=== PATIENT | female | born 1980 | race Caucasian/White ===

== ENCOUNTER 2022-07-26 00:03 | Emergency (ER) | payer BC, SELFPAY ==
[2022-07-26] VITALS (7 sets, daily range): BP systolic 138–154; BP diastolic 88–96; PULSE 107–115; RESP 18–22; TEMP 37.5; O2SAT 89–96; BMI 54.7
--- NOTE | 2022-07-26 00:22 | CRLHL7_ITS ---
For Patients: As a result of the Century Cures Act, medical imaging exams and procedure reports are released immediately into your electronic medical record. You may view this report before your referring provider. If you have questions, please contact your health care provider. INDICATION: Shortness of breath TECHNIQUE: Chest radiograph 2 views COMPARISON: 01/09/2020 FINDINGS: The sensitivity and specificity of the exam are moderately limited by the patient`s body habitus. Mediastinum: The mediastinum is normal in appearance. The heart silhouette is normal in size and morphology. Lung: New mild diffuse ground-glass infiltrates are present bilaterally. No sign of pleural effusion seen. No pneumothorax is identified. Bone and Soft tissue: Unremarkable for age. IMPRESSION: 1. New mild diffuse ground-glass infiltrates are present bilaterally. Findings may be due to pulmonary edema or atypical pneumonia. Dictated by Simone Caceres MD @ 07/26/2022 1:29:37 AM Dictated by: Simone Caceres MD @ 07/26/2022 01:29:43 (Electronically Signed)
--- NOTE | 2022-07-26 00:24 | ED_ITS ---
HPI - SOB/Dyspnea General Chief Complaint: Cough Stated Complaint: Difficulty Breathing Time Seen by Provider: 07/26/22 00:05 History of Present Illness HPI Narrative: Pt is a 42 year old woman who presents with worsening cough today after being diagnosed in [place] with RSV 3 weeks ago. Pt's cough has persisted over the past 3 weeks inspite of symptomatic treatment. No fever or chills noted. Pt has no chest pain. Minimal shortness of breath. No recent travel or sick contacts. Pt's cough is nonproductive. 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 Pt states that her symptoms are worsening and she is really struggling dealing with the cough. No other significant symptoms. Related Data Home Medications Medication Instructions Recorded Confirmed acyclovir 400 mg tablet 400 mg PO Q12H 07/26/22 07/26/22 albuterol sulfate 2.5 mg/3 mL mg 07/26/22 (0.083 %) solution for nebulization albuterol sulfate 90 mcg/actuation inhalation 07/26/22 aerosol inhaler (Ventolin HFA) deferasirox 500 mg dispersible 500 mg PO .once daily 07/26/22 07/26/22 tablet levothyroxine 88 mcg tablet 88 mcg PO .once daily 07/26/22 07/26/22 loratadine 10 mg tablet (Claritin) 10 mg PO DAILY 07/26/22 07/26/22 sertraline 100 mg tablet 100 mg PO .at bedtime 07/26/22 07/26/22 Allergies Allergy/AdvReac Type Severity Reaction Status Date / Time chlorhexidine Allergy Intermediate hives Verified 07/26/22 00:22 morphine Allergy Intermediate rash Verified 07/26/22 00:22 Review of Systems Status of ROS: Reports: 10 or more systems reviewed and unremarkable except as noted in History and below [facility] Medical History (Updated 07/26/22 @ 03:19 by Price Flores MD) Anxiety 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 Obese with cough EYES: No scleral icterus. ENT: Tympanic membranes and oropharynx normal. THYROID: no thyroid nodules or thyromegaly. LYMPH: No supraclavicular or cervical lymphadenopathy. SKIN: Visible skin seen during exam normal or with benign process only. EXT: No dependent lower extremity pedal edema. HEART: Regular rate and rhythm with no murmurs, rubs, or gallops. LUNGS: Clear to auscultation bilaterally with no crackles or wheezes. ABD: Soft, non tender, non distended. PSYCH: Good eye contact, speech is not pressured. Const: Vital Signs, click to edit/add: Vital Signs - 24 hr 07/26/22 00:23 07/26/22 01:16 07/26/22 01:34 Temperature 99.5 F Pulse Rate [Pulse Oximeter] 110 H 108 H 111 H Respiratory Rate 22 20 20 Blood Pressure [Ri ght Forearm] 154/96 H 153/88 H Pulse Oximetry 96 92 92 Oxygen Delivery Me thod Room Air Room Air Room Air Oxygen Flow Rate 07/26/22 01:45 07/26/22 01:47 07/26/22 02:18 Temperature Pulse Rate [Pulse Oximeter] 108 H 107 H Respiratory Rate 18 20 Blood Pressure [Ri ght Forearm] Pulse Oximetry 89 95 96 Oxygen Delivery Me thod Room Air Nasal Cannula Nasal Cannula Oxygen Flow Rate 1 1 Course Course Hospital Course: Pt seen. EKG, CXR, CBC, CMP, Troponin, D dimer ordered. Reevaluation(s) Reevaluation #1: Chest x ray shows bilateral ground glass appearance. Mild elevation of D dimer. CBC shows leukocytosis and anemia. CT of the chest PE protocol ordered. Reevaluation #2: CT shows atypical pneumonia. Vital Signs Vital signs: Initial Vital Signs Temperature 99.5 F 07/26/22 00:23 Temperature Source Temporal Artery Scan 07/26/22 00:23 Pulse Rate 110 H 07/26/22 00:23 Respiratory Rate 22 07/26/22 00:23 Blood Pressure 154/96 H 07/26/22 00:23 Blood Pressure Mean 115 07/26/22 00:23 Pulse Oximetry 96 07/26/22 00:23 Oxygen Delivery Method 07/26/22 00:23 Vital Signs Temperature 99.5 F 07/26/22 00:23 Pulse Rate 110 H 07/26/22 00:23 Respiratory Rate 22 07/26/22 00:23 Blood Pressure 154/96 H 07/26/22 00:23 Pulse Oximetry 96 07/26/22 00:23 Oxygen Delivery Method 07/26/22 00:23 Temperature 99.5 F 07/26/22 00:23 Pulse Rate 107 H 07/26/22 02:18 Respiratory Rate 20 07/26/22 02:18 Blood Pressure 153/88 H 07/26/22 01:34 Pulse Oximetry 96 07/26/22 02:18 Oxygen Delivery Method 07/26/22 02:18 Oxygen Flow Rate 1 07/26/22 02:18 MDM - SOB/Dyspnea MDM Narrative Medical decision making narrative: Pt who is SP Bone Marrow transplant for pure red cell aplasia presents with cough. Pt oxygen saturation 95% on room air. Pt tests negative for viral eitiologies. Pt Hgb at 8.8 with elevated WBC at 13.58. D dimer mildly elevated. CXR showed bilateral ground glass. CT of the chest showed no PE but atypical pneumonia. Pt troponin negative. Lactate n egative. Pt mildly tachycardic. I have no hospital beds here tonight. Pt comfortable. I offered to call her transplant center at [facility] but she states she would rather follow up with them at her scheduled appt Thursday. Pt started on Zithromax, Augmentin and Prednisone with CLOSE outpt follow up. Differential Diagnosis Differential diagnosis: Likely acute exacerbation of chronic obstructive airways disease, congestive heart failure, community acquired pneumonia, asthma with exacerbation and pulmonary embolism Lab Data Labs: Lab Results 07/26/22 07/26/22 07/26/22 Range/Units 00:45 00:45 00:45 WBC 13.58 H (4.50-11.00) K/uL RBC 2.36 L (4.00-5.20) m/uL Hgb 8.8 L (12.0-16.0) gm/dL Hct 26.4 L (33.0-51.0) % MCV 112 H (80-100) fL MCH 37 H (26-34) pg MCHC 33 (32-36) gm/dL RDW Coeff of Panda 15.8 H (11.5-15.5) % Plt Count 274 (140-440) K/uL Neut % (Auto) 83.2 H (42.0-72.0) % Lymph % (Auto) 9.2 L (20-44) % Luna % (Auto) 4.9 (0.0-11.0) % Eos % (Auto) 1.4 (0.0-7.0) % Baso % (Auto) 0.1 (0.0-3.0) % Neut # (Auto) 11.30 H (1.7-7.0) K/uL Lymph # (Auto) 1.20 (0.90-2.90) K/uL Luna # (Auto) 0.70 (0.00-0.90) K/UL Eos # (Auto) 0.20 (0.00-0.50) K/uL Baso # (Auto) 0.00 (0.00-0.30) K/uL D-Dimer Quant (PE/DVT) 0.62 H (0.00-0.50) ug/ml Sodium 142 (135-149) mmol/L Potassium 3.6 (3.6-5.1) mmol/L Chloride 109 (96-114) mmol/L Carbon Dioxide 27 (20-32) mmol/L BUN 27 H (5-24) mg/dL Creatinine 1.5 (0.5-1.5) mg/dL Estimated Creat Clear 49.79 Estimated GFR 45 ml/min Glucose 136 H (60-115) mg/dL Lactate (0.5-1.9) mmol/L Calcium 9.2 (8.4-10.6) mg/dL Total Bilirubin 0.5 (0.1-1.5) mg/dL AST 23 (12-35) U/L ALT 28 (4-35) U/L Alkaline Phosphatase 85 (40-150) U/L Troponin I < 0.01 L (0.01-0.04) ng/mL NT-Pro-B Natriuret Pep pg/mL Total Protein 8.0 (6.0-8.3) g/dL Albumin 3.9 (3.3-5.0) g/dL SARS-CoV-2 (PCR) (Negative) Influenza Type A (PCR) (Negative) Influenza Type B (PCR) (Negative) RSV (PCR) (Negative) 07/26/22 07/26/22 07/26/22 Range/Units 00:45 00:45 02:24 WBC (4.50-11.00) K/uL RBC (4.00-5.20) m/uL Hgb (12.0-16.0) gm/dL Hct (33.0-51.0) % MCV (80-100) fL MCH (26-34) pg MCHC (32-36) gm/dL RDW Coeff of Panda (11.5-15.5) % Plt Count (140-440) K/uL Neut % (Auto) (42.0-72.0) % Lymph % (Auto) (20-44) % Luna % (Auto) (0.0-11.0) % Eos % (Auto) (0.0-7.0) % Baso % (Auto) (0.0-3.0) % Neut # (Auto) (1.7-7.0) K/uL Lymph # (Auto) (0.90-2.90) K/uL Luna # (Auto) (0.00-0.90) K/UL Eos # (Auto) (0.00-0.50) K/uL Baso # (Auto) (0.00-0.30) K/uL D-Dimer Quant (PE/DVT) (0.00-0.50) ug/ml Sodium (135-149) mmol/L Potassium (3.6-5.1) mmol/L Chloride (96-114) mmol/L Carbon Dioxide (20-32) mmol/L BUN (5-24) mg/dL Creatinine (0.5-1.5) mg/dL Estimated Creat Clear Estimated GFR ml/min Glucose (60-115) mg/dL Lactate 0.5 (0.5-1.9) mmol/L Calcium (8.4-10.6) mg/dL Total Bilirubin (0.1-1.5) mg/dL AST (12-35) U/L ALT (4-35) U/L Alkaline Phosphatase (40-150) U/L Troponin I (0.01-0.04) ng/mL NT-Pro-B Natriuret Pep 260 pg/mL Total Protein (6.0-8.3) g/dL Albumin (3.3-5.0) g/dL SARS-CoV-2 (PCR) Negative SARS-CoV-2 (Negative) Influenza Type A (PCR) Negative PCR FLU A (Negative) Influenza Type B (PCR) Negative PCR FLU B (Negative) RSV (PCR) Negative PCR RSV (Negative) Discharge Plan Discharge Clinical Impression: Atypical pneumonia Patient Disposition: Home, Self-Care Condition: Stable Instructions: Pneumonia (ED) Additional Instructions: Zithormax Augmentin Prednisone Continue current medications Follow up with Transplant Center on Thursday. Activity Level: No Restrictions Discharge Diet: Regular Prescriptions: No Action albuterol sulfate 2.5 mg /3 mL (0.083 %) solution for nebulization sertraline 100 mg tablet 100 mg PO .at bedtime acyclovir 400 mg tablet 400 mg PO Q12H levothyroxine 88 mcg tablet 88 mcg PO .once daily albuterol sulfate [Ventolin HFA] 90 mcg/actuation HFA aerosol inhaler INHALATION deferasirox 500 mg tablet, dispersible 500 mg PO .once daily loratadine [Claritin] 10 mg tablet 10 mg PO DAILY Stand Alone Forms: MyHealth Info Instructions
[2022-07-26 00:57] LABS: Basophils Percent Auto 0.1 % (0.0-3.0); Eosinophils Percent Auto 1.4 % (0.0-7.0); Hematocrit 26.4 % (33.0-51.0); Hemoglobin* 8.8 gm/dL (12.0-16.0); Immature Granulocytes Pct Auto 1.2 %; Lymphocytes Percent Auto 9.2 % (20-44); Mean Corpuscular HGB Conc 33 gm/dL (32-36); Mean Corpuscular Hemoglobin 37 pg (26-34); Mean Corpuscular Volume 112 fL (80-100); Monocytes Percent Auto 4.9 % (0.0-11.0); Neutrophils Percent Auto 83.2 % (42.0-72.0); Platelet Count* 274 K/uL (140-440); RDW Coefficient of Variation % 15.8 % (11.5-15.5); Red Blood Count 2.36 m/uL (4.00-5.20); White Blood Count* 13.58 K/uL (4.50-11.00)
[2022-07-26 01:07] LABS: Slide Review Reflex No
--- NOTE | 2022-07-26 01:13 | ED.NURSE ---
Patient's oxygen desaturates to 85% on RA with activity. Recovers with rest after several minutes. Currently, 92% on RA while resting on the cot.
[2022-07-26 01:17] LABS: Albumin* 3.9 g/dL (3.3-5.0); Chloride* 109 mmol/L (96-114)
[2022-07-26 01:18] LABS: Potassium* 3.6 mmol/L (3.6-5.1); Sodium* 142 mmol/L (135-149)
[2022-07-26 01:20] LABS: Alkaline Phosphatase* 85 U/L (40-150); Aspartate Amino Transferase* 23 U/L (12-35); Bilirubin Total* 0.5 mg/dL (0.1-1.5); Blood Urea Nitrogen* 27 mg/dL (5-24); Carbon Dioxide* 27 mmol/L (20-32); Creatinine* 1.5 mg/dL (0.5-1.5); Est. Creatinine Clearance* 49.79; Estimated Glomerular Filt Rate 45 ml/min
[2022-07-26 01:21] LABS: Alanine Aminotransferase* 28 U/L (4-35); Calcium* 9.2 mg/dL (8.4-10.6); Glucose* 136 mg/dL (60-115)
[2022-07-26 01:22] LABS: D Dimer Quantitative* 0.62 ug/ml (0.00-0.50)
--- NOTE | 2022-07-26 01:29 | CRLHL7_ITS ---
For Patients: As a result of the Century Cures Act, medical imaging exams and procedure reports are released immediately into your electronic medical record. You may view this report before your referring provider. If you have questions, please contact your health care provider. INDICATION: Shortness of breath. Elevated D-dimer. COMPARISON: Chest two views from today. TECHNIQUE: CT examination of the chest was performed with the uneventful intravenous administration of 95 cc of Isovue 370 while 1.5 mm thick axial sections were obtained from above the apices of the lungs through the mid renal level. Please note that all CT scans at this facility use dose modulation, iterative reconstruction, and/or weight-based dosing when appropriate to reduce radiation dose to as low as reasonably achievable. FINDINGS: : There is no sign of pulmonary embolism, with normal enhancement and branching of the pulmonary arteries. There is mild patchy perihilar interstitial infiltrate with a combination of ground-glass and reticular markings, consistent with either atypical pneumonia or mild congestive failure. I do not see any pleural effusions, suggesting atypical pneumonia as a cause of the infiltrates rather than congestive failure. There is mild mediastinal lymphadenopathy with a right paratracheal lymph node with short axis diameter of 1.5 centimeters and right subcarinal lymph node with short axis diameter of 1.2 centimeters. This lymphadenopathy is nonspecific, but could be reactive. There is no sign of hilar mass or adenopathy. The heart is top-normal in size but is otherwise normal in appearance. There is age appropriate appearance of the thoracic aorta and ascending great vessels. There is no sign of supraclavicular or axillary mass or adenopathy. The visualized superior liver, spleen, pancreas, kidneys, and adrenals are normal in appearance. The osseous structures are normal in appearance for the patient`s age. IMPRESSION: No sign of pulmonary embolism. Mild patchy ground-glass and interstitial infiltrates relatively uniformly distributed throughout the lungs. Atypical pneumonia versus mild congestive failure. The absence of pleural effusions is suggestive of atypical pneumonia. Mild mediastinal lymphadenopathy, probably reactive. Please note that all CT scans at this facility use dose modulation, iterative reconstruction, and/or weight-based dosing when appropriate to reduce radiation dose to as low as reasonably achievable. Dictated by Garett White MD @ 07/26/2022 3:05:11 AM (Electronically Signed)
[2022-07-26 01:33] LABS: Troponin I* < 0.01 ng/mL (0.01-0.04)
[2022-07-26 01:34] LABS: PCR FLU A Negative PCR FLU A (Negative); PCR FLU B Negative PCR FLU B (Negative); PCR RSV Negative PCR RSV (Negative); SARS PCR* Negative SARS-CoV-2 (Negative)
[2022-07-26 02:27] LABS: Lactate* 0.5 mmol/L (0.5-1.9)
[2022-07-26 02:30] LABS: NT Pro B Type NatriureticPept* 260 pg/mL
== END 2022-07-26 03:40 | disposition home or self-care (01) ==
PROVIDERS: Emergency Provider Internal Medicine; PCP Physician Assistant
DX: J18.9 Pneumonia, unspecified organism (principal)
CPT/HCPCS: 36415; 71046; 71260; 80053; 83605; 83880; 84484; 85025; 85379; 87502; 87634; 87635; 93005; 99283; 99285; Q9967

== ENCOUNTER 2023-01-27 10:53 | Emergency (ER) | payer BC, SELFPAY ==
[2023-01-27 10:55] VITALS: BP 170/99; PULSE 87; RESP 20; TEMP 36.4; O2SAT 99; BMI 64.9
--- NOTE | 2023-01-27 11:25 | ED.GENADULT ---
HPI - General Adult General Time Seen by Provider: 11:25 Date Seen: 01/27/23 Chief complaint: Unspecified Complaint, Adult Stated complaint: Feet swollen, elevated heartrate, fever Time Seen by Provider: 01/27/23 10:53 Source: patient and RN notes reviewed Mode of arrival: ambulatory Limitations: no limitations History of Present Illness HPI narrative: Patient is a 42-year-old female coming with primary concern of nausea and diarrhea. She has had diarrhea since yesterday after eating, maybe 78 liquidy stools yesterday and 2-3 today. She has felt feverish and chilled since yesterday has had a headache. She has had nausea but no vomiting. She has had some toast and been taking in water to stay hydrated. 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 She had this at [facility], Dr. Jordan is her assurance officer. 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 She has started getting a phlebotomy due to iron overload from having over 25 units of packed red blood cell transfusions during her illness. She is going to get phlebotomy once a month, had her 1st 1 on Thursday in [place]. She states her ferritin was 2500. She also brought up that her feet have been bothering her this is been going on for months. She states they will become edematous, it did note pitting edema before. She is not short of breath. Her feet are hurting to walk. She also related to me that she lost her fiance in the recent past at 39 due to natural causes. She denies any history of skin changes with her evzxh-dthvnn-tifm disease, states it was just GI. Patient also reports she did have C difficile colitis about a year ago, states the what her symptoms are are not anywhere near what that felt like. Related Data Home Medications Medication Instructions Recorded Confirmed acyclovir 400 mg tablet 400 mg PO Q12H 07/26/22 07/26/22 albuterol sulfate 2.5 mg/3 mL mg 07/26/22 (0.083 %) solution for nebulization albuterol sulfate 90 mcg/actuation inhalation 07/26/22 aerosol inhaler (Ventolin HFA) deferasirox 500 mg dispersible 500 mg PO .once daily 07/26/22 01/27/23 tablet levothyroxine 88 mcg tablet 88 mcg PO .once daily 07/26/22 01/27/23 loratadine 10 mg tablet (Claritin) 10 mg PO DAILY 07/26/22 01/27/23 atorvastatin 20 mg tablet 20 mg PO DAILY 01/27/23 01/27/23 escitalopram oxalate 10 mg tablet 10 mg PO DAILY 01/27/23 01/27/23 escitalopram oxalate 20 mg tablet 20 mg PO DAILY 01/27/23 01/27/23 Previous Rx's Medication Instructions Recorded ondansetron 4 mg disintegrating 4 mg PO Q8H PRN nausea and 01/27/23 tablet vomiting #15 tabs Allergies Allergy/AdvReac Type Severity Reaction Status Date / Time chlorhexidine Allergy Intermediate hives Verified 07/26/22 00:22 morphine Allergy Intermediate rash Verified 07/26/22 00:22 Review of Systems Status of ROS: Reports: 6 or more systems reviewed and unremarkable except as noted in History and below [facility] Medical History Transplanted bone marrow present ?Z94.81 - Bone marrow transplant status (ICD-10) Anxiety ?F41.9 - Anxiety disorder, unspecified (ICD-10) 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) Social History Smoking Status: Never smoker Do you use any of these nicotine containing products: None Second hand tobacco smoke exposure: No How often do you have a drink containing alcohol: never How often do you have six or more drinks on one occasion: Never AUDIT-C Alcohol total score: 0 Non-prescribed substance use: denies use service: No Exam Const: Vital Signs, click to edit/add: Vital Signs - 24 hr 01/27/23 10:55 01/27/23 14:03 Temperature 97.5 F L Pulse Rate [Right Pulse Oximeter] 87 78 Respiratory Rate 20 18 Blood Pressure [Ri ght Upper Arm] 170/99 H 150/98 H Pulse Oximetry 99 99 Oxygen Delivery Me thod Room Air Documenting provider has reviewed patient's vital signs: yes Common normals: no apparent distress, average body habitus, oriented x3, no limitations, healthy appearing, alert and well nourished General appearance: cooperative, comfortable, well kempt and well developed Nutritional appearance: obese HENMT: Common normals: normocephalic, head/scalp atraumatic, hearing grossly normal bilaterally, external ears normal and external nose normal Head and scalp: normal to inspection, normocephalic and atraumatic Face and sinus: normal facial exam Nose: external nose normal External ear: external ears normal Eye: Common normals: PERRL, EOMs intact bilaterally, conjunctivae normal and no scleral icterus Conjunctiva: conjunctiva(e) normal Pupil: PERRL Neck & C-Spine: Common normals: full ROM, no lymphadenopathy and supple Resp: Common normals: normal respiratory effort, no retractions, no use of accessory muscles and clear to auscultation bilaterally Effort & inspection: able to speak in complete sentences Auscultation: clear to auscultation bilaterally Cardio: Common normals: regular rate, regular rhythm, S1 normal heart sound, S2 normal heart sound, no gallops, no clicks and no murmurs Rate: regular rate Rhythm: regular rhythm Heart sounds: S1 normal and S2 normal GI: Common normals: soft to palpation and non-tender Auscultation: hypoactive bowel sounds Palpation: soft Other: Patient is obese which precludes good evaluation for any underlying masses. She is however completely not tender at all, no rebound or guarding. Extremity: Other: Her lower extremities are thick, but there is absolutely no pitting edema. No pitting edema on the dorsum of the feet. There is no skin changes such as erythema, no joint effusions. She has no physical pitting edema of her lower extremities at this time. Neuro: Common normals: oriented x3 Sensorium/orientation: alert Psych: Appearance: well kempt Course Course Hospital Course: Have reviewed with Cyndy that this very likely represents an acute gastrointestinal issue/illness and not recurrent bsoko-buaazt-enui disease. However, we will get labs. Ultimately if she has ongoing a prolonged GI symptoms, this may need to be considered. She potentially would need scopes to get tissue for diagnosis of this. Reviewed with her that that is limiting step in diagnosing this. We did discuss that the diarrhea from eodfr-cbypxn-tdom disease can be quite profound. Given her benign clinical exam, do not feel that imaging of her abdomen is indicated. Will reconsider this if there is any concerning abnormalities on her labs. We did discuss her feet and report of edema. I am finding no edema at this time. Did discuss that at some point she should probably have x-rays of her feet to see if there is any bony changes developing such as arthritis. We did discuss the weight affects on the feet. At this time she declines imaging here states she is going to be following up in clinic tomorrow. I do feel that her complaints of her feet hurting and the edema she is reporting are safe to follow-up further tomorrow. We will be getting some baseline labs and certainly if there is any concerning change on these we will look further. Reevaluation(s) Time of Reevaluation #1: 13:51 Reevaluation #1: Patient is feeling better but nausea is starting to slowly come back. Will give her another dose of IV Zofran prior to discharge. We reviewed her normal white blood count, normal labs outside of a hemoglobin of 11.5 which she states is a bit higher than which she usually runs. We reviewed that her AST is mildly up at 41 and ALT mildly up at 64. I will give her these values to compare to her labs in her primary system. The certainly are not elevated enough that I am concerned other than they be followed up on. Vital Signs Vital signs: Initial Vital Signs Temperature 97.5 F L 01/27/23 10:55 Temperature Source Temporal Artery Scan 01/27/23 10:55 Pulse Rate 87 01/27/23 10:55 Respiratory Rate 20 01/27/23 10:55 Blood Pressure 170/99 H 01/27/23 10:55 Blood Pressure Mean 122 H 01/27/23 10:55 Blood Pressure Position Sitting 01/27/23 10:55 Pulse Oximetry 99 01/27/23 10:55 Oxygen Delivery Method Room Air 01/27/23 10:55 Vital Signs Temperature 97.5 F L 01/27/23 10:55 Pulse Rate 87 01/27/23 10:55 Respiratory Rate 20 01/27/23 10:55 Blood Pressure 170/99 H 01/27/23 10:55 Pulse Oximetry 99 01/27/23 10:55 Oxygen Delivery Method Room Air 01/27/23 10:55 Temperature 97.5 F L 01/27/23 10:55 Pulse Rate 78 01/27/23 14:03 Respiratory Rate 18 01/27/23 14:03 Blood Pressure 150/98 H 01/27/23 14:03 Pulse Oximetry 99 01/27/23 14:03 Oxygen Delivery Method Room Air 01/27/23 10:55 Medical Decision Making Lab Data Lab results reviewed: Yes I reviewed the patient's lab results Labs: Lab Results 01/27/23 01/27/23 Range/Units 12:05 12:15 WBC 5.80 (4.50-11.00) K/uL RBC 3.26 L (4.00-5.20) m/uL Hgb 11.5 L (12.0-16.0) gm/dL Hct 34.6 (33.0-51.0) % MCV 106 H (80-100) fL MCH 35 H (26-34) pg MCHC 33 (32-36) gm/dL RDW Coeff of Panda 15.4 (11.5-15.5) % Plt Count 222 (140-440) K/uL Neut % (Auto) 62.0 (42.0-72.0) % Lymph % (Auto) 27.4 (20-44) % Anson % (Auto) 6.9 (0.0-11.0) % Eos % (Auto) 2.8 (0.0-7.0) % Baso % (Auto) 0.2 (0.0-3.0) % Neut # (Auto) 3.60 (1.7-7.0) K/uL Lymph # (Auto) 1.59 (0.90-2.90) K/uL Anson # (Auto) 0.40 (0.00-0.90) K/UL Eos # (Auto) 0.16 (0.00-0.50) K/uL Baso # (Auto) 0.01 (0.00-0.30) K/uL Abs Immat Gran (auto) 0.04 (0.00-0.30) K/uL Imm/Tot Granulo (auto) 0.7 % Sodium 138 (135-149) mmol/L Potassium 3.7 (3.6-5.1) mmol/L Chloride 103 (96-114) mmol/L Carbon Dioxide 29 (20-32) mmol/L BUN 21 (5-24) mg/dL Creatinine 1.1 (0.5-1.5) mg/dL Estimated Creat Clear 67.89 Estimated GFR 65 ml/min Glucose 119 H (60-115) mg/dL Lactate 1.0 (0.5-1.9) mmol/L Calcium 9.1 (8.4-10.6) mg/dL Total Bilirubin 0.6 (0.1-1.5) mg/dL AST 41 H (12-35) U/L ALT 64 H (4-35) U/L Alkaline Phosphatase 61 (40-150) U/L C-Reactive Protein 2.0 H (0.5-1.0) mg/dL Total Protein 7.8 (6.0-8.3) g/dL Albumin 4.1 (3.3-5.0) g/dL SARS-CoV-2 (PCR) Negative SARS-CoV-2 (Negative) Discharge Plan Discharge Clinical Impression: Gastroenteritis Patient Disposition: Home, Self-Care Condition: Stable Instructions: Gastroenteritis (ED), Nutrition Tips for Relief of Diarrhea (ED) Additional Instructions: Take frequent small sips of clear liquids to stay hydrated, will help prevent further nausea and vomiting. Can use Zofran as needed to try to control nausea so that you can drink better. Diet as tolerated, review handout. If you are worsening with increasing diarrhea and vomiting, develops abdominal pain or fever with this, see any blood in the stool or have increasing diarrheal symptoms, you do need to be re-evaluated. If your diarrheal illness is worsening, would recommend consideration of checking stool for C difficile and other stool pathogens. Note, liver enzymes ast 41 and alt 64 here today, compare with outpatient tests and follow if needed, defer to primary provider on this. Prescriptions: New ondansetron 4 mg tablet,disintegrating 4 mg PO Q8H PRN (Reason: nausea and vomiting) Qty: 15 0RF No Action albuterol sulfate 2.5 mg /3 mL (0.083 %) solution for nebulization acyclovir 400 mg tablet 400 mg PO Q12H levothyroxine 88 mcg tablet 88 mcg PO .once daily albuterol sulfate [Ventolin HFA] 90 mcg/actuation HFA aerosol inhaler INHALATION deferasirox 500 mg tablet, dispersible 500 mg PO .once daily loratadine [Claritin] 10 mg tablet 10 mg PO DAILY atorvastatin 20 mg tablet 20 mg PO DAILY escitalopram oxalate 10 mg tablet 10 mg PO DAILY escitalopram oxalate 20 mg tablet 20 mg PO DAILY Follow Up/Referrals: Caren Gómez PA [Referring] - Stand Alone Forms: [employer] [facility] Info Instructions
[2023-01-27] MEDS: ONDANSETRON 2 MG/ML inj 4 MG IVP ×2 (12:13→14:07)
[2023-01-27] MEDS: 0.9 % SODIUM CHLORIDE 1000 ml 1,000 ML 500 ML IV (12:14)
[2023-01-27 12:17] LABS: Basophils Absolute Auto 0.01 K/uL (0.00-0.30); Basophils Percent Auto 0.2 % (0.0-3.0); Eosinophils Absolute Auto 0.16 K/uL (0.00-0.50); Eosinophils Percent Auto 2.8 % (0.0-7.0); Hematocrit 34.6 % (33.0-51.0); Hemoglobin* 11.5 gm/dL (12.0-16.0); Immature Granulocytes Abs Auto 0.04 K/uL (0.00-0.30); Immature Granulocytes Pct Auto 0.7 %; Lymphocytes Absolute Auto 1.59 K/uL (0.90-2.90); Lymphocytes Percent Auto 27.4 % (20-44); Mean Corpuscular HGB Conc 33 gm/dL (32-36); Mean Corpuscular Hemoglobin 35 pg (26-34); Mean Corpuscular Volume 106 fL (80-100); Monocytes Percent Auto 6.9 % (0.0-11.0); Platelet Count* 222 K/uL (140-440); RDW Coefficient of Variation % 15.4 % (11.5-15.5); Red Blood Count 3.26 m/uL (4.00-5.20)
[2023-01-27 12:18] LABS: Slide Review Reflex No
[2023-01-27 12:44] LABS: Albumin* 4.1 g/dL (3.3-5.0); Chloride* 103 mmol/L (96-114); Sodium* 138 mmol/L (135-149)
[2023-01-27 12:45] LABS: Potassium* 3.7 mmol/L (3.6-5.1)
[2023-01-27 12:47] LABS: Bilirubin Total* 0.6 mg/dL (0.1-1.5); Creatinine* 1.1 mg/dL (0.5-1.5); Est. Creatinine Clearance* 67.89; Estimated Glomerular Filt Rate 65 ml/min
[2023-01-27 12:48] LABS: Alanine Aminotransferase* 64 U/L (4-35); Alkaline Phosphatase* 61 U/L (40-150); Aspartate Amino Transferase* 41 U/L (12-35); Blood Urea Nitrogen* 21 mg/dL (5-24); Calcium* 9.1 mg/dL (8.4-10.6); Carbon Dioxide* 29 mmol/L (20-32); Glucose* 119 mg/dL (60-115); Total Protein* 7.8 g/dL (6.0-8.3)
[2023-01-27 13:01] LABS: SARS PCR* Negative SARS-CoV-2 (Negative)
[2023-01-27 14:03] VITALS: BP 150/98; PULSE 78; RESP 18; O2SAT 99
== END 2023-01-27 14:26 | disposition home or self-care (01) ==
PROVIDERS: Emergency Provider Family Medicine; PCP Student in an Organized Health Care Education/Training Program
DX: K52.9 Noninfective gastroenteritis and colitis, unspecified (principal)
CPT/HCPCS: 36415; 80053; 83605; 85025; 86140; 87635; 96361; 96374; 96376; 99284; J2405; J7030

== ENCOUNTER 2023-08-17 14:20 | Outpatient (CLI) | payer BC, SELFPAY ==
--- OUTSIDE RECORDS SUMMARY | 2023-08-17 14:25 | XMS_ITS | Clinical Summary ---
Author Name Unknown Organization [facility] Address [place], [place] [address] Care Team Providers Care Recenterer Name Role Phone Concha Rabago MD Unavailable Payton Eason NP Unavailable Nyasia Prince Unavailable Unavailable Dee Chris Primary Care Provider [phone] Allergies Active Allergy Reactions Criticality Noted Date Comments Blood-Group Specific Substance 12/02/2009 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 Blood product orders may be delayed. ??Please draw one red top and two lavender top tubes for all Type and Screen/Type and Crossmatch orders. Chlorhexidine Gluconate Hives,Rash High 04/06/2021 Broke out in hives from CHG wipes Lanolin Oil Rash Medium 12/02/2009 Has reacted since to lanolin-containing products and wool Mold Dyspnea 10/24/2016 ground mold Morphine Rash High 12/01/2009 Adhesive Rash 12/01/2009 Sheep/Ovine/Jean Containing Products Rash Medium 12/02/2009 Sulfamethoxazole-Trimethopr im Itching High 11/05/2021 Wool Rash Medium 12/02/2009 Medications Medication Sig Dispensed Refills Start Date End Date Status loratadine (CLARITIN) 10 mg tablet Take 10 mg by mouth once daily. 0 Active Deferasirox 500 mg disintegrating tablet Take 1 Tablet (500 mg) by mouth once daily. 0 12/23/2021 Active atorvastatin (LIPITOR) 20 mg tabletIndications:Hype rlipidemia, unspecified hyperlipidemia type Take 1 Tablet (20 mg) by mouth at bedtime. 90 Tablet 3 09/15/2022 Active escitalopram oxalate (LEXAPRO) 20 mg tabletIndications:Anxi ety Take 1 Tablet (20 mg) by mouth every morning. Dose increase 11/11/22 90 Tablet 1 11/11/2022 Active acetaminophen (TYLENOL ARTHRITIS ORAL) Take 2 Tablets by mouth two times daily. 0 Active clindamycin 1% (CLEOCIN-T) 1 % gel Apply topically to affected area(s). 0 10/20/2022 Active levothyroxine (SYNTHROID) 88 mcg tabletIndications:Hypo thyroidism (acquired) TAKE 1 TABLET(88 MCG) BY MOUTH BEFORE BREAKFAST 90 Tablet 0 05/10/2023 Active fluticasone (50 mcg per actuation) nasal solution (FLONASE)Indications:S inusitis, unspecified chronicity, unspecified location Inhale 1 [place] into affected nostril(s) once daily. 16 g 0 05/30/2023 Active Active Problems Problem Noted Date Diagnosed Date Type 2 diabetes mellitus wit hout complication, without long-term current use of insulin 05/11/2023 Last Assessment & Plan: Chart update only. LESLIE Hardwick .................... 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 Had 3 Units of blood at [facility]. Work up pending. Had high SED Rate and CRP also. Peripheral smear before blood transfusion pending from Hospital. Morbid obesity with BMI of 50.0-59.9, adult 02/10 Hypothyroidism (acquired) 02/20/2017 Vitamin D deficiency 02/10/2010 Heartburn 12/01/2009 Migraine 04/14/2008 Resolved Problems Problem Noted Date Diagnosed Date Resolved Date Mild preeclampsia 12/01/2009 09/09/2022 Gestational edema with proteinuria 12/01/2009 01/06/2011 Hx of preeclampsia, prior pr egnancy, currently 12/01/2009 01/06/2011 Obesity complicating 12/01/2009 09/09/2022 Supervision of other normal 05/08/2009 12/01/2009 Unspecified asthma(493.90) 04/14/2008 0 09/09/2022 Encounters Date Type Department Care Team Description 08/17/2023 2:30 PM SALES MARKETING MANAGER Office Visit [facility] [address] [place] [address] Meghan Rider PA Back Pain (Patient complains of lower back pain for 1 1/2 weeks. Pain radiates back and towards front. Movement really hurts. Right leg hurts from the pain./Denies any other symptoms./Couldn't get comfortable sleeping, excruciating pain with movement./Tylenol arthritis 800 mg BID has not helped. 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 Couldn't sleep last night. ) 08/17/2023 Travel 08/07/2023 3:30 PM SALES MARKETING MANAGER - 08/07/2023 11:59 PM SALES MARKETING MANAGER Hospital Encounter [facility] [address] [place] [address] Iron overload due to repeated red blood cell transfusions 08/07/2023 Travel 08/04/2023 3:30 PM SALES MARKETING MANAGER - 08/04/2023 11:59 PM SALES MARKETING MANAGER Hospital Encounter [facility] [address] [place] [address] Macrocytic anemia 08/04/2023 Travel 07/30/2023 Hospital/[facility] Telephone Encounter [facility] [address] [place] [address] Nahomy Castellanos RN Pre Procedure 07/27/2023 4:02 PM SALES MARKETING MANAGER - 07/27/2023 11:59 PM SALES MARKETING MANAGER Hospital Encounter [facility] [address] [facility] [place] [address] Donny Brown MD Leduc, Matthew, PT 07/27/2023 Travel 07/17/2023 2:59 PM SALES MARKETING MANAGER - 07/17/2023 11:59 PM SALES MARKETING MANAGER Hospital Encounter [facility] [address] [facility] [place] [address] Donny Brown MD Leduc, Matthew, PT Patellofemoral arthralgia of left knee; Patellofemoral maltracking 07/17/2023 7:20 AM SALES MARKETING MANAGER Procedure Only [facility] [address] [place] [address] Trace Canela MD Procedure (Ultrasound guided injection lef... 07/16/2023 Travel 07/10/2023 9:00 AM SALES MARKETING MANAGER - 07/10/2023 11:59 PM SALES MARKETING MANAGER Hospital Encounter [facility] [address] [facility] [place] [place] [address] Iron overload due to repeated red blood cell transfusions 07/10/2023 Travel 07/08/2023 Hospital/[facility] Telephone Encounter [facility] [address] [facility] [place] [address] Dee Corbin RN Pre Procedure (PVP) 07/07/2023 8:58 AM SALES MARKETING MANAGER - 07/07/2023 11:59 PM SALES MARKETING MANAGER Hospital Encounter [facility] [address] [facility] [place] [address] Macrocytic anemia 07/07/2023 Travel 06/19/2023 Telephone [facility] [address] [facility] [place] [address] Payton Eason, MANUFACTURING ENGINEER ASSEMBLY Appointment 06/15/2023 4:00 PM SALES MARKETING MANAGER Ancillary Procedure [facility] [place] [address] [place] [address] 06/15/2023 3:40 PM SALES MARKETING MANAGER Office Visit [facility] [place] [address] [place] [address] Donny Brown MD Consult (Left Knee) 06/15/2023 Travel 06/11/2023 Telephone [facility] [address] [place] [address] Payton Eason NP Appointment 05/30/2023 9:40 AM SALES MARKETING MANAGER Telemedicine [facility] [address] [place] [address] Apolinar Vasquez NP Influenza Like Illness (Telehealth (Virtual urgent care). No vitals taken.) 05/30/2023 Travel 05/20/2023 2:47 PM SALES MARKETING MANAGER - 05/20/2023 11:59 PM SALES MARKETING MANAGER Hospital Encounter [facility] [address] [place] [address] Dee Chris PA Chronic pain of left knee 05/20/2023 Travel from Last 3 Months Immunizations Name Administration Dates Next Due COVID-19 Vaccine Spikevax (M oderna 50mcg/0.5mL) 12YO+ [id number] Formula PF 05/04/2023 COVID-19 vaccine (Epigami-Bio NTech 30mcg/0.3mL) 12YO+ BIVALENT PF, MDV 09/09/2022 [id number] (Pediarix) 05/01/2023,09/09/2022,1 HIB PRP-OMP (PedvaxHIB) 09/09/2022 HIB PRP-T (ActHIB,Hiberix) 05/01/2023,05/01/2022 Influenza Virus, Unspecified 05/01/2022 Influenza, IIV4 05/04/2023,05/01/2022,06/10/2021 MMR 05/01/2023 Pneumococcal conj 13-Valent (Prevnar 13) 023 Tdap 02/23/2018,04/17/2008 Zoster (Shingrix-RZV, recombinant) 09/09/2022, Family History Medical History Relation Name Comments Other Father Spinal stinosis from infection relating to gastric bypass Unknown Maternal Grandfather Diabetes Maternal Grandmother Cancer-breast Mother breast, lobula r in the r, ductal in the l. Other Mother blood clots, PE . Thinks related to medication for neuropathy. Cancer-breast Other maternal great grandmother Heart Disease Paternal Grandfather Other Paternal Grandmother brain a neurysm Diabetes Sister 1 gestational Other Sister 2 migraine Anesthesia Malignant Hyperthermia No Family History Relation Name Status Comments Father Maternal Grandfather Maternal Grandmother Mother Alive Other Paternal Grandfather Paternal Grandmother Sister 1 Sister 2 Social History Tobacco Use Types Packs/Day Years Used Date Smoking Tobacco: Never Smokeless Tobacco: Never Tobacco Cessation:Counseling Given: Yes Alcohol Use Standard Drinks/Week Comments Yes 1 (1 standard drink = 0.6 oz pur e alcohol) occasional PHQ-2 Answer Date Recorded PHQ-2 TOTAL SCORE 6 11/11/2022 Social Connections Answer Date Recorded Frequency of Communication with Friends and Fami ly 0 09/09/2022 Financial Resource Strain Answer Date R ecorded Difficulty of Paying Living Expenses 3 09/09/2022 Difficulty of Paying Living Expenses Not on file 09/09/2022 Food Insecurity Answer Date Recorded Worried About Running Out of Food in the Last Ye ar 1 09/09/2022 Transportation Needs Answer Date Record ed Lack of Transportation (Medical) 1 09/09/2022 Housing Stability Answer Date Recorded Unable to Pay for Housing in the Last Year 1 09/09/2022 Sex and Gender Information Value Date Recorded Sex Assigned at Female 04/02/2020 9:45 AM CDT Gender Identity Female 04/02/2020 9:45 AM CDT Sexual Orientation Straight 04/02/2020 9: 45 AM CDT Obstetrics History Para Term AB IAB SAB Ectopic Multiple Livin g Live Births 2 2 2 1 Date Outcome GA Total Labor Labor/2nd/3rd Weight Sex Delivery Anes PTL Cherry A1 A5 Name Cl in 09/03 Term 38w 0d 14h 00m/ 4.22 kg (9 lb 5 oz) M Vag Comments:pre-eclampsia 12/26 Term 38w 0d 10h 00m/ 3.91 kg (8 lb 10 oz) F Vag Last Filed Vital Signs Vital Sign Reading Time Taken Comments Blood Pressure 147/95 08/17/2023 1:08 PM SALES MARKETING MANAGER Pulse 106 08/17/2023 1:07 PM SALES MARKETING MANAGER Temperature 36.8 ??C (98.2 ??F) 08/17/2023 1:07 PM CS T Respiratory Rate 20 08/07/2023 4:06 PM SALES MARKETING MANAGER Oxygen Saturation 99% 08/17/2023 1:07 PM SALES MARKETING MANAGER Inhaled Oxygen Concentration - - Weight 202.2 kg (445 lb 11.2 oz) 08/17/2023 1:07 PM SALES MARKETING MANAGER Height 171.5 cm (5' 7.52) 04/23/2023 3:38 PM CD T Body Mass Index 68.74 04/23/2023 3:38 PM CDT Plan of Treatment Upcoming Encounters Date Type Department Care Team (Late st Contact Info) Description 08/17/2023 2:30 PM SALES MARKETING MANAGER Office Visit [facility] [address] [place] [address] Meghan Rider PA [address] [place] [address] Back Pain (Patient complains of lower back pain for 1 1/2 weeks. Pain radiates back and towards front. Movement really hurts. Right leg hurts from the pain./Denies any other symptoms./Couldn't get comfortable sleeping, excruciating pain with movement./Tylenol arthritis 800 mg BID has not helped. 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.) 08/18/2023 3:45 PM SALES MARKETING MANAGER Appointment [address] [address] Mike Storey, PT [address] [place] [address] 08/24/2023 8:40 AM SALES MARKETING MANAGER Office Visit [facility] [address] [place] [address] Dee Chris PA [address] [place] [address] 08/25/2023 4:30 PM SALES MARKETING MANAGER Appointment [address] [address] Mike Storey, PT [address] [place] [address] 09/01/2023 4:00 PM SALES MARKETING MANAGER Appointment [facility] [address] [place] [address] 09/01/2023 4:30 PM SALES MARKETING MANAGER Appointment [facility] [address] [facility] [address] [facility] [place] [address] Mike Storey, PT [address] [facility] [address] [facility] [address] 09/04/2023 3:30 PM SALES MARKETING MANAGER Appointment [facility] [address] [facility] [place] [address] 09/08/2023 4:30 PM SALES MARKETING MANAGER Appointment [facility] [address] [facility] [place] [address] Mike Storey, PT [address] [facility] [address] [facility] [place] [address] 09/15/2023 4:30 PM SALES MARKETING MANAGER Appointment [facility] [address] [facility] [address] [facility] [address] Mike Storey, PT [address] [facility] [address] [facility] [address] Health Maintenance Due Date Last Done Comments Pap test for age 21-65 03/27/2023 , 03/27/2020, 02/20/2017, Additional history exists Pneumococcal series for age 6-64 (2 of 2 - PPSV23 or PCV20) 06/26/2023 05/01/2023 COVID-19 vaccine series (2022-24 season) 2023 05/04/2023, 09/09/2022, 05/01/2022, Additional history exists Depression screening for age 12+ 11/12/2023 11/11/2022, 09/09/2022, 08/08/2021, Additional history exists BMI (ht and wt on same day) for age 18+ 04/23/2024 04/23/2023, 09/09/2022, 04/26/2020, Additional history exists Tetanus booster 02/24/2028 02/23/2018, 04/17/2008 Tdap Completed 02/23/2018, 04/17/2008 HIV for age 15-65 Completed 01/26/2020, 05/08/2009 Hepatitis C screening for ag e 18-79 Completed 01/26/2020 Hepatitis B series for Diabetes Completed 05/01/2023, 09/09/2022, 05/01/2022 Influenza for age 9-49 Completed , 05/01/2022, 05/01/2022, Additional history exists Medical Devices Implanted Type Area Product Lister Device Identifier Shelf Expiration Date Model / Serial / Lot Power Port Isp Mri 6fr [id number] - [id number] Implanted:Qty: 1 on 04/11/2020 by Will Henry DO at [facility] N/A: [employer] 03/12/2021 [id number] / / [id number] Procedures Procedure Name Priority Date/Time Associated Diagnosis Comments URINALYSIS MICROSCOPIC Routine 08/17/2023 1:00 PM SALES MARKETING MANAGER Back pain, unspecified back location, unspecified back pain laterality, unspecified chronicity UA W/ SEDIMENT EXAM REFLEXED PER CRITERIA Routine 08/17/2023 1:00 PM SALES MARKETING MANAGER Back pain, unspecified back location, unspecified back pain laterality, unspecified chronicity PHLEBOTOMY THERAPEUTIC Routine 08/07/2023 3:36 PM SALES MARKETING MANAGER Iron overload due to repeated red blood cell transfusions CBC WITH AUTO DIFFERENTIAL Timed 08/04/2023 3:37 PM SALES MARKETING MANAGER Macrocytic anemia FERRITIN Today 08/04/2023 3:37 PM SALES MARKETING MANAGER Macrocytic anemia CBC WITH AUTO DIFFERENTIAL Today 08/04/2023 3:37 PM SALES MARKETING MANAGER Macrocytic anemia BEDSIDE US STUDY ARCHIVE Routine 07/17/2023 12:04 PM SALES MARKETING MANAGER Patellofemoral arthralgia of left knee Patellofemoral maltracking PHLEBOTOMY THERAPEUTIC Routine 07/10/2023 9:01 AM SALES MARKETING MANAGER Iron overload due to repeated red blood cell transfusions CBC WITH AUTO DIFFERENTIAL Timed 07/07/2023 9:03 AM SALES MARKETING MANAGER Macrocytic anemia FERRITIN Today 07/07/2023 9:03 AM SALES MARKETING MANAGER Macrocytic anemia CBC WITH AUTO DIFFERENTIAL Today 07/07/2023 9:03 AM SALES MARKETING MANAGER Macrocytic anemia XR KNEE 1 VIEW LEFT Routine 06/15/2023 3 :45 PM SALES MARKETING MANAGER Chronic pain of left knee MR KNEE LEFT WO Routine 05/20/2023 3:41 PM SALES MARKETING MANAGER Chronic pain of left knee from Last 3 Months Results * (ABNORMAL) URINALYSIS MICROSCOPIC (08/17/2023 1:00 PM SALES MARKETING MANAGER) RBC 3-5(A) 0-2, None Seen /HPF 08/17/2023 1:12 PM SALES MARKETING MANAGER [facility] WBC 6-10(A) 0-2, 3-5, None Seen /HPF 08/17/2023 1:12 PM SALES MARKETING MANAGER [facility] BACTERIA Many(A) None Seen, Rare, Few Bacteria/H PF 08/17/2023 1:12 PM SALES MARKETING MANAGER [facility] EPITHELIAL CELLS Many(A) None Seen, Few Epi/HPF 08/17/2023 1:12 PM SALES MARKETING MANAGER [facility] Urine URINE SPECIMEN / Unknown Non-Blood / Unknown 08/17/2023 1:00 PM SALES MARKETING MANAGER 08/17/2023 1:06 PM SALES MARKETING MANAGER Meghan NELSON URINE [facility] [address] [place] [address], [place] [phone] * (ABNORMAL) UA W/ SEDIMENT EXAM REFLEXED PER CRITERIA (08/17/2023 1:00 PM SALES MARKETING MANAGER) COLOR Yellow Yellow Color 08/17/2023 1:11 PM SALES MARKETING MANAGER [facility] CLARITY Clear Clear Clarity 08/17/2023 1:11 PM SALES MARKETING MANAGER [facility] SPECIFIC GRAVITY,URINE >=1.030(A) 1.010, 1.015, 1.020, 1.025 08/17/2023 1:11 PM SALES MARKETING MANAGER [facility] PH,URINE 5.5 6.0, 7.0, 8.0, 5.5, 6.5, 7.5, 8.5 08/17/2023 1:11 PM SALES MARKETING MANAGER [facility] UROBILINOGEN, QUALITATIVE Normal Normal EU/dl 08/17/2023 1:11 PM [facility] PROTEIN, URINE 100(A) Negative mg/dL 08/17/2023 1:11 PM SALES MARKETING MANAGER [facility] GLUCOSE, URINE Negative Negative mg/dL 08/17/2023 1:11 PM SALES MARKETING MANAGER [facility] KETONES,URINE Negative Negative mg/dL 08/17/2023 1:11 PM [facility] BILIRUBIN,URI NE Negative Negative 08/17/2023 1:11 PM [facility] OCCULT BLOOD,URINE Trace(A) Negative 08/17/2023 1:11 PM [facility] NITRITE Negative Negative 08/17/2023 1:11 PM SALES MARKETING MANAGER [facility] LEUKOCYTE ESTERASE Negative Negative 08/17/2023 1:11 PM [facility] Urine URINE SPECIMEN / Unknown Non-Blood / Unknown 08/17/2023 1:00 PM SALES MARKETING MANAGER 08/17/2023 1:06 PM SALES MARKETING MANAGER Meghan NELSON URINE [facility] [address] [place] [address], * (ABNORMAL) CBC WITH AUTO DIFFERENTIAL (08/04/2023 3:37 PM SALES MARKETING MANAGER) Only the most recent of2 resultswithin the time period is included. WHITE BLOOD COUNT 6.8 4.5 - 11.0 thou/cu mm 08/04/2023 3:41 PM [facility] RED BLOOD COUNT 4.02 4.00 - 5.20 mil/cu mm 08/04/2023 3:41 PM [facility] HEMOGLOBIN 13.9 12.0 - 16.0 g/dL 08/04/2023 3:41 PM [facility] HEMATOCRIT 42.2 33.0 - 51.0 % 08/04/2023 3:41 PM [facility] MCV 105(H) 80 - 100 fL 08/04/2023 3:41 PM [facility] MCH 34.6(H) 26.0 - 34.0 pg 08/04/2023 3:41 PM [facility] MCHC 32.9 32.0 - 36.0 g/dL 08/04/2023 3:41 PM [facility] RDW 13.9 11.5 - 15.5 % 08/04/2023 3:41 PM [facility] PLATELET COUNT 194 140 - 440 thou/cu mm 08/04/2023 3:41 PM [facility] MPV 9.7 6.5 - 11.0 fL 08/04/2023 3:41 PM [facility] % NEUT 49.2 % 08/04/2023 3:41 PM [facility] % LYMPH 34.5 % 08/04/2023 3:41 PM [facility] % MONO 12.7 % 08/04/2023 3:41 PM [facility] % EOS 3.0 % 08/04/2023 3:41 PM [facility] % BASO 0.6 % 08/04/2023 3:41 PM [facility] ABSOLUTE NEUTROPHILS 3.3 1.7 - 7.0 thou/cu mm 08/04/2023 3:41 PM [facility] ABSOLUTE LYMPHOCYTES 2.3 0.9 - 2.9 thou/cu mm 08/04/2023 3:41 PM [facility] ABSOLUTE MONOCYTES 0.9(H) <0.9 thou/cu mm 08/04/2023 3:41 PM SALES MARKETING MANAGER [facility] ABSOLUTE EOSINOPHILS 0.2 <0.5 thou/cu mm 08/04/2023 3:41 PM SALES MARKETING MANAGER [facility] ABSOLUTE BASOPHILS 0.0 <0.3 thou/cu mm 08/04/2023 3:41 PM SALES MARKETING MANAGER [facility] Blood BLOOD SPECIMEN / Unknown Venipuncture / Unknown 08/04/2023 3:37 PM SALES MARKETING MANAGER 08/04/2023 3:37 PM SALES MARKETING MANAGER Tad Jordan MD HEMATOLOGY [facility] [address] [place] [address] * (ABNORMAL) FERRITIN (08/04/2023 3:37 PM SALES MARKETING MANAGER) Only the most recent of2 resultswithin the time period is included. FERRITIN 1,526.0(H) 15.0 - 150.0 ng/mL 08/05/2023 12:48 PM SALES MARKETING MANAGER [facility] Blood BLOOD SPECIMEN / Unknown Venipuncture / Unknown 08/04/2023 3:37 PM SALES MARKETING MANAGER 08/04/2023 3:37 PM SALES MARKETING MANAGER Tad Jordan MD [facility]Y [facility] [address] [address], [place] * BEDSIDE US STUDY ARCHIVE (07/17/2023 12:04 PM SALES MARKETING MANAGER) Narrative Darline Morgan - 07/17/2023 12:04 PM SALES MARKETING MANAGER The patient was seen for ultrasound guided injection by Dr. Trace Canela. Ultrasound was not used for diagnostic purposes, but to guide the needle placement and document the position of the injection. ?? See patient's EPIC encounter for the detail of the procedure; see PA for saved images of the injection. Trace Canela MD PROCEDURE ORD * XR KNEE 1 VIEW LEFT (06/15/2023 3:45 PM SALES MARKETING MANAGER) Anatomical Region Laterality Modality KNEE L Computed Radiogr aphy 06/16/2023 6:41 AM SALES MARKETING MANAGER Narrative 06/16/2023 6:41 AM SALES MARKETING MANAGER For Patients: ??As a result of the Cures Act, medical imaging exams and procedure reports are released immediately into your electronic medical record. ??You may view this report before your referring provider. ??If you have questions, please contact your health care provider. INDICATION: Chronic left knee pain. TECHNIQUE: Single Win view of the left knee. COMPARISON: 05/04/2023. FINDINGS: Minimal medial compartment narrowing. Otherwise normal joint spacing and alignment. No marginal osteophytes or subarticular osseous defects. Dictated by Leila Prajapati MD @ 06/16/2023 6:41:48 AM (Electronically Signed) Procedure Note Mariano Prajapati MD - 06/16/2023 For Patients: As a result of the s , medical imagingexams and procedure reports are released immediately into your electronicmedical record. You may view this report before your referring provider.If you have questions, please contact your health care provider. INDICATION: Chronic left knee pain. TECHNIQUE: Single Win view of the left knee. COMPARISON: 05/04/2023. FINDINGS: Minimal medial compartment narrowing. Otherwise normal joint spacing andalignment. No marginal osteophytes or subarticular osseous defects. Dictated by Leila Prajapati MD @ 06/16/2023 6:41:48 AM (Electronically Signed) Donny Brown MD GENERAL IMAGING * MR KNEE LEFT WO (05/20/2023 3:41 PM SALES MARKETING MANAGER) Anatomical Region Laterality Modality KNEE L Magnetic Resonan ce 05/21/2023 6:35 AM SALES MARKETING MANAGER Narrative 05/21/2023 6:35 AM SALES MARKETING MANAGER For Patients: ??As a result of the Cures Act, medical imaging exams and procedure reports are released immediately into your electronic medical record. ??You may view this report before your referring provider. ??If you have questions, please contact your health care provider. Indication: Chronic left knee pain Technique: Multiplanar multisequence MRI left knee without contrast Comparison: Radiographs 05/04/2023 Findings: Medial compartment: Medial meniscus: Mild intrasubstance degeneration with mild inferior surface fraying near the junction of the posterior horn and body segment (sagittal series 8 image 5). Articular cartilage: Mild diffuse chondral thinning with areas of slight surface irregularity (grade 2). Lateral compartment: Lateral meniscus: Intact. Articular cartilage: Small area of grade 3 chondral fissuring over the posterior aspect of the lateral plateau (coronal series 6 image 20-19) Patellofemoral compartment: High-grade chondral fissuring over the up superior aspect of the median ridge of the patella with mild underlying reactive fibrocystic change is seen. Moderate chondral thinning at that far periphery of the lateral trochlea and opposing lateral patellar facet. Additional small areas of grade 2 and grade 3 chondral fissuring. Ligaments: ACL and PCL intact. Mild hyperintense thickening in the proximal aspect of the MCL, compatible with prior low-grade injury. Mild feathery edema superficial to the MCL, nonspecific in the absence of acute trauma Mild degeneration of the femoral insertions of the fibular collateral ligament and popliteus tendon. Extensor mechanism: Distal quadriceps tendon and patellar tendon intact. Mild patella Shayy (Maryam Mirella index 1.6). Moderate lateral patellar translation. TT-TG measures 14 millimeters. Mild attenuation of the MPFL near the patellar insertion. Joint space: Small/moderate joint effusion with mild synovitis. Bones and soft tissues: Marrow signal compatible with red marrow reconversion. No fracture or AVN. No Hollingsworth`s cyst. Impression: 1. Patellofemoral arthrosis, including areas of grade 3 and 4 chondral loss over the superior aspect of the patella. Patella Beaver and mild lateral patellar translation with attenuation of MPFL fibers. 2. Small areas of grade 2 chondromalacia in the medial femorotibial compartment and grade 3 chondromalacia in the lateral femorotibial compartment. 3. Intrasubstance degeneration of the medial meniscus with mild inferior surface fraying near the junction of body and posterior horn. 4. Mild degeneration of the femoral insertions of the MCL, fibular collateral ligament popliteus tendon. 5. Small/moderate joint effusion with synovitis. Dictated by Pipo Cardona MD @ 05/21/2023 6:35:59 AM (Electronically Signed) Procedure Note Pipo Cardona MD - 05/21/2023 For Patients: As a result of the 21st Century Cures Act, medical imagingexams and procedure reports are released immediately into your electronicmedical record. You may view this report before your referring provider.If you have questions, please contact your health care provider. Indication: Chronic left knee pain Technique: Multiplanar multisequence MRI left knee without contrast Comparison: Radiographs 05/04/2023 Findings: Medial compartment: Medial meniscus: Mild intrasubstance degeneration with mild inferiorsurface fraying near the junction of the posterior horn and body segment(sagittal series 8 image 5). Articular cartilage: Mild diffuse chondral thinning with areas of slightsurface irregularity (grade 2). Lateral compartment: Lateral meniscus: Intact. Articular cartilage: Small area of grade 3 chondral fissuring over theposterior aspect of the lateral plateau (coronal series 6 image 20-19) Patellofemoral compartment: High-grade chondral fissuring over the upsuperior aspect of the median ridge of the patella with mild underlyingreactive fibrocystic change is seen. Moderate chondral thinning at thatfar periphery of the lateral trochlea and opposing lateral patellar facet.Additional small areas of grade 2 and grade 3 chondral fissuring. Ligaments: ACL and PCL intact. Mild hyperintense thickening in theproximal aspect of the MCL, compatible with prior low-grade injury. Mildfeathery edema superficial to the MCL, nonspecific in the absence of acutetrauma Mild degeneration of the femoral insertions of the fibular collateralligament and popliteus tendon. Extensor mechanism: Distal quadriceps tendon and patellar tendon intact.Mild patella Shayy (Maryam Mirella index 1.6). Moderate lateral patellartranslation. TT-TG measures 14 millimeters. Mild attenuation of the MPFLnear the patellar insertion. Joint space: Small/moderate joint effusion with mild synovitis. Bones and soft tissues: Marrow signal compatible with red marrowreconversion. No fracture or AVN. No Hollingsworth`s cyst. Impression: 1. Patellofemoral arthrosis, including areas of grade 3 and 4 chondralloss over the superior aspect of the patella. Patella Shayy and mildlateral patellar translation with attenuation of MPFL fibers. 2. Small areas of grade 2 chondromalacia in the medial femorotibialcompartment and grade 3 chondromalacia in the lateral femorotibialcompartment. 3. Intrasubstance degeneration of the medial meniscus with mild inferiorsurface fraying near the junction of body and posterior horn. 4. Mild degeneration of the femoral insertions of the MCL, fibularcollateral ligament popliteus tendon. 5. Small/moderate joint effusion with synovitis. Dictated by Pipo Cardona MD @ 05/21/2023 6:35:59 AM (Electronically Signed) Dee NELSON MR from Last 3 Months Advance Directives Documents on File Type Date Recorded Patient Distance Education Director Expl anation Healthcare Directive 05/09/2020 020 Latest Code Status on File Code Status Date Activated Date Inactivated Comments Full Code 09/27/2020 9:35 AM 09/28/2020 2:31 AM Question Answer Comments Code Status Discussion: Not Discussed Code Status History Code Status Date Activated Date Inactivated Comments Full Code 04/11/2020 6:30 AM 04/11/2020 1:10 PM Question Answer Comments Code Status Discussion: Discussed Full Code 01/20/2020 7:05 AM 01/20/2020 12:54 PM Question Answer Comments Code Status Discussion: Not Discussed Full Code 12/02/2009 12:12 AM 12/03/2009 3:41 PM Care Teams Recenterer Relationship Specialty Start Date End Date Dee Chris PA [address] [place] [address] PCP - General Physician Inletter 01/28/23 Concha Rabago MD [address] [place] [address] Hematology Hematology and Oncology 01/25/20 Payton Eason, MANUFACTURING ENGINEER ASSEMBLY [address] [place] [address] Hematology Nurse Practitioner - Family 01/25/20 Nyasia Prince [address] [place] [address] Hematology Internal Medicine 10/25/20
--- OUTSIDE RECORDS SUMMARY | 2023-08-17 14:25 | XMS_ITS ---
Author Name Unknown Organization [facility] Address [address] [place] [address] Care Team Providers Care Arch Cushion Skiving Machine Operator Name Role Phone Unavailable Unavailable Unavailable Surgery Details Not on file Complications Check Surgery Details section. Procedure Estimated Blood Loss Check Surgery Details section. Procedure Findings Check Surgery Details section. Procedure Specimens Taken Check Surgery Details section.
--- OUTSIDE RECORDS SUMMARY | 2023-08-17 14:25 | XMS_ITS | Clinical Summary ---
Author Name Unknown Organization [facility] Address [address] [place] [address] Care Team Providers Care Waiter/Waitress Cafeteria Name Role Phone Elsewhere, Pcp Primary Care Provider Unavailabl e Source Comments Patient records contain information from all sites at [facility]. For routine questions regarding patient records, call [phone] during business hours, M-F 8:00 AM - 5:00 PM Central Time. 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 Blood product orders may be delayed.?Please draw one red top and two lavender top tubes for all Type and Screen/Type and Crossmatch orders. Chlorhexidine Gluconate Hives (Reselect Reaction),Rash High 04/06/2021 Broke out in hives from CHG wipes Broke out in hives from CHG wipes Lanolin Oil Rash Medium 12/02/2009 Has reacted since to lanolin-containing products and wool Mold Shortness of breath (Reselect Reaction) 10/24/2016 ground mold Morphine Rash High 12/01/2009 Sheep/Ovine/Jean Containing Products Rash Medium 12/02/2009 Sulfamethoxazole-Trimet hoprim Itching High 11/05/2021 Wool Rash Medium 12/02/2009 Medications Medication Sig Dispensed Refills Start Date End Date Status loratadine (for_CLARITIN) 10 mg tablet Take 10 mg by mouth. 0 04/09/2017 Active multivitamin tablet Take 1 tablet by mouth. 0 01/06/2011 Active sertraline (for_ZOLOFT) 50 mg tablet Take 50 mg by mouth. 0 10/07/2017 Active levothyroxine (SYNTHROID, LEVOTHROID) 75 mcg tablet TK 1 T PO B GURPREET 11 05/12/2018 Active VITAMIN B COMPLEX ORAL Take 1 tablet by mouth daily. 0 Active deferasirox (EXJADE) 500 mg disintegrating tablet Take 500 mg by mouth. 0 12/23/2021 Active acyclovir (ZOVIRAX) 400 mg tablet Take 400 mg by mouth. 0 08/21/2021 Active albuterol 90 mcg/actuation inhaler Inhale 2 puffs every 6 (six) hours as needed for wheezing. 18 g 0 06/02/2022 Active albuterol 2.5 mg /3 mL nebulizer solutionIndications: Cough Acute,Bronchitis Inhale 3 mL (2.5 mg total) by nebulization every 4 (four) hours as needed for wheezing or shortness of breath (Cough). 120 mL 0 06/02/2022 Active benzonatate (TESSALON) 200 mg capsule Take 1 capsule (200 mg total) by mouth 3 (three) times a day as needed for cough. 30 capsule 0 07/07/2022 Active Active Problems No known active problems Social History Tobacco Use Types Packs/Day Years Used Date Smoking Tobacco: Former Cigarettes Q uit: 2004 Smokeless Tobacco: Never Tobacco Cessation:Counseling Given: Not Answered Nutrition Answer Date Recorded Nutrition: EVOO Fat Source Unknown 09/17 Nutrition: Servings of Fruits/Vegetables per Day Not on file 09/17/2020 Dental Answer Date Recorded Dental: Regular Dentist Unknown 09/19/19 21 Sex and Gender Information Value Date Recorded Sex Assigned at Not on file Gender Identity Not on file Sexual Orientation Not on file Last Filed Vital Signs Vital Sign Reading Time Taken Comments Blood Pressure 153/93 07/07/2022 5:14 PM CERTIFIED OPHTHALMIC ASSISTANT Pulse 95 07/07/2022 5:20 PM CERTIFIED OPHTHALMIC ASSISTANT Temperature 36.8 ??C (98.2 ??F) 07/07/2022 5:14 PM CS T Respiratory Rate 20 07/07/2022 5:14 PM CERTIFIED OPHTHALMIC ASSISTANT Oxygen Saturation 97% 07/07/2022 5:20 PM CERTIFIED OPHTHALMIC ASSISTANT Inhaled Oxygen Concentration - - Weight 173 kg (381 lb 2.8 oz) 07/07/2022 3:08 PM CERTIFIED OPHTHALMIC ASSISTANT Height 174 cm (5' 8.5) 07/07/2022 3:08 PM CERTIFIED OPHTHALMIC ASSISTANT Body Mass Index 57.11 07/07/2022 3:08 PM CERTIFIED OPHTHALMIC ASSISTANT Plan of Treatment Health Maintenance Due Date Last Done Comments HIV Screening 1981 Hepatitis C Screening 1981 Mammogram 1981 Office Visit for Blood Pressure Check / Re-check 09/02/2022 06/02/2022 Thyroid Stimulating Hormone (TSH) test for thyroid function 05/01/2023 05/01/2022, 10/02/2021, 07/25/2021, Additional history exists Depression Screening (Annual PHQ-2) 07/13/2023 Lipid (Cholesterol) Screening 02/19/2026 02/19/2021, 03/11/2019, 12/14/2018, Additional history exists DTaP,Tdap,and Td Vaccines (6 - Td or Tdap) 05/01/2033 05/01/2023, 09/09/2022, 05/01/2022, Additional history exists Hepatitis B Vaccines Completed 05/01/2023, 09/09/2022, 05/01/2022 Pneumococcal vaccine (0-64 years) Aged Out 05/01/2023 No longer eligible based on patient's age to complete this topic COVID-19 Vaccine Completed 05/04/2023, , 05/01/2022, Additional history exists Influenza Vaccine Completed 05/04/2023, , 05/01/2022, Additional history exists HPV Vaccines Aged Out No longer eligi ble based on patient's age to complete this topic Care Teams Waiter/Waitress Cafeteria Relationship Specialty Start Date End Date Elsewhere, Pcp PCP - General Internal Medicine 07/07/22
--- OUTSIDE RECORDS SUMMARY | 2023-08-17 14:25 | XMS_ITS | Referral Summary ---
Author Name Unknown Organization [facility] Address [address] [place] [address] Care Team Providers Care Life Science Teacher Name Role Phone Elsewhere, Pcp Primary Care Provider Unavailabl e Source Comments Patient records contain information from all sites at [facility]. For routine questions regarding patient records, call [phone] during business hours, M-F 8:00 AM - 5:00 PM Central Time. Record requests for emergency care only can be directed to [phone] at any time.[facility] Allergies Active Allergy Reactions Criticality Noted Date [...] Comments Blood Pressure 153/93 07/07/2022 5:14 PM BLOCK AND CASE MAKER Pulse 95 07/07/2022 5:20 PM BLOCK AND CASE MAKER Temperature 36.8 ??C (98.2 ??F) 07/07/2022 5:14 PM CS T Respiratory Rate 20 07/07/2022 5:14 PM BLOCK AND CASE MAKER Oxygen Saturation 97% 07/07/2022 5:20 PM BLOCK AND CASE MAKER Inhaled Oxygen Concentration - - Weight 173 kg (381 lb 2.8 oz) 07/07/2022 3:08 PM BLOCK AND CASE MAKER Height 174 cm (5' 8.5) 07/07/2022 3:08 PM BLOCK AND CASE MAKER Body Mass Index 57.11 07/07/2022 3:08 PM BLOCK AND CASE MAKER Plan of Treatment Not on file Care Teams Life Science Teacher Relationship Specialty Start Date End Date Elsewhere, Pcp PCP - General Internal Medicine 07/07/22
--- OUTSIDE RECORDS SUMMARY | 2023-08-17 14:26 | XMS_ITS | Encounter Summary ---
Author Name Unknown Organization [facility] Address [address] [facility] [place] [address] Care Team Providers Care Ad Compositor Name Role Phone Caren Gómez Omar Primary Care Provider [phone] Tad Jordan MD Unavailable [phone] Mallory Malin MD Unavailable [phone] Latasha Wilcox PA-C Unavailable [phone] Marika Salcido [facility] Unavailable Tad Jordan MD Unavailable [phone] Debbie Lugo RN Un[facility] Blaine Mullins RN Unavailable Unavailable Encounter Details Date Type Department Care Team (Late st Contact Info) Description 05/05/2023 [facility] [address] [place] [address] [place] Social History Tobacco Use Types Packs/Day Years Used Date Smoking Tobacco: Never Passive Smoke Exposure: Never Smokeless Tobacco: Never Alcohol Use Standard Drinks/Week Comments Not Currently 0 (1 standard drink = 0.6 oz pur e alcohol) Humiliation, Afraid, Rape, and Kick questionnair e Answer Date Recorded Within the last year, have y ou been afraid of your partner or ex-partner? No 10/20/2022 Within the last year, have y ou been humiliated or emotionally abused in other ways by your partner or ex-partner? No Within the last year, have y ou been kicked, hit, slapped, or otherwise physically hurt by your partner or ex-partner? No 10/20/2022 Within the last year, have y ou been raped or forced to have any kind of sexual activity by your partner or ex-partner? No 10/20/2022 PHQ-2 Answer Date Recorded PHQ-2 Score 0 03/13/2021 Adolescent Education Answer Date Record ed Getting School Help Needed Not on file 04/04 Sex and Gender Information Value Date Recorded Sex Assigned at Female 03/30/2020 2:06 PM CDT Gender Identity Female 03/30/2020 2:06 PM CDT Sexual Orientation Straight 03/30/2020 2: 06 PM CDT COVID-19 Exposure Response Date Recorded In the last 10 days, have yo u been in contact with someone who was confirmed or suspected to have Coronavirus/COVID-19? No / Unsure 04/21/2023 2:32 PM CDT documented as of this encounter Plan of Treatment Upcoming Encounters Date Type Department Care Team (Late st Contact Info) Description 04/25/2024 9:00 AM CDT Lab [facility] [address] [place] [phone] Tad Jordan MD [address] [place] [address] 04/25/2024 9:15 AM CDT Oncology Visit [facility] [address] [phone] Tad Jordan MD [address] [place] [address] [id number] documented as of this encounter Visit Diagnoses Not on filedocumented in this encounter Additional Health Concerns Infection Onset Date Last Indicated Resolved 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 Parvovirus 01/23/2022 04/27/2023 documented as of this encounter Care Teams Ad Compositor Relationship Specialty Start Date End Date Caren Gómez PCP - General Physician Supervisor Policy Change Clerks 03/16/20 Tad Jordan MD [address] [place] [address] BMT Physician Transplant 04/10/21 Mallory Malin MD [address] [place] [address] Endocrinology, Diabetes, and Metabolism 05/10/21 Latasha Wilcox PA-C [address] [place] [address] Referring Physician Hematology & Oncology 05/10/21 Marika Salcido, [facility] Educational Psychology Professor BMT - Adult 06/14/21 Tad Jordan MD [address] [place] [address] Assigned Cancer Care Provider 06/23/21 Debbie Lugo, RN Registered Nurse 01/21/22 Blaine Chaves RN BMT Nurse Coordinator Transplant 04/08/23 documented as of this encounter
--- OUTSIDE RECORDS SUMMARY | 2023-08-17 14:26 | XMS_ITS | Encounter Summary ---
Author Name Unknown Organization [place] Address [address] 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) Procedures DNA marker post bmt engraft bld Omar Burton MD [address] [facility] [address] [place] [address] Referral ID Status Reason Start Date Expiration Date V isits Requested Visits Authorized [id number] Authorized 05/01/2023 04/30/2024 1 1 Reason for Visit * Reason Comments Oncology Clinic Visit Red cell aplasia Encounter Details Date Type Department Care Team (Late st Contact Info) Description 05/01/2023 2:00 PM CDT Office Visit [facility] Trans[facility] Program [address] [address] Omar Burton MD [address] [place] [address] 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 Dx) Social History Tobacco Use Types Packs/Day Years Used Date Smoking Tobacco: Never Passive Smoke Exposure: Never Smokeless Tobacco: Never Tobacco Cessation:Counseling Given: Not Answered Alcohol Use Standard Drinks/Week Comments Not Currently [...] PM CDT documented as of this encounter Last Filed Vital Signs Vital Sign Reading Time Taken Comments Blood Pressure 136/85 05/01/2023 2:21 PM CDT Pulse 101 05/01/2023 2:21 PM CDT Temperature 36.7 ??C (98 ??F) 05/01/2023 2:21 PM CDT Respiratory Rate 16 05/01/2023 2:21 PM CDT Oxygen Saturation 97% 05/01/2023 2:21 PM CDT Inhaled Oxygen Concentration - - Weight 198 kg (436 lb 9.6 oz) 05/01/2023 2:21 PM CDT Height - - Body Mass Index 66.94 04/27/2023 11:16 AM CDT documented in this encounter Progress Notes * Omar Burton MD - 05/01/2023 2:00 PM CDT hydroBMT Clinic Note Patient ID: Lainey Vee is a 41 year old woman 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 She has had a really difficult summer after the sudden of her fianc??, the loss of her house, and other stresses with kids and relocating her entire life. That said, she feels her health has been reasonably good and she is continue to work. She is continuing to attempt to have phlebotomy approximately once a milly h. She has had no significant infectious complications or other problems. Review of Systems: 8 point ROS negative except as noted above. PHYSICAL EXAM Wt Readings from Last 4 Encounters: 04/27/23 (!) 200.2 kg (441 lb 5.8 oz) 04/27/23 (!) 201.4 kg (444 lb 1.6 oz) 10/20/22 (!) 181.1 kg (399 lb 4.8 oz) 05/01/22 (!) 173.7 kg (383 lb) LMP 03/27/2020 (Exact Date) KPS: 90 General: NAD Sclera: non-injected Skin: No rash, some small scattered purulent macules and shallow ulcers Lymph: no edema LABS AND IMAGING: I have assessed all abnormal lab values for their clinical significance and any values considered clinically significant have been addressed in the assessment and plan. Blood Counts Recent Labs Lab Test 04/27/23 1147 10/20/22 0916 07/28/22 0941 05/01/22 1425 HGB 12.8 11.5* 10.0* 10.5* HCT 38.2 33.8* 29.1* 29.9* WBC 6.1 6.3 20.4* 6.2 ANEUTAUTO -- 3.8 17.8* 4.3 ALYMPAUTO -- 1.7 1.5 1.2 AMONOAUTO -- 0.5 0.9 0.5 AEOSAUTO -- 0.2 0.0 0.2 ABSBASO -- 0.0 0.0 0.0 NRBCMAN -- 0.0 0.0 0.0 PLT 206 215 292 269 Recent Labs Lab Test 02/06/22 1441 ABORH A NEG No lab results found. Chemistries Basic Panel Recent Labs Lab Test 10/20/22 0916 07/28/22 0941 05/01/22 1425 NA 137 140 137 POTASSIUM 4.8 3.8 4.3 CHLORIDE 103 104 103 CO2 27 24 25 BUN 21.6* 31.9* 28.5* CR 1.17* 1.23* 1.20* GLC 96 127* 110* Calcium, Magnesium, Phosphorus Recent Labs Lab Test 10/20/22 0916 07/28/22 0941 05/01/22 1425 01/29/22 0423 01/28/22 0346 01/27/22 0359 01/26/22 0324 ZAK 10.0 10.5* 10.0 < > 9.3 9.4 9.2 MAG -- -- -- -- 2.0 2.1 1.8 PHOS -- -- -- -- 4.8* 4.8* 4.9* < > = values in this interval not displayed. LFTs Recent Labs Lab Test 10/20/22 0916 07/28/22 0941 03/13/22 1535 BILITOTAL 0.5 0.3 0.5 ALKPHOS 65 83 62 AST 33 15 47* ALT 44* 21 74* ALBUMIN 4.1 3.8 3.5 LDH Recent Labs Lab Test 01/30/22 0404 01/29/22 0714 01/28/22 0346 LDH 163 163 175 B2-Microglobulin No lab results found. Vitamin D No lab results found. Immunoglobulins Recent Labs Lab Test 07/28/22 0941 05/01/22 1425 01/20/22 0938 10/07/21 1044 07/25/21 1511 07/17/21 2134 IGG 1,912* 1,798* 1,941* 1,252 1,036 1,050 Recent Labs Lab Test 07/28/22 0941 05/01/22 1425 10/07/21 1044 07/25/21 1511 07/17/21 2134 03/12/21 1222 IGA 223 189 232 123 137 231 Recent Labs Lab Test 07/28/22 0941 05/01/22 1425 10/07/21 1044 07/25/21 1511 07/17/21 2134 03/12/21 1222 IGM 184 112 94 39 47 176 Bone Marrow Biopsy Morphology Lab Results Component Value Date FINALDX 04/27/2023 Bone marrow, posterior iliac crest, right decalcified trephine biopsy and touch imprint; right direct aspirate smear, concentrate aspirate smear, and peripheral blood smear: - Cellular marrow with trilineage hematopoietic maturation, no overt dysplasia, and no increase in blasts - Suboptimal trephine core biopsy - Peripheral blood showing slight normochromic, macrocytic anemia (decreased RBC count only) - See comment COMDX 04/27/2023 The core biopsy is subcortical and contains only small fragmented areas of intact marrow, and as a result marrow cellularity cannot be reliably determined. Concurrent flow cytometry ([id number]) demonstrates no increase in myeloid blasts and no abnormal myeloid blast population. Please correlate these findings with the results of other ancillary studies and the clinical presentation. COMDX 04/27/2023 Final interpretation requires correlation with the results of other ancillary studies and the morphologic and clinical features. Flow Cytometry Lab Results Component Value Date FLINTERP 04/27/2023 A. Iliac Crest, Bone Marrow Aspirate, Right: -No increase in myeloid blasts and no abnormal myeloid blast population -See comment COMDX 04/27/2023 The core biopsy is subcortical and contains only small fragmented areas of intact marrow, and as a result marrow cellularity cannot be reliably determined. Concurrent flow cytometry ([id number]) demonstrates no increase in myeloid blasts and no abnormal myeloid blast population. Please correlate these findings with the results of other ancillary studies and the clinical presentation. COMDX 04/27/2023 Final interpretation requires correlation with the results of other ancillary studies and the morphologic and clinical features. Chimerism Lab Results Component Value Date SPECDES 04/27/2023 Bone Marrow: ACD Syringe LDRESULTS 04/27/2023 RESULTS: POST BONE MARROW DONOR: (ALEKSANDR PENA) 76 % RECIPIENT: 24 % These results are accurate +/-5%. LDRESULTS 10/20/2022 RESULTS: POST CD3+ FRACTION DONOR: (ALEKSANDR PENA) 79 % RECIPIENT: 21 % These results are accurate +/-5%. LDRESULTS 10/20/2022 RESULTS: POST CD33/66b+(Myeloid) FRACTION DONOR: (ALEKSANDR PENA) 77 % RECIPIENT: 23 % These results are accurate +/-5%. 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 Her hemoglobin has remained stable and she has had no evidence of following chimerism. 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 Tapered off steroids as of 07/13/21; tac ended 09/10/2021 ID: -We will give 2-year vaccines today 6. Endo: #Hypothyroidism - Continue Levothyroixine 7. CV: blood pressures elevated. 8. Iron overload: Exjade continue at 1 g/day. Continue phlebotomy 1 U RBC monthly for hgb > 10 Plan: - continue exjade - continue phlebotomy 1 U/month for hgb > 10 - Vaccines for two years - RTC one year 45 minutes spent on the date of the encounter doing chart review, history and exam, lab review, documentation and coordniating care. OMAR BURTON MD May 01, 2023 documented in this encounter Nursing Notes * Ailin Crespo - 05/01/2023 2:00 PM CDT Oncology Rooming Note May 01, 2023 2:29 PM Lainey Vee is a 42 year old female who presents for: Chief Complaint Patient presents with Oncology Clinic Visit Red cell aplasia Initial Vitals: BP 136/85 (BP Location: Left arm, Patient Position: Sitting, Cuff Size: Adult Regular) Pulse 101 Temp 98 ??F (36.7 ??C) (Oral) Resp 16 Wt (!) 198 kg (436 lb 9.6 oz) LMP 03/27/2020 (Exact Date) SpO2 97% BMI 66.94 kg/m?? Estimated body mass index is 66.94 kg/m?? as calculated from the following: Height as of 04/27/23: 1.72 m (5' 7.72). Weight as of this encounter: 198 kg (436 lb 9.6 oz). Body surface area is 3.08 meters squared. Mild Pain (2) Comment: Data Unavailable Patient's last menstrual period was 03/27/2020 (exact date). Allergies reviewed: Yes Medications reviewed: Yes Medications: Medication refills not needed today. Pharmacy name entered into [facility]: [id number] - [place], [place] - [address] [facility] [place] [facility] [address] [facility] - [place], [place] - [address] [facility] - [place] [id number] Clinical concerns: Patient states there are no new concerns to discuss with provider. Ailin Crespo documented in this encounter Plan of Treatment Upcoming Encounters Date Type Department Care Team (Late st Contact Info) Description 04/25/2024 9:00 AM CDT [facility] [address] [place] [phone] Omar Burton MD [address] [place] [address] [phone] 04/25/2024 9:15 AM CDT Oncology Visit [facility] Marrow Transplant Program [address] [phone] Omar Burton MD [address] [place] [address] Scheduled Orders Name Type Priority Associated Diagnoses Orde r Schedule CBC with Platelets & Differential Lab Panel Routine 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) Expected: 05/01/2024 (Approximate), Expires: 05/01/2024 Comprehensive metabolic panel Lab Routine 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) Expected: 05/01/2024 (Approximate), Expires: 05/01/2024 Ferritin Lab Routine 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) Expected: 05/01/2024 (Approximate), Expires: 05/01/2024 IgG Lab Routine 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) Expected: 05/01/2024 (Approximate), Expires: 05/01/2024 DNA marker post bmt engraft bld Molecular Lab Routine 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) Expected: 05/01/2024 (Approximate), Expires: 05/01/2024 documented as of this encounter Visit Diagnoses Diagnosis 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)- Primary Complications of transplanted organ, unspecified site documented in this encounter Additional Health Concerns Infection Onset Date Last Indicated Resolved 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 Parvovirus 01/23/2022 04/27/2023 Rule Out Parvovirus 04/27/2023 04/27/2023 05/01/20 23 9:52 PM CDT documented as of this encounter Care Teams Caregiver Services Home Relationship Specialty Start Date End Date Caren Gómez PCP - General Physician Cigarette Book Maker 03/16/20 Omar Burton MD [address] [place] [address] BMT Physician Transplant 04/10/21 Mallory Malin MD [address] [place] [address] [phone] Endocrinology, Diabetes, and Metabolism 05/10/21 Latasha Wilcox PA-C [address] [place] [address] [phone] Referring Physician Hematology & Oncology 05/10/21 Marika Salcido, [facility] Public Services Librarian BMT - Adult 06/14/21 Omar Burton MD [address] [place] [address] Assigned Cancer Care Provider 06/23/21 Debbie Lugo, RN Registered Nurse 01/21/22 Blaine Chaves RN BMT Nurse Coordinator Transplant 04/08/23 documented as of this encounter
--- OUTSIDE RECORDS SUMMARY | 2023-08-17 14:26 | XMS_ITS | Encounter Summary ---
Author Name Unknown Organization [place] Address [address] [facility] [place] [address] Care Team Providers Care Fold Skiver Name Role Phone Caren Gómez Omar Primary Care Provider Tad Jordan MD Unavailable [phone] Mallory Malin MD Unavailable [phone] Latasha Wilcox PA-C Unavailable [phone] Marika Salcido [facility] Unavailable Tad Jordan MD Unavailable [phone] Debbie Lugo RN Unavailable Unavailabl Blaine Mullins RN Unavailable Unavailable Encounter Details Date Type Department Care Team (Late st Contact Info) Description 04/27/2023 12:30 PM CDT Office Visit [facility] [address] [place] [phone] Red cell aplasia (H) (Primary Dx) Social History Tobacco Use Types Packs/Day Years Used Date Smoking Tobacco: Never Smokeless Tobacco: Never Alcohol Use Standard [...] Info) Description 04/25/2024 9:00 AM CDT Lab [facility] [address] [place] [phone] Tad Jordan MD [address] [place] [address] [phone] 04/25/2024 9:15 AM CDT Oncology Visit [facility] Blood and Marrow Transplant Program [address] [phone] Tad Jordan MD [address] [place] [address] [phone] documented as of this encounter Procedures Procedure Name Priority Date/Time Associated Diagnosis Comments LANRE BENSON VIRUS QUANT PCR NON BLOOD Routine 04/27/2023 1:48 PM CDT Red cell aplasia (H) documented in this encounter Results * (ABNORMAL) Lanre Benson Virus Quant PCR Non Blood (04/27/2023 1:48 PM CDT) See Scanned Result LANRE BENSON VIRUS QUANT PCR NON BLOOD-Scann ed(A) 04/28/2023 3:28 PM CDT [facility] Bone Marrow SPECIMEN FROM BONE MARROW OBTAINED BY ASPIRATION AND BIOPSY / Unknown Non-blood Collection / Unknown 04/27/2023 1:48 PM CDT 04/27/2023 2:27 PM CDT Tad Jordan MD LAB - BODY FLUIDS OR DERABLES [facility] [address] [phone] documented in this encounter Visit Diagnoses 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) documented in this encounter Additional Health Concerns Infection Onset Date Last Indicated Resolved 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 Parvovirus 01/23/2022 04/27/2023 Rule Out Parvovirus 04/27/2023 04/27/2023 05/01/20 23 9:52 PM CDT documented as of this encounter Care Teams Fold Skiver Relationship Specialty Start Date End Date Caren Gómez PCP - General Physician Heel Nail Rasper 03/16/20 Tad Jordan MD [address] [place] [address] [phone] BMT Physician Transplant 04/10/21 Mallory Malin MD [address] [place], [place] [phone] Endocrinology, Diabetes, and Metabolism 05/10/21 Latasha Wilcox PA-C [address] [place] [phone] Referring Physician Hematology & Oncology 05/10/21 Marika Salcido, [facility] Medical Officer Psychiatry BMT - Adult 06/14/21 Tad Jordan MD [address] 112755 Assigned Cancer Care Provider 06/23/21 Debbie Lugo, RN Registered Nurse 01/21/22 Blaine Chaves RN BMT Nurse Coordinator Transplant 04/08/23 documented as of this encounter
--- OUTSIDE RECORDS SUMMARY | 2023-08-17 14:26 | XMS_ITS ---
Author Name Unknown Organization [place] Address [address] [facility] [address] Care Team Providers Care Head Paper Tester Name Role Phone Caren Gómez Primary Care Provider Tad Jordan MD Unavailable [phone] Mallory Malin MD Unavailable [phone] Latasha Wilcox PA-C Unavailable [phone] Marika Salcido [facility] Unavailable Tad Jordan MD Unavailable [phone] Debbie Lugo RN Unavailable Unavailabl Blaine Mullins RN Unavailable Unavailable Active Problems Patient Care Coordination No te Formatting of this note migh t be different from the original. Patient requests bmbx to be performed under sedation -Bone marrow biopsies to be done under IR guidance d/t body habitus Line Company: NA - will have line removed for discharge on 01/30 Referral made for line care: No IV medications needed at discharge: Pt will receive M/W/F infusions of IVIG at [facility], starting 02/03, to complete on 02/12. Will have labs CBC, TySc, CMP (and possible RBC transfusions) on 02/03 and Mon 02/10. All lab results to be faxed to Matteo Gómez at [phone]. If weekly labs are indicated beyond this, OP RNCC to arrange as we move closer to that time. [facility] On 01/29, faxed preliminary Summary of Care which includes lab orders, PRN blood orders, and IVIG orders. Called [facility] to discuss plan as well. At time of discharge, awaiting specific scheduling information from [facility]. Called back on 01/31/22 but the RN handling the scheduling (Dee) was in with a pt at the time. Provided callback number. Will write updated note (and will update OP RNCC as well as the pt) when scheduling information is known. Pharmacy concerns: Voriconazole: LESLIE approved. $1 copay. Prevymis/letermovir: NA, pt is CMV neg (of note, prior auth required) PT/OT/therapies recommended: No Referral made for PT/OT/therapies: NA D/c location: Home - [place], [place] Has placement need been communicated to Social Work? NA [place] Teaching time arranged with patient/caregiver: Will discuss the above plan with pt prior to discharge. 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 Depression, major, single episode, moderate 09/11 Prophylactic antibiotic 07/18/2021 Pneumonia due to 2019 novel coronavirus 07/17/19 Diabetes mellitus, type 2 07/16/2021 Gram-positive bacteremia 07/01/2021 S/P allogeneic bone marrow transplant 06/29/2021 GVHD (graft versus host disease) 05/01/2021 Pure red cell aplasia 04/01/2021 Red cell aplasia 03/08/2021 Abnormal uterine bleeding 04/03/2020 Overview: Added automatically from request for surgery [id number] Symptomatic anemia 04/03/2020 Overview: Added automatically from request for surgery [id number] Morbid obesity 04/02/2020 Current Oncology Plans No current plan information found. Other Current Plans BMT - Recipient Immunizations - Adult and Peds* Plan Start Date:05/01/2023 Plan Provider:Tad Jordan MD Linked Problems GVHD (graft versus host dise ase) (H) Treatment Medications No medications scheduled. BMT aGVHD - AAT/PTM / Corticosteroids (Version: 03/16/19)* Plan Start Date:05/03/2021 Plan Provider:Laya Varela MD Linked Problems GVHD (graft versus host dise ase) (H) Treatment Medications Current Day (6 Mon ths, Cycle 1 - Planned for 10/29/2021) Next Day (12 Months, Cycle 1 - Planned for 05/02/2022) No medications scheduled. No medications schedul ed. No medications scheduled. BMT STANDARD THERAPY PLAN - ADULT* Plan Start Date:05/10/2021 Plan Provider:Tad Jordan MD Linked Problems Red cell aplasia (H)S/P allo geneic bone marrow transplant (H)Gram-positive bacteremia Treatment Medications riTUXimab (RITUXAN) infusion (STANDARD: 1 mg/mL) OP BMT Disease Specific - Aplastic Anemia / Bone Marrow Failure (Version: APR 2018)* Plan Start Date:07/20/2021 Plan Provider:Janay Gray APRN CNP Linked Problems Red cell aplasia (H) Treatment Medications Current Day (2 Yea rs, BMT Disease Specific - Aplastic Anemia / Bone Marrow Failure - Planned for 12/17/2022) Next Day (3 Years, BMT Disease Specific - Aplastic Anemia / Bone Marrow Failure - Planned for 04/11/2024) No medications scheduled. No medications schedul ed. No medications scheduled. 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 Treatments may have been administered in another system. Lifetime Dose Tracking * Chemical Lifetime Dose Automatic Entry Manual Entr y Air Kerma 32.56 mGy 32.56 mGy 0 mGy Fluoro Time 22 Minutes 22 Minutes 0 Minutes
--- OUTSIDE RECORDS SUMMARY | 2023-08-17 14:26 | XMS_ITS | Encounter Summary ---
Author Name Unknown Organization [place] Address [address] [facility] [place] [address] Care Team Providers Care Machinist Apprentice Name Role Phone Caren Gómez Omar Primary Care Provider [phone] Tad Jordan MD Unavailable [phone] Mallory Malin MD Unavailable [phone] Latasha Wilcox PA-C Unavailable [phone] Marika Salcido [facility] Unavailable Tad Jordan MD Unavailable [phone] Debbie Lugo RN [facility] Blaine Chaves RN Unavailable Unavailable Encounter Details Date Type Department Care Team (Latest Contact Info) Description 05/01/2023 Travel Social History Tobacco Use Types Packs/Day Years [...] Info) Description 04/25/2024 9:00 AM CDT Lab [facility] [address] [place] [phone] Tad Jordan MD [address] [place] [address] [phone] 04/25/2024 9:15 AM CDT Oncology Visit 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 Parvovirus 01/23/2022 04/27/2023 Rule Out Parvovirus 04/27/2023 04/27/2023 05/01/20 9:52 PM CDT documented as of this encounter Care Teams Machinist Apprentice Relationship Specialty Start Date End Date Caren Gómez PCP - General Physician Armor Reconnaissance Vehicle Driver 03/16/20 Tad Jordan MD [address] [place] [address] 226[address] BMT Physician Transplant 04/10/21 Mallory Malin MD [address] [place] [address] Endocrinology, Diabetes, and Metabolism 05/10/21 Latasha Wilcox PA-C [address] [place] [address] Referring Physician Hematology & Oncology 05/10/21 Marika Salcido, [facility] Optician Manager BMT - Adult 06/14/21 Tad Jordan MD [address] [place] [address] [phone] Assigned Cancer Care Provider 06/23/21 Debbie Lugo, RN Registered Nurse 01/21/22 [facility] Nurse Coordinator Transplant 04/08/23 documented as of this encounter
--- OUTSIDE RECORDS SUMMARY | 2023-08-17 14:26 | XMS_ITS | Referral Summary ---
Author Name Unknown Organization [place] Address [address] [facility] [place] [address] Care Team Providers Care Communications Manager Name Role Phone Caren Gómez Omar Primary Care Provider [phone] Tad Jordan MD Unavailable [phone] Mallory Malin MD Unavailable [phone] Latasha Wilcox PA-C Unavailable Marika Salcido [facility] Unavailable Tad Jordan MD Unavailable [phone] Debbie Lugo RN Unavailable Unavailabl e Blaine Chaves RN Unavailable Unavailable Allergies Active Allergy Reactions Criticality Noted Date Comments Adhesive Tape Rash Low 05/03/2020 Paper tape Banana Cramps Low 04/01/2021 Blood-Group Specific Substance 12/02/2009 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 Blood product orders may be delayed. ??Please draw one red top and two lavender top tubes for all Type and Screen/Type and Crossmatch orders. 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) Take 1 tablet (75 mcg) by mouth daily 10 tablet 0 05/09/2021 Active loratadine (CLARITIN) 10 MG tablet Take 1 tablet (10 mg) by mouth daily 0 01/30/2022 Active vitamin B complex with vitamin C (STRESS TAB) tablet Take 1 tablet by mouth daily 0 Active multivitamin w/minerals (THERA-VIT-M) tablet Take 1 tablet by mouth daily 0 Active deferasirox (EXJADE) 500 MG solu-tabIndications: Iron overload due to repeated red blood cell transfusions DISSOLVE AND TAKE TWO TABLETS BY MOUTH EVERY MORNING (BEFORE BREAKFAST) 60 tablet 3 08/04/2022 Active clindamycin (CLINDAMAX) 1 % external gelIndications:Red cell aplasia (H) Apply topically 2 times daily 60 g 1 10/20/2022 Active Additional Information Patient not taking.Informant: Self, Reported on 04/27/2023 atorvastatin (LIPITOR) 20 MG tablet 0 09/15/2022 Active escitalopram (LEXAPRO) 10 MG tablet 0 09/09/2022 Active Active Problems Patient Care Coordination No te [...] will receive M/W/F infusions of IVIG at [facility], starting 02/03, to complete on 02/12. Will have labs CBC, TySc, CMP (and possible RBC transfusions) on 02/03 and 02/10. All lab results to be faxed to Matteo Gómez at [phone]. If weekly labs are indicated beyond this, OP RNCC to arrange as we move closer to that time. [facility] On 01/29, faxed preliminary Summary of Care which includes lab orders, PRN blood orders, and IVIG orders. Called [facility] to discuss plan as well. At time of discharge, awaiting specific scheduling information from [facility]. Called back on 01/31/22 but the [...] for PT/OT/therapies: NA D/c location: Home - [place], [place] Has placement need been communicated to Social Work? NA DC Teaching time arranged with patient/caregiver: Will discuss the above plan with pt prior to discharge. Notify nurse to schedule line care class/ DM teaching, prior to d/c: NA Caregiver: Ce (niece) Gerri (sister) [phone] Danial Cortez Book Sorter: Bhumi [phone] [facility] Phone - [phone] Fax - [phone] Johanna RN - [phone] Problem Noted Date Diagnosed Date Diarrhea 01/20/2022 [...] Overview: Added automatically from request for surgery [id number] Symptomatic anemia 04/03/2020 Overview: Added automatically from request for surgery [id number] Morbid obesity 04/02/2020 Immunizations Name Administration Dates Next Due COVID-19 Monovalent 12+ (Pfizer 2021) 05/01/2022 ,02/06/2022,12/16/2021 DTaP / Hep B / IPV 05/01/2023,05/01/2022 HIB (PRP-T) 05/01/2023,05/01/2022 Influenza Vaccine >6 months,quad, PF 05/01/2022, 06/10/2021 MMR 05/01/2023 Pneumo Conj 13-V (2010&after) 05/01/2023 TDAP (Adacel,Boostrix) 02/23/2018,04/17/2008 Zoster recombinant adjuvanted (SHINGRIX) 022 Social History Tobacco Use Types Packs/Day Years [...] Orientation Straight 03/30/2020 2: 06 PM CDT Last Filed Vital Signs Vital Sign Reading Time Taken Comments Blood Pressure 136/85 05/01/2023 2:21 PM CDT Pulse 101 05/01/2023 2:21 PM CDT Temperature 36.7 ??C (98 ??F) 05/01/2023 2:21 PM CDT Respiratory Rate 16 05/01/2023 2:21 PM CDT Oxygen Saturation 97% 05/01/2023 2:21 PM CDT Inhaled Oxygen Concentration - - Weight 198 kg (436 lb 9.6 oz) 05/01/2023 2:21 PM CDT Height 172 cm (5' 7.72) 04/27/2023 11:16 AM CDT Body Mass Index 66.94 04/27/2023 11:16 AM CDT Plan of Treatment Upcoming Encounters Date Type Department Care Team (Late st Contact Info) Description 04/25/2024 9:00 AM CDT Lab [facility] [address] [place] [address] [phone] Tad Jordan MD [address] [place] [address] [phone] 04/25/2024 9:15 AM CDT Oncology Visit [facility] Blood and Marrow Transplant Program [address] [phone] Tad Jordan MD [address] [place] [address] [phone] Additional Health Concerns Infection Onset Date 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 Parvovirus 01/23/2022 04/27/2023 Advance Directives For more information, please contact: [phone] Documents on File Type Date Recorded Patient Monomer Recovery Supervisor Expl anation Advance Directives and Living Will 06/06/2020 7:36 AM Health Care Directiv e 05/09/2020 Latest Code Status on File Code Status Date Activated Date Inactivated Comments Full Code 01/20/2022 2:17 PM 01/30/2022 5:43 PM All b asic and advanced life-sustaining interventions are performed as appropriate Question Answer Comments Code status determined by: Discussion with patient/ legal decision maker Code Status History Code Status Date Activated Date Inactivated Comments Full Code 08/15/2021 5:34 PM 08/17/2021 5:51 PM All bas ic and advanced life-sustaining interventions are performed as appropriate Question Answer Comments Code status determined by: Discussion with patient/ legal decision maker Full Code 07/28/2021 6:14 AM 07/29/2021 8:49 PM All b asic and advanced life-sustaining interventions are performed as appropriate Question Answer Comments Code status determined by: Discussion with patient/ legal decision maker Full Code 07/18/2021 7:21 AM 07/23/2021 3:59 PM All ba sic and advanced life-sustaining interventions are performed as appropriate Question Answer Comments Code status determined by: Discussion with patient/ legal decision maker Full Code 07/18/2021 7:21 AM 07/18/2021 7:21 AM All bas ic and advanced life-sustaining interventions are performed as appropriate Question Answer Comments Code status determined by: Discussion with patient/ legal decision maker Healthcare Agents on File Name Relationship Healthcare Agent Relationship Communication [facility] Health Care Agent Janay (Gerri) [facility] Health Care Agent Care Teams Communications Manager Relationship Specialty Start Date End Date Caren Gómez Omar PCP - General Physician Wrist Liner 03/16/20 Tad Jordan MD [address] [place] [address] BMT Physician Transplant 04/10/21 Mallory Malin MD [address] [place] [address] Endocrinology, Diabetes, and Metabolism 05/10/21 Latasha Wilcox PA-C [address] [place] [address] [phone] Referring Physician Hematology & Oncology 05/10/21 Omari Marikacorry Mcqueen, [facility] Supervisor Baking BMT - Adult 06/14/21 Tad Jordan MD [address] [place] [address]825 Assigned Cancer Care Provider 06/23/21 Debbie Lugo, RN Registered Nurse 01/21/22 [facility] Nurse Coordinator Transplant 04/08/23
--- OUTSIDE RECORDS SUMMARY | 2023-08-17 14:26 | XMS_ITS | Encounter Summary ---
Author Name Unknown Organization [place] Address [address] [facility] [place] [address] Care Team Providers Care Hammer Smith Name Role Phone Caren Gómez Primary Care Provider [phone] Tad Jordan MD Unavailable [phone] Mallory Malin MD Unavailable [phone] Latasha Wilcox PA-C Unavailable [phone] Marika Salcido [facility] Unavailable Tad Jordan MD Unavailable [phone] Debbie Lugo RN Unavailable UnavailBlaine Gibbs RN Unavailable Unavailable Encounter Details Date Type Department Care Team (Late st Contact Info) Description 04/27/2023 Orders Only M [facility] Blood and Marrow Transplant Program [address] [phone] Matteo Gómez, RN Red cell aplasia (H) (Primary Dx) Social [...] Info) Description 04/25/2024 9:00 AM CDT Lab [facility] [address] [place] [phone] Tad Jordan MD [address] [place] [address] [phone] 04/25/2024 9:15 AM CDT Oncology Visit [facility] Blood and Marrow Transplant Program [address] [phone] Tad Jordan MD [address] [place] [address] [phone] documented as of this encounter Results * (ABNORMAL) Lanre Benson [...] BODY FLUIDS OR DERABLES [facility] [address] [place] [address] [phone] documented in this encounter Visit Diagnoses 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) documented in this encounter Additional Health Concerns Infection Onset Date Last Indicated Resolved 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 Parvovirus 01/23/2022 04/27/2023 Rule Out Parvovirus 04/27/2023 04/27/2023 05/01/20 23 9:52 PM CDT documented as of this encounter Care Teams Hammer Smith Relationship Specialty Start Date End Date Caren Gómez PCP - General Physician Frame Fixer 03/16/20 Tad Jordan MD [address] [phone] BMT Physician Transplant 04/10/21 Mallory Malin MD [address] [place] [address] Endocrinology, Diabetes, and Metabolism 05/10/21 Latasha Wilcox PA-C [address] [place] [address] Referring Physician Hematology & Oncology 05/10/21 Marika Salcido, [facility] Immigration Officer BMT - Adult 06/14/21 Tad Jordan MD [address] [address] Assigned Cancer Care Provider 06/23/21 Debbie Lugo, RN Registered Nurse 01/21/22 Blaine Chaves, RN BMT Nurse Coordinator Transplant 04/08/23 documented as of this encounter
--- OUTSIDE RECORDS SUMMARY | 2023-08-17 14:26 | XMS_ITS | Clinical Summary ---
Author Name Unknown Organization [place] Address [address] [facility] [place] [address] Care Team Providers Care Retail Sales Merchandiser Development Name Role Phone Caren Gómez Omar Primary Care Provider [phone] Tad Jordan MD Unavailable [phone] Mallory Malin MD Unavailable [phone] Latasha Wilcox PA-C Unavailable [phone] Marika Salcido [facility] Unavailable Tad Jordan MD Unavailable [phone] Debbie Lugo RN Unavailable Unavailabl e [...] will receive M/W/F infusions of IVIG at [facility], starting 02/03, to complete on 02/12. Will have labs CBC, TySc, CMP (and possible RBC transfusions) on 02/03 and 02/10. All lab results to be faxed to Matteo Gómez at [phone]. If weekly labs are indicated beyond this, OP RNCC to arrange as we move closer to that time. [facility] On 01/29, faxed preliminary Summary of Care which includes lab orders, PRN blood orders, and IVIG orders. Called [facility] to discuss plan as well. At time of discharge, awaiting specific scheduling information from [facility]. Called back on 01/31/22 but the [...] for PT/OT/therapies: NA D/c location: Home - [place], [place] Has placement need been communicated to Social Work? NA [place] Teaching time arranged with patient/caregiver: Will discuss the above plan with pt prior to discharge. Notify nurse to schedule line care class/ DM teaching, prior to d/c: NA Caregiver: Ce (niece) Gerri (sister) [phone] Danial Cortez Sock Drier: Bhumi [phone] [facility] Phone - [phone] Fax - [phone] Johanna RN - [phone] Problem Noted Date Diagnosed Date Diarrhea 01/20/2022 [...] Overview: Added automatically from request for surgery [id number] Symptomatic anemia 04/03/2020 Overview: Added automatically from request for surgery [id number] Morbid obesity 04/02/2020 Immunizations Name Administration Dates Next Due COVID-19 Monovalent 12+ (Pfizer 2021) 05/01/2022 ,02/06/2022,12/16/2021 DTaP / Hep B / IPV 05/01/2023,05/01/2022 HIB (PRP-T) 05/01/2023,05/01/2022 Influenza Vaccine >6 months,quad, PF 05/01/2022, 06/10/2021 MMR 05/01/2023 Pneumo Conj 13-V (2010&after) 05/01/2023 TDAP (Adacel,Boostrix) 02/23/2018,04/17/2008 Zoster recombinant adjuvanted (SHINGRIX) 022 Family History Medical History Relation Comments Kidney Disease Father Bleeding Disorder Mother Cancer Mother Relation Status Comments Brother Alive Father Maternal Grandfather Maternal Grandmother Mother Alive Paternal Grandfather Paternal Grandmother Sister Alive Social History Tobacco Use Types Packs/Day Years [...] Info) Description 04/25/2024 9:00 AM CDT Lab [facility] [address] [place] [address] [phone] Tad Jordan MD [address] [place] [address] 04/25/2024 9:15 AM CDT Oncology Visit [facility] Blood and Marrow Transplant Program [address] [phone] Tad Jordan MD [address] [place] [address]267 Health Maintenance Due Date Last Done Comments ANNUAL REVIEW OF HM ORDERS 1981 DEPRESSION ACTION PLAN 1981 DIABETIC FOOT EXAM 1981 LIPID 1981 MICROALBUMIN 1981 PHQ-9 1981 A1C 11/12/2021 08/15/2021, 05/17/2021 EYE EXAM 12/12/2021 12/12/2020 PAP 03/27/2023 03/27/2020, 03/27/2020 TSH W/FREE T4 REFLEX 05/01/2023 05/01/2022, 05/01/2022, 10/02/2021, Additional history exists Pneumococcal Vaccine: Pediatrics (0 to 5 Years) and At-Risk Patients (6 to 64 Years) (2 of 2 - PPSV23 or PCV20) 06/26/2023 05/01/2023 YEARLY PREVENTIVE VISIT 09/09/2023 09/09/2022 BMP 10/21/2023 10/20/2022, 07/13, 05/01/2022, Additional history exists MAMMO SCREENING 09/10/2024 09/10/2022, 01/18/2019 ADVANCE CARE PLANNING 01/17/2026 01/17/2021, 020 DTAP/TDAP/TD IMMUNIZATION (6 - Td or Tdap) 05/01/2033 05/01/2023, 09/09/2022, 05/01/2022, Additional history exists HEPATITIS C SCREENING Completed 03/12/2021 HIV SCREENING Completed 03/22/2021, 0807/2020, 03/12/2021 HEPATITIS B IMMUNIZATION Completed 023, 09/09/2022, 05/01/2022 IPV IMMUNIZATION Completed 05/01/2023, , 05/01/2022 COVID-19 Vaccine Completed 05/04/2023, , 05/01/2022, Additional history exists INFLUENZA VACCINE Completed 05/04/2023, , 05/01/2022, Additional history exists HPV IMMUNIZATION Aged Out No longer e ligible based on patient's age to complete this topic MENINGITIS IMMUNIZATION Aged Out No l onger eligible based on patient's age to complete this topic RSV MONOCLONAL ANTIBODY Aged Out No l onger eligible based on patient's age to complete this topic Additional Health Concerns Infection Onset Date 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 Health Care Agent Janay (Gerri) [facility] Health Care Agent Care Teams Retail Sales Merchandiser Development Relationship Specialty Start Date End Date Caren Gómez PCP - General Physician Marker Shipments 03/16/20 Tad Jordan MD [address] [address] BMT Physician Transplant 04/10/21 Mallory Malin MD [address] [place], [place] [phone] Endocrinology, Diabetes, and Metabolism 05/10/21 Latasha Wilcox PA-C [address] [place] [address] Referring Physician Hematology & Oncology 05/10/21 Marika Salcido, [facility] Pacs Administrator BMT - Adult 06/14/21 Tad Jordan MD [address] [address] Assigned Cancer Care Provider 06/23/21 Debbie Lugo, RN Registered Nurse 01/21/22 [facility] B[facility] Nurse Coordinator Transplant 04/08/23
--- OUTSIDE RECORDS SUMMARY | 2023-08-17 14:26 | XMS_ITS | Encounter Summary ---
Author Name Unknown Organization [place] Address [address] [facility] [place] [address] Care Team Providers Care Tar Leveler Name Role Phone Caren Gómez Omar Primary Care Provider Tad Jordan MD Unavailable [phone] Mallory Malin MD Unavailable [phone] Latasha Wilcox PA-C Unavailable [phone] Marika Salcido [facility] Unavailable Tad Jordan MD Unavailable [phone] Debbie Lugo RN Unavailable [facility] Blaine Chaves RN Unavailable Unavailable Encounter Details Date Type Department Care Team (Latest Contact Info) Description 04/27/2023 Travel Social History Tobacco Use Types Packs/Day [...] Info) Description 04/25/2024 9:00 AM CDT Lab [facility] [address] [place] [phone] Tad Jordan MD [address] [place] [address] [phone] 04/25/2024 9:15 AM CDT Oncology Visit [facility] Blood and Marrow Transplant Program [address] [phone] Tad Jordan MD [address] [place] [address] [phone] documented as of this encounter Visit Diagnoses Not on filedocumented in this encounter Additional Health Concerns Infection Onset Date Last Indicated Resolved 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 Parvovirus 01/23/2022 04/27/2023 Rule Out Parvovirus 04/27/2023 04/27/2023 05/01/20 9:52 PM CDT documented as of this encounter Care Teams Tar Leveler Relationship Specialty Start Date End Date Caren Gómez PCP - General Physician Bicycle I Assembler 03/16/20 Tad Jordan MD [address] [place] [address] BMT Physician Transplant 04/10/21 Mallory Malin MD [address] [place] [address] [phone] Endocrinology, Diabetes, and Metabolism 05/10/21 Latasha Wilcox PA-C [address] [place], [place] [phone] Referring Physician Hematology & Oncology 05/10/21 Marika Salcido, [facility] Insole Reinforcer BMT - Adult 06/14/21 Tad Jordan MD [address] [place] [address] Assigned Cancer Care Provider 06/23/21 Debbie Lugo, RN Registered Nurse 01/21/22 Blaine Chaves RN BMT Nurse Coordinator Transplant 04/08/23 documented as of this encounter
--- OUTSIDE RECORDS SUMMARY | 2023-08-17 14:26 | XMS_ITS | Encounter Summary ---
Author Name Unknown Organization [place] Address [address] [place] [address] Care Team Providers Care Manager Stone Name Role Phone Caren Gómez Omar Primary Care Provider [phone] Omar Burton MD Unavailable [phone] Mallory Malin MD Unavailable [phone] Latasha WilcoxC Unavailable [phone] [facility] Unavailable Omar Burton MD Unavailable [phone] Debbie Lugo RN Unavailable Unavailabl Blaine Mullins RN Unavailable Unavailable Reason for Visit * CV Testing (Routine) - Closed Specialty Diagnoses / Procedures Referred By Contac t Referred To Contact Cardiology Diagnoses Red cell aplasia (H) Procedures Echocardiogram Complete ZZHC TTE W/DOPPLER, COMPLETE ZZHC ECHO COMPLETE W DOPPLER W CONTRAST ZZHC ECHO COMPLETE W DOPPLER W/O CONTRAST ZZHC IV PUSH SINGLE, INITIAL SUBSTANCE ZZHC US GUIDE FOR PERICARDIOCENTESIS ZZHC ECHO MYOCARD BX ZZC INJECTION, PERFLUTREN LIPID MICROSPHERES, PER ML ZZHC STATISTIC IV PUSH SINGLE INITIAL SUBSTANCE PA ECHO MYOCARD BX PA INJECTION, PERFLUTREN LIPID MICROSPHERES, PER ML PA TTE W/DOPPLER, COMPLETE PA IV PUSH SINGLE, INITIAL SUBSTANCE PA TTE W/DOPPLER, COMPLETE PA TTE W/DOPPLER, COMPLETE HC US GUIDE FOR PERICARDIOCENTESIS HC ECHO MYOCARD BX HC IV PUSH SINGLE, INITIAL SUBSTANCE HC STATISTIC IV PUSH SINGLE INITIAL SUBSTANCE HC ECHO COMPLETE W DOPPLER W CONTRAST HC ECHO COMPLETE W DOPPLER W/O CONTRAST Omar Burton MD [address] [address] [facility] [address] [facility] [address] [place] [address] Referral ID Status Reason Start Date Expiration Date Visits Re quested Visits Authorized [id number] Closed 12/17/2022 12/17/2023 1 1 Encounter Details Date Type Department Care Team (Latest Contact Info) Description 04/27/2023 9:00 AM CDT Ancillary Procedure [facility] [address] [phone] Omar Burton MD [address] [place] [address] Red cell aplasia (H) Social History Tobacco Use Types Packs/Day Years [...] Info) Description 04/25/2024 9:00 AM CDT Lab [facility] [address] [place] [phone] Omar Burton MD [address] [place] [address] [id number] 04/25/2024 9:15 AM CDT Oncology Visit [facility] [address] [phone] Omar Burton MD [address] [place] [address] [phone] documented as of this encounter Procedures Procedure Name Priority Date/Time Associated Diagnosis Comments ECHO COMPLETE WITH CONTRAST Routine 04/27/2023 10:03 AM CDT Red cell aplasia (H) documented in this encounter Results * ECHO COMPLETE WITH CONTRAST (04/27/2023 10:03 AM CDT) LVEF 55-60% CARDIOLOGY RESULTS Anatomical Region Laterality Modality Echocardiography 04/27/2023 8:57 AM CDT Narrative 04/27/2023 11:07 AM CDT [id number]^MICHEAL^OSITO [facility] Diagnostic and Treatment-3rd Floor [address] [place] [address] Name: AKHIL VEE : 1980 Study Date: 04/27/2023 08:57 AM Age: 42 yrs Gender: Female Patient Location: [facility] Reason For Study: Red cell aplasia (H) Ordering Physician: OMAR BURTON Referring Physician: OMAR BURTON Performed By: River Cota RDCS BSA: 2.7 m2 Height: 67 in Weight: 399 lb BP: 160/106 mmHg Procedure Echocardiogram with two-dimensional, color and spectral Doppler performed. Contrast Optison. Optison ([facility] #[id number]) given intravenously. Patient was given 6 ml mixture of 3 ml Optison and 6 ml saline. 3 ml wasted. Interpretation Summary Global and regional left ventricular function is normal with an EF of 55-60%. Right ventricular function, chamber size, wall motion, and thickness are normal. The inferior vena cava is normal. No pericardial effusion is present. No significant changes noted. Left Ventricle Global and regional left ventricular function is normal with an EF of 55-60%. Left ventricular wall thickness is normal. Left ventricular size is normal. Left ventricular diastolic function is normal. No regional wall motion abnormalities are seen. Right Ventricle Right ventricular function, chamber size, wall motion, and thickness are normal. Atria Both atria appear normal. The atrial septum is intact as assessed by color Doppler . Mitral Valve The mitral valve is normal. Aortic Valve The valve leaflets are not well visualized. On Doppler interrogation, there is no significant stenosis or regurgitation. Tricuspid Valve The tricuspid valve is normal. Trace to mild tricuspid insufficiency is present. The right ventricular systolic pressure is approximated at 30.7 mmHg plus the right atrial pressure. Pulmonary artery systolic pressure is normal. Pulmonic Valve The valve leaflets are not well visualized. On Doppler interrogation, there is no significant stenosis or regurgitation. Vessels The thoracic aorta is normal. The pulmonary artery and bifurcation cannot be assessed. The inferior vena cava is normal. Pericardium No pericardial effusion is present. Compared to Previous Study No significant changes noted. MMode/2D Measurements & Calculations IVSd: 0.95 cm LVIDd: 5.4 cm LVIDs: 3.1 cm LVPWd: 1.0 cm FS: 41.9 % LV mass(C)d: 202.8 grams LV mass(C)dI: 74.8 grams/m2 Ao root diam: 3.2 cm asc Aorta Diam: 3.0 cm LVOT diam: 2.1 cm LVOT area: 3.5 cm2 Ao root diam index Ht(cm/m): 1.9 Ao root diam index BSA (cm/m2): 1.2 Asc Ao diam index BSA (cm/m2): 1.1 Asc Ao diam index Ht(cm/m): 1.8 RWT: 0.39 TAPSE: 2.4 cm Doppler Measurements & Calculations MV E max jose: 91.3 cm/sec MV A max jose: 100.3 cm/sec MV E/A: 0.91 MV dec slope: 418.0 cm/sec2 MV dec time: 0.22 sec PA acc time: 0.12 sec TR max jose: 276.9 cm/sec TR max P.7 mmHg E/E' av.6 Lateral E/e': 7.6 Medial E/e': 11.7 RV S Jose: 12.3 cm/sec Report approved by: Rhett Painter 04/27/2023 11:07 AM Procedure Note Patricia Arredondo MD - 04/27/2023 [id number]^MICHEAL^OSITO [facility] Diagnostic and Treatment-3rd Floor [address] [place] [id number] Name: AKHIL VEE : 1980 Study Date: 04/27/2023 08:57 AM Age: 42 yrs Gender: Female Patient Location: [facility] Reason For Study: Red cell aplasia (H) Ordering Physician: OMAR BURTON Referring Physician: OMAR BURTON Performed By: River Cota RDCS BSA: 2.7 m2 Height: 67 in Weight: 399 lb BP: 160/106 mmHg Procedure Echocardiogram with two-dimensional, color and spectral Dopplerperformed. Contrast Optison. Optison ([facility] #[id number]) given intravenously. Patientwas given 6 ml mixture of 3 ml Optison and 6 ml saline. 3 ml wasted. Interpretation Summary Global and regional left ventricular function is normal with an EF of55-60%. Right ventricular function, chamber size, wall motion, and thickness are normal. The inferior vena cava is normal. No pericardial effusion is present. No significant changes noted. Left Ventricle Global and regional left ventricular function is normal with an EF of55-60%. Left ventricular wall thickness is normal. Left ventricular size isnormal. Left ventricular diastolic function is normal. No regional wall motion abnormalities are seen. Right Ventricle Right ventricular function, chamber size, wall motion, and thickness are normal. Atria Both atria appear normal. The atrial septum is intact as assessed bycolor Doppler . Mitral Valve The mitral valve is normal. Aortic Valve The valve leaflets are not well visualized. On Doppler interrogation,there is no significant stenosis or regurgitation. Tricuspid Valve The tricuspid valve is normal. Trace to mild tricuspid insufficiency is present. The right ventricular systolic pressure is approximated at 30.7mmHg plus the right atrial pressure. Pulmonary artery systolic pressure isnormal. Pulmonic Valve The valve leaflets are not well visualized. On Doppler interrogation,there is no significant stenosis or regurgitation. Vessels The thoracic aorta is normal. The pulmonary artery and bifurcation cannotbe assessed. The inferior vena cava is normal. Pericardium No pericardial effusion is present. Compared to Previous Study No significant changes noted. MMode/2D Measurements & Calculations IVSd: 0.95 cm LVIDd: 5.4 cm LVIDs: 3.1 cm LVPWd: 1.0 cm FS: 41.9 % LV mass(C)d: 202.8 grams LV mass(C)dI: 74.8 grams/m2 Ao root diam: 3.2 cm asc Aorta Diam: 3.0 cm LVOT diam: 2.1 cm LVOT area: 3.5 cm2 Ao root diam index Ht(cm/m): 1.9 Ao root diam index BSA (cm/m2): 1.2 Asc Ao diam index BSA (cm/m2): 1.1 Asc Ao diam index Ht(cm/m): 1.8 RWT: 0.39 TAPSE: 2.4 cm Doppler Measurements & Calculations MV E max jose: 91.3 cm/sec MV A max jose: 100.3 cm/sec MV E/A: 0.91 MV dec slope: 418.0 cm/sec2 MV dec time: 0.22 sec PA acc time: 0.12 sec TR max jose: 276.9 cm/sec TR max P.7 mmHg E/E' av.6 Lateral E/e': 7.6 Medial E/e': 11.7 RV S Jose: 12.3 cm/sec Report approved by: Rhett Painter 04/27/2023 11:07 AM Omar Burton MD CV ECHO ORDERABLES documented in this encounter Visit Diagnoses Diagnosis 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) documented in this encounter Administered Medications Inactive Administered Medications - up to 3 most recent administrations Medication Order MAR Action Action Date Dose Rate Site perflutren diluted 1mL to 2mL with saline (OPTISON) diluted injection 6 mL 6 mL, Intravenous, ONCE, On 04/27/23 at 1000, For 1 dose $Given 04/27/2023 9:59 AM CDT 6 mLs documented in this encounter Additional Health Concerns Infection Onset Date Last Indicated Resolved 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 Parvovirus 01/23/2022 04/27/2023 Rule Out Parvovirus 04/27/2023 04/27/2023 05/01/20 9:52 PM CDT documented as of this encounter Care Teams Manager Stone Relationship Specialty Start Date End Date Caren Gómez PCP - General Physician Reverse Logistics Analyst 03/16/20 Omar Burton MD [address] [place] [address] [phone] BMT Physician Transplant 04/10/21 Mallory Malin MD [address] [place] [address] Endocrinology, Diabetes, and Metabolism 05/10/21 Latasha Wilcox PA-C [address] [place] [address] Referring Physician Hematology & Oncology 05/10/21 Marika Salcido, [facility] Yard Person BMT - Adult 06/14/21 Omar Burton MD [address] [place] [address] Assigned Cancer Care Provider 06/23/21 Debbie Lugo, RN Registered Nurse 01/21/22 Blaine Chaves RN BMT Nurse Coordinator Transplant 04/08/23 documented as of this encounter
--- OUTSIDE RECORDS SUMMARY | 2023-08-17 14:26 | XMS_ITS | Encounter Summary ---
Author Name Unknown Organization [place] Address [address] [facility] [place] [address] Care Team Providers Care Spout Liner Name Role Phone Caren Gómez Omar Primary Care Provider [phone] Tad Jordan MD Unavailable [phone] Mallory Malin MD Unavailable [phone] Latasha Wilcox PA-C Unavailable [phone] Marika Salcido [facility] Unavailable Tad Jordan MD Unavailable [phone] Debbie Lugo RN Un[facility] Blaine Mullins RN Unavailable Unavailable Reason for Visit * Reason Comments Oncology Clinic Visit Acute myeloid leuk emia Encounter Details Date Type Department Care Team (Late st Contact Info) Description 04/27/2023 10:00 AM CDT Allied Health/Nurse Visit [facility] Blood and Marrow Transplant Program [place] [address] [place] [address] Tad Jordan MD [address] [id number] 1, Bmt Nurse Oncology Clinic Visit (Acute myeloid leuke... 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 Estimated body mass index is 68.09 kg/m?? as calculated from the following: Height as of 07/28/22: 1.72 m (5' 7.72). Weight as of this encounter: 201.4 kg (444 lb 1.6 oz). Body surface area is 3.1 meters squared. No Pain (0) Comment: Data Unavailable Patient's last menstrual period was 03/27/2020 (exact date). Allergies reviewed: Yes Medications reviewed: Yes Medications: Medication refills not needed today. Pharmacy name entered into [id number] - [place], [place] - [address] [facility] [place] [place] [facility] [address] [facility] [place] [address] [address] [facility] [place] [address] [address] Clinical concerns: none CELINE Suresh 04/27/2023 * Farideh Sevilla - 04/27/2023 10:00 AM CDT EKG was performed today per order written by Tad Jordan. Name and verified with patient. Patient tolerated well without incident. File transmitted to chart. Farideh Sevilla on 04/27/2023 at 10:43 AM documented in this encounter Plan of Treatment Upcoming Encounters Date Type Department Care Team (Late st Contact Info) Description 04/25/2024 9:00 AM CDT Lab [facility] [address] [place] [phone] Tad Jordan MD [address] [place] [address] [phone] 04/25/2024 9:15 AM CDT Oncology Visit [facility] Blood and Marrow Transplant Program [address] [address] Tad Jordan MD [address] [place] [address] [phone] documented as of this encounter Visit Diagnoses Diagnosis 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 documented in this encounter Additional Health Concerns Infection Onset Date Last Indicated Resolved 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 Parvovirus 01/23/2022 04/27/2023 Rule Out Parvovirus 04/27/2023 04/27/2023 05/01/20 23 9:52 PM CDT documented as of this encounter Care Teams Spout Liner Relationship Specialty Start Date End Date Rico Caren Omar PCP - General Physician Crossing Flagman 03/16/20 Tad Jordan MD [address] [place] [phone] BMT Physician Transplant 04/10/21 Mallory Malin MD [address] [place] [address] [phone] Endocrinology, Diabetes, and Metabolism 05/10/21 Latasha Wilcox PA-C [address] [place] [phone] Referring Physician Hematology & Oncology 05/10/21 [facility] Strawhat Inspector And Packer BMT - Adult 06/14/21 Tad Jordan MD [address] [place] [phone] Assigned Cancer Care Provider 06/23/21 Debbie Lugo, RN Registered Nurse 01/21/22 Blaine Chaves RN BMT Nurse Coordinator Transplant 04/08/23 documented as of this encounter
--- OUTSIDE RECORDS SUMMARY | 2023-08-17 14:26 | XMS_ITS | Encounter Summary ---
Author Name Unknown Organization [place] Address [address] [facility] [place] [address] Care Team Providers Care Metal Melter Name Role Phone Caren Gómez Omar Primary Care Provider [phone] Tad Jordan MD Unavailable [phone] Mallory Mlain MD Unavailable [phone] Latasha Wilcox PA-C Unavailable [phone] Marika Salcido [facility] Unavailable Tad Jordan MD Unavailable [phone] Debbie Lugo RN Unavailable [facility] Blaine Chaves RN Unavailable Unavailable Encounter Details Date Type Department Care Team (Latest Contact Info) Description 04/30/2023 Travel Social History Tobacco Use Types Packs/Day [...] Info) Description 04/25/2024 9:00 AM CDT Lab [facility] [address] [place] [phone] Tad Jordan MD [address] [place] [address] [phone] 04/25/2024 9:15 AM CDT Oncology Visit [facility] Blood and Marrow Transplant Program [address] [phone] Tad Jordan MD [address] [place] [address] [phone] documented as of this encounter Visit Diagnoses Not on filedocumented in this encounter Additional Health Concerns Infection Onset Date Last Indicated Resolved 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 Parvovirus 01/23/2022 04/27/2023 Rule Out Parvovirus 04/27/2023 04/27/2023 05/01/20 9:52 PM CDT documented as of this encounter Care Teams Metal Melter Relationship Specialty Start Date End Date Caren Gómez PCP - General Physician Corporate Manager 03/16/20 Tad Jordan MD [address] [place] [phone] BMT Physician Transplant 04/10/21 Mallory Malin MD [address] [place] [address] [phone] Endocrinology, Diabetes, and Metabolism 05/10/21 Latasha Wilcox PA-C [address] [place], [place] [phone] Referring Physician Hematology & Oncology 05/10/21 Marika Salicdo, [facility] Financial Operations Clerk BMT - Adult 06/14/21 Tad Jordan MD [address] [place] [phone] Assigned Cancer Care Provider 06/23/21 Debbie Lugo, RN Registered Nurse 01/21/22 Blaine Chaves RN BMT Nurse Coordinator Transplant 04/08/23 documented as of this encounter
--- OUTSIDE RECORDS SUMMARY | 2023-08-17 14:27 | XMS_ITS | Encounter Summary ---
Author Name Unknown Organization [facility] Address [address] [facility] [place] [address] Care Team Providers Care Medical Transcription Editor Name Role Phone Caren Gómez Omar Primary Care Provider Tad Jordan MD Unavailable [phone] Mallory Malin MD Unavailable [phone] Latasha Wilcox PA-C Unavailable [phone] Marika Salcido [facility] Unavailable Tad Jordan MD Unavailable [phone] Debbie Lugo RN Unavailable Unavailabl Blaine Mullins RN Unavailable Unavailable Reason for Referral * Genomics (Routine) - Authorized Specialty Diagnoses / Procedures Referred By Contac t Referred To Contact Diagnoses Red cell aplasia (H) Procedures DNA Marker Post Bmt Engraftment Bone Marrow Tad Jordan MD [address] [facility] [address] [place] [address] Referral ID Status Reason Start Date Expiration Date V isits Requested Visits Authorized [id number] Authorized 04/27/2023 04/26/2024 1 1 Encounter Details Date Type Department Care Team (Latest Contact Info) Description 04/27/2023 10:55 AM CDT - 04/27/2023 3:36 PM CDT Hospital Encounter M Misty Jones [facility] [address] [place] [address] [place] [phone] Tad Jordan MD [address] [address] Red cell aplasia (H) (Primary Dx) Discharge Disposition: Home or Self Care Social History Tobacco Use Types Packs/Day Years [...] Sign Reading Time Taken Comments Blood Pressure 147/83 04/27/2023 2:45 PM CDT Pulse 74 04/27/2023 2:45 PM CDT Temperature 36.6 ??C (97.9 ??F) 04/27/2023 1 1:16 AM CDT Respiratory Rate 18 04/27/2023 2:45 PM CDT Oxygen Saturation 92% 04/27/2023 2:45 PM CDT Inhaled Oxygen Concentration - - Weight 200.2 kg (441 lb 5.8 oz) 023 11:16 AM CDT Height 172 cm (5' 7.72) 04/27/2023 11: 16 AM CDT Body Mass Index 67.67 04/27/2023 11:16 AM CDT documented in this encounter Discharge Instructions * Discharge Instructions* Latasha Kline RN - 04/27/2023 2:51 PM CDT [facility] Interventional Radiology Patient Instructions Following Biopsy AFTER YOU GO HOME If you were given sedation, for the first 24 hours: we recommend that an adult stay with you, DO NOT drive or operate machinery at home or at work, DO NOT smoke, DO NOT make any important or legal decisions. DO NOT drink alcoholic beverages the day of your procedure Drink plenty of fluids Resume your regular diet, unless otherwise instructed by your Primary Physician Relax and take it easy for 48 hours DO NOT do any strenuous exercise or lifting (> 10 lbs) for at least 7 days following your procedure Keep the dressing dry and in place for 24 hours. Replace with Band aid for 2 days. Never leave a wet dressing in place. Do not take a shower for at least 12 hours following your procedure. No tub bath, hot tub, or swimming for 5 days. There should be minimum drainage from the biopsy site CALL THE PHYSICIAN IF: You start bleeding from the procedure site. If you do start to bleed from that site, lie down flat and hold pressure on the site for a minimum of 10 minutes. Your physician will tell you if you need to return to the hospital You develop nausea or vomiting You have excessive swelling, redness, or tenderness at the site You have drainage that looks like it is infected. You experience severe pain You develop hives or a rash or unexplained itching You develop shortness of breath You develop a temperature of 101 degrees F or greater You develop chest pain or cough up blood, lightheadedness or fainting [facility] INTERVENTIONAL RADIOLOGY DEPARTMENT Procedure Physician: Dr Davey Date of procedure: April 27, 2023 Telephone Numbers: [phone] Thursday-Thursday 7:30 am to 4:00 pm [phone] After 4:00 pm Thursday-Thursday, Weekends & Holidays. Ask for the Interventional Radiologist court commissioner. Someone is court commissioner 24 hrs/day [facility] toll free number: Thursday-Thursday 8:00 am to 4:30 pm [facility] Emergency Dept: [phone] documented in this encounter Medications at Time of Discharge Medication Sig Dispensed Refills Start Date End Date atorvastatin (LIPITOR) 20 MG tablet 0 09/15/2022 clindamycin (CLINDAMAX) 1 % external gelIndications:Red cell aplasia (H) Apply topically 2 times daily 60 g 1 10/20/2022 deferasirox (EXJADE) 500 MG solu-tabIndications:Iron overload due to repeated red blood cell transfusions DISSOLVE AND TAKE TWO TABLETS BY MOUTH EVERY MORNING (BEFORE BREAKFAST) 60 tablet 3 08/04/2022 escitalopram (LEXAPRO) 10 MG tablet 0 09/09/2022 levothyroxine (SYNTHROID/LEVOTHROID) 75 MCG tabletIndications: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 VSS, coccyx bone biopsy site clean/dry/intact, no hematoma, and denies pain. Patient tolerated PO food and fluids. Teaching was done and discharge instructions were given. Patient ambulated, voided, and PIV was removed. Patient discharged from the hospital via wheel chair to home with sister Gerri. * Latasha Kline RN - 04/27/2023 2:20 PM CDT Pt returned from IR via liter accompanied by nurse at 1400.Bone biopsy site is at her coccyx area which is C/D/I denies pain and no hematoma.Pt tolerating food and fluids. * Latasha Kline RN - 04/27/2023 12:08 PM CDT Pt prepped for bone marrow biopsy.PIV in placed from previous procedure which draws blood and flushes.Consent signed and questions answered. documented in this encounter Procedure Notes * Monica Arreola MD - 04/27/2023 2:01 PM CDTAssociated Order(s): Image guided Bone marrow biopsy [facility] Procedure: Image guided Bone marrow biopsy Date/Time: 04/27/2023 2:01 PM Performed by: Monica Arreola MD Authorized by: John Davey MD IR Fellow Physician: Johann Arreola [employer] Site Marked: NA Prior Images Obtained and Reviewed: Yes Required items: Required blood products, implants, devices and special equipment available Patient identity confirmed: Verbally with patient, arm band, provided demographic data and hospital-assigned identification number Patient was reevaluated immediately before administering moderate or deep sedation or anesthesia Confirmation Checklist: Patient's identity using two indicators, relevant allergies, procedure was appropriate and matched the consent or emergent situation and correct equipment/implants were available Time out: Immediately prior to the procedure a time out was called [place] Protocol: the Joint Commission [place] Protocol was followed Preparation: Patient was prepped and draped in usual sterile fashion ANESTHESIA Anesthesia: Local infiltration Local Anesthetic: Lidocaine 1% without epinephrine SEDATION Patient Sedated: Yes Sedation: Midazolam and fentanyl Vital signs: Vital signs monitored during sedation See dictated procedure note for full details. Findings: - Specimens: none Complications: None Condition: Stable Plan: Discharge in 1 hour PROCEDURE Describe Procedure: Successful Fluoroscopy guided right iliac bone marrow biopsy. Patient Tolerance: Patient tolerated the procedure well with no immediate complications Length of time physician/provider present for 1:1 monitoring during sedation: 15 documented in this encounter Miscellaneous Notes * IR Note - Darlnie Irby RN - 04/27/2023 2:06 PM CDT Patient Name: Lainey Vee Today's Date: 04/27/2023 Procedure: Bone marrow biopsy Proceduralist: Dr. Davey, Dr. Arreola Pathology present: Yes, Special Heme Procedure Start: 1333 Procedure end: 1352 Sedation medications administered: Midazolam 3 mg, Fentanyl 100 mcg, diphenhydramine 50 mg Report given to: Latasha Newell RN 2A Global Director Air And Climate Change: N/A Other Notes: Pt arrived to IR room 4 from . Consent reviewed. Pt denies any questions or concernsregarding procedure. Pt positioned prone and monitored per protocol. Samples obtained and sent with Special Heme as ordered. Primapore placed ove biopsy needle track. Hemostasis achieved. Patient to be on bedrest for 1 hour ending at [address] Davey. Pt tolerated procedure without any noted complications. Pt transferred back to . * Pre-Procedure - Monica Arreola MD - 04/27/2023 1:04 PM CDT GENERAL PRE-PROCEDURE: Date/Time: 04/27/2023 1:04 PM Risks and benefits: Risks, benefits and alternatives were discussed Consent given by: Parent Patient states understanding of procedure being performed: Yes Patient's understanding of procedure matches consent: Yes Procedure consent matches procedure scheduled: Yes Appropriately NPO: Yes ASA Class: 2 Mallampati : Grade 2- soft palate, base of uvula, tonsillar pillars, and portion of posterior pharyngeal wall visible Lungs: Lungs clear with good breath sounds bilaterally Heart: Normal heart sounds and rate History & Physical reviewed: History and physical reviewed and no updates needed Statement of review: I have reviewed the lab findings, diagnostic data, medications, and the plan for sedation documented in this encounter Plan of Treatment Upcoming Encounters Date Type Department Care Team (Late st Contact Info) Description 04/25/2024 9:00 AM CDT Lab [facility] [address] [place] [phone] Tad Jordan MD [address] [place] [id number] 04/25/2024 9:15 AM CDT Oncology Visit [facility] Blood and Marrow Transplant [facility] [place] [address] [place] [phone] Tad Jordan MD [address] [place] [phone] documented as of this encounter Procedures Procedure Name Priority Date/Time Associated Diagnosis Comments IR PROCEDURE NOTE Routine 04/27/2023 2:0 1 PM CDT DFISH CULTURE Routine 04/27/2023 1:48 PM CDT Red cell aplasia (H) 1HG CULTURE Routine 04/27/2023 1:48 PM CDT Red cell aplasia (H) DNA MARKER POST BMT ENGRAFTMENT BONE MARROW Routine 04/27/2023 1:48 PM CDT Red cell aplasia (H) FISH Routine 04/27/2023 1:48 PM CDT Red cell aplasia (H) FLOW CYTOMETRY Routine 04/27/2023 1:48 PM CDT Red cell aplasia (H) CHROMOSOME ANALYSIS, BONE MARROW, DIAGNOSIS/RELAPSE Routine 04/27/2023 1:48 PM CDT Red cell aplasia (H) BONE MARROW BIOPSY Routine 04/27/2023 1: 48 PM CDT Red cell aplasia (H) PARVOVIRUS B19 DNA PCR Routine 04/27/2023 1:48 PM CDT Red cell aplasia (H) INR STAT 04/27/2023 11:47 AM CDT CBC WITH PLATELETS STAT 04/27/2023 11 :47 AM CDT documented in this encounter Results * Image guided Bone marrow biopsy (04/27/2023 2:01 PM CDT) Narrative Monica Arreola MD - 04/27/2023 2:01 PM CDT Monica Arreola MD ? 04/27/2023 ??2:02 PM [facility] Procedure: Image guided Bone marrow biopsy Date/Time: 04/27/2023 2:01 PM Performed by: Monica Arreola MD Authorized by: John Davey MD ??IR Fellow Physician: Johann Arreola [employer] Site Marked: NA Prior Images Obtained and Reviewed: ??Yes Required items: Required blood products, implants, devices and special equipment available ?? Patient identity confirmed: ??Verbally with patient, arm band, provided demographic data and hospital-assigned identification number Patient was reevaluated immediately before administering moderate or deep sedation or anesthesia Confirmation Checklist: ??Patient's identity using two indicators, relevant allergies, procedure was appropriate and matched the consent or emergent situation and correct equipment/implants were available Time out: Immediately prior to the procedure a time out was called ?? [place] Protocol: the Joint Commission [place] Protocol was followed ?? Preparation: Patient was prepped and draped in usual sterile fashion ?? ANESTHESIA Anesthesia: Local infiltration Local Anesthetic: ??Lidocaine 1% without epinephrine SEDATION Patient Sedated: Yes ?? Sedation: ??Midazolam and fentanyl Vital signs: Vital signs monitored during sedation ?? See dictated procedure note for full details. Findings: - Specimens: none Complications: None Condition: Stable Plan: Discharge in 1 hour PROCEDURE Describe Procedure: Successful Fluoroscopy guided right iliac bone marrow biopsy. Patient Tolerance: ??Patient tolerated the procedure well with no immediate complications Length of time physician/provider present for 1:1 monitoring during sedation: 15 John Davey MD PROCEDURE/MINOR SURG ICAL ORDERABLES * 1HG Culture (04/27/2023 1:48 PM CDT) Culture [place] Complete Date 06/02/2023 4:47 PM DIGITAL BUSINESS ANALYST [facility] Bone Marrow SPECIMEN FROM BONE MARROW OBTAINED BY ASPIRATION AND BIOPSY / Unknown Non-blood Collection / Unknown 04/27/2023 1:48 PM CDT 04/27/2023 2:27 PM CDT Tad BRITO Performing Organization Address [facility]/ZIP Co de Phone Number [facility] Cytogenetics Lab [address] [place] [address] * DFISH Culture (04/27/2023 1:48 PM CDT) Pathologist [facility] Culture [place] Complete Date 06/02/2023 4:47 PM DIGITAL BUSINESS ANALYST [facility] Bone Marrow SPECIMEN FROM BONE MARROW OBTAINED BY ASPIRATION AND BIOPSY / Unknown Non-blood Collection / Unknown 04/27/2023 1:48 PM CDT 04/27/2023 2:27 PM CDT Tad STONE AP [facility] Cyt[facility]etics Lab [address] [place] [address] [phone] * (ABNORMAL) Parvovirus B19 DNA PCR (Blood or Bone Marrow) (04/27/2023 1:48 PM CDT) Pathologist [facility] Parvovirus DNAPCR Detected( A) 05/01/2023 8:52 PM CDT [facility] Comment: INTERPRETIVE INFORMATION: Parvovirus B19 by Qualitative PCR This test was developed and its performance characteristics determined by [facility]. It has not been cleared or approved by the US Food and Drug Administration. This test was performed in a CLIA certified laboratory and is intended for clinical purposes. Performed By: [facility] [address] [place] [address] Supervisor Cab: Donavan Zavala MD, PhD CLIA Number: [id number] Bone Marrow RIGHT POSTERIOR ILIAC CREST / Unknown Non-blood Collection / Unknown 04/27/2023 1:48 PM CDT 04/27/2023 2:27 PM CDT Tad Jordan MD LAB - BLOOD ORDERABL ES [facility] [address] [place] [address], [facility] [phone] * DNA Marker Post Bmt Engraftment Bone Marrow (04/27/2023 1:48 PM CDT) Specimen Description Bone Marrow: ACD Syringe 04/27/2023 1:48 PM CDT [facility] (LDL) RESULTS RESULTS: POST BONE MARROW DONOR: (ALEKSANDR CORTEZ) 76 % RECIPIENT: 24 % These results are accurate +/-5%. 04/27/2023 1:48 PM CDT [facility] (LDL) INTERPRETATION INTERPRETATION: The findings show partial engraftment. This can be seen in non-myeloablative /reduced intensity transplants, loss of engraftment, disease recurrence or in stable partial engraftment. Correlation with clinical and other laboratory findings is recommended. (Electronically signed by: Miki Stephens MD April 29, 2023 4:23 PM) 04/27/2023 1:48 PM CDT [facility] (LDL) METHODOLOGY Genomic DNA was extracted from above specimen and amplified by PCR using a series of fluorescently labeled oligonucleotide primers specific for highly polymorphic genetic markers (STRs). Pre-transplant samples from both the bone marrow donor(s) and recipient were previously analyzed to identify informative markers from the following STR markers: TH01, CSF1PO, E11R285, M0A1908, H8C7813, vWa, FGA, Amelogenin, B4B6259, D21S11, D18S51, H6Q246, E16E089, K57E615, TPOX, and Y1I037. The resulting products were then analyzed on a Model 3500xl Genescan system, ([employer]) from which the pre and post transplant specimens are compared. Number of markers (loci) used in calculation of result: 6. 04/27/2023 1:48 PM CDT [facility] (LDL) DISCLAIMER This test was developed and its performance characteristics determined by [facility]. It has not been cleared or approved by the FDA. The laboratory is regulated under CLIA as qualified to perform high-complexity testing. This test is used for clinical purposes. It should not be regarded as investigational or for research. A resident/fellow in an accredited training program was involved in the selection of testing, review of laboratory data, and/or interpretation of this case. I, as the senior physician, attest that I: (i) confirmed appropriate testing, (ii) examined the relevant raw data for the specimen(s); and (iii) rendered or confirmed the interpretation(s) . 04/27/2023 1:48 PM CDT [facility] (LDL) Bone Marrow SPECIMEN FROM BONE MARROW OBTAINED BY ASPIRATION AND BIOPSY / Unknown Non-blood Collection / Unknown 04/27/2023 1:48 PM CDT 04/27/2023 2:27 PM CDT Tad Jordan MD LAB - GENOMICS [facility] (LDL) [facility] [address] [facility], Room [address] * FISH With Professional Interpretation (04/27/2023 1:48 PM CDT) Interpretation METHODS: Specimen: Uncultured specimen Test performed: Fluorescence in situ hybridization (FISH) Interphase cells examined: 800 for each probe set Probes: - D7Z1 (7p11.1-q11.1) / Y4T889 (7q31) (dual color) - [employer] Molecular - [id number] (20q12) / MYBL2 (20q13.12) (dual color) - [employer] RESULTS: ABNORMAL - 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 ISCN: nuc cassandra(D7Z1x2,D7S52 2x1)[41/800] nuc cassandra(C02M113-N42R 858,MYBL2)x1[49/ 800] ADDITIONAL COMMENTS: Control ranges: Q9T807x6: 0-1.6% del(20q): 0-1.1% Analyte Specific Reagents (ASRs) are used in many laboratory tests necessary for standard medical care and generally do not require FDA approval. This test was developed and its performance characteristics determined by the [facility]. It has not been cleared or approved by the U.S. Food and Drug Administration. . 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 No clonal abnormality was found among the donor cells. Consistent with these findings, the concurrent FISH analysis ([id number]) showed losses of 7q and 20q in 5-6% of interphase cells. These findings document the presence of a clonal abnormality arising in recipient cells. Losses of chromosomes 7q and 20q are most frequently associated with myeloid disease processes; thus, correlation with hematopathologic and flow cytometric immunophenotyping findings will be helpful for further characterization. If clinically indicated, a follow-up study is also recommended to monitor the behavior of this clone. . 06/04/2023 3:24 PM DIGITAL BUSINESS ANALYST [facility] Methods G-BAND ANALYSIS: Metaphases analyzed: 20 Metaphases screened: 0 Metaphases karyotyped: 3 Banding utilized: G-banding Band resolution: <400-400 Karyotypically Normal Cells: 16 Karyotypically Abnormal Cells: 4* Unstimulated, 24 hour culture. 06/04/2023 3:24 PM DIGITAL BUSINESS ANALYST [facility] Additional Comments *One recipient cell had a nonclonal abnormality. 06/04/2023 3:24 PM DIGITAL BUSINESS ANALYST [facility] Bone Marrow SPECIMEN FROM BONE MARROW OBTAINED BY ASPIRATION AND BIOPSY / Unknown Non-blood Collection / Unknown 04/27/2023 1:48 PM CDT 04/27/2023 2:27 PM CDT Tad BRITO [facility] [address] [facility] Room 15-[address] [phone] * Flow Cytometry Bone Marrow (04/27/2023 1:48 PM CDT) Case Report Flow Cytometry Report ? Case: [id number] ? Authorizing Provider: ??Tad Jordan MD ?Collected: ? 04/27/2023 01:48 PM ? Ordering Location: ? [facility] ? Received: ?04/27/2023 02:27 PM ? [address] [place] ? Pathologist: ? Payton Escalante MD ? Specimen: ?Iliac Crest, Bone Marrow Aspirate, Right, bone marrow ? 04/28/2023 2:42 PM CDT [facility] Flow Interpretation A. Iliac Crest, Bone Marrow Aspirate, Right: -No increase in myeloid blasts and no abnormal myeloid blast population -See comment 04/28/2023 2:42 PM CDT [facility] Comment Final interpretation requires correlation with the results of other ancillary studies and the morphologic and clinical features. 04/28/2023 2:42 PM CDT [facility] Flow Phenotypic Data Unless otherwise indicated, percentages reported below are based on the total number of CD45 positive viable leukocytes. If applicable, percentage of plasma cells is from total viable nucleated cells. 1% cells in the blast gate (CD45 dim and low side scatter blast gate). There is no aberrant immunophenotype on the myeloid blasts. 0.4% CD34 positive blasts 4.8% hematogones/william l B lineage precursors Case was reviewed by the following: Resident Pathologist: Praneeth Thompson MD A resident/fellow was involved in the selection of testing, review of flow scattergrams, and/or interpretation of this case. I, as the senior physician, attest that I: (i) confirmed appropriate testing, (ii) examined the relevant flow scattergrams for the specimen(s); and (ii) rendered or confirmed the interpretation(s) . 04/28/2023 2:42 PM CDT [facility] Flow Processing Information Multi-color flow analysis is performed for the following markers: CD3, CD7, CD10, CD11b, CD13, CD14, CD15, CD16, CD19, CD33, CD34, CD38, CD45, CD56, CD64, CD117, and HLA-DR. Cells are gated to isolate populations (CD45 versus side scatter and forward scatter versus side scatter), to exclude debris (forward scatter versus side scatter) and to exclude cell doublets (forward scatter height versus forward scatter width and side scatter height versus side scatter width). Forward scatter varies with cell size. Side scatter varies with the amount of cytoplasmic granules. Intensity for CD45 usually increases as hematolymphoid cells mature. 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 It has not been cleared or approved by the US Food and Drug Administration. FDA does not require this test to go through premarket FDA review. This test is used for clinical purposes and should not be regarded as investigational or for research. This laboratory is certified under the Clinical Laboratory Improvement Amendments (CLIA) as qualified to perform high complexity clinical laboratory testing. 04/28/2023 2:42 PM CDT [facility] Performing Labs The technical component of this testing was completed at [facility] 04/28/2023 2:42 PM CDT [facility]TOMET[facility] Bone Marrow SPECIMEN FROM BONE MARROW OBTAINED BY ASPIRATION AND BIOPSY / Unknown Non-blood Collection / Unknown 04/27/2023 1:48 PM CDT 04/27/2023 2:27 PM CDT Tad Jordan MD LAB - BERTHA BRITO FLOW CYTOMETRY Flow Cytometry [address] [facility], Room [address] [phone], [facility] [phone] * Bone marrow biopsy (04/27/2023 1:48 PM CDT) Final Diagnosis Bone marrow, posterior iliac crest, right decalcified trephine biopsy and touch imprint; right direct aspirate smear, concentrate aspirate smear, and peripheral blood smear: - Cellular marrow with trilineage hematopoietic maturation, no overt dysplasia, and no increase in blasts - Suboptimal trephine core biopsy - Peripheral blood showing slight normochromic, macrocytic anemia (decreased RBC count only) - See comment 04/29/2023 5:34 PM CDT [facility] Comment The core biopsy is subcortical and contains only small fragmented areas of intact marrow, and as a result marrow cellularity cannot be reliably determined. Concurrent flow cytometry ([id number]) demonstrates no increase in myeloid blasts and no abnormal myeloid blast population. Please correlate these findings with the results of other ancillary studies and the clinical presentation. 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 The most recent bone marrow biopsy on 01/23/2022 showed Hypercellular marrow (cellularity estimated at 80-90%) with trilineage hematopoietic maturation with a normal myeloid to erythroid ratio, 1% blasts. This bone marrow biopsy is ordered for routine follow-up. 04/29/2023 5:34 PM CDT [facility] Peripheral Hematologic Data CBC WITH DIFFERENTIAL(04/12 12:08 PM CDT): RESULT VALUE REF. RANGE UNITS WBC Count Hemoglobin Hematocrit Platelet Count RBC Count MCV MCH MCHC RDW 6.1 (NORMAL) 12.8 (NORMAL) 38.2 (NORMAL) 206 (NORMAL) 3.66 ( L ) 104 ( H ) 35.0 ( H ) 33.5 (NORMAL) 13.8 (NORMAL) 4.0-11.0 11.7-15.7 35.0-47.0 150-450 3.80-5.20 78-100 26.5-33.0 31.5-36.5 10.0-15.0 10e3/uL g/dL % 10e3/uL 10e6/uL fL pg g/dL % 200 cell count manual differential (TK): Neutrophils - 65% (4.0 x 10e3/uL) Lymphocytes - 20% (1.2 x 10e3/uL) Monocytes - 7% (0.43 x 10e3/uL) Eosinophils - 6% (0.37 x 10e3/uL) Basophils - 2% (0.12 x 10e3/uL) 04/29/2023 5:34 PM CDT [facility] Microscopic Description PERIPHERAL BLOOD SMEAR MORPHOLOGY: The red blood cells appear normochromic. Poikilocytosis is minimal. Polychromasia is not increased. Rare circulating nucleated red blood cell(s) are identified. Rouleaux formation is not increased. The morphology of the platelets is normal. Lymphocyte morphology is polymorphous. Neutrophils display predominantly normal cytoplasmic granularity and unremarkable nuclear morphology. Bone marrow aspirates and bone marrow trephine core biopsy touch imprints are reviewed. BONE MARROW DIFFERENTIAL (500 cells on direct aspirate smears / 300 cells on touch imprints) Percent (%) Cell Population Reference Range (%) 0 / 1 Blasts (0 - 1) 0 / 0 Neutrophil promyelocytes (2 - 4) 66 / 48 Neutrophils and precursors (54 - 63) 7 / 26 Erythroid precursors (18 - 24) 5 / 2 Monocytes (1- 1.5) 2 / 2 Eosinophils (1 - 3) 0 / 1 Basophils (0 - 1) 20 / 18 Lymphocytes (8 - 12) 0 / 0 Plasma cells (0 - 1.5) The aspirate smears appear slightly hemodilute, but preservation of cell morphology is poor on the touch imprints. The differential is done on the direct aspirate smears and a limited differential is done on the touch imprints. Neutrophil maturation is complete. There is no overt dysplasia. Erythroid maturation is complete. Rare cells show dyspoiesis (nuclear-cytoplas naomie dys-synchrony, multilobation of nuclei). Megakaryocytes are present and show normal morphology. TREPHINE SECTIONS: Hematoxylin and eosin stains are reviewed. The trephine core biopsy is suboptimal: it consists mostly of cortical and periosteal tissues with only small fragmented areas of hematopoietic marrow. Cellularity cannot be reliably estimated in this small area. The cellular composition generally reflects the differentials, showing trilineage hematopoiesis including megakaryocytes. Hemosiderin deposition is seen. IMMUNOHISTOCHEMIS TRY: Immunohistochemic al stains are performed on the paraffin-embedded trephine core with appropriate controls. CD34 highlights rare scattered cells. CD61 highlights platelets and megakaryocytes with unremarkable morphology and distribution. Case was reviewed by the following: Resident Pathologist: Deonte Pacheco MD A resident or fellow in a training program was involved in the initial review, preparation, and/or interpretation of this case. I, as the senior physician, attest that I have personally reviewed all specimens and or slides, including the listed special stains, and used them with my medical judgement to determine the final diagnosis. 04/29/2023 5:34 PM [facility] Gross Description Procedure/Gross Description Aspirate(s) and trephine(s) procured by Ivis Davey MD Specimen sent for Special Studies: Flow Cytometry: right aspirate Cytogenetics: right aspirate Molecular Diagnostics: right aspirate Biopsy aspiration site: right posterior iliac crest (Reference Range) Amount of aspirate 3.0 mL Fat and P.V. cell layer trace % (1 - 3) Particles 0 % Myeloid-erythroid layer 1 % (5 - 8) Clot Section: NO Trephine biopsy site: right posterior iliac crest Designated right posterior iliac crest is 1 cylinder of gritty tissue, labeled with the patient's name and hospital number, obtained with 13 gauge needle and a length of 14 mm; entirely submitted in 1 cassette; acetic zinc formalin fixed, decalcified, processed, and stained for hematoxylin and eosin per laboratory protocol. 04/29/2023 5:34 PM [facility] Performing Labs The technical component of this testing was completed at [facility] 04/29/2023 5:34 PM [facility] Bone Marrow SPECIMEN FROM BONE MARROW OBTAINED BY ASPIRATION AND BIOPSY / Unknown 04/27/2023 1:48 PM CDT 04/27/2023 9:43 AM CDT Bone marrow specimen (specimen) SPECIMEN FROM BONE MARROW OBTAINED BY ASPIRATION AND BIOPSY / Unknown 04/27/2023 1:48 PM CDT 04/27/2023 9:43 AM CDT Tad Jordan MD LAB - [facility] Specialty Lab [address] [facility] [place], [address] [address], [facility] [phone] * INR (04/27/2023 11:47 AM CDT) Pathologist [facility] INR 0.98 0.85 - 1.15 04/27/2023 12:13 PM CDT [facility] Blood STRUCTURE OF LEFT UPPER LIMB / Unknown Venipuncture / Unknown 04/27/2023 11:47 AM CDT 04/27/2023 11:59 AM CDT Cady Jean APRN [employer] LAB - BLOOD ORDERABLES [facility] [place] Core Lab [address] [facility] [place], [address] [address], [facility] [phone] * (ABNORMAL) CBC with platelets (04/27/2023 11:47 AM CDT) Pathologist [facility] WBC Count 6.1 4.0 - 11.0 10e3/uL 04/27/2023 12:08 PM CDT [facility] RBC Count 3.66(L) 3.80 - 5.20 10e6/uL 04/27/2023 12:08 PM CDT [facility] Hemoglobin 12.8 11.7 - 15.7 g/dL 04/27/2023 12:08 PM CDT [facility] Hematocrit 38.2 35.0 - 47.0 % 04/27/2023 12:08 PM CDT [facility] MCV 104(H) 78 - 100 fL 04/27/2023 12:08 PM CDT [facility] MCH 35.0(H) 26.5 - 33.0 pg 04/27/2023 12:08 PM CDT [facility] MCHC 33.5 31.5 - 36.5 g/dL 04/27/2023 12:08 PM CDT [facility] RDW 13.8 10.0 - 15.0 % 04/27/2023 12:08 PM CDT [facility] Platelet Count 206 150 - 450 10e3/uL 04/27/2023 12:08 PM CDT [facility] Blood STRUCTURE OF LEFT UPPER LIMB / Unknown Venipuncture / Unknown 04/27/2023 11:47 AM CDT 04/27/2023 11:59 AM CDT Cady Jean APRN [employer] LAB - BLOOD ORDERABLES [facility] [place] [facility] Lab [address] [facility] [place], [address] [address], [facility] [phone] documented in this encounter Visit Diagnoses 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) documented in this encounter Administered Medications Inactive Administered Medications - up to 3 most recent administrations Medication Order MAR Action Action Date Dose Rate Site diphenhydrAMINE (BENADRYL) injection 25-50 mg 25-50 mg, Intravenous, ONCE PRN, itching, when verbally ordered by provider during the procedure, Starting on Thu04/27/23 at 1346, For 1 dose, IR Intra-procedure $Given 04/27/2023 1:46 PM CDT 50 mg fentaNYL (PF) (SUBLIMAZE) injection 25-50 mcg 25-50 mcg, Intravenous, EVERY 5 MIN PRN, severe pain, If inadequate response may repeat 25 mcg IV slowly every 5 min PRN severe pain; when verbally requested by provider., Administer over 2 Minutes, Starting on Thu04/27/23 at 1304, Doses can be exceeded under direct oversight of patient by physician., IR Intra-procedure $Given 04/27/2023 1:40 PM CDT 50 mcg $Given 04/27/2023 1:34 PM CDT 50 mcg flumazenil (ROMAZICON) injection 0.2 mg 0.2 mg, Intravenous, EVERY 1 MIN PRN, benzodiazepine reversal, If inadequate response after 45 seconds, may repeat 0.2 mg IV every 1 minute PRN oversedation., Administer over 1 Minutes, Starting on Thu04/27/23 at 1304, Give over 15 seconds. Maximum total dose of 1 mg. Continue monitoring until discharge criteria met for a minimum of 2 hours. Irritant. Use with caution in patients on benzodiazepine therapy., IR Intra-procedure lidocaine (LMX4) cream Topical, EVERY 1 HOUR PRN, pain, with VAD insertion, Starting on Thu04/27/23 at 1129, Apply at least 30 minutes prior to VAD insertion in divided doses as needed for size of site for insertion. MAX Dose: 2.5 g (?? of 5 g tube) Do NOT give if patient has a history of allergy to any local anesthetic or any bridgette product. Do NOT use both lidocaine intradermal/subcutaneous injection and the lidocaine cream on the same site., IR Pre-procedure lidocaine 1 % 0.1-1 mL 0.1-1 mL, Other, EVERY 1 HOUR PRN, mild pain with VAD insertion, Starting on Thu04/27/23 at 1129, MAX dose 1 mL subcutaneous OR intradermal along the side of the vein in divided doses as needed for VAD insertion. Do NOT give if patient has a history of allergy to any local anesthetic or any bridgette product. Do NOT use both lidocaine intradermal/subcutaneous injection and the lidocaine cream on the same site., IR Pre-procedure lidocaine 1 % 1-30 mL 1-30 mL, Intradermal, ONCE PRN, local anesthetic. When verbally ordered by prescriber during the procedure., Starting on Thu04/27/23 at 1304, For 1 dose, Dose to be divided into smaller volumes appropriate for the procedure. Provider to administer intradermally. Dose to be divided into smaller volumes appropriate for the procedure., IR Intra-procedure $Given by Other Clinician 04/27/2023 1:42 PM CDT 17 mLs midazolam (VERSED) injection 0.5-2 mg 0.5-2 mg, Intravenous, Administer over 1 Minutes, EVERY 4 MIN PRN, sedation, If inadequate response may repeat 0.5 mg IV slowly every 4 minutes PRN sedation until desired response; when verbally requested by provider., Starting on Thu04/27/23 at 1304, Doses can be exceeded under direct oversight of patient by physician. This drug may cause significant respiratory depression. Monitor respiratory status and vital signs carefully for 1 hour after each dose., IR Intra-procedure $Given 04/27/2023 1:43 PM CDT 1 mg $Given 04/27/2023 1:36 PM CDT 1 mg $Given 04/27/2023 1:31 PM CDT 1 mg naloxone (NARCAN) injection 0.2 mg 0.2 mg, Intravenous, EVERY 2 MIN PRN, opioid reversal, Starting on Thu04/27/23 at 1304, Administer intravenous route when available and notify provider when administered. For unintended sedation or respiratory depression if all of the below criteria are met: ~ respiratory rate LESS than or EQUAL to 8. ~SaO2 less than 92% and or/end-tidal CO2 is greater than 50. ~ the patient is receiving an opioid, has unintended sedations assessed as RASS (-3), and is currently not on mechanical ventilation. RASS scale moderate (-3) is movement or eye opening to voice but no eye contact. Patient Monitoring Once the patient has demonstrated a response to the naloxone, continue to monitor respiratory rate, depth, oxygen saturation and end-tidal CO2 (if available) every 15 minutes x 2, then every 30 minutes x 2, then every 1 hour x 1 after each naloxone dose. Consider transfer to ICU if patient respiratory parameters have not improved after 4 naloxone doses., IR Intra-procedure naloxone (NARCAN) injection 0.2 mg 0.2 mg, Intramuscular, EVERY 2 MIN PRN, opioid reversal, Starting on Thu04/27/23 at 1304, Administer intramuscular if an intravenous route is not available and notify provider when administered. For unintended sedation or respiratory depression if all of the below criteria are met: ~ respiratory rate LESS than or EQUAL to 8. ~SaO2 less than 92% and or/end-tidal CO2 is greater than 50. ~ the patient is receiving an opioid, has unintended sedations assessed as RASS (-3), and is currently not on mechanical ventilation. RASS scale moderate (-3) is movement or eye opening to voice but no eye contact. Patient Monitoring Once the patient has demonstrated a response to the naloxone, continue to monitor respiratory rate, depth, oxygen saturation and end-tidal CO2 (if available) every 15 minutes x 2, then every 30 minutes x 2, then every 1 hour x 1 after each naloxone dose. Consider transfer to ICU if patient respiratory parameters have not improved after 4 naloxone doses., IR Intra-procedure naloxone (NARCAN) injection 0.4 mg 0.4 mg, Intravenous, EVERY 2 MIN PRN, opioid reversal, Starting on Thu04/27/23 at 1304, Administer intravenous route when available and notify provider when administered. For unintended sedation or respiratory depression if all of the below criteria are met: ~ respiratory rate LESS than or EQUAL to 8. ~ SaO2 less than 92% and or/end-tidal CO2 is greater than 50. ~ the patient is receiving an opioid, has unintended sedation assessed as RASS (-4) or (-5) and patient is currently not on mechanical ventilation. RASS scale (-4) is deep sedation with no response to voice but movement or eye opening to physical stimulation. RASS scale (-5) is unarousable. Patient Monitoring Once the patient has demonstrated a response to the naloxone, continue to monitor respiratory rate, depth, oxygen saturation and end-tidal CO2 (if available) every 15 minutes x 2, then every 30 minutes x 2, then every 1 hour x 1 after each naloxone dose. Consider transfer to ICU if patient respiratory parameters have not improved after 4 naloxone doses., IR Intra-procedure naloxone (NARCAN) injection 0.4 mg 0.4 mg, Intramuscular, EVERY 2 MIN PRN, opioid reversal, Starting on Thu04/27/23 at 1304, Administer intramuscular if an intravenous route is not available and notify provider when administered. For unintended sedation or respiratory depression if all of the below criteria are met: ~ respiratory rate LESS than or EQUAL to 8. ~ SaO2 less than 92% and or/end-tidal CO2 is greater than 50. ~ the patient is receiving an opioid, has unintended sedation assessed as RASS (-4) or (-5) and patient is currently not on mechanical ventilation. RASS scale (-4) is deep sedation with no response to voice but movement or eye opening to physical stimulation. RASS scale (-5) is unarousable. Patient Monitoring Once the patient has demonstrated a response to the naloxone, continue to monitor respiratory rate, depth, oxygen saturation and end-tidal CO2 (if available) every 15 minutes x 2, then every 30 minutes x 2, then every 1 hour x 1 after each naloxone dose. Consider transfer to ICU if patient respiratory parameters have not improved after 4 naloxone doses., IR Intra-procedure ondansetron (ZOFRAN) injection 4 mg 4 mg, Intravenous, ONCE PRN, nausea, vomiting, Administer over 2-5 Minutes, Starting on Thu04/27/23 at 1304, For 1 dose, Irritant., IR Intra-procedure sodium chloride (PF) 0.9% PF flush 3 mL 3 mL, Intracatheter, EVERY 8 HOURS, First dose on Thu04/27/23 at 1130, to lock peripheral IV dormant line, IR Pre-procedure $Given 04/27/2023 12:04 PM CDT 3 mLs sodium chloride (PF) 0.9% PF flush 3 mL 3 mL, Intracatheter, EVERY 1 MIN PRN, line flush, other, to ensure patency or to lock dormant line, Starting on Thu04/27/23 at 1129, IR Pre-procedure sodium chloride 0.9 % infusion at 75 mL/hr, Intravenous, CONTINUOUS, IF PATIENT IS RECEIVING RENAL DIALYSIS, RN to reduce rate of 0.9 % sodium chloride IV solution to 10 mL /hour (TKO) IV infusion to prevent fluid overload., IR Pre-procedure, Starting on Thu04/27/23 at 1130, Until Thu04/27/23 at 1736 $New Bag 04/27/2023 12:04 PM CDT 75 mL/hr documented in this encounter Active and Recently Administered Medications Times are shown in CDT. Scheduled Medication Order 04/25/2023 04/26/2023 04/27/2023 sodium chloride (PF) 0.9% PF flush 3 mL 3 mL, Intracatheter, EVERY 8 HOURS, First dose on Thu04/27/23 at 1130, to lock peripheral IV dormant line, IR Pre-procedure 1204 ($Given - Provi davis: Latasha Kline RN) Continuous Medication Order 04/25/2023 04/26/2023 04/27/2023 sodium chloride 0.9 % infusion at 75 mL/hr, Intravenous, CONTINUOUS, IF PATIENT IS RECEIVING RENAL DIALYSIS, RN to reduce rate of 0.9 % sodium chloride IV solution to 10 mL /hour (TKO) IV infusion to prevent fluid overload., IR Pre-procedure, Starting on Thu04/27/23 at 1130, Until Thu04/27/23 at 1736 1204 ($New Bag - Pro vider: Latasha Kline RN) PRN Medication Order 04/25/2023 04/26/2023 04/27/2023 acetaminophen (TYLENOL) tablet 650 mg 650 mg, Oral, EVERY 4 HOURS PRN, mild pain, Starting on Thu04/27/23 at 1425, For 4 doses, up until discharged. Notify provider if pain is not controlled with current regimen. Alternate ibuprofen with acetaminophen if ordered. Maximum acetaminophen dose from all sources = 75 mg/kg/day not to exceed 4 grams/day. diphenhydrAMINE (BENADRYL) injection 25-50 mg (COMPLETED) 25-50 mg, Intravenous, ONCE PRN, itching, when verbally ordered by provider during the procedure, Starting on Thu04/27/23 at 1346, For 1 dose, IR Intra-procedure 1346 ($Given - Provi davis: Darline Irby RN) fentaNYL (PF) (SUBLIMAZE) injection 25-50 mcg 25-50 mcg, Intravenous, EVERY 5 MIN PRN, severe pain, If inadequate response may repeat 25 mcg IV slowly every 5 min PRN severe pain; when verbally requested by provider., Administer over 2 Minutes, Starting on Thu04/27/23 at 1304, Doses can be exceeded under direct oversight of patient by physician., IR Intra-procedure 1334 ($Given - Provi davis: Darline Irby RN)1340 ($Given - Provider: Darline Irby RN) flumazenil (ROMAZICON) injection 0.2 mg 0.2 mg, Intravenous, EVERY 1 MIN PRN, benzodiazepine reversal, If inadequate response after 45 seconds, may repeat 0.2 mg IV every 1 minute PRN oversedation., Administer over 1 Minutes, Starting on Thu04/27/23 at 1304, Give over 15 seconds. Maximum total dose of 1 mg. Continue monitoring until discharge criteria met for a minimum of 2 hours. Irritant. Use with caution in patients on benzodiazepine therapy., IR Intra-procedure lidocaine (LMX4) cream Topical, EVERY 1 HOUR PRN, pain, with VAD insertion, Starting on Thu04/27/23 at 1129, Apply at least 30 minutes prior to VAD insertion in divided doses as needed for size of site for insertion. MAX Dose: 2.5 g (?? of 5 g tube) Do NOT give if patient has a history of allergy to any local anesthetic or any bridgette product. Do NOT use both lidocaine intradermal/subcutaneous injection and the lidocaine cream on the same site., IR Pre-procedure lidocaine 1 % 0.1-1 mL 0.1-1 mL, Other, EVERY 1 HOUR PRN, mild pain with VAD insertion, Starting on Thu04/27/23 at 1129, MAX dose 1 mL subcutaneous OR intradermal along the side of the vein in divided doses as needed for VAD insertion. Do NOT give if patient has a history of allergy to any local anesthetic or any bridgette product. Do NOT use both lidocaine intradermal/subcutaneous injection and the lidocaine cream on the same site., IR Pre-procedure lidocaine 1 % 1-30 mL (COMPLETED) 1-30 mL, Intradermal, ONCE PRN, local anesthetic. When verbally ordered by prescriber during the procedure., Starting on Thu04/27/23 at 1304, For 1 dose, Dose to be divided into smaller volumes appropriate for the procedure. Provider to administer intradermally. Dose to be divided into smaller volumes appropriate for the procedure., IR Intra-procedure 1342 ($Given by Seth r Clinician - Provider: Darline Irby RN - Comment: Dr. Arreola; total dose charted) midazolam (VERSED) injection 0.5-2 mg 0.5-2 mg, Intravenous, Administer over 1 Minutes, EVERY 4 MIN PRN, sedation, If inadequate response may repeat 0.5 mg IV slowly every 4 minutes PRN sedation until desired response; when verbally requested by provider., Starting on Thu04/27/23 at 1304, Doses can be exceeded under direct oversight of patient by physician. This drug may cause significant respiratory depression. Monitor respiratory status and vital signs carefully for 1 hour after each dose., IR Intra-procedure 1331 ($Given - Provi davis: Darline Irby RN)1336 ($Given - Provider: Darline Irby RN)1343 ($Given - Provider: Darline Irby RN) naloxone (NARCAN) injection 0.2 mg(Linked Group 1) 0.2 mg, Intravenous, EVERY 2 MIN PRN, opioid reversal, Starting on Thu04/27/23 at 1304, Administer intravenous route when available and notify provider when administered. For unintended sedation or respiratory depression if all of the below criteria are met: ~ respiratory rate LESS than or EQUAL to 8. ~SaO2 less than 92% and or/end-tidal CO2 is greater than 50. ~ the patient is receiving an opioid, has unintended sedations assessed as RASS (-3), and is currently not on mechanical ventilation. RASS scale moderate (-3) is movement or eye opening to voice but no eye contact. Patient Monitoring Once the patient has demonstrated a response to the naloxone, continue to monitor respiratory rate, depth, oxygen saturation and end-tidal CO2 (if available) every 15 minutes x 2, then every 30 minutes x 2, then every 1 hour x 1 after each naloxone dose. Consider transfer to ICU if patient respiratory parameters have not improved after 4 naloxone doses., IR Intra-procedure naloxone (NARCAN) injection 0.2 mg(Linked Group 1) 0.2 mg, Intramuscular, EVERY 2 MIN PRN, opioid reversal, Starting on Thu04/27/23 at 1304, Administer intramuscular if an intravenous route is not available and notify provider when administered. For unintended sedation or respiratory depression if all of the below criteria are met: ~ respiratory rate LESS than or EQUAL to 8. ~SaO2 less than 92% and or/end-tidal CO2 is greater than 50. ~ the patient is receiving an opioid, has unintended sedations assessed as RASS (-3), and is currently not on mechanical ventilation. RASS scale moderate (-3) is movement or eye opening to voice but no eye contact. Patient Monitoring Once the patient has demonstrated a response to the naloxone, continue to monitor respiratory rate, depth, oxygen saturation and end-tidal CO2 (if available) every 15 minutes x 2, then every 30 minutes x 2, then every 1 hour x 1 after each naloxone dose. Consider transfer to ICU if patient respiratory parameters have not improved after 4 naloxone doses., IR Intra-procedure naloxone (NARCAN) injection 0.4 mg(Linked Group 1) 0.4 mg, Intravenous, EVERY 2 MIN PRN, opioid reversal, Starting on Thu04/27/23 at 1304, Administer intravenous route when available and notify provider when administered. For unintended sedation or respiratory depression if all of the below criteria are met: ~ respiratory rate LESS than or EQUAL to 8. ~ SaO2 less than 92% and or/end-tidal CO2 is greater than 50. ~ the patient is receiving an opioid, has unintended sedation assessed as RASS (-4) or (-5) and patient is currently not on mechanical ventilation. RASS scale (-4) is deep sedation with no response to voice but movement or eye opening to physical stimulation. RASS scale (-5) is unarousable. Patient Monitoring Once the patient has demonstrated a response to the naloxone, continue to monitor respiratory rate, depth, oxygen saturation and end-tidal CO2 (if available) every 15 minutes x 2, then every 30 minutes x 2, then every 1 hour x 1 after each naloxone dose. Consider transfer to ICU if patient respiratory parameters have not improved after 4 naloxone doses., IR Intra-procedure naloxone (NARCAN) injection 0.4 mg(Linked Group 1) 0.4 mg, Intramuscular, EVERY 2 MIN PRN, opioid reversal, Starting on Thu04/27/23 at 1304, Administer intramuscular if an intravenous route is not available and notify provider when administered. For unintended sedation or respiratory depression if all of the below criteria are met: ~ respiratory rate LESS than or EQUAL to 8. ~ SaO2 less than 92% and or/end-tidal CO2 is greater than 50. ~ the patient is receiving an opioid, has unintended sedation assessed as RASS (-4) or (-5) and patient is currently not on mechanical ventilation. RASS scale (-4) is deep sedation with no response to voice but movement or eye opening to physical stimulation. RASS scale (-5) is unarousable. Patient Monitoring Once the patient has demonstrated a response to the naloxone, continue to monitor respiratory rate, depth, oxygen saturation and end-tidal CO2 (if available) every 15 minutes x 2, then every 30 minutes x 2, then every 1 hour x 1 after each naloxone dose. Consider transfer to ICU if patient respiratory parameters have not improved after 4 naloxone doses., IR Intra-procedure ondansetron (ZOFRAN) injection 4 mg 4 mg, Intravenous, ONCE PRN, nausea, vomiting, Administer over 2-5 Minutes, Starting on Thu04/27/23 at 1304, For 1 dose, Irritant., IR Intra-procedure sodium chloride (PF) 0.9% PF flush 3 mL 3 mL, Intracatheter, EVERY 1 MIN PRN, line flush, other, to ensure patency or to lock dormant line, Starting on Thu04/27/23 at 1129, IR Pre-procedure Linked Groups Order Group 1: naloxone (NARCAN) injection 0.2 mgJump to med 0.2 mg, Intravenous, EVERY 2 MIN PRN, opioid reversal, Starting on Thu04/27/23 at 1304, Administer intravenous route when available and notify provider when administered. For unintended sedation or respiratory depression if all of the below criteria are met: ~ respiratory rate LESS than or EQUAL to 8. ~SaO2 less than 92% and or/end-tidal CO2 is greater than 50. ~ the patient is receiving an opioid, has unintended sedations assessed as RASS (-3), and is currently not on mechanical ventilation. RASS scale moderate (-3) is movement or eye opening to voice but no eye contact. Patient Monitoring Once the patient has demonstrated a response to the naloxone, continue to monitor respiratory rate, depth, oxygen saturation and end-tidal CO2 (if available) every 15 minutes x 2, then every 30 minutes x 2, then every 1 hour x 1 after each naloxone dose. Consider transfer to ICU if patient respiratory parameters have not improved after 4 naloxone doses., IR Intra- procedure Or naloxone (NARCAN) injection 0.4 mgJump to med 0.4 mg, Intravenous, EVERY 2 MIN PRN, opioid reversal, Starting on Thu04/27/23 at 1304, Administer intravenous route when available and notify provider when administered. For unintended sedation or respiratory depression if all of the below criteria are met: ~ respiratory rate LESS than or EQUAL to 8. ~ SaO2 less than 92% and or/end-tidal CO2 is greater than 50. ~ the patient is receiving an opioid, has unintended sedation assessed as RASS (-4) or (-5) and patient is currently not on mechanical ventilation. RASS scale (-4) is deep sedation with no response to voice but movement or eye opening to physical stimulation. RASS scale (-5) is unarousable. Patient Monitoring Once the patient has demonstrated a response to the naloxone, continue to monitor respiratory rate, depth, oxygen saturation and end-tidal CO2 (if available) every 15 minutes x 2, then every 30 minutes x 2, then every 1 hour x 1 after each naloxone dose. Consider transfer to ICU if patient respiratory parameters have not improved after 4 naloxone doses., IR Intra-procedure Or naloxone (NARCAN) injection 0.2 mgJump to med 0.2 mg, Intramuscular, EVERY 2 MIN PRN, opioid reversal, Starting on Thu04/27/23 at 1304, Administer intramuscular if an intravenous route is not available and notify provider when administered. For unintended sedation or respiratory depression if all of the below criteria are met: ~ respiratory rate LESS than or EQUAL to 8. ~SaO2 less than 92% and or/end-tidal CO2 is greater than 50. ~ the patient is receiving an opioid, has unintended sedations assessed as RASS (-3), and is currently not on mechanical ventilation. RASS scale moderate (-3) is movement or eye opening to voice but no eye contact. Patient Monitoring Once the patient has demonstrated a response to the naloxone, continue to monitor respiratory rate, depth, oxygen saturation and end-tidal CO2 (if available) every 15 minutes x 2, then every 30 minutes x 2, then every 1 hour x 1 after each naloxone dose. Consider transfer to ICU if patient respiratory parameters have not improved after 4 naloxone doses., IR Intra- procedure Or naloxone (NARCAN) injection 0.4 mgJump to med 0.4 mg, Intramuscular, EVERY 2 MIN PRN, opioid reversal, Starting on Thu04/27/23 at 1304, Administer intramuscular if an intravenous route is not available and notify provider when administered. For unintended sedation or respiratory depression if all of the below criteria are met: ~ respiratory rate LESS than or EQUAL to 8. ~ SaO2 less than 92% and or/end-tidal CO2 is greater than 50. ~ the patient is receiving an opioid, has unintended sedation assessed as RASS (-4) or (-5) and patient is currently not on mechanical ventilation. RASS scale (-4) is deep sedation with no response to voice but movement or eye opening to physical stimulation. RASS scale (-5) is unarousable. Patient Monitoring Once the patient has demonstrated a response to the naloxone, continue to monitor respiratory rate, depth, oxygen saturation and end-tidal CO2 (if available) every 15 minutes x 2, then every 30 minutes x 2, then every 1 hour x 1 after each naloxone dose. 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 Parvovirus 01/23/2022 04/27/2023 Rule Out Parvovirus 04/27/2023 04/27/2023 05/01/20 9:52 PM CDT documented as of this encounter Care Teams Medical Transcription Editor Relationship Specialty Start Date End Date Caren Gómez PCP - General Physician [employer] 03/16/20 Tad Jordan MD [address] [place] [id number] BMT Physician Transplant 04/10/21 Mallory Malin MD [address] [place], [place] [address] Endocrinology, Diabetes, and Metabolism 05/10/21 Latasha Wilcox PA-C [address] [place] [id number] [phone] Referring Physician Hematology & Oncology 05/10/21 Marika Salcido, [facility] Candy Puller BMT - Adult 06/14/21 Tad Jordan MD [address] [place] [address] [phone] Assigned Cancer Care Provider 06/23/21 Debbie Lugo, RN Registered Nurse 01/21/22 Blaine Chaves RN BMT Nurse Coordinator Transplant 04/08/23 documented as of this encounter
--- OUTSIDE RECORDS SUMMARY | 2023-08-17 14:27 | XMS_ITS | Encounter Summary ---
Author Name Unknown Organization Bernard Address [address] [facility] [address] Care Team Providers Care Wood Science Professor Name Role Phone Caren Gómez Primary Care Provider [phone] Omar Burton MD Unavailable [phone] Mallory Malin MD Unavailable [phone] Latasha WilcoxC Unavailable [phone] Matteo Gómez RN Unavailable [phone] Joe Herrera MD Unavailable [phone] Marika Salcido [facility] Unavailable Omar Burton MD Unavailable Debbie Lugo RN Unavailable Unavailabl e Reason for Referral * Consultation (Priority: 1-2 Weeks) - Pending Review Specialty Diagnoses / Procedures Referred By Contbella t Referred To Contact Diagnoses Iron overload due to repeated red blood cell transfusions Omar Burton MD [address] [facility] [address] [place] [address] [address] [address] Referral ID Status Reason Start Date Expiration Date V isits Requested Visits Authorized [id number] Pending Review 10/20/2022 10/20/2023 99 99 Question Answer Reason for Consult Hyperferritinemia Procedure Requested: Therapeutic Phlebotomy 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 No History of Latex allergies? No SUSANA Inhibitor? No Procedure Frequency: Monthly Procedure Duration: Per Transfusion medicine MD Target Dose: Remove 1 unit (500mL) monthly if Hgb </= 10.0 Comments Please be aware that coverage of these services is subject to the terms and limitations of your health insurance plan. Call member services at your health plan with any benefit or coverage questions. * Medication Prior Authorization - Closed Specialty Diagnoses / Procedures Referred By Contac t Referred To Contact Diagnoses Red cell aplasia (H) Omar Burton MD [address] [place] [address] Referral ID Status Reason Start Date Expiration Date Visits Re quested Visits Authorized [id number] Closed 1 1 Reason for Visit * Reason Comments Blood Draw Labs drawn via INSULATION PROFESSIONAL by RN in lab. VS taken Oncology Clinic Visit Red cell aplasia Encounter Details Date Type Department Care Team (Late st Contact Info) Description 10/20/2022 9:15 AM CDT Oncology Visit [facility] Blood and Marrow Transplant Program [address] [phone] Omar Burton MD [address] [place] [address] Iron overload due to repeated red blood cell transfusions (Primary Dx); Red cell aplasia (H) Social History Tobacco [...] Answer Date Recorded PHQ-2 Score 0 03/13/2021 Sex and Gender Information Value Date Recorded Sex Assigned at Female 03/30/2020 2:06 PM CDT Gender Identity Female 03/30/2020 2:06 PM CDT Sexual Orientation Straight 03/30/2020 2: 06 PM CDT COVID-19 Exposure Response Date Recorded In the last 10 days, have yo u been in contact with someone who was confirmed or suspected to have Coronavirus/COVID-19? No / Unsure 10/20/2022 8:51 AM CDT documented as of this encounter Last Filed Vital Signs Vital Sign Reading Time Taken Comments Blood Pressure 140/96 10/20/2022 9:01 AM CDT Pulse 72 10/20/2022 9:01 AM CDT Temperature 36.4 ??C (97.6 ??F) 10/20/2022 9:01 AM CD T Respiratory Rate 16 10/20/2022 9:01 AM CDT Oxygen Saturation 96% 10/20/2022 9:01 AM CDT Inhaled Oxygen Concentration - - Weight 181.1 kg (399 lb 4.8 oz) 10/20/2022 9:01 AM CDT Height - - Body Mass Index 61.22 07/28/2022 9:24 AM PHYSICAL METALLURGIST documented in this encounter Progress Notes * Omar Burton MD - 10/20/2022 9:15 AM CDT hydroBMT Clinic Note ?? 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 ? INTERVAL HISTORY Ashwini generally feeling well. She recovered from her pneumonia in July and is gone on to return to work, going to school, and otherwise remaining active. She is got a few concerns. 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 She is taking glucosamine, turmeric, and Tylenol as needed. She is working hard to lose weight and has altered her diet. She is av oiding red meat, focusing on fruits and vegetables, and attempting to walk more. She has had a stable hemoglobin in the 11-1/2 range and has not begun any type of phlebotomy. She continues Exjade. She does have intermittent small sores open up on her abdomen. She has tried some skin creams and attempting to keep these areas clean. Review of Systems: 8 point ROS negative except as noted above. ? PHYSICAL EXAM ?? Wt Readings from Last 4 Encounters: 10/20/22 (!) 181.1 kg (399 lb 4.8 oz) 05/01/22 (!) 173.7 kg (383 lb) 05/01/22 (!) 173.7 kg (383 lb) 03/13/22 (!) 174.7 kg (385 lb 1.6 oz) BP (!) 140/96 Pulse 72 Temp 97.6 ??F (36.4 ??C) (Oral) Resp 16 Wt (!) 181.1 kg (399 lb 4.8 oz) LMP 03/27/2020 (Exact Date) SpO2 96% BMI 61.22 kg/m?? KPS: 90 General: NAD Sclera: non-injected Skin: No rash, some small scattered purulent macules and shallow ulcers Lymph: no edema ? LABS AND IMAGING: I have assessed all abnormal lab values for their clinical significance and any values considered clinically significant have been addressed in the assessment and plan. ? Lab Results Component Value Date WBC 6.3 10/20/2022 ANEU 8.0 11/14/2021 HGB 11.5 (L) 10/20/2022 HCT 33.8 (L) 10/20/2022 PLT 215 10/20/2022 NA 140 07/28/2022 POTASSIUM 3.8 07/28/2022 CHLORIDE 104 07/28/2022 CO2 24 07/28/2022 GLC 127 (H) 07/28/2022 BUN 31.9 (H) 07/28/2022 CR 1.23 (H) 07/28/2022 MAG 2.0 01/28/2022 INR 1.14 01/30/2022 ?? SYSTEMS-BASED ASSESSMENT AND PLAN Lainey Vee is a 41 year old female s/p allo sib transplant for??pure red cell aplasia. ? Plan Pure red cell aplasia-she is now [...] BM 85 Retic 0.006 0.061 0.144 0.010 2. GI -her diarrhea is improved. She continues to work on weight loss and healthy eating ?? 3. 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 Tapered off steroids as of 07/13/21; tac ended 09/10/2021 ID: -Vaccines up to date for time post BMT ?? 6. Endo: #Hypothyroidism - Continue Levothyroixine 7. CV: blood pressures elevated. 8. Iron overload: Exjade continue at 1 g/day. Begin phlebotomy 1 U RBC monthly for hgb > 10 Plan: - continue exjade - begin phlebotomy 1 U/month for hgb > 10 - Vaccines up to date - Cleocin cream for skin wounds - RTC for two year eval 45 minutes spent on the date of the encounter doing chart review, history and exam, lab review, documentation and coordniating care. OMAR BURTON MD October 20, 2022 documented in this encounter Nursing Notes * Kanwal Hitchcock RN - 10/20/2022 9:15 AM CDT Chief Complaint Patient presents with ??? Blood Draw Labs drawn via INSULATION PROFESSIONAL by RN in lab. VS taken Labs collected from venipuncture by RN. Vitals taken. Checked in for appointment(s). Kanwal Hitchcock RN * Janay Frederick - 10/20/2022 9:15 AM CDT Oncology Rooming Note October 20, 2022 9:33 AM Lainey Vee is a 42 year old female who presents for: Chief Complaint Patient presents with ??? Blood Draw Labs drawn via INSULATION PROFESSIONAL by RN in lab. VS taken ??? Oncology Clinic Visit Red cell aplasia Initial Vitals: BP (!) 140/96 Pulse 72 Temp 97.6 ??F (36.4 ??C) (Oral) Resp 16 Wt (!) 181.1kg (399 lb 4.8 oz) LMP 03/27/2020 (Exact Date) SpO2 96% BMI 61.22 kg/m?? Estimated body mass index is 61.22 kg/m?? as calculated from the following: Height as of 07/28/22: 1.72 m (5' 7.72). Weight as of this encounter: 181.1 kg (399 lb 4.8 oz). Body surface area is 2.94 meters squared. No Pain (0) Comment: Data Unavailable Patient's last menstrual period was 03/27/2020 (exact date). Allergies reviewed: Yes Medications reviewed: Yes Medications: Medication refills not needed today. Pharmacy name entered into [employer] [id number] - [place], [place] - [address] [facility] [address] [facility] [place] [id number] [facility] [place] [id number] Clinical concerns: None Janay Frederick documented in this encounter Plan of Treatment Upcoming Encounters Date Type Department Care Team (Earl Contact Info) Description 04/25/2024 9:00 AM CDT Lab [facility] [address] [place] [phone] Omar Burton MD [address] [place] [address] [address] [place] [address] 04/25/2024 9:15 AM CDT Oncology Visit [facility] Blood and Marrow Transplant Program [address] [phone] Omar Burton MD [address] [place] [phone] Scheduled Referrals Name Type Priority Associated Diagnoses Orde r Schedule Transfusion Medicine OP Referral Referral Priority: 1-2 Weeks Iron overload due to repeated red blood cell transfusions Expected: 10/20/2022 (Approximate), Expires: 10/21/2023 documented as of this encounter Procedures Procedure Name Priority Date/Time Associated Diagnosis Comments DNA MARKER POST BMT ENGRAFTMENT BLOOD, MYELOID Routine 10/20/2022 9:16 AM CDT Red cell aplasia (H) DNA MARKER POST BMT ENGRAFTMENT BLOOD, T CELL Routine 10/20/2022 9:16 AM CDT Red cell aplasia (H) CBC WITH PLATELETS AND DIFFERENTIAL Routine 10/20/2022 9:16 AM CDT Red cell aplasia (H) DNA MARKER POST BMT ENGRAFTMENT BLOOD Routine 10/20/2022 9:16 AM CDT Red cell aplasia (H) CBC WITH PLATELETS & DIFFERENTIAL Routine 10/20/2022 9:16 AM CDT Red cell aplasia (H) FERRITIN Routine 10/20/2022 9:16 AM CDT Red cell aplasia (H) COMPREHENSIVE METABOLIC PANEL Routine 10/20/2022 9:16 AM CDT Red cell aplasia (H) documented in this encounter Results * (ABNORMAL) CBC with platelets and differential (10/20/2022 9:16 AM CDT) WBC Count 6.3 4.0 - 11.0 10e3/uL 10/20/2022 9:32 AM CDT [facility] RBC Count 3.23(L) 3.80 - 5.20 10e6/uL 10/20/2022 9:32 AM CDT [facility] Hemoglobin 11.5(L) 11.7 - 15.7 g/dL 10/20/2022 9:32 AM CDT [facility] Hematocrit 33.8(L) 35.0 - 47.0 % 10/20/2022 9:32 AM CDT [facility] MCV 105(H) 78 - 100 fL 10/20/2022 9:32 AM CDT [facility] MCH 35.6(H) 26.5 - 33.0 pg 10/20/2022 9:32 AM CDT [facility] MCHC 34.0 31.5 - 36.5 g/dL 10/20/2022 9:32 AM CDT [facility] RDW 14.5 10.0 - 15.0 % 10/20/2022 9:32 AM CDT [facility] Platelet Count 215 150 - 450 10e3/uL 10/20/2022 9:32 AM CDT [facility] % Neutrophils 60 % 10/20/2022 9:32 AM CDT [facility] % Lymphocytes 27 % 10/20/2022 9:32 AM CDT [facility] % Monocytes 8 % 10/20/2022 9:32 AM CDT [facility] % Eosinophils 3 % 10/20/2022 9:32 AM CDT [facility] % Basophils 1 % 10/20/2022 9:32 AM CDT [facility] % Immature Granulocytes 1 % 10/20/2022 9:32 AM CDT [facility] NRBCs per 100 WBC 0 <1 /100 023 9:32 AM CDT [facility] Absolute Neutrophils 3.8 1.6 - 8.3 10e3/uL 10/20/2022 9:32 AM CDT [facility] Absolute Lymphocytes 1.7 0.8 - 5.3 10e3/uL 10/20/2022 9:32 AM CDT [facility] Absolute Monocytes 0.5 0.0 - 1.3 10e3/uL 10/20/2022 9:32 AM CDT [facility] Absolute Eosinophils 0.2 0.0 - 0.7 10e3/uL 10/20/2022 9:32 AM CDT [facility] Absolute Basophils 0.0 0.0 - 0.2 10e3/uL 10/20/2022 9:32 AM CDT [facility] Absolute Immature Granulocytes 0.0 <=0.4 10e3/uL 10/20/2022 9:32 AM CDT [facility] Absolute NRBCs 0.0 10e3/uL 10/20/2022 9:32 AM CDT [facility] Blood STRUCTURE OF LEFT UPPER LIMB / Unknown Venipuncture / Unknown 10/20/2022 9:16 AM CDT 10/20/2022 9:25 AM CDT Omar Burton MD LAB - BLOOD ORDERABL ES [facility] [address] [place] [address] 1st [place] [address] * DNA Marker Post BMT Engraftment Blood, Myeloid (10/20/2022 9:16 AM CDT) Specimen Description CD33/66+ blood 10/20/2022 9:16 AM CDT [facility] (LDL) RESULTS RESULTS: POST CD33/66b+(Myeloid ) FRACTION DONOR: (ALEKSANDR CORTEZ) 77 % RECIPIENT: 23 % These results are accurate +/-5%. 10/20/2022 9:16 AM CDT [facility] (LDL) INTERPRETATION INTERPRETATION: The findings show partial engraftment of this cell lineage. This can be seen in non-ablative transplants, loss of engraftment of the cell lineage, disease recurrence, or in stable partial engraftment. Correlation with clinical and other laboratory findings is recommended. 10/20/2022 9:16 AM CDT [facility] (LDL) METHODOLOGY Magnetically labeled microbeads were added to above sample. The labeled sample was placed in the magnetic field of a [employer]-S Automated Cell sorter. The fraction positive for the target cells was extracted and amplified by PCR using a series of fluorescently labeled oligonucleotide primers specific for highly polymorphic genetic markers (STRs). Pre-transplant samples from both the bone marrow donor(s) and recipient were previously analyzed to identify informative markers from the following STR markers: TH01, CSF1PO, [id number], [id number], M7G1573, vWa, FGA, Amelogenin, Z2H7490, D21S11, D18S51, Y5O397, V26P402, X92Y576, TPOX, and G3Z102. The resulting products were then analyzed on a Model 3500xl Genescan system, ([employer]) from which the pre and post transplant specimens are compared. Purities of cell fractions are verified twice yearly and for each new lot of reagent used to isolate the cell subset. Acceptable purity for these analyses are >90%, although the purity for an individual sample may vary. Number of markers (loci) used in calculation of result: 6. 10/20/2022 9:16 AM CDT [facility] (LDL) DISCLAIMER This test was developed and its performance characteristics determined by [facility]. It has not been cleared [...] (iii) rendered or confirmed the interpretation(s) . 10/20/2022 9:16 AM CDT [facility] (LDL) Blood STRUCTURE OF LEFT UPPER LIMB / Unknown Venipuncture / Unknown 10/20/2022 9:16 AM CDT 10/20/2022 9:25 AM CDT Omar Burton MD LAB - GENOMICS [facility] (LDL) [facility] [address] [facility], [address] [place] [address], [facility] * DNA Marker Post BMT Engraftment Blood, T Cell (10/20/2022 9:16 AM CDT) Specimen Description CD3+ blood 10/20/2022 9:16 AM CDT [facility] (LDL) RESULTS RESULTS: POST CD3+ FRACTION DONOR: (ALEKSANDR CORTEZ) 79 % RECIPIENT: 21 % These results are accurate +/-5%. 10/20/2022 9:16 AM CDT [facility] (LDL) INTERPRETATION INTERPRETATION: The findings show partial engraftment of this cell lineage. This can be seen in non-ablative transplants, loss of engraftment of the cell lineage, disease recurrence, or in stable partial engraftment. Correlation with clinical and other laboratory findings is recommended. (Electronically signed by: Nevin Spivey MD October 21, 2022 5:23 PM) 10/20/2022 9:16 AM CDT [facility] (LDL) METHODOLOGY Magnetically labeled microbeads were added to above sample. The labeled sample was placed in the magnetic field of a [employer]-S Automated Cell sorter. The fraction positive for the target cells was extracted and amplified by PCR using a series of fluorescently labeled oligonucleotide primers specific for highly polymorphic genetic markers (STRs). Pre-transplant samples from both the bone marrow donor(s) and recipient were previously analyzed to identify informative markers from the following STR markers: TH01, CSF1PO, B69V070, Z1H0413, K9O5324, vWa, FGA, Amelogenin, Z7Y9332, D21S11, D18S51, E2V805, G05X664, T41D642, TPOX, and Z6K607. The resulting products were then analyzed on a Model 3500xl Genescan system, ([employer]) from which the pre and post transplant specimens are compared. Purities of cell fractions are verified twice yearly and for each new lot of reagent used to isolate the cell subset. Acceptable purity for these analyses are >90%, although the purity for an individual sample may vary. Number of markers (loci) used in calculation of result: 6. The [facility] recently changed our cell sorting instrumentation used in engraftment analysis. The preceding validation study comparing the Robosep cell separator and autoMACS Pro Separator, demonstrated comparable engraftment results. The new reporting for the CD3 fraction remains identical however the CD15 component will now be labelled Myeloid (encompassing CD33/CD66B). 10/20/2022 9:16 AM CDT [facility] (LDL) DISCLAIMER This test was developed and its performance characteristics determined by [facility]. It has not been cleared or [...] (iii) rendered or confirmed the interpretation(s) . 10/20/2022 9:16 AM CDT [facility] (LDL) Blood STRUCTURE OF LEFT UPPER LIMB / Unknown Venipuncture / Unknown 10/20/2022 9:16 AM CDT 10/20/2022 9:25 AM CDT Omar Burton MD LAB - BODY FLUIDS OR DERABLES [facility] (LDL) [facility] [address] [facility] [place] [id number] * (ABNORMAL) Comprehensive metabolic panel (10/20/2022 9:16 AM CDT) Sodium 137 136 - 145 mmol/L 10/20/2022 10:04 AM CDT [facility] Potassium 4.8 3.4 - 5.3 mmol/L 10/20/2022 10:04 AM CDT [facility] Comment:Specimen slightly he molyzed, potassium may be falsely elevated. Chloride 103 98 - 107 mmol/L 10/20/2022 10:04 AM [facility] Carbon Dioxide (CO2) 27 22 - 29 mmol/L 10/20/2022 10:04 AM [facility] Anion Gap 7 7 - 15 mmol/L 10/20/2022 10:04 AM T [facility] Urea Nitrogen 21.6(H) 6.0 - 20.0 mg/dL 10/20/2022 10:04 AM [facility] Creatinine 1.17(H) 0.51 - 0.95 mg/dL 10/20/2022 10:04 AM [facility] Calcium 10.0 8.6 - 10.0 mg/dL 10/20/2022 10:04 AM [facility] Glucose 96 70 - 99 mg/dL 10/20/2022 10:04 AM [facility] Alkaline Phosphatase 65 35 - 104 U/L 10/20/2022 10:04 AM [facility] AST 33 10 - 35 U/L 10/20/2022 10:04 AM [facility] Comment:Specimen is hemolyze d which can falsely elevate AST. Analysis of a non-hemolyzed specimen may result in a lower value. ALT 44(H) 10 - 35 U/L 10/20/2022 10:04 AM [facility] Protein Total 8.0 6.4 - 8.3 g/dL 10/20/2022 10:04 AM [facility] Albumin 4.1 3.5 - 5.2 g/dL 10/20/2022 10:04 AM [facility] Bilirubin Total 0.5 <=1.2 mg/dL 10/20/2022 10:04 AM [facility] GFR Estimate 60(L) >60 mL/min/1.7 3m2 10/20/2022 10:04 AM [facility] Comment:eGFR calculated us2020 CKD-EPI equation. Blood STRUCTURE OF LEFT UPPER LIMB / Unknown Venipuncture / Unknown 10/20/2022 9:16 AM CDT 10/20/2022 9:25 AM CDT Omar Burton MD LAB - BLOOD ORDERABL ES [facility] [address] 1st [place] [address] * (ABNORMAL) Ferritin (10/20/2022 9:16 AM CDT) Ferritin 1,927(H) 6 - 175 ng/mL 10/20/2022 1:05 PM CDT [facility] Blood STRUCTURE OF LEFT UPPER LIMB / Unknown Venipuncture / Unknown 10/20/2022 9:16 AM CDT 10/20/2022 9:25 AM CDT Omar Burton MD LAB - BLOOD ORDERABL ES [facility] [address] [place] [address], [address] [place] [phone] [phone] documented in this encounter Visit Diagnoses Diagnosis Iron overload due to repeated red blood cell transfusions- Primary 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) documented in this encounter Additional Health Concerns Infection Onset Date Last Indicated Resolved 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 Parvovirus 01/23/2022 04/27/2023 documented as of this encounter Care Teams Wood Science Professor Relationship Specialty Start Date End Date Caren Gómez PCP - General Physician Dairy Hand 03/16/20 Omar Burton MD [address] [place] [address] BMT Physician Transplant 04/10/21 Mallory Malin MD [address] [place] [address] Endocrinology, Diabetes, and Metabolism 05/10/21 Latasha Wilcox PA-C [address] [place], [place] [phone] Referring Physician Hematology & Oncology 05/10/21 Matteo Gómez, RN Specialty Cement Loader BMT - Adult 05/16/21 04/07/23 Joe Herrera MD [address] [facility] [address] [place], [place] [address] Assigned Endocrinology Provider 05/26/21 01/16/23 Marika Salcido, [facility] [employer] Nut Crops Farmer BMT - Adult 06/14/21 Omar Burton MD [address] [facility] [address] [place] [address] Assigned Cancer Care Provider 06/23/21 Debbie Lugo, RN Registered Nurse 01/21/22 documented as of this encounter
--- OUTSIDE RECORDS SUMMARY | 2023-08-17 14:27 | XMS_ITS | Encounter Summary ---
Author Name Unknown Organization [place] Address [address] [facility] [place] [address] Care Team Providers Care Finished Metal Repairer Name Role Phone Caren Gómez Primary Care Provider [phone] Tad Jordan MD Unavailable [phone] Mallory Malin MD Unavailable [phone] Latasha WilcoxC Unavailable [phone] Matteo Gómez RN Unavailable [phone] Marika Salcido [facility] Unavailable Tad Jordan MD Unavailable [phone] Debbie Lugo RN Unavailable Unavailabl e Encounter Details Date Type Department Care Team (Latest Contact Info) Description 03/30/2023 Travel Social History Tobacco Use Types Packs/Day [...] was confirmed or suspected to have Coronavirus/COVID-19? Unable to assess 03/30/2023 4:33 PM CDT documented as of this encounter Plan of Treatment Upcoming Encounters Date Type Department Care Team (Late st Contact Info) Description 04/25/2024 9:00 AM CDT Lab [facility] [address] [place] [phone] Tda Jordan MD [address] [place] [address] [phone] 04/25/2024 9:15 AM CDT Oncology Visit [facility] Blood and Marrow Transplant Program [address] [phone] Tad Jordan MD [address] [place] [address] documented as of this encounter Visit Diagnoses Not on filedocumented in this encounter Additional Health Concerns Infection Onset Date Last Indicated Resolved 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 Parvovirus 01/23/2022 04/27/2023 documented as of this encounter Care Teams Finished Metal Repairer Relationship Specialty Start Date End Date Caren Gómez PCP - General Physician Intern Brand 03/16/20 Tad Jordan MD [address] [place] [address] BMT Physician Transplant 04/10/21 Mallory Malin MD [address] [place] [address] [phone] Endocrinology, Diabetes, and Metabolism 05/10/21 Latasha Wilcox PA-C [address] [place] [address] [phone] Referring Physician Hematology & Oncology 05/10/21 Matteo Gómez RN Specialty Gifts Officer BMT - Adult 05/16/21 04/07/23 Marika Salcido, [facility] Fugitive Investigator BMT - Adult 06/14/21 Tad Jordan MD [address] [place] [address] Assigned Cancer Care Provider 06/23/21 Debbie Lugo, RN Registered Nurse 01/21/22 documented as of this encounter
--- OUTSIDE RECORDS SUMMARY | 2023-08-17 14:27 | XMS_ITS | Encounter Summary ---
Author Name Unknown Organization [place] Address [address] [place] [address] Care Team Providers Care Inventory Control Supervisor Name Role Phone Caren Gómez Primary Care Provider [phone] Tad Jordan MD Unavailable Mallory Malin MD Unavailable [phone] Latasha WilcoxC Unavailable [phone] Matteo Gómez RN Unavailable [phone] Joe Herrera MD Unavailable [phone] Marika Salcido [facility] Unavailable Tad Jordan MD Unavailable [phone] Debbie Lugo RN Unavailable UnavailBlaine Gibbs RN Unavailable Unavailable Encounter Details Date Type Department Care Team (Late st Contact Info) Description 12/16/2022 [facility] Blood and Marrow Transplant Program [place] [address] [place] [address] Tad Jordan MD [address] [facility] [address] [place] [address] Social History Tobacco Use Types Packs/Day Years [...] Orientation Straight 03/30/2020 2: 06 PM CDT documented as of this encounter Plan of Treatment Upcoming Encounters Date Type Department Care Team (Late st Contact Info) Description 04/25/2024 9:00 AM CDT Lab [facility] [address] [place] [phone] Tad Jordan MD [address] [place] [address] 04/25/2024 9:15 AM CDT Oncology Visit [facility] Blood and Marrow Transplant Program [address] [phone] Tad Jordan MD [address] [place] [address] documented as of this encounter Visit Diagnoses Not on filedocumented in this encounter Additional Health Concerns Infection Onset Date Last Indicated Resolved 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 Parvovirus 01/23/2022 04/27/2023 Rule Out Parvovirus 04/27/2023 04/27/2023 05/01/20 23 9:52 PM CDT documented as of this encounter Care Teams Inventory Control Supervisor Relationship Specialty Start Date End Date GómezCaren PCP - General Physician Texturing Machine Fixer 03/16/20 Tad Jordan MD [address] [facility] [address] [place], [place] [address] BMT Physician Transplant 04/10/21 Mallory Malin MD [address] [place], [place] [phone] Endocrinology, Diabetes, and Metabolism 05/10/21 Latasha Wilcox PA-C [address] [place] [address] [phone] Referring Physician Hematology & Oncology 05/10/21 Matteo Gómez, RN Specialty Hatch Supervisor BMT - Adult 05/16/21 04/07/23 Joe Herrera MD [address] [facility] [address] [place], [place] [address] Assigned Endocrinology Provider 05/26/21 01/16/23 Marika Salcido, [facility] Architecture Manager BMT - Adult 06/14/21 Tad Jordan MD [address] [facility] [address] [place], [place] 6[address] Assigned Cancer Care Provider 06/23/21 Debbie Lugo, RN Registered Nurse 01/21/22 Blaine Chaves RN BMT Nurse Coordinator Transplant 04/08/23 documented as of this encounter
--- OUTSIDE RECORDS SUMMARY | 2023-08-17 14:27 | XMS_ITS | Encounter Summary ---
Author Name Unknown Organization [place] Address [address] [facility] [place] [address] Care Team Providers Care Dry Dip Worker Name Role Phone Caren Gómez Primary Care Provider Omar Burton MD Unavailable [phone] Mallory Malin MD Unavailable [phone] Latasha Wilcox PA-C Unavailable [phone] Tasneem Gómez RN Unavailable [phone] Joe Herrera MD Unavailable Marika Salcido [facility] Unavailable Omar Burton MD Unavailable [phone] Debbie Lugo RN Unavailable Unavailabl e Reason for Referral * Therapeutic Imaging/IR (Routine: Next available opening) - Pending Review Specialty Diagnoses / Procedures Referred By Dominick t Referred To Contact Radiology. Diagnoses Red cell aplasia (H) Procedures IR Bone Biopsy Deep Right IR Referral Omar Burton MD [address] [facility] [address] [place] [address] Referral ID Status Reason Start Date Expiration Date V isits Requested Visits Authorized [id number] Pending Review 12/17/2022 12/17/2023 1 1 * CV Testing (Routine) - Closed Specialty Diagnoses / Procedures Referred By Dominick t Referred To Contact Cardiology Diagnoses Red cell aplasia (H) Procedures Echocardiogram Complete ZZHC TTE W/DOPPLER, COMPLETE ZZHC ECHO COMPLETE W DOPPLER W CONTRAST ZZHC ECHO COMPLETE W DOPPLER W/O CONTRAST ZZHC IV PUSH SINGLE, INITIAL SUBSTANCE ZZHC US GUIDE FOR PERICARDIOCENTESIS ZZHC ECHO MYOCARD BX ZZC INJECTION, PERFLUTREN LIPID MICROSPHERES, PER ML ZZHC STATISTIC IV PUSH SINGLE INITIAL SUBSTANCE KY ECHO MYOCARD BX KY INJECTION, PERFLUTREN LIPID MICROSPHERES, PER ML [place] TTE W/DOPPLER, COMPLETE [place] IV PUSH SINGLE, INITIAL SUBSTANCE [place] TTE W/DOPPLER, COMPLETE [place] TTE W/DOPPLER, COMPLETE HC US GUIDE FOR PERICARDIOCENTESIS HC ECHO MYOCARD BX HC IV PUSH SINGLE, INITIAL SUBSTANCE HC STATISTIC IV PUSH SINGLE INITIAL SUBSTANCE HC ECHO COMPLETE W DOPPLER W CONTRAST HC ECHO COMPLETE W DOPPLER W/O CONTRAST Omar Burton MD [address] [place] [address] [facility] [address] [place] [phone] Referral ID Status Reason Start Date Expiration Date Visits Re quested Visits Authorized Closed 12/17/2022 12/17/2023 1 1 * Consultation (Priority: 1-2 Weeks) - Pending Review Specialty Diagnoses / Procedures Referred By Dominick salas Referred To Contact Diagnoses Iron overload due to repeated red blood cell transfusions Omar Burton MD [address] [place] [address] [phone] Referral ID Status Reason Start Date Expiration Date V isits Requested Visits Authorized [id number] Pending Review 12/16/2022 12/16/2023 1 1 Question Answer Reason for Consult Iron overload Procedure Requested: Therapeutic Phlebotomy 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 No History of Latex allergies? No SUSANA Inhibitor? No Procedure Frequency: Monthly Procedure Duration: Until notification of discontinuation Target Dose: Remove 1 unit (500mL) monthly if Hgb >/= 10.0 Comments External referral. To be administered locally at [facility]. Encounter Details Date Type Department Care Team (Late st Contact Info) Description 12/16/2022 Orders Only [facility] Blood and Marrow Transplant Program [address] [phone] Tasneem Gómez, NICKI Iron overload due to repeated red blood [...] PM CDT documented as of this encounter Miscellaneous Notes * Addendum Note - Tasneem Gómez RN - 12/16/2022 9:44 AM CDTAddended by: TASNEEM GÓMEZ on: 12/17/2022 04:44 PM Modules accepted: Orders documented in this encounter Plan of Treatment Upcoming Encounters Date Type Department Care Team (Late st Contact Info) Description 04/25/2024 9:00 AM CDT Lab [facility] [address] [place] [address] Omar Burton MD [address] [place] [address] 04/25/2024 9:15 AM CDT Oncology Visit [facility] Blood and Marrow Transplant Program [address] [address] Omar Burton MD [address] [place] [address] [phone] Scheduled Orders Name Type Priority Associated Diagnoses Orde r Schedule CBC with platelets differential Lab Panel Routine Iron overload due to repeated red blood cell transfusions Monthly for 12 Occurrences starting 12/16/2022 until 12/17/2023 Ferritin Lab Routine Iron overload due to repeated red blood cell transfusions Monthly for 12 Occurrences starting 12/16/2022 until 12/17/2023 CBC with platelets differential Lab Panel Routine Red cell aplasia (H) Expected: 04/11/2023, Expires: 10/08/2023 Ferritin Lab Routine Red cell aplasia (H) Expected: 04/11/2023, Expires: 10/08/2023 Reticulocyte count Lab Routine Red cell aplasia (H) Expected: 04/11/2023, Expires: 10/08/2023 Basic metabolic panel Lab Routine Red cell aplasia (H) Expected: 04/11/2023, Expires: 10/08/2023 TSH with free T4 reflex Lab Routine Red cell aplasia (H) Expected: 04/11/2023, Expires: 10/08/2023 Lutropin Lab Routine Red cell aplasia (H) Expected: 04/11/2023, Expires: 04/11/2024 Follicle stimulating hormone Lab Routine Red cell aplasia (H) Expected: 04/11/2023, Expires: 04/11/2024 Estradiol Lab Routine Red cell aplasia (H) Expected: 04/11/2023, Expires: 04/11/2024 Scheduled Referrals Name Type Priority Associated Diagnoses Orde r Schedule Transfusion Medicine OP Referral Referral Priority: 1-2 Weeks Iron overload due to repeated red blood cell transfusions Ordered: 12/16/2022 documented as of this encounter Procedures Procedure Name Priority Date/Time Associated Diagnosis Comments IR BONE BIOPSY DEEP RIGHT Routine: Next available opening 04/27/2023 1:59 PM CDT Red cell aplasia (H) EKG 12-LEAD COMPLETE W/READ - CLINICS Routine 04/27/2023 10:34 AM CDT Red cell aplasia (H) documented in this encounter Results * IR Bone Biopsy Deep Right (04/27/2023 1:59 PM CDT) Anatomical Region Laterality Modality Bone, SUBRAD MSK PROCEDURE Radio Fluoroscopy Impressions 05/29/2023 9:21 AM RUG MEASURER IMPRESSION: 1. ??Uncomplicated fluoroscopy guided right iliac bone marrow biopsy, as above. PLAN: -Bedrest for 1 hours. I have personally reviewed the examination and initial interpretation and I agree with the findings. ALEXEI DAVEY MD Narrative 05/29/2023 9:21 AM RUG MEASURER PROCEDURE: Fluoroscopy-guided bone marrow biopsy of right iliac bone. DATE: 04/27/2023 Staff Radiologist: Alexei Davey MD I, REZA TALAIE, MD, attest that I was present for all critical portions of the procedure and was immediately available to provide guidance and assistance during the remainder of the procedure. Fellow: Johann Arreola MD INDICATION: Clear red cell aplasia. . MEDICATIONS: Continuous monitoring of intravenous conscious sedation was performed by the Radiology nurse. Vital signs throughout the procedure remained stable. ?? Medications: 1. Fentanyl 100 mcg IV 2. Versed 3 mg IV 3. 1% lidocaine 20 ml local parts picker [id number] sedation time: 19 minutes PROCEDURE/FINDINGS: Informed consent was obtained. Patient is brought into the CT scanner and placed prone on the fluoroscopy table. Initial preprocedure localizing fluoroscopy images was performed demonstrating an proper trajectory was selected. Area for percutaneous biopsy was prepped and draped sterilely. 1% lidocaine was administered for local anesthetic. Under CT guidance, the 11 gauge Arrow OnControl Powered Bone Access cannula was advanced into right iliac bone. Fluoroscopy image documenting access cannula placement was saved in the patient's record.Bone marrow aspirated through the Bone Access cannula and was submitted to the Hematology Pathology team. Through the access cannula, the 13 gauge biopsy cannula was advanced into iliac bone for about [address] image documenting biopsy cannula placement was saved in the patient's record. Single bone core submitted to the Hematology Pathology team. Cannula removed. Sterile dressing applied. No immediate complications. Procedure Note Alexei Davey MD - 05/29/2023 PROCEDURE: Fluoroscopy-guided bone marrow biopsy of right iliac bone. DATE: 04/27/2023 Staff Radiologist: Alexei Davey MD I, ALEXEI DAVEY MD, attest that I was present for all critical portions of the procedure and was immediately available to provide guidance and assistance during the remainder of the procedure. Fellow: Johann Arreola MD INDICATION: Clear red cell aplasia. . MEDICATIONS: Continuous monitoring of intravenous conscious sedation was performed by the Radiology nurse. Vital signs throughout the procedure remained stable. Medications: 1. Fentanyl 100 mcg IV 2. Versed 3 mg IV 3. 1% lidocaine 20 ml local parts picker [id number] sedation time: 19 minutes PROCEDURE/FINDINGS: Informed consent was obtained. Patient is brought into the CT scanner and placed prone on the fluoroscopy table. Initial preprocedure localizing fluoroscopy images was performed demonstrating an proper trajectory was selected. Area for percutaneous biopsy was prepped and draped sterilely. 1% lidocaine was administered for local anesthetic. Under CT guidance, the 11 gauge Arrow OnControl Powered Bone Access cannula was advanced into right iliac bone. Fluoroscopy image documenting access cannula placement was saved in the patient's record.Bone marrow aspirated through the Bone Access cannula and was submitted to the Hematology Pathology team. Through the access cannula, the 13 gauge biopsy cannula was advanced into iliac bone for about [address] image documenting biopsy cannula placement was saved in the patient's record. Single bone core submitted to the Hematology Pathology team. Cannula removed. Sterile dressing applied. No immediate complications. IMPRESSION: 1. Uncomplicated fluoroscopy guided right iliac bone marrow biopsy, as above. PLAN: -Bedrest for 1 hours. I have personally reviewed the examination and initial interpretation and I agree with the findings. ALEXEI DAVEY MD Omar Burton MD IMG IR ORDERABLES * EKG 12-lead complete w/read - Clinics (04/27/2023 10:34 AM CDT) Systolic Blood Pressure mmHg RADIOLOGY RESULTS Diastolic Blood Pressure mmHg RADIOLOGY RESULTS Ventricular Rate 72 BPM RAD IOLOGY RESULTS Atrial Rate 72 BPM RADIOLOG Y RESULTS [place] Interval 148 ms RADIOLOG Y RESULTS QRS Duration 82 ms RADIOLO GY RESULTS QT 418 ms RADIOLOGY RESULTS QTc 457 ms RADIOLOGY RESULTS P [place] 24 degrees RADIOLOGY RESULTS R AXIS 54 degrees RADIOLOGY RESULTS T [place] 24 degrees RADIOLOGY RESULTS Interpretation ECG Sinus rhythm When compared with ECG of 01-MAY-2022 15:57, No significant change was found Confirmed by fellow Osiel Ruelas ([id number]) on 04/29/2023 2:59:59 PM Confirmed by MD BENJI, MITA ([id number]) on 04/30/2023 3:07:46 PM RADIOLOGY RESULTS 04/27/2023 10:3 4 AM CDT 04/30/2023 3:07 PM CDT Omar Burton MD ECG ORDERABLES RADIOLOGY RESULTS * ECHO COMPLETE WITH CONTRAST (04/27/2023 10:03 AM CDT) LVEF 55-60% CARDIOLOGY RESULTS Anatomical Region Laterality Modality Echocardiography 04/27/2023 8:57 AM CDT Narrative 04/27/2023 11:07 AM CDT [id number]^MICHEAL^OSITO [facility] Diagnostic and Treatment-3rd Floor [address] [place] [address] Name: AKHIL CASTILLO : 1980 Study Date: 04/27/2023 08:57 AM Age: 42 yrs Gender: Female Patient Location: [facility] Reason For Study: Red cell aplasia (H) Ordering Physician: OMAR BURTON Referring Physician: OMAR BURTON Performed By: River Cota RDCS BSA: 2.7 m2 Height: 67 in Weight: 399 lb BP: 160/106 mmHg Procedure Echocardiogram with two-dimensional, color and spectral Doppler performed. Contrast Optison. Optison ([facility] #[id number]) given intravenously. Patient was given 6 ml [...] Procedure Note Patricia Arredondo MD - 04/27/2023 [id number]^MICHEAL^OSITO [facility] Diagnostic and Treatment-3rd Floor [address] [place] [address] Name: AKHIL CASTILLO : 1980 Study Date: 04/27/2023 08:57 AM Age: 42 yrs Gender: Female Patient Location: [facility] Reason For Study: Red cell aplasia (H) Ordering Physician: OMAR BURTON Referring Physician: OMAR BURTON Performed By: River Cota RDCS BSA: 2.7 m2 Height: 67 in Weight: 399 lb BP: 160/106 mmHg Procedure Echocardiogram with two-dimensional, color and spectral Dopplerperformed. Contrast Optison. Optison ([facility] #[id number]) given intravenously. 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 Parvovirus 01/23/2022 04/27/2023 documented as of this encounter Care Teams Dry Dip Worker Relationship Specialty Start Date End Date Rico Caren Omar PCP - General Physician Salesperson Men'S [employer] Boys' Clothing 03/16/20 Omar Burton MD [address] [facility] [address] [place] [address] BMT Physician Transplant 04/10/21 Mallory Malin MD [address] [place], [place] [address] Endocrinology, Diabetes, and Metabolism 05/10/21 Latasha Wilcox PA-C [address] [place], [place] [address] Referring Physician Hematology & Oncology 05/10/21 Tasneem Gómez, RN Specialty Urban Gardening Specialist BMT - Adult 05/16/21 04/07/23 oJe Herrera MD [address] [facility] [address] [place], [place] [address] Assigned Endocrinology Provider 05/26/21 01/16/23 Marika Salcido, [facility] B And B Gang Worker BMT - Adult 06/14/21 Omar Burton MD [address] [facility] [address] [place] [address] Assigned Cancer Care Provider 06/23/21 Debbie Lugo, RN Registered Nurse 01/21/22 documented as of this encounter
--- OUTSIDE RECORDS SUMMARY | 2023-08-17 14:27 | XMS_ITS | Encounter Summary ---
Author Name Unknown Organization [place] Address [address] [place] [address] Care Team Providers Care Trustee Of Estate Name Role Phone Caren Gómez Primary Care Provider Tad Jordan MD Unavailable [phone] Mallory Malin MD Unavailable [phone] Latasha Wilcox PA-C Unavailable [phone] Matteo Gómez RN Unavailable Joe Herrera MD Unavailable [phone] Marika Salcido [facility] Unavailable Tad Jordan MD Unavailable [phone] Debbie Lugo RN Unavailable Unavailabl e Encounter Details Date Type Department Care Team (Latest Contact Info) Description 10/20/2022 Travel Social History Tobacco Use Types Packs/Day [...] AM CDT documented as of this encounter Plan of Treatment Upcoming Encounters Date Type Department Care Team (Late st Contact Info) Description 04/25/2024 9:00 AM CDT Lab [facility] [address] [place] [phone] Tad Jordan MD [address] [place] [address] [phone] 04/25/2024 9:15 AM CDT Oncology Visit [facility] Blood and Marrow Transplant Program [address] [address] Tad Jordan MD [address] [place] [address] [phone] documented as of this encounter Visit Diagnoses Not on filedocumented in this encounter Additional Health Concerns Infection Onset Date Last Indicated Resolved 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 Parvovirus 01/23/2022 04/27/2023 documented as of this encounter Care Teams Trustee Of Estate Relationship Specialty Start Date End Date Rico Caren Nelson PCP - General Physician Artificial Insemination Technician 03/16/20 Tad Jordan MD [address] [facility] [address] [place], [place] [phone] BMT Physician Transplant 04/10/21 Mallory Malin MD [address] [place] [address] Endocrinology, Diabetes, and Metabolism 05/10/21 Latasha Wilcox PA-C [address] [place] [address] Referring Physician Hematology & Oncology 05/10/21 Matteo Gómez, RN Specialty Prospecting Driller Helper BMT - Adult 05/16/21 04/07/23 Joe Herrera MD [address] [facility] [address] [place], [place] [phone] Assigned Endocrinology Provider 05/26/21 01/16/23 Marika Salcido, [facility] Perinatal Technician BMT - Adult 06/14/21 Tad Jordan MD [address] [facility] [address] [place], [place] [phone] Assigned Cancer Care Provider 06/23/21 Debbie Lugo, RN Registered Nurse 01/21/22 documented as of this encounter
--- OUTSIDE RECORDS SUMMARY | 2023-08-17 14:27 | XMS_ITS | Encounter Summary ---
Author Name Unknown Organization [place] Address [address] [facility] [place] [address] Care Team Providers Care Support Services Manager Name Role Phone Caren Gómez Primary Care Provider Tad Jordan MD Unavailable [phone] Mallory Malin MD Unavailable [phone] Latasha Wilcox PA-C Unavailable [phone] Matteo Gómez RN Unavailable [phone] Joe Herrera MD Unavailable [phone] Marika Salcido [facility] Unavailable Tad Jordan MD Unavailable [phone] Debbie Lugo RN Unavailable Unavailabl e Encounter Details Date Type Department Care Team (Latest Contact Info) Description 10/13/2022 Travel Social History Tobacco Use Types Packs/Day Years Used Date Smoking Tobacco: Never Smokeless Tobacco: Never Alcohol Use Standard Drinks/Week Comments Not Currently 0 (1 standard drink = 0.6 oz pur e alcohol) Humiliation, Afraid, Rape, and Kick questionnair e Answer Date Recorded Within the last year, have y ou been afraid of your partner or ex-partner? No 09/12/2021 Within the last year, have y ou been humiliated or emotionally abused in other ways by your partner or ex-partner? No Within the last year, have y ou been kicked, hit, slapped, or otherwise physically hurt by your partner or ex-partner? No 09/12/2021 Within the last year, have y ou been raped or forced to have any kind of sexual activity by your partner or ex-partner? No 09/12/2021 PHQ-2 Answer Date Recorded PHQ-2 Score 0 [...] suspected to have Coronavirus/COVID-19? No / Unsure 10/13/2022 9:38 AM CDT documented as of this encounter Plan of Treatment Upcoming Encounters Date Type Department Care Team (Late st Contact Info) Description 04/25/2024 9:00 AM CDT Lab [facility] [address] [place] [address] Tad Jordan MD [address] [place] [address] [phone] 04/25/2024 9:15 AM CDT Oncology Visit [facility] Blood and Marrow Transplant Program [address] [address] Tad Jordan MD [address] [place] [address] 601375 documented as of this encounter Visit Diagnoses Not on filedocumented in this encounter Additional Health Concerns Infection Onset Date Last Indicated Resolved 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 Parvovirus 01/23/2022 04/27/2023 documented as of this encounter Care Teams Support Services Manager Relationship Specialty Start Date End Date Rico Caren Nelson PCP - General Physician Gifted Program Teacher 03/16/20 Tad Jordan MD [address] [facility] 480 [place], [place] 422205 BMT Physician Transplant 04/10/21 Mallory Malin MD [address] [place] [address] Endocrinology, Diabetes, and Metabolism 05/10/21 Latasha Wilcox PA-C [address] [place] [address] Referring Physician Hematology & Oncology 05/10/21 Matteo Gómez, RN Specialty Brass Polisher BMT - Adult 05/16/21 04/07/23 Joe Herrera MD 420 [facility] 136 [place], [place] 402[address] Assigned Endocrinology Provider 05/26/21 01/16/23 Marika Salcido, [facility] Metallurgical Tester BMT - Adult 06/14/21 Tad Jordan MD 420 [facility] 480 [place], [place] 025375 Assigned Cancer Care Provider 06/23/21 Debbie Lugo, RN Registered Nurse 01/21/22 documented as of this encounter
--- OUTSIDE RECORDS SUMMARY | 2023-08-17 14:27 | XMS_ITS | Encounter Summary ---
Author Name Unknown Organization [place] Address [address] [facility] [place] [address] Care Team Providers Care Hosiery Mender Name Role Phone Caren Gómez Omar Primary Care Provider [phone] Tad Jordan MD Unavailable [phone] Mallory Malin MD Unavailable [phone] Latasha Wilcox PA-C Unavailable [phone] Marika Salcido [facility] Unavailable Tad Jordan MD Unavailable Debbie Lugo RN Un[facility] Blaine Chaves RN Unavailable Unavailable Encounter Details Date Type Department Care Team (Latest Contact Info) Description 04/21/2023 Travel Social History Tobacco Use Types Packs/Day [...] Info) Description 04/25/2024 9:00 AM CDT Lab [facility] [address] [place] [address] Tad Jordan MD [address] [place] [address] [phone] 04/25/2024 9:15 AM CDT Oncology Visit [facility] Blood and Marrow Transplant Program [address] [phone] Tad Jordan MD [address] [place] [address] 526395 documented as of this encounter Visit Diagnoses Not on filedocumented in this encounter Additional Health Concerns Infection Onset Date Last Indicated Resolved 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 Parvovirus 01/23/2022 04/27/2023 documented as of this encounter Care Teams Hosiery Mender Relationship Specialty Start Date End Date Caren Gómez PCP - General Physician Special Service Officer 03/16/20 Tad Jordan MD [address] [place] [address] [phone] BMT Physician Transplant 04/10/21 Mallory Malin MD [address] [place], [place] [phone] Endocrinology, Diabetes, and Metabolism 05/10/21 Latasha Wilcox PA-C 9 [place], [place] 411155 Referring Physician Hematology & Oncology 05/10/21 Marika Salcido, [facility] Weight Shifter BMT - Adult 06/14/21 Tad Jordan MD [address] [place] [address] [phone] Assigned Cancer Care Provider 06/23/21 Debbie Lugo, RN Registered Nurse 01/21/22 Blaine Chaves RN BMT Nurse Coordinator Transplant 04/08/23 documented as of this encounter
--- OUTSIDE RECORDS SUMMARY | 2023-08-17 14:27 | XMS_ITS | Encounter Summary ---
Author Name Unknown Organization [place] Address [address] [facility] [place] [address] Care Team Providers Care Closing Specialist Name Role Phone Caren Gómez Primary Care Provider [phone] Tad Jordan MD Unavailable [phone] Mallory Malin MD Unavailable [phone] Latasha WilcoxC Unavailable [phone] Matteo Gómez RN Unavailable [phone] Marika Salcido [facility] Unavailable Tad Jordan MD Unavailable [phone] Debbie Lugo RN Unavailable Unavailabl e Encounter Details Date Type Department Care Team (Latest Contact Info) Description 01/19/2023 Medical Correspondence M [facility] Blood and Marrow Transplant Program [address] [address] Outside, Provider BMT- OUTSIDE LABS DATED 02/16/23 Social History Tobacco Use Types Packs/Day Years [...] Info) Description 04/25/2024 9:00 AM CDT Lab [facility] Clinic [address] [place] [address] Tad Jordan MD [address] [place] [address] [phone] 04/25/2024 9:15 AM CDT Oncology Visit 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 Parvovirus 01/23/2022 04/27/2023 documented as of this encounter Care Teams Closing Specialist Relationship Specialty Start Date End Date Caren Gómez PCP - General Physician Straddle Bug Operator 03/16/20 Tad Jordan MD [address] [place] [address] BMT Physician Transplant 04/10/21 Mallory Malin MD [address] [place] [address] Endocrinology, Diabetes, and Metabolism 05/10/21 Latasha Wilcox PA-C [address] [place] [address] Referring Physician Hematology & Oncology 05/10/21 Matteo Gómez, NICKI Specialty Route Manager BMT - Adult 05/16/21 04/07/23 Marika Salcido, [facility] Strategic Analyst BMT - Adult 06/14/21 Tad Jordan MD [address] [place] [address] Assigned Cancer Care Provider 06/23/21 Debbie Lugo, RN Registered Nurse 01/21/22 documented as of this encounter
--- OUTSIDE RECORDS SUMMARY | 2023-08-17 14:27 | XMS_ITS | Encounter Summary ---
Author Name Unknown Organization [place] Address [address] [facility] [place] [address] Care Team Providers Care Circuit Clerk Name Role Phone Caren Gómez Primary Care Provider Tad Jordan MD Unavailable [phone] Mallory Malin MD Unavailable [phone] Latasha WilcoxC Unavailable [phone] Matteo Gómez RN Unavailable [phone] Marika Salcido [facility] Unavailable Tad Jordan MD Unavailable Debbie Lugo RN Unavailable Unavailabl e Encounter Details Date Type Department Care Team (Late st Contact Info) Description 02/25/2023 Orders Only [facility] Blood and Marrow Transplant Program [place] [address] [place] [address] Tad Jordan MD 420 [facility] 480 [place], [place] [address] Social History Tobacco Use Types Packs/Day Years [...] Info) Description 04/25/2024 9:00 AM CDT Lab [facility] Clinic [address] [place] [phone] Tad Jordan MD [address] [place] [address] [phone] 04/25/2024 9:15 AM CDT Oncology Visit [facility] Blood and Marrow Transplant Program [address] [phone] Tad Jordan MD [address] [place] [address] documented as of this encounter Visit Diagnoses Not on filedocumented in this encounter Additional Health Concerns Infection Onset Date Last Indicated Resolved 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 Parvovirus 01/23/2022 04/27/2023 documented as of this encounter Care Teams Circuit Clerk Relationship Specialty Start Date End Date Rico Caren M PCP - General Physician Rapid Outsole Stitcher 03/16/20 Tad Jordan MD [address] [place] [address] BMT Physician Transplant 04/10/21 Mallory Malin MD [address] [place] [address] [phone] Endocrinology, Diabetes, and Metabolism 05/10/21 Latasha Wilcox PA-C [address] [place] [address] [phone] Referring Physician Hematology & Oncology 05/10/21 Matteo Gómez, RN Specialty Water Treatment Operator BMT - Adult 05/16/21 04/07/23 [facility] Machine Staker BMT - Adult 06/14/21 Tad Jordan MD [address] [place] [address] [phone] Assigned Cancer Care Provider 06/23/21 Debbie Lugo, RN Registered Nurse 01/21/22 documented as of this encounter
--- OUTSIDE RECORDS SUMMARY | 2023-08-17 14:27 | XMS_ITS | Encounter Summary ---
Author Name Unknown Organization [place] Address [address] [facility] [place] [address] Care Team Providers Care Lens Polisher Hand Name Role Phone Caren Gómez Omar Primary Care Provider Tad Jordan MD Unavailable [phone] Mallory Malin MD Unavailable [phone] Latasha Wilcox PA-C Unavailable [phone] Marika Salcido [facility] Unavailable Tad Jordan MD Unavailable [phone] Debbie Lugo RN Unavailable UnavailBlaine Gibbs RN Unavailable Unavailable Encounter Details Date Type Department Care Team (Late st Contact Info) Description 04/23/2023 [facility] Interventional Radiology [address] [place] [address] Марина Stafford, NICKI Social History Tobacco Use Types Packs/Day Years [...] Info) Description 04/25/2024 9:00 AM CDT Lab [facility] Cancer Clinic [address] [place] [address] Tad Jordan MD [address] [place] [address] 04/25/2024 9:15 AM CDT Oncology Visit 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 Parvovirus 01/23/2022 04/27/2023 documented as of this encounter Care Teams Lens Polisher Hand Relationship Specialty Start Date End Date Caren Gómez PCP - General Physician Supervisor Shuttle Fitting 03/16/20 Tad Jordan MD [address] [place] [address]47[address] BMT Physician Transplant 04/10/21 Mallory Malin MD [address] [place] [address] 750035 Endocrinology, Diabetes, and Metabolism 05/10/21 Latasha Wilcox PA-C [address] [place] [address] Referring Physician Hematology & Oncology 05/10/21 Marika Salcido, [facility] Granite Cutter BMT - Adult 06/14/21 Tad Jordan MD [address] [place] [address] Assigned Cancer Care Provider 06/23/21 Debbie Lugo, RN Registered Nurse 01/21/22 Blaine Chaves RN BMT Nurse Coordinator Transplant 04/08/23 documented as of this encounter
--- OUTSIDE RECORDS SUMMARY | 2023-08-17 14:27 | XMS_ITS | Encounter Summary ---
Author Name Unknown Organization [place] Address [address] [facility] [place] [address] Care Team Providers Care Stitcher Hand Name Role Phone Caren Gómez Primary Care Provider [phone] Tad Jordan MD Unavailable [phone] Mallory Malin MD Unavailable [phone] Latasha Wilcox PA-C Unavailable [phone] Matteo Gómez RN Unavailable [phone] Joe Herrera MD Unavailable [phone] Marika Salcido [facility] Unavailable Tad Jordan MD Unavailable [phone] Debbie Lugo RN Unavailable Unavailabl e Encounter Details Date Type Department Care Team (Late st Contact Info) Description 10/22/2022 Telephone [facility] Blood and Marrow Transplant Program [address] [address] Social History Tobacco Use Types Packs/Day Years [...] AM CDT documented as of this encounter Progress Notes * Glenna Oswald RD - 10/22/2022 2:53 PM CDT CLINICAL NUTRITION SERVICES Reason for Contact: Patient was contacted by phone due to requested to speak with a Dietitian on the Oncology Distress Screening tool. Action: MACARIO called patient - not able to leave voice mail. Follow up: Will try to contact patient in the following days. Glenna Teixeira RD, LD 5C/BMT pager: [phone] documented in this encounter Plan of Treatment Upcoming Encounters Date Type Department Care Team (Late st Contact Info) Description 04/25/2024 9:00 AM CDT [facility] Cancer [place] [address] [place] [address] Tad Jordan MD [address] [place] [address] 04/25/2024 9:15 AM CDT Oncology Visit [facility] Blood and Marrow Transplant Program [place] [address] [place] [phone] Tad Jordan MD [address] [place] [address] 368845 documented as of this encounter Visit Diagnoses Not on filedocumented in this encounter Additional Health Concerns Infection Onset Date Last Indicated Resolved 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 Parvovirus 01/23/2022 04/27/2023 documented as of this encounter Care Teams Stitcher Hand Relationship Specialty Start Date End Date Caren Gómez PCP - General Physician Ebd Teacher 03/16/20 Tad Jordan MD [address] [place] [address] BMT Physician Transplant 04/10/21 Mallory Malin MD [address] [place] [address] [phone] Endocrinology, Diabetes, and Metabolism 05/10/21 Latasha Wilcox PA-C [address] [place] [address] 033685 Referring Physician Hematology & Oncology 05/10/21 Matteo Gómez, RN Specialty Director Radio BMT - Adult 05/16/21 04/07/23 Joe Herrera MD [address] [place] [address] [phone] Assigned Endocrinology Provider 05/26/21 01/16/23 Marika Salcido, [facility] Tree Shear Operator BMT - Adult 06/14/21 Tad Jordan MD [address] [place] [address] 480 [place] [address] Assigned Cancer Care Provider 06/23/21 Debbie Lugo, RN Registered Nurse 01/21/22 documented as of this encounter
--- OUTSIDE RECORDS SUMMARY | 2023-08-17 14:27 | XMS_ITS | Encounter Summary ---
Author Name Unknown Organization [place] Address [address] [facility] [place] [address] Care Team Providers Care Quartz Mounter Name Role Phone Caren Gómez Primary Care Provider Tad Jordan MD Unavailable [phone] Mallory Malin MD Unavailable [phone] Latasha Wilcox PA-C Unavailable [phone] Matteo Gómez RN Unavailable [phone] Joe Herrera MD Unavailable [phone] Marika Salcido [facility] Unavailable Tad Jordan MD Unavailable [phone] Debbie Lugo RN Unavailable Unavailabl e Encounter Details Date Type Department Care Team (Late st Contact Info) Description 11/18/2022 Telephone [facility] Blood and Marrow Transplant Program [address] [address] Social History [...] Progress Notes * Glenna Oswald RD - 11/18/2022 12:02 PM CDT CLINICAL NUTRITION SERVICES Reason for Contact: Patient was contacted by phone due to requested to speak with a Dietitian on the Oncology Distress Screening tool. Action: Spoke with Ashwini who reported she would like to speak with RD and has goal of weight loss but now was not appropriate time due to life events. Requested RD reach out in about 1 month Follow up: Will contact patient in approximately [address], LD 5C/BMT pager: [phone] documented in this encounter Plan of Treatment Upcoming Encounters Date Type Department Care Team (Late st Contact Info) Description 04/25/2024 9:00 AM CDT [address] [place] [phone] Tad Jordan MD [address] [place] [address] 748125 04/25/2024 9:15 AM CDT Oncology Visit [facility] Blood and Marrow Transplant Program [address] [address] Tad Jordan MD [address] [place] [address] 644375 documented as of this encounter Visit Diagnoses Not on filedocumented in this encounter Additional Health Concerns Infection Onset Date Last Indicated Resolved 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 Parvovirus 01/23/2022 04/27/2023 documented as of this encounter Care Teams Quartz Mounter Relationship Specialty Start Date End Date Caren Gómez PCP - General Physician Bankruptcy Paralegal 03/16/20 Tad Jordan MD [address] [place] [address] 465415 BMT Physician Transplant 04/10/21 Mallory Malin MD [address] [place] [address] 015085 Endocrinology, Diabetes, and Metabolism 05/10/21 Latasha Wilcox PA-C [address] [place] [address] [phone] Referring Physician Hematology & Oncology 05/10/21 Matteo Gómez, RN Specialty Director Of Broadcast BMT - Adult 05/16/21 04/07/23 Joe Herrera MD [address] [place] [address] [place] [address] Assigned Endocrinology Provider 05/26/21 01/16/23 Marika Salcido, [facility] Emissions Repair Technician BMT - Adult 06/14/21 Tad Jordan MD [address] [address] Assigned Cancer Care Provider 06/23/21 Debbie Lugo, RN Registered Nurse 01/21/22 documented as of this encounter
--- OUTSIDE RECORDS SUMMARY | 2023-08-17 14:27 | XMS_ITS | Encounter Summary ---
Author Name Unknown Organization [place] Address [address] [facility] [place] [address] Care Team Providers Care American Indian Policy Specialist Name Role Phone Caren Gómez Primary Care Provider [phone] Tad Jordan MD Unavailable [phone] Mallory Malin MD Unavailable [phone] Latasha WilcoxC Unavailable [phone] Matteo Gómez RN Unavailable [phone] Marika Salcido [facility] Unavailable Tad Jordan MD Unavailable [phone] Debbie Lugo RN Unavailable Unavailabl e Encounter Details Date Type Department Care Team (Late st Contact Info) Description 01/19/[address] [facility] Blood and Marrow Transplant Program [address] [address] Social History [...] PM CDT documented as of this encounter Progress Notes * Glenna Oswald RD - 01/19/2023 2:04 PM CDT CLINICAL NUTRITION SERVICES Reason for Contact: Patient was contacted by phone due to requested to speak with a Dietitian on the Oncology Distress Screening tool. -Last spoke with patient 11/18/22 who requested a call back. Ashwini reported life is a bit stressful right now but wondering resources for weight loss when ready. She is walking and focusing on foods. Action: Discussed option to follow up/make an appointment with weight management clinic when able. Follow up: None at this time Glenna Teixeira RD, LD 5C/BMT pager: [phone] documented in this encounter Plan of Treatment Upcoming Encounters Date Type Department Care Team (Late st Contact Info) Description 04/25/2024 9:00 AM CDT [facility] [address] [place] [address] Tad Jordan MD [address] [place] [address] 364405 04/25/2024 9:15 AM CDT Oncology Visit 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 Parvovirus 01/23/2022 04/27/2023 documented as of this encounter Care Teams American Indian Policy Specialist Relationship Specialty Start Date End Date Caren Gómez PCP - General Physician Chairlift Operator 03/16/20 Tad Jordan MD [address] [place] [address] BMT Physician Transplant 04/10/21 Mallory Malin MD [address] [place] [address] 955435 Endocrinology, Diabetes, and Metabolism 05/10/21 Latasha Wilcox PA-C [address] [place] [address] [phone] Referring Physician Hematology & Oncology 05/10/21 Matteo Gómez, RN Specialty Vocal Performer BMT - Adult 05/16/21 04/07/23 Marika Salcido, [facility] Safety Deposit Clerk BMT - Adult 06/14/21 Tad Jordan MD [address] [place] [address] Assigned Cancer Care Provider 06/23/21 Debbie Lugo, RN Registered Nurse 01/21/22 documented as of this encounter
--- OUTSIDE RECORDS SUMMARY | 2023-08-17 14:28 | XMS_ITS | Encounter Summary ---
Author Name Unknown Organization [place] Address [address] [facility] [place] [address] Care Team Providers Care Director Of Promotions Name Role Phone Caren Gómez Primary Care Provider Tda Jordan MD Unavailable [phone] Mallory Malin MD Unavailable [phone] Latasha WilcoxC Unavailable [phone] Matteo Gómez RN Unavailable [phone] Joe Herrera MD Unavailable [phone] Marika Salcido [facility] Unavailable Tad Jordan MD Unavailable [phone] Debbie Lugo RN Unavailable UnavailBlaine Gibbs RN Unavailable Unavailable Encounter Details Date Type Department Care Team (Late st Contact Info) Description 04/06/2022 [facility] Blood and Marrow Transplant Program [place] [address] [place] [address] Tad Jordan MD 420 [facility] [address] [place] [address] Social History Tobacco Use Types Packs/Day Years [...] suspected to have Coronavirus/COVID-19? No / Unsure 03/13/2022 1:42 PM CDT documented as of this encounter Plan of Treatment Upcoming Encounters Date Type Department Care Team (Late st Contact Info) Description 04/25/2024 9:00 AM CDT Lab [facility] Cancer Clinic [address] [place] [address] Tad Jordan MD [address] [place] [address] 04/25/2024 9:15 AM CDT Oncology Visit [facility] Blood and Marrow Transplant Program [address] [address] Tad Jordan MD 420 [facility] [address] [place], [place] [phone] documented as of this encounter Visit Diagnoses Not on filedocumented in this encounter Additional Health Concerns Infection Onset Date Last Indicated Resolved 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 Parvovirus 01/23/2022 04/27/2023 Rule Out Parvovirus 04/27/2023 04/27/2023 05/01/20 9:52 PM CDT documented as of this encounter Care Teams Director Of Promotions Relationship Specialty Start Date End Date Caren Gómez PCP - General Physician Automotive Software Engineer 03/16/20 Tad Jordan MD [address] [place] [address] [id number] BMT Physician Transplant 04/10/21 Mallory Malin MD [address] [place] [address] 374155 Endocrinology, Diabetes, and Metabolism 05/10/21 Latasha Wilcox PA-C [address] [place] [address] 086275 Referring Physician Hematology & Oncology 05/10/21 Matteo Gómez, RN Specialty Facility Designer BMT - Adult 05/16/21 04/07/23 Joe Herrera MD [address] [place] [address] [phone] Assigned Endocrinology Provider 05/26/21 01/16/23 Marika Salcido, [facility] Polymerization Helper BMT - Adult 06/14/21 Tad Jordan MD 420 [facility] [address] [place] [address] Assigned Cancer Care Provider 06/23/21 Debbie Lugo, RN Registered Nurse 01/21/22 Blaine Chaves, NICKI BMT Nurse Coordinator Transplant 04/08/23 documented as of this encounter
--- OUTSIDE RECORDS SUMMARY | 2023-08-17 14:28 | XMS_ITS | Encounter Summary ---
Author Name Unknown Organization [place] Address [address] [facility] [place] [address] Care Team Providers Care Electric Dolly Operator Name Role Phone Caren Gómez Primary Care Provider Shari Salazar MD Unavailable +- [phone] Tim Alicea MD Unavailable [phone] Tad Jordan MD Unavailable [phone] Mallory Malin MD Unavailable [phone] Latasha WilcoxC Unavailable [phone] Matteo Gómez RN Unavailable [phone] Joe Herrera MD Unavailable [phone] Marika Salcido [facility] Unavailable Tad Jordan MD Unavailable [phone] Debbie Lugo RN Unavailable Unavailabl Blaine Mullins RN Unavailable Unavailable Encounter Details Date Type Department Care Team (Late st Contact Info) Description 07/16/2021 [facility]inology Clinic [address] [place] [address] Joceline Queen CMA Social History Tobacco Use Types Packs/Day Years Used Date Smoking Tobacco: Never Smokeless Tobacco: Never Alcohol Use Standard Drinks/Week Comments Not Currently 0 (1 standard drink = 0.6 oz pur e alcohol) Humiliation, Afraid, Rape, and Kick questionnair e Answer Date Recorded Within the last year, have y ou been afraid of your partner or ex-partner? No 05/20/2021 Within the last year, have y ou been humiliated or emotionally abused in other ways by your partner or ex-partner? No Within the last year, have y ou been kicked, hit, slapped, or otherwise physically hurt by your partner or ex-partner? No 05/20/2021 Within the last year, have y ou been raped or forced to have any kind of sexual activity by your partner or ex-partner? No 05/20/2021 PHQ-2 Answer Date Recorded PHQ-2 Score 0 03/13/2021 Sex and Gender Information Value Date Recorded Sex Assigned at Female 03/30/2020 2:06 PM CDT Gender Identity Female 03/30/2020 2:06 PM CDT Sexual Orientation Straight 03/30/2020 2: 06 PM CDT COVID-19 Exposure Response Date Recorded In the last month, have you been in contact with someone who was confirmed or suspected to have Coronavirus / COVID-19? No / Unsure 07/17/2021 8:40 PM FINANCIAL CENTER MANAGER documented as of this encounter Plan of Treatment Upcoming Encounters Date Type Department Care Team (Late st Contact Info) Description 04/25/2024 9:00 AM CDT Lab [facility] Cancer Clinic [address] [place] [address] Tad Jordan MD [address] [place] [address] 04/25/2024 9:15 AM CDT Oncology Visit [facility] Blood and Marrow Transplant Program [address] [phone] Tad Jordan MD 420 [facility] [address] [place] [address] documented as of this encounter Visit Diagnoses Not on filedocumented in this encounter Additional Health Concerns Infection Onset Date Last Indicated Resolved Time Rule Out COVID-19 07/17/2021 07/17/2021 07/17/2021 11:03 PM FINANCIAL CENTER MANAGER COVID-19 Comment:Spoke with infectious disease, Dr. Katrin Harvey. After review of cycle thresholds and patient symptoms, Dr. Harvey advises that this patient no longer requires covid isolation requirements. 07/17/2021 08/15/2021 08/16/2021 11:21 AM FINANCIAL CENTER MANAGER Rule Out C-difficile 07/18/2021 07/19/2021 022 5:47 AM FINANCIAL CENTER MANAGER 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 Rule Out C-difficile 08/15/2021 08/16/2021 022 8:33 AM FINANCIAL CENTER MANAGER Rule Out C-difficile 01/20/2022 01/20/2022 022 7:37 PM CDT C-difficile 01/20/2022 01/20/2022 02/19/2022 11:4 1 PM CDT Rule Out Parvovirus 01/22/2022 01/23/2022 01/28/20 22 3:32 PM CDT Parvovirus 01/23/2022 04/27/2023 Rule Out Parvovirus 01/29/2022 01/29/2022 02/04/20 22 4:12 PM CDT Rule Out Parvovirus 04/27/2023 04/27/2023 05/01/20 23 9:52 PM CDT documented as of this encounter Care Teams Electric Dolly Operator Relationship Specialty Start Date End Date Caren Gómez PCP - General Physician Poultry Dresser 03/16/20 Shari Salazar MD [address] [place] [address] Assigned OBGYN Provider 05/04/20 Tim Alicea MD [address] [place] [address] Assigned Surgical Provider 08/12/20 02/07/22 Tad Jordan MD [address] [place] [address] BMT Physician Transplant 04/10/21 Mallory Malin MD [address] [place] [address] 994185 Endocrinology, Diabetes, and Metabolism 05/10/21 Latasha Wilcox PA-C [address] [place] [address] Referring Physician Hematology & Oncology 05/10/21 Matteo Gómez, NICKI Specialty Clam Shovel Operator BMT - Adult 05/16/21 04/07/23 Joe Herrera MD [address] [place] [address] Assigned Endocrinology Provider 05/26/21 01/16/23 Marika Salcido, [facility] Insurance Underwriting Assistant BMT - Adult 06/14/21 Tad Jordan MD [address] [place] [address] Assigned Cancer Care Provider 06/23/21 Debbie Lugo, RN Registered Nurse 01/21/22 [facility] B[facility] Nurse Coordinator Transplant 04/08/23 documented as of this encounter
--- OUTSIDE RECORDS SUMMARY | 2023-08-17 14:28 | XMS_ITS | Encounter Summary ---
Author Name Unknown Organization [place] Address [address] [facility] [place] [address] Care Team Providers Care Graphotype Operator Name Role Phone Caren Gómez Primary Care Provider [phone] Shari Salazar MD Unavailable [phone] Tim Alicea MD Unavailable [phone] Tad Jordan MD Unavailable [phone] Mallory Malin MD Unavailable [phone] Latasha WilcoxC Unavailable [phone] Matteo Gómez RN Unavailable [phone] Joe Herrera MD Unavailable [phone] Marika Salcido [facility] Unavailable Tad Jordan MD Unavailable [phone] Debbie Lugo RN Unavailable Unavailabl Blaine Mullins RN Unavailable Unavailable Reason for Visit * Reason Onset Date Comments Prior Auth - Medication 08/14/2021 LORazepa m (ATIVAN) 0.5 MG tablet-APPROVED Encounter Details Date Type Department Care Team (Late st Contact Info) Description 08/14/[address] [facility] Blood and Marrow Transplant Program [place] [address] [place] [address] Janay Gray APRN [facility] [address] [facility] [address] [place] [address] Prior Auth - Medication (LORazepam (ATIVAN) 0.5 MG tablet-APPROVED) Social History Tobacco Use Types Packs/Day Years [...] have Coronavirus / COVID-19? No / Unsure 08/15/2021 4:14 PM GRINDER OPERATOR AUTOMATIC documented as of this encounter Miscellaneous Notes * Telephone Encounter - Yesica Crump - 08/20/2021 10:54 AM CST Images from the original note were not included. Prior Authorization Approval Authorization Effective Date: 07/13/2021 Authorization Expiration Date: 08/18/2022 Medication: LORazepam (ATIVAN) 0.5 MG tablet-APPROVED Approved Dose/Quantity: Reference #: Insurance Company: [employer] - Expected CoPay: CoPay Card Available: [facility] Assistance Needed: Which Pharmacy is filling the prescription (Not needed for infusion/clinic administered): [id number] - [place] - [address] AT [place] [address] Pharmacy Notified: Yes Patient Notified: No DER OPERATOR AUTOMATIC * Telephone Encounter - Yesica Crump - 08/18/2021 11:37 AM CST Images from the original note were not included. Central Prior Authorization Team PA Initiation Medication: LORazepam (ATIVAN) 0.5 MG tablet Insurance Company: [employer] - Pharmacy Filling the Rx: [id number] - [place] - [address] AT [place] [address] Filling Pharmacy Filling Pharmacy Fax: Start Date: 08/18/2021 DER OPERATOR AUTOMATIC * Telephone Encounter - Berenice Albarado - 08/14/2021 4:38 PM CST Images from the original note were not included. 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] Previously Tried and Failed: Rationale: Insurance Name: [facility] Pharmacy Information (if different than what is on RX) Name: [id number] - [place] - [address] [place] [address] DER OPERATOR AUTOMATIC documented in this encounter Plan of Treatment Upcoming Encounters Date Type Department Care Team (Late st Contact Info) Description 04/25/2024 9:00 AM CDT Lab [facility] Cancer Clinic [address] [place] [phone] Tad Jordan MD [address] [place] [address] [id number] 04/25/2024 9:15 AM CDT Oncology Visit [facility] Blood and Marrow Transplant Program [address] [phone] Tad Jordan MD [address] [place] [address] 359375 documented as of this encounter Visit Diagnoses Not on filedocumented in this encounter Additional Health Concerns Infection Onset Date Last Indicated Resolved Time COVID-19 Comment:Spoke with infectious disease, Dr. Katrin Harvey. After review of cycle thresholds and patient symptoms, Dr. aHrvey advises that this patient no longer requires covid isolation requirements. 07/17/2021 08/15/2021 08/16/2021 11:21 AM GRINDER OPERATOR AUTOMATIC 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 Rule Out C-difficile 08/15/2021 08/16/2021 022 8:33 AM GRINDER OPERATOR AUTOMATIC Rule Out C-difficile 01/20/2022 01/20/2022 022 7:37 PM CDT C-difficile 01/20/2022 01/20/2022 02/19/2022 11:4 1 PM CDT Rule Out Parvovirus 01/22/2022 01/23/2022 01/28/20 22 3:32 PM CDT Parvovirus 01/23/2022 04/27/2023 Rule Out Parvovirus 01/29/2022 01/29/2022 02/04/20 22 4:12 PM CDT Rule Out Parvovirus 04/27/2023 04/27/2023 05/01/20 9:52 PM CDT documented as of this encounter Care Teams Graphotype Operator Relationship Specialty Start Date End Date Caren Gómez PCP - General Physician Stratigraphy Teacher 03/16/20 Shari Salazar MD [address] [place] [address] Assigned OBGYN Provider 05/04/20 Tim Alicea MD [address] [place] [address] Assigned Surgical Provider 08/12/20 02/07/22 Tad Jordan MD [address] [place] [address] 480 [place], [place] 193155 BMT Physician Transplant 04/10/21 Mallory Malin MD [address] [place], [place] 85[address] Endocrinology, Diabetes, and Metabolism 05/10/21 Latasha Wilcox PA-C 9 [place], [place] [address] Referring Physician Hematology & Oncology 05/10/21 Matteo Gómez, RN Specialty Rock Crusher Operator BMT - Adult 05/16/21 04/07/23 Joe Herrera MD [address] [place] [address] 136 [place], [place] 4[address] Assigned Endocrinology Provider 05/26/21 01/16/23 Marika Salcido, [facility] Change Advisor BMT - Adult 06/14/21 Tad Jordan MD [address] [place] [address] Assigned Cancer Care Provider 06/23/21 Debbie Lugo, RN Registered Nurse 01/21/22 Blaine Chaves RN BMT Nurse Coordinator Transplant 04/08/23 documented as of this encounter
--- OUTSIDE RECORDS SUMMARY | 2023-08-17 14:28 | XMS_ITS | Encounter Summary ---
Author Name Unknown Organization [place] Address [address] [facility] [place] [address] Care Team Providers Care Wallpaper Hanger Helper Name Role Phone Caren Gómez Primary Care Provider Shari Salazar MD Unavailable [phone]- [phone] Tim lAicea MD Unavailable [phone] Tad Jordan MD Unavailable [phone] Mallory Malin MD Unavailable [phone] Latasha WilcoxC Unavailable [phone] Matteo Gómez RN Unavailable [phone] Joe Herrera MD Unavailable [phone] Marika Salcido [facility] Unavailable Tad [place] MD Unavailable Debbie Lugo RN Unavailable Unavailabl Blaine Mullins RN Unavailable Unavailable Encounter Details Date Type Department Care Team (Late st Contact Info) Description 11/18/2021 [facility] Blood and Marrow Transplant Program [address] [phone] Robert Burdick Social History Tobacco Use Types Packs/Day Years [...] suspected to have Coronavirus/COVID-19? No / Unsure 11/14/2021 4:39 PM CDT documented as of this encounter Plan of Treatment Upcoming Encounters Date Type Department Care Team (Late st Contact Info) Description 04/25/2024 9:00 AM CDT Lab [facility] Cancer Clinic [address] [place] [phone] Tad Jordan MD [address] [place] [address] 04/25/2024 9:15 AM CDT Oncology Visit [facility] Blood and Marrow Transplant Program [address] [phone] Tad Jordan MD [address] [facility] [address] [place] [address] documented as of this encounter Visit Diagnoses Not on filedocumented in this encounter Additional Health Concerns Infection Onset Date Last Indicated Resolved 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 Rule Out C-difficile 01/20/2022 01/20/2022 022 7:37 PM CDT C-difficile 01/20/2022 01/20/2022 02/19/2022 11:4 1 PM CDT Rule Out Parvovirus 01/22/2022 01/23/2022 01/28/20 3:32 PM CDT Parvovirus 01/23/2022 04/27/2023 Rule Out Parvovirus 01/29/2022 01/29/2022 02/04/20 4:12 PM CDT Rule Out Parvovirus 04/27/2023 04/27/2023 05/01/20 23 9:52 PM CDT documented as of this encounter Care Teams Wallpaper Hanger Helper Relationship Specialty Start Date End Date Rico Caren M PCP - General Physician Director Maternal Child 03/16/20 Shari [place]azar MD [address] [place] [address] Assigned OBGYN Provider 05/04/20 Tim Alicea MD [address] [place] [address] Assigned Surgical Provider 08/12/20 02/07/22 Tad Jordan MD [address] [facility] [address] [place] [address] BMT Physician Transplant 04/10/21 Mallory Malin MD [address] [place] [address] Endocrinology, Diabetes, and Metabolism 05/10/21 Latasha Wilcox PA-C [address] [place] [address] Referring Physician Hematology & Oncology 05/10/21 Matteo Gómez, RN Specialty Sales Engagement Manager BMT - Adult 05/16/21 04/07/23 Joe Herrera MD [address] [place] [address] 136 [place], [place] [phone] Assigned Endocrinology Provider 05/26/21 01/16/23 Marika Salcido, [facility] After School Driver BMT - Adult 06/14/21 Tad [place] MD [address] [facility] [address] [place], [place] 8[address] Assigned Cancer Care Provider 06/23/21 Debbie Lugo, RN Registered Nurse 01/21/22 Blaine Chaves RN BMT Nurse Coordinator Transplant 04/08/23 documented as of this encounter
--- OUTSIDE RECORDS SUMMARY | 2023-08-17 14:28 | XMS_ITS | Encounter Summary ---
Author Name Unknown Organization [place] Address [address] [facility] [place] [address] Care Team Providers Care Shell Trim Tool Setter Name Role Phone Caren Gómez Primary Care Provider Shari [place]azar MD Unavailable [phone] Tim Alicea MD Unavailable [phone] Tad Jordan MD Unavailable [phone] Mallory Malin MD Unavailable [phone] Latasha WilcoxC Unavailable [phone] Matteo Gómez RN Unavailable [phone] Joe Herrera MD Unavailable [phone] Marika Salcido [facility] Unavailable Tad [place] MD Unavailable [phone] Debbie Lugo RN Unavailable Unavailabl Blaine Mullins RN Unavailable Unavailable Encounter Details Date Type Department Care Team (Late st Contact Info) Description 08/12/2021 [place] [facility] Blood and Marrow Transplant Program [address] [phone] Tad [place] MD [address] [place] [address] [id number] Social History Tobacco Use Types Packs/Day Years [...] COVID-19? No / Unsure 08/15/2021 4:14 PM MATERIAL WORKER documented as of this encounter Plan of Treatment Upcoming Encounters Date Type Department Care Team (Late st Contact Info) Description 04/25/2024 9:00 AM CDT [facility] Cancer [address] [phone] Tad [place] MD [address] [place] [address] [phone] 04/25/2024 9:15 AM CDT Oncology Visit [facility] Blood and Marrow Transplant Program [place] [address] [place] [address] Tad [place] MD [address] [place] [address] [address] [place] [address] documented as of this encounter Visit Diagnoses Not on filedocumented in this encounter Additional Health Concerns Infection Onset Date Last Indicated Resolved Time COVID-19 Comment:Spoke with infectious disease, Dr. Katrin Harvey. After review of cycle thresholds and patient symptoms, Dr. Harvey advises that this patient no longer requires covid isolation requirements. 07/17/2021 08/15/2021 08/16/2021 11:21 AM MATERIAL WORKER 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 Rule Out C-difficile 08/15/2021 08/16/2021 022 8:33 AM MATERIAL WORKER Rule Out C-difficile 01/20/2022 01/20/2022 022 7:37 PM CDT C-difficile 01/20/2022 01/20/2022 02/19/2022 11:4 1 PM CDT Rule Out Parvovirus 01/22/2022 01/23/2022 01/28/20 22 3:32 PM CDT Parvovirus 01/23/2022 04/27/2023 Rule Out Parvovirus 01/29/2022 01/29/2022 02/04/20 22 4:12 PM CDT Rule Out Parvovirus 04/27/2023 04/27/2023 05/01/20 23 9:52 PM CDT documented as of this encounter Care Teams Shell Trim Tool Setter Relationship Specialty Start Date End Date Caren Gómez PCP - General Physician Electrogalvanizing Machine Operator 03/16/20 Shari [place] MD [address] [place] [address] Assigned OBGYN Provider 05/04/20 Tim Alicea MD [address] [place] [address] Assigned Surgical Provider 08/12/20 02/07/22 Tad Jordna MD 420 [facility] [address] [place] [address] BMT Physician Transplant 04/10/21 aMllory Malin MD [address] [place], [place] 6[address] Endocrinology, Diabetes, and Metabolism 05/10/21 Latasha Wilcox PA-C [address] [place], [place] 8[address] Referring Physician Hematology & Oncology 05/10/21 Matteo Gómez, RN Specialty Rubber Tire Curer BMT - Adult 05/16/21 04/07/23 Joe Herrera MD [address] [place] [address] 136 [place] [address] Assigned Endocrinology Provider 05/26/21 01/16/23 Marika Salcido, [facility] Car Clerk Pullman BMT - Adult 06/14/21 Tad [place] MD [address] [place] [address] 480 [place] [address] Assigned Cancer Care Provider 06/23/21 Debbie Lugo, RN Registered Nurse 01/21/22 [facility] B[facility] Nurse Coordinator Transplant 04/08/23 documented as of this encounter
--- OUTSIDE RECORDS SUMMARY | 2023-08-17 14:28 | XMS_ITS | Encounter Summary ---
Author Name Unknown Organization [place] Address [address] [place] [address] Care Team Providers Care Angle Furnaceman Name Role Phone Caren Gómez Primary Care Provider Shari Salazar MD Unavailable [phone] Tim Alicea MD Unavailable [phone] Tad Jordan MD Unavailable [phone] Mallory Malin MD Unavailable [phone] Latasha WilcoxC Unavailable [phone] Matteo Gómez RN Unavailable [phone] Joe Herrera MD Unavailable [phone] Marika Salcido [facility] Unavailable Tad Jordan MD Unavailable [phone] Debbie Lugo RN Unavailable Unavailabl Blaine Mullins RN Unavailable Unavailable Encounter Details Date Type Department Care Team (Late st Contact Info) Description 07/15/2021 [facility] End[facility]ology Clinic [address] [place] [address] Joe Herrera MD [address] [place] [address] [address] [place], [place] [id number] Social History Tobacco Use Types Packs/Day Years [...] COVID-19? No / Unsure 07/17/2021 8:40 PM FOREIGN FOOD SPECIALTY COOK documented as of this encounter Plan of Treatment Upcoming Encounters Date Type Department Care Team (Late st Contact Info) Description 04/25/2024 9:00 AM CDT [facility] [address] [address] Tad Jordan MD [address] [place] [address] [address] [place], [place] [address] 04/25/2024 9:15 AM CDT Oncology Visit [facility] Blood and Marrow Transplant Program [address] [address] Tad Jordan MD [address] [place] [address] documented as of this encounter Visit Diagnoses Not on filedocumented in this encounter Additional Health Concerns Infection Onset Date Last Indicated Resolved Time Rule Out COVID-19 07/17/2021 07/17/2021 07/17/2021 11:03 PM FOREIGN FOOD SPECIALTY COOK COVID-19 Comment:Spoke with infectious disease, Dr. Katrin Harvey. After review of cycle thresholds and patient symptoms, Dr. Harvey advises that this patient no longer requires covid isolation requirements. 07/17/2021 08/15/2021 08/16/2021 11:21 AM FOREIGN FOOD SPECIALTY COOK Rule Out C-difficile 07/18/2021 07/19/2021 022 5:47 AM FOREIGN FOOD SPECIALTY COOK 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 Rule Out C-difficile 08/15/2021 08/16/2021 022 8:33 AM FOREIGN FOOD SPECIALTY COOK Rule Out C-difficile 01/20/2022 01/20/2022 022 7:37 PM CDT C-difficile 01/20/2022 01/20/2022 02/19/2022 11:4 1 PM CDT Rule Out Parvovirus 01/22/2022 01/23/2022 01/28/20 22 3:32 PM CDT Parvovirus 01/23/2022 04/27/2023 Rule Out Parvovirus 01/29/2022 01/29/2022 02/04/20 22 4:12 PM CDT Rule Out Parvovirus 04/27/2023 04/27/2023 05/01/20 23 9:52 PM CDT documented as of this encounter Care Teams Angle Furnaceman Relationship Specialty Start Date End Date Rico Caren M PCP - General Physician Gantry Crane Operator 03/16/20 Shari Salazar MD [address] [place] [address] Assigned OBGYN Provider 05/04/20 Tim Alicea MD [address] [place] [address] Assigned Surgical Provider 08/12/20 02/07/22 Tad Jordan MD 420 [facility] [address] [place], [place] [address] BMT Physician Transplant 04/10/21 Mallory Malin MD [address] [place], [place] [address] Endocrinology, Diabetes, and Metabolism 05/10/21 Latasha Wilcox PA-C [address] [place], [place] [address] Referring Physician Hematology & Oncology 05/10/21 Matteo Gómez, RN Specialty Residential Real Estate Assistant BMT - Adult 05/16/21 04/07/23 Joe Herrera MD 420 [facility] [address] [place] [address] Assigned Endocrinology Provider 05/26/21 01/16/23 Marika Salcido, [facility] Mission Analyst BMT - Adult 06/14/21 Tad Jordan MD 420 [facility] [address] [place] [address] Assigned Cancer Care Provider 06/23/21 Debbie Lugo, RN Registered Nurse 01/21/22 Blaine Chaves RN BMT Nurse Coordinator Transplant 04/08/23 documented as of this encounter
--- OUTSIDE RECORDS SUMMARY | 2023-08-17 14:28 | XMS_ITS | Encounter Summary ---
Author Name Unknown Organization [place] Address [address] [facility] [place] [address] Care Team Providers Care Account General Manager Name Role Phone Caren Gómez Primary Care Provider [phone] Tad Jordan MD Unavailable [phone] Mallory Malin MD Unavailable [phone] Latasha WilcoxC Unavailable [phone] Matteo Gómez RN Unavailable [phone] Joe Herrera MD Unavailable [phone] Marika Salcido [facility] [facility] Unavailable Tad Jordan MD Unavailable [phone] Debbie Lugo RN Unavailable UnavailBlaine Gibbs RN Unavailable Unavailable Encounter Details Date Type Department Care Team (Late st Contact Info) Description 02/11/2022 [facility] Blood and Marrow Transplant Program [place] [address] [place] [address] Tad Jordan MD 420 [facility] [address] [place] [address] Social History Tobacco Use Types Packs/Day Years [...] suspected to have Coronavirus/COVID-19? No / Unsure 02/06/2022 2:18 PM CDT documented as of this encounter Plan of Treatment Upcoming Encounters Date Type Department Care Team (Late st Contact Info) Description 04/25/2024 9:00 AM CDT Lab [facility] [address] [place] [address] Tad Jordan MD [address] [place] [address] 04/25/2024 9:15 AM CDT Oncology Visit [facility] Blood and Marrow Transplant Program [address] [address] Tad Jordan MD 420 [facility] [address] [place], [place] [address] documented as of this encounter Visit Diagnoses Not on filedocumented in this encounter Additional Health Concerns Infection Onset Date Last Indicated Resolved 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 C-difficile 01/20/2022 01/20/2022 02/19/2022 11:4 1 PM CDT Parvovirus 01/23/2022 04/27/2023 Rule Out Parvovirus 04/27/2023 04/27/2023 05/01/20 9:52 PM CDT documented as of this encounter Care Teams Account General Manager Relationship Specialty Start Date End Date Caren Gómez PCP - General Physician Container Repairer 03/16/20 Tad Jordan MD [address] [place] [address] BMT Physician Transplant 04/10/21 Mallory Malin MD [address] [place] [address] Endocrinology, Diabetes, and Metabolism 05/10/21 Latasha Wilcox PA-C [address] [place] [address]28145 Referring Physician Hematology & Oncology 05/10/21 Matteo Gómez, RN Specialty Bank Guard BMT - Adult 05/16/21 04/07/23 Joe Herrera MD [address] [place] [address] 136 [place], [place] [address] Assigned Endocrinology Provider 05/26/21 01/16/23 Marika Salcido, [facility] Anatomy Professor BMT - Adult 06/14/21 Tad Jordan MD [address] [address] Assigned Cancer Care Provider 06/23/21 Debbie Lugo, RN Registered Nurse 01/21/22 Blaine Chaves RN BMT Nurse Coordinator Transplant 04/08/23 documented as of this encounter
--- OUTSIDE RECORDS SUMMARY | 2023-08-17 14:28 | XMS_ITS | Encounter Summary ---
Author Name Unknown Organization [place] Address [address] [place] [address] Care Team Providers Care Call Center Operator Name Role Phone Caren Gómez Primary Care Provider [phone] Tad Jordan MD Unavailable [phone] Mallory Malin MD Unavailable [phone] Latasha WilcoxC Unavailable [phone] Matteo Gómez RN Unavailable [phone] Joe Herrera MD Unavailable [phone] Marika Salcido [facility] Unavailable Tad Jordan MD Unavailable Debbie Lugo RN Unavailable Unavailabl Blaine Mullins RN Unavailable Unavailable Encounter Details Date Type Department Care Team (Late st Contact Info) Description 06/02/2022 [facility] Blood and Marrow Transplant Program [place] [address] [place] [address] Tad Jordan MD 420 [facility] [address] [place] [address] Social History Tobacco Use Types Packs/Day Years [...] Info) Description 04/25/2024 9:00 AM CDT Lab [facility] [address] [place] [phone] Tad Jordan MD [address] [place] [address] 04/25/2024 9:15 AM CDT Oncology Visit [facility] Blood and Marrow Transplant Program [address] [phone] Tad Jordan MD [address] [place] [address] documented as of this encounter Visit Diagnoses Not on filedocumented in this encounter Additional Health Concerns Infection Onset Date Last Indicated Resolved 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 Parvovirus 01/23/2022 04/27/2023 Rule Out Parvovirus 04/27/2023 04/27/2023 05/01/20 23 9:52 PM CDT documented as of this encounter Care Teams Call Center Operator Relationship Specialty Start Date End Date GómezCaren PCP - General Physician Advertising Associate 03/16/20 Tad Jordan MD 420 [facility] [address] [place], [place] [address] BMT Physician Transplant 04/10/21 Mallory Malin MD [address] [place], [place] [phone] Endocrinology, Diabetes, and Metabolism 05/10/21 Latasha Wilcox PA-C [address] [place] [phone] Referring Physician Hematology & Oncology 05/10/21 Matteo Gómez, RN Specialty Heavy Equipment Diesel Mechanic BMT - Adult 05/16/21 04/07/23 Joe Herrera MD 420 [facility] [address] [place], [place] [address] Assigned Endocrinology Provider 05/26/21 01/16/23 Marika Salcido, [facility] Printing Plate Maker BMT - Adult 06/14/21 Tad Jordan MD 420 [facility] [address] [place], [place] [address] Assigned Cancer Care Provider 06/23/21 Debbie Lugo, RN Registered Nurse 01/21/22 Blaine Chaves RN BMT Nurse Coordinator Transplant 04/08/23 documented as of this encounter
--- OUTSIDE RECORDS SUMMARY | 2023-08-17 14:28 | XMS_ITS | Encounter Summary ---
Author Name Unknown Organization [place] Address [address] [facility] [place] [address] Care Team Providers Care Zinc Etcher Name Role Phone Caren Gmóez Primary Care Provider Shari Salazar MD Unavailable [phone] Tim Alicea MD Unavailable [phone] Tad Jordan MD Unavailable [phone] Mallory Malin MD Unavailable [phone] Latasha WilcoxC Unavailable [phone] Matteo Gómez RN Unavailable [phone] Joe Herrera MD Unavailable [phone] [facility] Unavailable Tad Jordan MD Unavailable [phone] Debbie Lugo RN Unavailable Unavailabl Blaine Mullins RN Unavailable Unavailable Encounter Details Date Type Department Care Team (Late st Contact Info) Description 10/21/2021 [facility] Blood and Marrow Transplant Program [address] [phone] Tad Jordan MD [address] [place] [address] Social History Tobacco Use Types Packs/Day Years [...] suspected to have Coronavirus/COVID-19? No / Unsure 10/24/2021 9:47 AM CDT documented as of this encounter Plan of Treatment Upcoming Encounters Date Type Department Care Team (Late st Contact Info) Description 04/25/2024 9:00 AM CDT [facility] Cancer [address] [phone] Tad Jordan MD [address] [place] [address] 04/25/2024 9:15 AM CDT Oncology Visit [facility] Blood and Marrow Transplant Program [address] [address] Tad Jordan MD [address] [place] [address]3425 documented as of this encounter Visit Diagnoses [...] documented as of this encounter Care Teams Zinc Etcher Relationship Specialty Start Date End Date Caren Gómez PCP - General Physician Firer Kiln 03/16/20 Shari Salazar MD [address] [place] [address] Assigned OBGYN Provider 05/04/20 Tim Alicea MD [address] [place] [address] Assigned Surgical Provider 08/12/20 02/07/22 Tad Jordan MD [address] [place] [address] BMT Physician Transplant 04/10/21 Mallory Malin MD 909 [place] [address] Endocrinology, Diabetes, and Metabolism 05/10/21 Latasha Wilcox PA-C 9 [place] [address] Referring Physician Hematology & Oncology 05/10/21 Matteo Gómez, NICKI Specialty Senior Naval Parachutist BMT - Adult 05/16/21 04/07/23 Joe Herrera MD 420 [facility] 136 [place] [address] Assigned Endocrinology Provider 05/26/21 01/16/23 Marika Salcido, [facility] Bench Press Operator BMT - Adult 06/14/21 Tad Jordan MD 420 [facility] [address] [place] [address] Assigned Cancer Care Provider 06/23/21 Debbie Lugo, RN Registered Nurse 01/21/22 Blaine Chaves RN BMT Nurse Coordinator Transplant 04/08/23 documented as of this encounter
--- OUTSIDE RECORDS SUMMARY | 2023-08-17 14:28 | XMS_ITS | Encounter Summary ---
Author Name Unknown Organization [place] Address [address] [facility] [place] [address] Care Team Providers Care Senior Care Provider Name Role Phone Caren Gómez Primary Care Provider Tad Jordan MD Unavailable [phone] Mallory Malin MD Unavailable [phone] Latasha WilcoxC Unavailable [phone] Matteo Gómez RN Unavailable Joe Herrera MD Unavailable [phone] Marika Salcido [facility] Unavailable Tad Jordan MD Unavailable [phone] Debbie Lugo RN Unavailable Unavailabl Blaine Mullins RN Unavailable Unavailable Encounter Details Date Type Department Care Team (Late st Contact Info) Description 07/28/[address] [facility] [address] [facility] Blood and Marrow Transplant Program [address] [address] Vivian De Santiago Social History Tobacco Use Types Packs/Day Years [...] suspected to have Coronavirus/COVID-19? No / Unsure 07/28/2022 9:08 AM PROFESSOR OF PHYSICAL EDUCATION documented as of this encounter Plan of Treatment Upcoming Encounters Date Type Department Care Team (Late st Contact Info) Description 04/25/2024 9:00 AM CDT Lab [facility] Cancer Clinic [address] [place] [address] Tad Jordan MD [address] [place] [address] 04/25/2024 9:15 AM CDT Oncology Visit 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 Parvovirus 01/23/2022 04/27/2023 Rule Out Parvovirus 04/27/2023 04/27/2023 05/01/20 9:52 PM CDT documented as of this encounter Care Teams Senior Care Provider Relationship Specialty Start Date End Date Caren Gómez PCP - General Physician Funeral Director/Embalmer/Owner 03/16/20 Tad Jordan MD [address] [place] [address] BMT Physician Transplant 04/10/21 Mallory Malin MD [address] [place] [address] Endocrinology, Diabetes, and Metabolism 05/10/21 Latasha Wilcox PA-C [address] [place] [address] Referring Physician Hematology & Oncology 05/10/21 Matteo Gómez, RN Specialty Pararescue Craftsman BMT - Adult 05/16/21 04/07/23 Joe Herrera MD [address] [place] [address] 136 [place], [place] [phone] Assigned Endocrinology Provider 05/26/21 01/16/23 Marika Salcido, [facility] [employer] BMT - Adult 06/14/21 Tad Jordan MD [address] [place] [id number] Assigned Cancer Care Provider 06/23/21 Debbie Lugo, RN Registered Nurse 01/21/22 Blaine Chaves RN BMT Nurse Coordinator Transplant 04/08/23 documented as of this encounter
--- OUTSIDE RECORDS SUMMARY | 2023-08-17 14:28 | XMS_ITS | Encounter Summary ---
Author Name Unknown Organization [place] Address [address] [place] [address] Care Team Providers Care Retrofit Installer Name Role Phone Caren Gómez Primary Care Provider Shari Salazar MD Unavailable [phone] Tim Alicea MD Unavailable [phone] Tad Jordan MD Unavailable [phone] Mallory Malin MD Unavailable [phone] Latasha WilcoxC Unavailable [phone] Matteo Gómez RN Unavailable [phone] Joe Herrera MD Unavailable [phone] [facility] Unavailable Tad Jordan MD Unavailable [phone] Debbie Lugo RN Unavailable Unavailabl Blaine Mullins RN Unavailable Unavailable Encounter Details Date Type Department Care Team (Late st Contact Info) Description 07/15/2021 [facility] Endocrinology Clinic [address] [place] [address] Joceline Queen CMA Social History [...] COVID-19? No / Unsure 07/17/2021 8:40 PM ONCOLOGY PHARMACIST documented as of this encounter Plan of Treatment Upcoming Encounters Date Type Department Care Team (Late st Contact Info) Description 04/25/2024 9:00 AM CDT Lab [facility] Clinic [address] [place] [phone] Tad Jordan MD [address] [place] [address] 04/25/2024 9:15 AM CDT Oncology Visit [facility] Blood and Marrow Transplant Program [address] [phone] Tad Jordan MD 420 [facility] 480 [place] [address] documented as of this encounter Visit Diagnoses Not on filedocumented in this encounter Additional Health Concerns Infection Onset Date Last Indicated Resolved Time Rule Out COVID-19 07/17/2021 07/17/2021 07/17/2021 11:03 PM ONCOLOGY PHARMACIST COVID-19 Comment:Spoke with infectious disease, Dr. Katrin Harvey. After review of cycle thresholds and patient symptoms, Dr. Harvey advises that this patient no longer requires covid isolation requirements. 07/17/2021 08/15/2021 08/16/2021 11:21 AM ONCOLOGY PHARMACIST Rule Out C-difficile 07/18/2021 07/19/2021 022 5:47 AM ONCOLOGY PHARMACIST 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 Rule Out C-difficile 08/15/2021 08/16/2021 022 8:33 AM ONCOLOGY PHARMACIST Rule Out C-difficile 01/20/2022 01/20/2022 022 7:37 PM CDT C-difficile 01/20/2022 01/20/2022 02/19/2022 11:4 1 PM CDT Rule Out Parvovirus 01/22/2022 01/23/2022 01/28/20 22 3:32 PM CDT Parvovirus 01/23/2022 04/27/2023 Rule Out Parvovirus 01/29/2022 01/29/2022 02/04/20 22 4:12 PM CDT Rule Out Parvovirus 04/27/2023 04/27/2023 05/01/20 23 9:52 PM CDT documented as of this encounter Care Teams Retrofit Installer Relationship Specialty Start Date End Date Caren Gómez PCP - General Physician Business Analysis Consultant 03/16/20 Shari Salazar MD [address] [place] [address] Assigned OBGYN Provider 05/04/20 Tim Alicea MD [address] [place] [address] Assigned Surgical Provider 08/12/20 02/07/22 Tad Jordan MD [address] [place] [address] BMT Physician Transplant 04/10/21 Mallory Malin MD [address] [place] [address] 728865 Endocrinology, Diabetes, and Metabolism 05/10/21 Latasha Wilcox PA-C [address] [place] [address] Referring Physician Hematology & Oncology 05/10/21 Matteo Gómez, NICKI Specialty Travel Nurse BMT - Adult 05/16/21 04/07/23 Joe Herrera MD [address] [place] [address] Assigned Endocrinology Provider 05/26/21 01/16/23 Marika Salcido, [facility] Asp Net C Developer BMT - Adult 06/14/21 Tad Jordan MD [address] [place] [address] Assigned Cancer Care Provider 06/23/21 Debbie Lugo, RN Registered Nurse 01/21/22 [facility] Nurse Coordinator Transplant 04/08/23 documented as of this encounter
--- OUTSIDE RECORDS SUMMARY | 2023-08-17 14:28 | XMS_ITS | Encounter Summary ---
Author Name Unknown Organization [place] Address [address] [facility] [place] [address] Care Team Providers Care Paper Cutter Operator Name Role Phone Caren Gómez Primary Care Provider Tad Jordan MD Unavailable [phone] Mallory Malin MD Unavailable [phone] Latasha WilcoxC Unavailable [phone] Matteo Gómez RN Unavailable [phone] Joe Herrera MD Unavailable [phone] Marika Salcido [facility] Unavailable Tad Jordan MD Unavailable [phone] Debbie Lugo RN Unavailable Unavailabl Blaine Mullins RN Unavailable Unavailable Encounter Details Date Type Department Care Team (Late st Contact Info) Description 02/25/2022 [facility] Blood and Marrow Transplant Program [place] [address] [place] [address] Tad Jordan MD 420 [facility] 480 [place] [address] Social History Tobacco Use Types Packs/Day Years [...] Info) Description 04/25/2024 9:00 AM CDT Lab [facility] Clinic [address] [place] [phone] Tad Jordan MD [address] [place] [address] 04/25/2024 9:15 AM CDT Oncology Visit [facility] Blood and Marrow Transplant Program [address] [address] Tad Jordan MD 420 [facility] 480 [place], [place] [address] documented as of this encounter Visit Diagnoses Not on filedocumented in this encounter Additional Health Concerns Infection Onset Date Last Indicated Resolved 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 Parvovirus 01/23/2022 04/27/2023 Rule Out Parvovirus 04/27/2023 04/27/2023 05/01/20 9:52 PM CDT documented as of this encounter Care Teams Paper Cutter Operator Relationship Specialty Start Date End Date Caren Gómez PCP - General Physician Brim Presser 03/16/20 Tad Jordan MD [address] [place] [address] 808755 BMT Physician Transplant 04/10/21 Mallory Malin MD [address] [place] [address] 088425 Endocrinology, Diabetes, and Metabolism 05/10/21 Latasha Wiclox PA-C [address] [place] [address] 987915 Referring Physician Hematology & Oncology 05/10/21 Matteo Gómez, RN Specialty Car Mechanic Helper BMT - Adult 05/16/21 04/07/23 Joe Herrera MD [address] [place] [address] 748455 Assigned Endocrinology Provider 05/26/21 01/16/23 Marika Salcido, [facility] Support Team Member BMT - Adult 06/14/21 Tad Jordan MD 420 [facility] 480 [place] [address] Assigned Cancer Care Provider 06/23/21 Debbie Lugo, RN Registered Nurse 01/21/22 Blaine Chaves, NICKI BMT Nurse Coordinator Transplant 04/08/23 documented as of this encounter
--- OUTSIDE RECORDS SUMMARY | 2023-08-17 14:28 | XMS_ITS | Encounter Summary ---
Author Name Unknown Organization [place] Address [address] [facility] [place] [address] Care Team Providers Care Guillotine Trimmer Name Role Phone Caren Gómez Primary Care Provider [phone] Shari Salazar MD Unavailable +- [phone] Tim Alicea MD Unavailable [phone] Tad Jordan MD Unavailable Mallory Malin MD Unavailable [phone] Latasha WilcoxC Unavailable [phone] Matteo Gómez RN Unavailable Joe Herrera MD Unavailable [phone] Marika Salcido [facility] Unavailable Tad Jordan MD Unavailable [phone] Debbie Lugo RN Unavailable Unavailabl Blaine Mullins RN Unavailable Unavailable Encounter Details Date Type Department Care Team (Late st Contact Info) Description 11/05/2021 [facility] Blood and Marrow Transplant Program [address] [phone] Tad Jordan MD [address] [place] [address] [phone] Social History Tobacco Use Types Packs/Day Years [...] Contact Info) Description 04/25/2024 9:00 AM CDT [facility] [address] [phone] Tad Jordan MD [address] [place] [address] [phone] 04/25/2024 9:15 AM CDT Oncology Visit [facility] Blood and Marrow Transplant Program [address] [address] Tad Jordan MD [address] [place] [place] [address] [phone] documented as of this encounter Visit Diagnoses [...] documented as of this encounter Care Teams Guillotine Trimmer Relationship Specialty Start Date End Date Caren Gómez PCP - General Physician Traffic Operations Engineer 03/16/20 Shari Salazar MD [address] [place] [address] Assigned OBGYN Provider 05/04/20 Tim Alicea MD [address] [address] Assigned Surgical Provider 08/12/20 02/07/22 Tad Jordan MD [address] [place] [place] [address] BMT Physician Transplant 04/10/21 Mallory Malin MD [address] [place] [address] Endocrinology, Diabetes, and Metabolism 05/10/21 Latasha Wilcox PA-C 9 [place] [address] Referring Physician Hematology & Oncology 05/10/21 Matteo Gómez, NICKI Specialty Associate Director Finance BMT - Adult 05/16/21 04/07/23 Joe Herrera MD [address] [facility] [address] [place] [address] Assigned Endocrinology Provider 05/26/21 01/16/23 Marika Salcido, [facility] Booker BMT - Adult 06/14/21 Tad Jordan MD [address] [facility] [address] [place] [address] Assigned Cancer Care Provider 06/23/21 Debbie Lugo, RN Registered Nurse 01/21/22 Blaine Chaves RN BMT Nurse Coordinator Transplant 04/08/23 documented as of this encounter
--- OUTSIDE RECORDS SUMMARY | 2023-08-17 14:28 | XMS_ITS | Encounter Summary ---
Author Name Unknown Organization [place] Address [address] [place] [address] Care Team Providers Care Dip Stand Loader Name Role Phone Caren Gómez Primary Care Provider Shari Salazar MD Unavailable [phone] Tim Alicea MD Unavailable [phone] Tad Jordan MD Unavailable [phone] Mallory Malin MD Unavailable [phone] Latasha WilcoxC Unavailable [phone] Matteo Gómez RN Unavailable [phone] Joe Herrera MD Unavailable [phone] Marika Salcido [facility] Unavailable Tad Jordan MD Unavailable [phone] Debbie Lugo RN Unavailable Unavailabl Blaine Mullins RN Unavailable Unavailable Encounter Details Date Type Department Care Team (Late st Contact Info) Description 08/09/2021 [facility] Blood and Marrow Transplant Program [address] [phone] Robert Burdick Social History Tobacco Use Types [...] have Coronavirus / COVID-19? No / Unsure 08/05/2021 1:41 PM DIRECTOR SEARCH MARKETING STRATEGIES documented as of this encounter Plan of Treatment Upcoming Encounters Date Type Department Care Team (Late st Contact Info) Description 04/25/2024 9:00 AM CDT Lab [facility] [address] [place] [phone] Tad Jordan MD [address] [place] [address] 04/25/2024 9:15 AM CDT Oncology Visit [facility] Blood and Marrow Transplant Program [address] [phone] Tad Jordan MD [address] [facility] [address] [place] [address] documented as of this encounter Visit Diagnoses Not on filedocumented in this encounter Additional Health Concerns Infection Onset Date Last Indicated Resolved Time COVID-19 Comment:Spoke with infectious disease, Dr. Katrin Harvey. After review of cycle thresholds and patient symptoms, Dr. Harvey advises that this patient no longer requires covid isolation requirements. 07/17/2021 08/15/2021 08/16/2021 11:21 AM DIRECTOR SEARCH MARKETING STRATEGIES 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 Rule Out C-difficile 08/15/2021 08/16/2021 022 8:33 AM DIRECTOR SEARCH MARKETING STRATEGIES Rule Out C-difficile 01/20/2022 01/20/2022 022 7:37 PM CDT C-difficile 01/20/2022 01/20/2022 02/19/2022 11:4 1 PM CDT Rule Out Parvovirus 01/22/2022 01/23/2022 01/28/20 22 3:32 PM CDT Parvovirus 01/23/2022 04/27/2023 Rule Out Parvovirus 01/29/2022 01/29/2022 02/04/20 22 4:12 PM CDT Rule Out Parvovirus 04/27/2023 04/27/2023 05/01/20 23 9:52 PM CDT documented as of this encounter Care Teams Dip Stand Loader Relationship Specialty Start Date End Date Caren Gómez PCP - General Physician Video Games Mechanic 03/16/20 Shari Salazar MD [address] [place] [address] Assigned OBGYN Provider 05/04/20 Tim Alicea MD [address] [id number] Assigned Surgical Provider 08/12/20 02/07/22 Tad Jordan MD [address] [place] [address] 480 [place] [address] BMT Physician Transplant 04/10/21 Mallory Malin MD [address] [place] [address] Endocrinology, Diabetes, and Metabolism 05/10/21 Latasha Wilcox PA-C [address] [place] [address] [phone] Referring Physician Hematology & Oncology 05/10/21 Matteo Gómez, NICKI Specialty Ore Grader BMT - Adult 05/16/21 04/07/23 Joe Herrera MD [address] [place] [address] Assigned Endocrinology Provider 05/26/21 01/16/23 Marika Salcido, [facility] Programming Manager BMT - Adult 06/14/21 Tad Jordan MD [address] [place] [address] Assigned Cancer Care Provider 06/23/21 Debbie Lugo, RN Registered Nurse 01/21/22 Blaine Chaves RN BMT Nurse Coordinator Transplant 04/08/23 documented as of this encounter
--- OUTSIDE RECORDS SUMMARY | 2023-08-17 14:28 | XMS_ITS | Encounter Summary ---
Author Name Unknown Organization [place] Address [address] [facility] [place] [place] [address] Care Team Providers Care Investor Relations Coordinator Name Role Phone Caren Gómez Primary Care Provider Shari Salazar MD Unavailable [phone] Tim Alicea MD Unavailable [phone] Tad Jordan MD Unavailable [phone] Mallory Malin MD Unavailable [phone] Latasha WilcoxC Unavailable [phone] Matteo Gómez RN Unavailable [phone] Joe Herrera MD Unavailable [phone] Marika Salcido [facility] Unavailable Tad Jordan MD Unavailable [phone] Debbie Lugo RN Unavailable Unavailabl Blaine Mullins RN Unavailable Unavailable Encounter Details Date Type Department Care Team (Late st Contact Info) Description 07/17/2021 [facility] Interventional Radiology [address] [place] [address] Stephy Hernandez RN Social History Tobacco Use Types Packs/Day Years [...] COVID-19? No / Unsure 07/17/2021 8:40 PM LABORER [employer]URKEY [employer]ARM documented as of this encounter Plan of Treatment Upcoming Encounters Date Type Department Care Team (Late st Contact Info) Description 04/25/2024 9:00 AM CDT Lab [facility] [address] [place] [phone] Tad Jordan MD [address] [place] [address] 04/25/2024 9:15 AM CDT Oncology Visit [facility] Blood and Marrow Transplant Program [address] [phone] Tad Jordan MD 420 [facility] [address] [place] [address] documented as of this encounter Visit Diagnoses Not on filedocumented in this encounter Additional Health Concerns Infection Onset Date Last Indicated Resolved Time Rule Out COVID-19 07/17/2021 07/17/2021 07/17/2021 11:03 PM LAB[employer] COVID-19 Comment:Spoke with infectious disease, Dr. Katrin Harvey. After review of cycle thresholds and patient symptoms, Dr. Harvey advises that this patient no longer requires covid isolation requirements. 07/17/2021 08/15/2021 08/16/2021 11:21 AM LAB[employer]ER [employer] Rule Out C-difficile 07/18/2021 07/19/2021 022 5:47 AM LAB[employer]ER [employer] 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 Rule Out C-difficile 08/15/2021 08/16/2021 022 8:33 AM LAB[employer] Rule Out C-difficile 01/20/2022 01/20/2022 022 7:37 PM CDT C-difficile 01/20/2022 01/20/2022 02/19/2022 11:4 1 PM CDT Rule Out Parvovirus 01/22/2022 01/23/2022 01/28/20 22 3:32 PM CDT Parvovirus 01/23/2022 04/27/2023 Rule Out Parvovirus 01/29/2022 01/29/2022 02/04/20 22 4:12 PM CDT Rule Out Parvovirus 04/27/2023 04/27/2023 05/01/20 23 9:52 PM CDT documented as of this encounter Care Teams Investor Relations Coordinator Relationship Specialty Start Date End Date Caren Gómez PCP - General Physician Production Supv 03/16/20 Shari Salazar MD [address] [place] [address] Assigned OBGYN Provider 05/04/20 Tim Alicea MD [address] [place] [address] Assigned Surgical Provider 08/12/20 02/07/22 Tad Jordan MD [address] [place] [address] BMT Physician Transplant 04/10/21 Mallory Malin MD [address] [place] [address] 167385 Endocrinology, Diabetes, and Metabolism 05/10/21 Latasha Wilcox PA-C [address] [place] [address] 680315 Referring Physician Hematology & Oncology 05/10/21 Matteo Gómez, RN Specialty Web Application Dev Specialist BMT - Adult 05/16/21 04/07/23 Joe Herrera MD [address] [place] [address] Assigned Endocrinology Provider 05/26/21 01/16/23 Marika Salcido, [facility] Women'S Lacrosse Coach BMT - Adult 06/14/21 Tad Jordan MD [address] [place] [address] Assigned Cancer Care Provider 06/23/21 Debbie Lugo, RN Registered Nurse 01/21/22 [facility] B[facility] Nurse Coordinator Transplant 04/08/23 documented as of this encounter
--- OUTSIDE RECORDS SUMMARY | 2023-08-17 14:29 | XMS_ITS | Encounter Summary ---
Author Name Unknown Organization [place] Address [address] [facility] [place] [address] Care Team Providers Care Merchandise Stocker Name Role Phone Caren Gómez Primary Care Provider [phone] Kathrin Peoples RN Unavailable Shari Salazar MD Unavailable Nyasia Prince MD Unavailable Unavailab Tim Jimenez MD Unavailable [phone] Tad Jordan MD Unavailable Mallory Malin MD Unavailable [phone] Latasha Wilcox PA-C Unavailable [phone] Matteo Gómez RN Unavailable [phone] Joe Herrera MD Unavailable [phone] Marika Salcido [facility] Unavailable Tad Jordan MD Unavailable Debbie Lugo RN Unavailable Unavailabl e Samec, Blaine L RN Unavailable Unavailable Encounter Details Date Type Department Care Team (Late st Contact Info) Description 03/12/2021 MyC Medical Advice [facility] Interventional Radiology [address] [place] [phone] Stephy Hernandez RN Social History Tobacco Use Types Packs/Day Years Used Date Smoking Tobacco: Never Smokeless Tobacco: Never Alcohol Use Standard Drinks/Week Comments Not Currently 0 (1 standard drink = 0.6 oz pur e alcohol) PHQ-2 Answer Date Recorded PHQ-2 Score 0 [...] have Coronavirus / COVID-19? No / Unsure 03/15/2021 7:44 AM CDT documented as of this encounter Plan of Treatment Upcoming Encounters Date Type Department Care Team (Late st Contact Info) Description 04/25/2024 9:00 AM CDT Lab [facility] [address] [place] [phone] Tad Jordan MD [address] [place] [address] [phone] 04/25/2024 9:15 AM CDT Oncology Visit [facility] Blood and Marrow Transplant Program [address] [phone] Tad Jordan MD [address] [place] [address] [phone] documented as of this encounter Visit Diagnoses Not on filedocumented in this encounter Additional Health Concerns Infection Onset Date Last Indicated Resolved Time Rule Out C-difficile 04/01/2021 04/01/2021 021 12:31 AM CDT Rule Out C-difficile 04/09/2021 04/10/2021 021 6:00 AM CDT Rule Out C-difficile 04/14/2021 04/14/2021 021 12:28 PM CDT Rule Out C-difficile 04/23/2021 04/23/2021 021 4:19 PM CDT Rule Out C-difficile 05/05/2021 05/05/2021 021 3:19 PM CDT Rule Out COVID-19 07/17/2021 07/17/2021 07/17/2021 11:03 PM LABORATORY SCIENTIST COVID-19 Comment:Spoke with infectious disease, Dr. Katrin Harvey. After review of cycle thresholds and patient symptoms, Dr. Harvey advises that this patient no longer requires covid isolation requirements. 07/17/2021 08/15/2021 08/16/2021 11:21 AM LABORATORY SCIENTIST Rule Out C-difficile 07/18/2021 07/19/2021 022 5:47 AM LABORATORY SCIENTIST 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 Rule Out C-difficile 08/15/2021 08/16/2021 022 8:33 AM LABORATORY SCIENTIST Rule Out C-difficile 01/20/2022 01/20/2022 022 7:37 PM CDT C-difficile 01/20/2022 01/20/2022 02/19/2022 11:4 1 PM CDT Rule Out Parvovirus 01/22/2022 01/23/2022 01/28/20 22 3:32 PM CDT Parvovirus 01/23/2022 04/27/2023 Rule Out Parvovirus 01/29/2022 01/29/2022 02/04/20 22 4:12 PM CDT Rule Out Parvovirus 04/27/2023 04/27/2023 05/01/20 23 9:52 PM CDT documented as of this encounter Care Teams Merchandise Stocker Relationship Specialty Start Date End Date Caren Gómez PCP - General Physician Bus Operator 03/16/20 Kathrin Peoples, NICKI Specialty Livestock Caretaker Hematology & Oncology 03/30/20 04/29/21 Shari Salazar MD [address] [place] [address] Assigned OBGYN Provider 05/04/20 Nyasia Prince MD NO INFO AVAILABLE 06/27/2022 Assigned Cancer Care Provider 05/04/20 06/22/21 Tim Alicea MD [address] [place] [address] Assigned Surgical Provider 08/12/20 02/07/22 Tad Jordan MD [address] [place] [address] 480 [place], [place] [address]25 BMT Physician Transplant 04/10/21 Mallory Malin MD [address] [place] [address] [phone] Endocrinology, Diabetes, and Metabolism 05/10/21 Latasha Wilcox PA-C [address] [place] [address] [phone] Referring Physician Hematology & Oncology 05/10/21 Matteo Gómez, RN Specialty Livestock Caretaker BMT - Adult 05/16/21 04/07/23 Joe Herrera MD [address] [place] [address] 136 [place] [address] Assigned Endocrinology Provider 05/26/21 01/16/23 Marika Salcido, [facility] District Fire Chief BMT - Adult 06/14/21 Tad Jordan MD [address] [address] Assigned Cancer Care Provider 06/23/21 Debbie Lugo, RN Registered Nurse 01/21/22 Blaine Chaves RN BMT Nurse Coordinator Transplant 04/08/23 documented as of this encounter
--- OUTSIDE RECORDS SUMMARY | 2023-08-17 14:29 | XMS_ITS | Encounter Summary ---
Author Name Unknown Organization [place] Address [address] [place] [address] Care Team Providers Care Procurement Technician Name Role Phone Caren Gómez Primary Care Provider Kathrin Peoples RN Unavailable Shari Salazar MD Unavailable Nyasia Prince MD Unavailable Unavailab Tim Jimenez MD Unavailable [phone] Tad Jordan MD Unavailable [phone] Mallory Malin MD Unavailable [phone] Latasha Wilcox PA-C Unavailable [phone] Matteo Gómez RN Unavailable [phone] Joe Herrera MD Unavailable [phone] Marika Salcido [facility] Unavailable Tad Jordan MD Unavailable [phone] Debbie Lugo RN Unavailable Unavailabl e Samec, Blaine L RN Unavailable Unavailable Encounter Details Date Type Department Care Team (Late st Contact Info) Description 04/02/2020 MyC Medical Advice [facility] [address] [phone] Shari Salazar MD [address] [place] [address] Social History Tobacco Use Types Packs/Day Years Used Date Smoking Tobacco: Never Smokeless Tobacco: Never Sex and Gender Information Value Date Recorded Sex Assigned at Female 03/30/2020 2:06 PM CDT Gender Identity Female 03/30/2020 2:06 PM CDT Sexual Orientation Straight 03/30/2020 2: 06 PM CDT COVID-19 Exposure Response Date Recorded In the last month, have you been in contact with someone who was confirmed or suspected to have Coronavirus / COVID-19? No / Unsure 04/02/2020 9:24 AM CDT documented as of this encounter Plan of Treatment Upcoming Encounters Date Type Department Care Team (Late st Contact Info) Description 04/25/2024 9:[address] [facility] [address] [place] [phone] Tad Jordan MD [address] [address] 04/25/2024 9:15 AM CDT Oncology Visit [facility] Blood and Marrow Transplant Program [address] [phone] Tad Jordan MD [address] [place] [address] [phone] documented as of this encounter Visit Diagnoses [...] Out COVID-19 07/17/2021 07/17/2021 07/17/2021 11:03 PM CHILD CARE SPECIALIST COVID-19 Comment:Spoke with infectious disease, Dr. Katrin Harvey. After review of cycle thresholds and patient symptoms, Dr. Harvey advises that this patient no longer requires covid isolation requirements. 07/17/2021 08/15/2021 08/16/2021 11:21 AM CHILD CARE SPECIALIST Rule Out C-difficile 07/18/2021 07/19/2021 022 5:47 AM CHILD CARE SPECIALIST 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 Rule Out C-difficile 08/15/2021 08/16/2021 022 8:33 AM CHILD CARE SPECIALIST Rule Out C-difficile 01/20/2022 01/20/2022 022 7:37 PM CDT C-difficile 01/20/2022 01/20/2022 02/19/2022 11:4 1 PM CDT Rule Out Parvovirus 01/22/2022 01/23/2022 01/28/20 22 3:32 PM CDT Parvovirus 01/23/2022 04/27/2023 Rule Out Parvovirus 01/29/2022 01/29/2022 02/04/20 22 4:12 PM CDT Rule Out Parvovirus 04/27/2023 04/27/2023 05/01/20 23 9:52 PM CDT documented as of this encounter Care Teams Procurement Technician Relationship Specialty Start Date End Date Caren Gómez PCP - General Physician Media Professional 03/16/20 Kathrin Peoples, NICKI Specialty Firer Locomotive Crane Hematology & Oncology 03/30/20 04/29/21 Shari Salazar MD [address] [place] [address] Assigned OBGYN Provider 05/04/20 Nyasia Prince MD NO INFO AVAILABLE 06/27/2022 Assigned Cancer Care Provider 05/04/20 06/22/21 Tim Alicea MD [address] [place] [address] Assigned Surgical Provider 08/12/20 02/07/22 Tad Jordan MD [address] [place] [address] [id number] BMT Physician Transplant 04/10/21 Mallory Malin MD [address] [place] [address] 508695 Endocrinology, Diabetes, and Metabolism 05/10/21 Latasha Wilcox PA-C [address] [place] [address] [phone] Referring Physician Hematology & Oncology 05/10/21 Matteo Gómez, RN Specialty Firer Locomotive Crane BMT - Adult 05/16/21 04/07/23 Joe Herrera MD [address] [place] [address] 136 [place] [address] Assigned Endocrinology Provider 05/26/21 01/16/23 Marika Salcido, [facility] Band Cutting Machine Operator BMT - Adult 06/14/21 Tad Jordan MD [address] [address] Assigned Cancer Care Provider 06/23/21 Debbie Lugo, RN Registered Nurse 01/21/22 Blaine Chaves RN BMT Nurse Coordinator Transplant 04/08/23 documented as of this encounter
--- OUTSIDE RECORDS SUMMARY | 2023-08-17 14:29 | XMS_ITS | Encounter Summary ---
Author Name Unknown Organization [place] Address [address] [facility] [place] [address] Care Team Providers Care Epic [facility] Name Role Phone Caren Gómez Primary Care Provider [phone] Kathrin Peoples RN Unavailable Shari Salazar MD Unavailable Nyasia Prince MD Unavailable Unavailab Tim Jimenez MD Unavailable [phone] Tad Jordan MD Unavailable [phone] Mallory Malin MD Unavailable [phone] Latasha Wilcox PA-C Unavailable [phone] Matteo Gómez RN Unavailable Joe Herrera MD Unavailable [phone] Marika Salcido [facility] Unavailable Tad Jordan MD Unavailable [phone] Debbie Lugo RN Unavailable Unavailabl e Samec, Blaine L RN Unavailable Unavailable Encounter Details Date Type Department Care Team (Late st Contact Info) Description 05/09/2020 Orders Only [facility] Laboratory [address] [place] [phone] Shari Salazar MD [address] [place], [place] [phone] Pre-operative laboratory examination (Primary Dx) Social History Tobacco Use Types Packs/Day Years Used Date Smoking Tobacco: Never Smokeless Tobacco: Never Alcohol Use Standard Drinks/Week Comments Not Currently 0 (1 standard drink = 0.6 oz pur e alcohol) Sex and Gender Information Value Date Recorded Sex Assigned at Female 03/30/2020 2:06 PM CDT Gender Identity Female 03/30/2020 2:06 PM CDT Sexual Orientation Straight 03/30/2020 2: 06 PM CDT COVID-19 Exposure Response Date Recorded In the last month, have you been in contact with someone who was confirmed or suspected to have Coronavirus / COVID-19? Yes 05/10/2020 6:00 AM CDT documented as of this encounter Plan of Treatment Upcoming Encounters Date Type Department Care Team (Late st Contact Info) Description 04/25/2024 9:[address] [facility] [address] [place] [address] Tad Jordan MD [address] [place] [phone] 04/25/2024 9:15 AM CDT Oncology Visit [facility] Blood and Marrow Transplant Program [address] [address] Tad Jordan MD [address] [place] [address] documented as of this encounter Results * ABO/Rh type and screen (05/09/2020 1:51 PM CDT) ABO A 05/09/2020 2:32 PM CDT [facility] RH(D) Neg [facility] Antibody Screen Neg 05/09/2020 2:32 PM CDT [facility] Test Valid Only At [facility] 05/09/2020 2:05 PM CDT [facility] Specimen Expires 05/12/2020 05/09/2020 2:05 PM CDT [facility] Blood specimen (specimen) 05/09/2020 1:51 PM CDT 05/09/2020 1:52 PM CDT Shari Salazar MD LAB - BLOOD BANK TEST ORDER [facility] [address] [place], [place] [address] [phone] documented in this encounter Visit Diagnoses Diagnosis Pre-operative laboratory examination- Primary Pre-procedural laboratory examination documented in this encounter Additional Health Concerns [...] Out COVID-19 07/17/2021 07/17/2021 07/17/2021 11:03 PM COUNTY BAILIFF COVID-19 Comment:Spoke with infectious disease, Dr. Katrin Harvey. After review of cycle thresholds and patient symptoms, Dr. Harvey advises that this patient no longer requires covid isolation requirements. 07/17/2021 08/15/2021 08/16/2021 11:21 AM COUNTY BAILIFF Rule Out C-difficile 07/18/2021 07/19/2021 022 5:47 AM COUNTY BAILIFF 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 Rule Out C-difficile 08/15/2021 08/16/2021 022 8:33 AM COUNTY BAILIFF Rule Out C-difficile 01/20/2022 01/20/2022 022 7:37 PM CDT C-difficile 01/20/2022 01/20/2022 02/19/2022 11:4 1 PM CDT Rule Out Parvovirus 01/22/2022 01/23/2022 01/28/20 3:32 PM CDT Parvovirus 01/23/2022 04/27/2023 Rule Out Parvovirus 01/29/2022 01/29/2022 02/04/20 4:12 PM CDT Rule Out Parvovirus 04/27/2023 04/27/2023 05/01/20 9:52 PM CDT documented as of this encounter Care Teams Epic [facility] Relationship Specialty Start Date End Date Caren Gómez PCP - General Physician Lead Handler 03/16/20 Kathrin Peoples, RN Specialty Level Vial Inspector Hematology & Oncology 03/30/20 04/29/21 Shari Salazar MD [address] [place] [address] Assigned OBGYN Provider 05/04/20 Nyasia Prince MD NO INFO AVAILABLE 06/27/2022 Assigned Cancer Care Provider 05/04/20 06/22/21 Tim Alicea MD [address] [address] Assigned Surgical Provider 08/12/20 02/07/22 Tad Jordan MD [address] [phone] BMT Physician Transplant 04/10/21 Mallory Malin MD 9 [place], [place] [address] Endocrinology, Diabetes, and Metabolism 05/10/21 Latasha Wilcox PA-C [address] [place] [address] [phone] Referring Physician Hematology & Oncology 05/10/21 Matteo Gómez, RN Specialty Level Vial Inspector BMT - Adult 05/16/21 04/07/23 Joe Herrera MD 420 [facility] [address] [place], [place] [address] Assigned Endocrinology Provider 05/26/21 01/16/23 Marika Salcido, [facility] Global Marketing Manager BMT - Adult 06/14/21 Tad Jordan MD [address] [place] [address] [address] [place], [place] 0[address]15 Assigned Cancer Care Provider 06/23/21 Debbie Lugo, RN Registered Nurse 01/21/22 Blaine Chaves RN BMT Nurse Coordinator Transplant 04/08/23 documented as of this encounter
--- OUTSIDE RECORDS SUMMARY | 2023-08-17 14:29 | XMS_ITS | Encounter Summary ---
Author Name Unknown Organization [place] Address [address] [facility] [place] [address] Care Team Providers Care Communications Equipment Supervisor Name Role Phone Caren Gómez Primary Care Provider [phone] Shari Salazar MD Unavailable [phone] Nyasia Prince MD Unavailable Unavailab Tim Jimenez MD Unavailable [phone] Tad Jordan MD Unavailable [phone] Mallory Malin MD Unavailable [phone] Latasha Wilcox PA-C Unavailable [phone] Matteo Gómez RN Unavailable [phone] Joe Herrera MD Unavailable [phone] Marika Salcido [facility] Unavailable Tad Jordan MD Unavailable [phone] Debbie Lugo RN Unavailable UnavailBlaine Gibbs RN Unavailable Unavailable Encounter Details Date Type Department Care Team (Late st Contact Info) Description 05/28/2021 MyC Medical Advice [facility] Blood and Marrow Transplant Program [address] [address] Latasha Wilcox PA-C [address] [place] [address] [phone] Social History Tobacco Use Types Packs/Day Years [...] have Coronavirus / COVID-19? No / Unsure 05/30/2021 9:52 AM BREAKFAST HOSTESS documented as of this encounter Plan of Treatment Upcoming Encounters Date Type Department Care Team (Late st Contact Info) Description 04/25/2024 9:00 AM CDT Lab [facility] [address] [place] [phone] Tad Jordan MD [address] [place] [address] 257836 04/25/2024 9:15 AM CDT Oncology Visit [facility] Blood and Marrow Transplant Program [place] [address] [place] [address] Tad Jordan MD 420 [facility] 480 [place], [place] 9[address] documented as of this encounter Visit Diagnoses Not on filedocumented in this encounter Additional Health Concerns Infection Onset Date Last Indicated Resolved Time Rule Out COVID-19 07/17/2021 07/17/2021 07/17/2021 11:03 PM BREAKFAST HOSTESS COVID-19 Comment:Spoke with infectious disease, Dr. Katrin Harvey. After review of cycle thresholds and patient symptoms, Dr. Harvey advises that this patient no longer requires covid isolation requirements. 07/17/2021 08/15/2021 08/16/2021 11:21 AM BREAKFAST HOSTESS Rule Out C-difficile 07/18/2021 07/19/2021 022 5:47 AM BREAKFAST HOSTESS 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 Rule Out C-difficile 08/15/2021 08/16/2021 022 8:33 AM BREAKFAST HOSTESS Rule Out C-difficile 01/20/2022 01/20/2022 022 7:37 PM CDT C-difficile 01/20/2022 01/20/2022 02/19/2022 11:4 1 PM CDT Rule Out Parvovirus 01/22/2022 01/23/2022 01/28/20 22 3:32 PM CDT Parvovirus 01/23/2022 04/27/2023 Rule Out Parvovirus 01/29/2022 01/29/2022 02/04/20 22 4:12 PM CDT Rule Out Parvovirus 04/27/2023 04/27/2023 05/01/20 23 9:52 PM CDT documented as of this encounter Care Teams Communications Equipment Supervisor Relationship Specialty Start Date End Date Rico Caren M PCP - General Physician Track Laying Supervisor 03/16/20 Shari Salazar MD [address] [place] [address] Assigned OBGYN Provider 05/04/20 Nyasia Prince MD NO INFO AVAILABLE 06/27/2022 Assigned Cancer Care Provider 05/04/20 06/22/21 Tim Alicea MD [address] [place] [address] Assigned Surgical Provider 08/12/20 02/07/22 Tad Jordan MD [address] [place] [address] 883105 BMT Physician Transplant 04/10/21 Mallory Malin MD [address] [place], [place] 98[address] Endocrinology, Diabetes, and Metabolism 05/10/21 Latasha Wilcox PA-C [address] [place], [place] [address] Referring Physician Hematology & Oncology 05/10/21 Matteo Gómez, RN Specialty Corporate Quality Manager BMT - Adult 05/16/21 04/07/23 Joe Herrera MD [address] [place] [address] 136 [place] [address] Assigned Endocrinology Provider 05/26/21 01/16/23 Marika Salcido, [facility] Transcription BMT - Adult 06/14/21 Tad Jordan MD 420 [facility] 480 [place] [address] Assigned Cancer Care Provider 06/23/21 Debbie Lugo, RN Registered Nurse 01/21/22 [facility] BMT Nurse Coordinator Transplant 04/08/23 documented as of this encounter
--- OUTSIDE RECORDS SUMMARY | 2023-08-17 14:29 | XMS_ITS | Encounter Summary ---
Author Name Unknown Organization [place] Address [address] [facility] [place] [address] Care Team Providers Care Residential Sales Associate Name Role Phone Caren Gómez Primary Care Provider [phone] Kathrin Peoples RN Unavailable Shari Salazar MD Unavailable Nyasia Prince MD Unavailable Unavailab Tim Jimenez MD Unavailable [phone] Tad Jordan MD Unavailable [phone] Mallory Malin MD Unavailable [phone] Latasha Wilcox PA-C Unavailable [phone] Matteo Gómez RN Unavailable Joe Herrera MD Unavailable [phone] Marika Salcido [facility] Unavailable Tad Jordan MD Unavailable [phone] Debbie Lugo RN Unavailable Unavailabl e Samec, Blaine L RN Unavailable Unavailable Encounter Details Date Type Department Care Team (Late st Contact Info) Description 03/28/2020 MyC Medical Advice [facility] Blood and Marrow Transplant Program [address] [phone] Nyasia Prince MD NO INFO AVAILABLE 06/27/2022 Social History Tobacco Use Types Packs/Day Years [...] have Coronavirus / COVID-19? No / Unsure 03/27/2020 8:55 AM CDT documented as of this encounter Plan of Treatment Upcoming Encounters Date Type Department Care Team (Late st Contact Info) Description 04/25/2024 9:00 AM CDT Lab [facility] [address] [place] [address] [phone] Tad Jordan MD [address] [place] [address] 04/25/2024 9:15 AM CDT Oncology Visit [facility] Blood and Marrow Transplant Program [address] [phone] Tad Jordan MD [address] [place] [address] 834695 documented as of this encounter Visit Diagnoses [...] Out COVID-19 07/17/2021 07/17/2021 07/17/2021 11:03 PM CARTON FORMING MACHINE OPERATOR COVID-19 Comment:Spoke with infectious disease, Dr. Katrin Harvey. After review of cycle thresholds and patient symptoms, Dr. Harvey advises that this patient no longer requires covid isolation requirements. 07/17/2021 08/15/2021 08/16/2021 11:21 AM CARTON FORMING MACHINE OPERATOR Rule Out C-difficile 07/18/2021 07/19/2021 022 5:47 AM CARTON FORMING MACHINE OPERATOR 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 Rule Out C-difficile 08/15/2021 08/16/2021 022 8:33 AM CARTON FORMING MACHINE OPERATOR Rule Out C-difficile 01/20/2022 01/20/2022 022 7:37 PM CDT C-difficile 01/20/2022 01/20/2022 02/19/2022 11:4 1 PM CDT Rule Out Parvovirus 01/22/2022 01/23/2022 01/28/20 22 3:32 PM CDT Parvovirus 01/23/2022 04/27/2023 Rule Out Parvovirus 01/29/2022 01/29/2022 02/04/20 22 4:12 PM CDT Rule Out Parvovirus 04/27/2023 04/27/2023 05/01/20 23 9:52 PM CDT documented as of this encounter Care Teams Residential Sales Associate Relationship Specialty Start Date End Date Caren Gómez PCP - General Physician Boat Hoist Operator Helper 03/16/20 Kathrin Peoples, RN Specialty Water Fitness Instructor Hematology & Oncology 03/30/20 04/29/21 Shari Salazar MD [address] [place] [address] Assigned OBGYN Provider 05/04/20 Nyasia Prince MD NO INFO AVAILABLE 06/27/2022 Assigned Cancer Care Provider 05/04/20 06/22/21 Tim Alicea MD [address] [place] [address] Assigned Surgical Provider 08/12/20 02/07/22 Tad Jordan MD 420 [facility] 480 [place], [place] [phone] BMT Physician Transplant 04/10/21 Mallory Malin MD [address] [place] [address] 579395 Endocrinology, Diabetes, and Metabolism 05/10/21 Latasha Wilcox PA-C [address] [place] [address] 869195 Referring Physician Hematology & Oncology 05/10/21 Matteo Gómez, NICKI Specialty Water Fitness Instructor BMT - Adult 05/16/21 04/07/23 Joe Herrera MD 420 [facility] 136 [place], [place] [address] Assigned Endocrinology Provider 05/26/21 01/16/23 Marika Salcido, [facility] Supervisor Cleaning And Annealing BMT - Adult 06/14/21 Tad Jordan MD [address] 2095[address] Assigned Cancer Care Provider 06/23/21 Debbie Lugo, RN Registered Nurse 01/21/22 Blaine Chaves, RN BMT Nurse Coordinator Transplant 04/08/23 documented as of this encounter
--- OUTSIDE RECORDS SUMMARY | 2023-08-17 14:29 | XMS_ITS | Encounter Summary ---
Author Name Unknown Organization [place] Address [address] [facility] [place] [address] Care Team Providers Care Motor Coach Tour Operator Name Role Phone Caren Gómez Primary Care Provider [phone] Shari Salazar MD Unavailable [phone] Nyasia Prince MD Unavailable Unavailab Tim Jimenez MD Unavailable [phone] Tad Jordan MD Unavailable [phone] Mallory Malin MD Unavailable [phone] Latasha Wilcox PA-C Unavailable [phone] Matteo Gómez RN Unavailable [phone] Joe Herrera MD Unavailable [phone] Marika Salcido [facility] Unavailable Tad Jordan MD Unavailable [phone] Debbie Lugo RN Unavailable UnavailBlaine Gibbs RN Unavailable Unavailable Encounter Details Date Type Department Care Team (Late st Contact Info) Description 06/16/2021 MyC Medical Advice [facility] Cancer [address] [phone] Robert Burdick Social History Tobacco Use Types [...] have Coronavirus / COVID-19? No / Unsure 06/18/2021 8:55 AM UNDERPRESSER HAND documented as of this encounter Plan of Treatment Upcoming Encounters Date Type Department Care Team (Late st Contact Info) Description 04/25/2024 9:00 AM CDT Lab [facility] Cancer [address] [address] Tad Jordan MD [address] [place] [address] 04/25/2024 9:15 AM CDT Oncology Visit [facility] Blood and Marrow Transplant Program [address] [phone] Tad Jordan MD 420 [facility] 480 [place] [address] documented as of this encounter Visit Diagnoses Not on filedocumented in this encounter Additional Health Concerns Infection Onset Date Last Indicated Resolved Time Rule Out COVID-19 07/17/2021 07/17/2021 07/17/2021 11:03 PM UNDERPRESSER HAND COVID-19 Comment:Spoke with infectious disease, Dr. Katrin Harvey. After review of cycle thresholds and patient symptoms, Dr. Harvey advises that this patient no longer requires covid isolation requirements. 07/17/2021 08/15/2021 08/16/2021 11:21 AM UNDERPRESSER HAND Rule Out C-difficile 07/18/2021 07/19/2021 022 5:47 AM UNDERPRESSER HAND 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 Rule Out C-difficile 08/15/2021 08/16/2021 022 8:33 AM UNDERPRESSER HAND Rule Out C-difficile 01/20/2022 01/20/2022 022 7:37 PM CDT C-difficile 01/20/2022 01/20/2022 02/19/2022 11:4 1 PM CDT Rule Out Parvovirus 01/22/2022 01/23/2022 01/28/20 22 3:32 PM CDT Parvovirus 01/23/2022 04/27/2023 Rule Out Parvovirus 01/29/2022 01/29/2022 02/04/20 22 4:12 PM CDT Rule Out Parvovirus 04/27/2023 04/27/2023 05/01/20 23 9:52 PM CDT documented as of this encounter Care Teams Motor Coach Tour Operator Relationship Specialty Start Date End Date Caren Gómez PCP - General Physician Rescue Boat Operator 03/16/20 Shari Salazar MD [address] [place] [address] Assigned OBGYN Provider 05/04/20 Nyasia Prince MD NO INFO AVAILABLE 06/27/2022 Assigned Cancer Care Provider 05/04/20 06/22/21 Tim Alicea MD [address] [place], [place] [address] Assigned Surgical Provider 08/12/20 02/07/22 Tad Jordan MD [address] [place] [address] 026695 BMT Physician Transplant 04/10/21 Mallory Malin MD [address] [place] [address] [phone] Endocrinology, Diabetes, and Metabolism 05/10/21 Latasha Wilcox PA-C [address] [place] [address] Referring Physician Hematology & Oncology 05/10/21 Matteo Gómez, RN Specialty Drop Wire Operator BMT - Adult 05/16/21 04/07/23 Joe Herrera MD [address] [place] [address] 136 [place], [place] 406[address] Assigned Endocrinology Provider 05/26/21 01/16/23 Marika Salcido, [facility] Tricot Knitter BMT - Adult 06/14/21 Tad Jordan MD [address] [place] [address] 483555 Assigned Cancer Care Provider 06/23/21 Debbie Lugo, RN Registered Nurse 01/21/22 Blaine Chaves RN BMT Nurse Coordinator Transplant 04/08/23 documented as of this encounter
--- OUTSIDE RECORDS SUMMARY | 2023-08-17 14:29 | XMS_ITS | Encounter Summary ---
Author Name Unknown Organization [place] Address [address] [facility] [place] [address] Care Team Providers Care Cardiac/Vascular Sonographer Name Role Phone Caren Gómez Primary Care Provider [phone] Shari Salazar MD Unavailable [phone] Nyasia Prince MD Unavailable Unavailab Tim Jimenez MD Unavailable [phone] Tad Jordan MD Unavailable [phone] Mallory Malin MD Unavailable [phone] Latasha Wilcox PA-C Unavailable [phone] Matteo Gómez RN Unavailable [phone] Joe Herrera MD Unavailable [phone] Marika Salcido [facility] Unavailable Tad Jordan MD Unavailable [phone] Debbie Lguo RN Unavailable UnavailBlaine Gibbs RN Unavailable Unavailable Encounter Details Date Type Department Care Team (Late st Contact Info) Description 05/28/2021 MyC Medical Advice [facility] Cancer [address] [phone] Robert Burdick Social History Tobacco [...] COVID-19? No / Unsure 05/30/2021 9:52 AM GENERAL FARM MANAGER documented as of this encounter Plan of Treatment Upcoming Encounters Date Type Department Care Team (Late st Contact Info) Description 04/25/2024 9:00 AM CDT Lab [facility] Cancer [address] [address] Tad Jordan MD [address] [place] [address] 04/25/2024 9:15 AM CDT Oncology Visit [facility] Blood and Marrow Transplant Program [address] [phone] Tad Jordan MD 420 [facility] 480 [place] [address] documented as of this encounter Visit Diagnoses Not on filedocumented in this encounter Additional Health Concerns Infection Onset Date Last Indicated Resolved Time Rule Out COVID-19 07/17/2021 07/17/2021 07/17/2021 11:03 PM GENERAL FARM MANAGER COVID-19 Comment:Spoke with infectious disease, Dr. Katrin Harvey. After review of cycle thresholds and patient symptoms, Dr. Harvey advises that this patient no longer requires covid isolation requirements. 07/17/2021 08/15/2021 08/16/2021 11:21 AM GENERAL FARM MANAGER Rule Out C-difficile 07/18/2021 07/19/2021 022 5:47 AM GENERAL FARM MANAGER 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 Rule Out C-difficile 08/15/2021 08/16/2021 022 8:33 AM GENERAL FARM MANAGER Rule Out C-difficile 01/20/2022 01/20/2022 022 7:37 PM CDT C-difficile 01/20/2022 01/20/2022 02/19/2022 11:4 1 PM CDT Rule Out Parvovirus 01/22/2022 01/23/2022 01/28/20 22 3:32 PM CDT Parvovirus 01/23/2022 04/27/2023 Rule Out Parvovirus 01/29/2022 01/29/2022 02/04/20 22 4:12 PM CDT Rule Out Parvovirus 04/27/2023 04/27/2023 05/01/20 23 9:52 PM CDT documented as of this encounter Care Teams Cardiac/Vascular Sonographer Relationship Specialty Start Date End Date Caren Gómez PCP - General Physician Sales And Marketing Director 03/16/20 Shari Salazar MD [address] [place] [address] Assigned OBGYN Provider 05/04/20 Nyasia Prince MD NO INFO AVAILABLE 06/27/2022 Assigned Cancer Care Provider 05/04/20 06/22/21 Tim Alicea MD [address] [place], [place] [address] Assigned Surgical Provider 08/12/20 02/07/22 Tad Jordan MD [address] [place] [address] 213005 BMT Physician Transplant 04/10/21 Mallory Malin MD [address] [place] [address] [phone] Endocrinology, Diabetes, and Metabolism 05/10/21 Latasha Wilcox PA-C [address] [place] [address] Referring Physician Hematology & Oncology 05/10/21 Matteo Gómez, RN Specialty Granite Fabricator BMT - Adult 05/16/21 04/07/23 Joe Herrera MD [address] [place] [address] 136 [place], [place] [phone] Assigned Endocrinology Provider 05/26/21 01/16/23 Marika Salcido, [facility] American Sign Language Teacher BMT - Adult 06/14/21 Tad Jordan MD [address] [place] [address] 484195 Assigned Cancer Care Provider 06/23/21 Debbie Lugo, RN Registered Nurse 01/21/22 Blaine Chaves RN BMT Nurse Coordinator Transplant 04/08/23 documented as of this encounter
--- OUTSIDE RECORDS SUMMARY | 2023-08-17 14:29 | XMS_ITS | Encounter Summary ---
Author Name Unknown Organization [place] Address [address] [facility] [address] Care Team Providers Care School Bus Dispatcher Name Role Phone Caren Gómez Primary Care Provider Shari Salazar MD Unavailable [phone] Nyasia Prince MD Unavailable Unavailab Tim Jimenez MD Unavailable [phone] Tad Jordan MD Unavailable [phone] Mallory Malin MD Unavailable [phone] Latasha Wilcox PA-C Unavailable [phone] Matteo Gómez RN Unavailable [phone] Joe Herrera MD Unavailable [phone] Marika Salcido [facility] Unavailable Tad Jordan MD Unavailable [phone] Debbie Lugo RN Unavailable UnavailBlaine Gibbs RN Unavailable Unavailable Encounter Details Date Type Department Care Team (Late st Contact Info) Description 05/16/2021 MyC Medical Advice [facility] [address] [phone] Latasha Wilcox PA-C [address] [place] [address] [id number] Social History Tobacco Use Types Packs/Day Years [...] have Coronavirus / COVID-19? No / Unsure 05/17/2021 9:12 AM CDT documented as of this encounter Plan of Treatment Upcoming Encounters Date Type Department Care Team (Late st Contact Info) Description 04/25/2024 9:00 AM CDT Lab [facility] [address] [place] [phone] Tad Jordan MD [address] [place] [address] [phone] 04/25/2024 9:15 AM CDT Oncology Visit [facility] [address] [place] [address] Tad Jordan MD [address] [facility] [address] [place], [place] [phone] documented as of this encounter Visit Diagnoses Not on filedocumented in this encounter Additional Health Concerns Infection Onset Date Last Indicated Resolved Time Rule Out COVID-19 07/17/2021 07/17/2021 07/17/2021 11:03 PM DIGITAL PRINT OPERATOR COVID-19 Comment:Spoke with infectious disease, Dr. Katrin Harvey. After review of cycle thresholds and patient symptoms, Dr. Harvey advises that this patient no longer requires covid isolation requirements. 07/17/2021 08/15/2021 08/16/2021 11:21 AM DIGITAL PRINT OPERATOR Rule Out C-difficile 07/18/2021 07/19/2021 022 5:47 AM DIGITAL PRINT OPERATOR 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 Rule Out C-difficile 08/15/2021 08/16/2021 022 8:33 AM DIGITAL PRINT OPERATOR Rule Out C-difficile 01/20/2022 01/20/2022 022 7:37 PM CDT C-difficile 01/20/2022 01/20/2022 02/19/2022 11:4 1 PM CDT Rule Out Parvovirus 01/22/2022 01/23/2022 01/28/20 22 3:32 PM CDT Parvovirus 01/23/2022 04/27/2023 Rule Out Parvovirus 01/29/2022 01/29/2022 02/04/20 22 4:12 PM CDT Rule Out Parvovirus 04/27/2023 04/27/2023 05/01/20 23 9:52 PM CDT documented as of this encounter Care Teams School Bus Dispatcher Relationship Specialty Start Date End Date Rico Caren M PCP - General Physician Cribbing Setter 03/16/20 Shari Salazar MD [address] [place] [address] Assigned OBGYN Provider 05/04/20 Nyasia Prince MD NO INFO AVAILABLE 06/27/2022 Assigned Cancer Care Provider 05/04/20 06/22/21 Tim Alicea MD [address] [place] [address] Assigned Surgical Provider 08/12/20 02/07/22 Tad Jordan MD [address] [place] [address] [id number] BMT Physician Transplant 04/10/21 Mallory Malin MD [address] [place], [place] 468465 Endocrinology, Diabetes, and Metabolism 05/10/21 Latasha Wilcox PA-C [address] [place], [place] 964915 Referring Physician Hematology & Oncology 05/10/21 Matteo Gómez, RN Specialty Developmental Training Counselor BMT - Adult 05/16/21 04/07/23 Joe Herrera MD [address] [place] [address] [address] [place] [address] Assigned Endocrinology Provider 05/26/21 01/16/23 Marika Salcido, [facility] Authorizer BMT - Adult 06/14/21 Tad Jordan MD 420 [facility] 480 [place] [address] Assigned Cancer Care Provider 06/23/21 Debbie Lugo, RN Registered Nurse 01/21/22 Blaine Chaves RN BMT Nurse Coordinator Transplant 04/08/23 documented as of this encounter
--- OUTSIDE RECORDS SUMMARY | 2023-08-17 14:29 | XMS_ITS ---
Author Name Unknown Organization [place] Address [address] [facility] [place] [address] Care Team Providers Care Die Maker Name Role Phone Caren Gómez Primary Care Provider Tad Jordan MD Unavailable [phone] Mallory Malin MD Unavailable [phone] Latasha WilcoxC Unavailable [phone] Marika Salcido [facility] Unavailable Tad Jordan MD Unavailable Debbie Lugo RN Unavailable UnavailBlaine Gibbs RN Unavailable Unavailable Diabetes Self-Management Education Status:Enrolled (Active) Start date:05/27/2021 Enrollment date:05/27/2021 Continued Care and Services Coordination
--- OUTSIDE RECORDS SUMMARY | 2023-08-17 14:29 | XMS_ITS | Encounter Summary ---
Author Name Unknown Organization [place] Address [address] [facility] [place] [address] Care Team Providers Care Customer Advocacy Manager Name Role Phone Caren Gómez Primary Care Provider [phone] Kathrin Peoples RN Unavailable Shari Salazar MD Unavailable yNasia Prince MD Unavailable Unavailab Tim Jimenez MD Unavailable [phone] Tad Jordan MD Unavailable [phone] Mallory Malin MD Unavailable [phone] Latasha Wilcox PA-C Unavailable [phone] Matteo Gómez RN Unavailable [phone] Joe Herrera MD Unavailable [phone] Marika Salcido [facility] Unavailable Tad Jordan MD Unavailable [phone] Debbie Lugo RN Unavailable Unavailabl e Samec, Blaine L RN Unavailable Unavailable Encounter Details Date Type Department Care Team (Late st Contact Info) Description 03/19/2021 MyC Medical Advice [facility] Blood and Marrow Transplant Program [address] [phone] Tad Jordan MD [address] [place] [address] [phone] Social History Tobacco Use Types Packs/Day Years [...] have Coronavirus / COVID-19? No / Unsure 03/22/2021 1:42 PM CDT documented as of this encounter Plan of Treatment Upcoming Encounters Date Type Department Care Team (Late st Contact Info) Description 04/25/2024 9:00 AM CDT Lab [facility] [address] [place] [address] [phone] Tad Jordan MD [address] [place] [address] 044705 04/25/2024 9:15 AM CDT Oncology Visit [facility] Blood and Marrow Transplant Program [address] [phone] Tad Jordan MD [address] [place] [address] 385815 documented as of this encounter Visit Diagnoses Not on filedocumented in this encounter Additional Health Concerns Infection Onset Date Last Indicated Resolved Time Rule Out C-difficile 04/01/2021 04/01/20212 021 12:31 AM CDT Rule Out C-difficile 04/09/2021 04/10/2021 021 6:00 AM CDT Rule Out C-difficile 04/14/2021 04/14/2021 021 12:28 PM CDT Rule Out C-difficile 04/23/2021 04/23/2021 021 4:19 PM CDT Rule Out C-difficile 05/05/2021 05/05/2021 021 3:19 PM CDT Rule Out COVID-19 07/17/2021 07/17/2021 07/17/2021 11:03 PM CASH MANAGEMENT COORDINATOR COVID-19 Comment:Spoke with infectious disease, Dr. Katrin Harvey. After review of cycle thresholds and patient symptoms, Dr. Harvey advises that this patient no longer requires covid isolation requirements. 07/17/2021 08/15/2021 08/16/2021 11:21 AM CASH MANAGEMENT COORDINATOR Rule Out C-difficile 07/18/2021 07/19/2021 022 5:47 AM CASH MANAGEMENT COORDINATOR 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 Rule Out C-difficile 08/15/2021 08/16/2021 022 8:33 AM CASH MANAGEMENT COORDINATOR Rule Out C-difficile 01/20/2022 01/20/2022 022 7:37 PM CDT C-difficile 01/20/2022 01/20/2022 02/19/2022 11:4 1 PM CDT Rule Out Parvovirus 01/22/2022 01/23/2022 01/28/20 22 3:32 PM CDT Parvovirus 01/23/2022 04/27/2023 Rule Out Parvovirus 01/29/2022 01/29/2022 02/04/20 22 4:12 PM CDT Rule Out Parvovirus 04/27/2023 04/27/2023 05/01/20 23 9:52 PM CDT documented as of this encounter Care Teams Customer Advocacy Manager Relationship Specialty Start Date End Date Caren Gómez PCP - General Physician Blacksmith Helper 03/16/20 Kathrin Peoples, RN Specialty Interlocker Maintainer Hematology & Oncology 03/30/20 04/29/21 Shari Salazar MD [address] [place] [address] Assigned OBGYN Provider 05/04/20 Nyasia Prince MD NO INFO AVAILABLE 06/27/2022 Assigned Cancer Care Provider 05/04/20 06/22/21 Tim Alicea MD [address] [facility] [place] [place] [address] Assigned Surgical Provider 08/12/20 02/07/22 Tad Jordan MD [address] [place] [address] [phone] BMT Physician Transplant 04/10/21 Mallory Malin MD [address] [place] [address] 693725 Endocrinology, Diabetes, and Metabolism 05/10/21 Latasha Wilcox PA-C [address] [place] [address] [phone] Referring Physician Hematology & Oncology 05/10/21 Matteo Gómez, RN Specialty Interlocker Maintainer BMT - Adult 05/16/21 04/07/23 Joe Herrera MD [address] [place] [address] [phone] Assigned Endocrinology Provider 05/26/21 01/16/23 Marika Salcido, [facility] Computer Technologist BMT - Adult 06/14/21 Tad Jordan MD 420 [facility] 480 [place] [address] Assigned Cancer Care Provider 06/23/21 Debbie Lugo, RN Registered Nurse 01/21/22 [facility] Nurse Coordinator Transplant 04/08/23 documented as of this encounter
--- OUTSIDE RECORDS SUMMARY | 2023-08-17 14:29 | XMS_ITS | Encounter Summary ---
Author Name Unknown Organization [place] Address [address] [facility] [place] [address] Care Team Providers Care Secretary Office Clerk Name Role Phone Caren Gómez Primary Care Provider Kathrin Peoples RN Unavailable Shari Salazar MD Unavailable Nyasia Prince MD Unavailable Unavailab Tim Jimenez MD Unavailable [phone] Tad Jordan MD Unavailable [phone] Mallory Malin MD Unavailable [phone] Latasha Wilcox PA-C Unavailable [phone] Matteo Gómez RN Unavailable [phone] Joe Herrera MD Unavailable [phone] Marika Salcido [facility] Unavailable Tad Jordan MD Unavailable [phone] Debbie Lugo RN Unavailable Unavailabl e Samec, Blaine L RN Unavailable Unavailable Encounter Details Date Type Department Care Team (Late st Contact Info) Description 10/26/2020 MyC Medical Advice [facility] Blood and Marrow Transplant Program [address] [phone] Nyasia Prince MD NO INFO AVAILABLE 06/27/2022 [...] have Coronavirus / COVID-19? No / Unsure 10/25/2020 12:40 PM CDT documented as of this encounter Plan of Treatment Upcoming Encounters Date Type Department Care Team (Late st Contact Info) Description 04/25/2024 9:00 AM CDT Lab [facility] [address] [place] [address] [phone] Tad Jordan MD [address] [place] [address] [phone] 04/25/2024 9:15 AM CDT Oncology Visit [facility] Blood and Marrow Transplant Program [address] [phone] Tad Jordan MD [address] [place] [address] [phone] documented as of this encounter Visit Diagnoses [...] Out COVID-19 07/17/2021 07/17/2021 07/17/2021 11:03 PM AUTOMOBILE CONTRACT CLERK COVID-19 Comment:Spoke with infectious disease, Dr. Katrin Harvey. After review of cycle thresholds and patient symptoms, Dr. Harvey advises that this patient no longer requires covid isolation requirements. 07/17/2021 08/15/2021 08/16/2021 11:21 AM AUTOMOBILE CONTRACT CLERK Rule Out C-difficile 07/18/2021 07/19/2021 022 5:47 AM AUTOMOBILE CONTRACT CLERK 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 Rule Out C-difficile 08/15/2021 08/16/2021 022 8:33 AM AUTOMOBILE CONTRACT CLERK Rule Out C-difficile 01/20/2022 01/20/2022 022 7:37 PM CDT C-difficile 01/20/2022 01/20/2022 02/19/2022 11:4 1 PM CDT Rule Out Parvovirus 01/22/2022 01/23/2022 01/28/20 22 3:32 PM CDT Parvovirus 01/23/2022 04/27/2023 Rule Out Parvovirus 01/29/2022 01/29/2022 02/04/20 22 4:12 PM CDT Rule Out Parvovirus 04/27/2023 04/27/2023 05/01/20 23 9:52 PM CDT documented as of this encounter Care Teams Secretary Office Clerk Relationship Specialty Start Date End Date Caren Gómez PCP - General Physician Chemistry Manager 03/16/20 Kathrin Peoples, NICKI Specialty Board Member Hematology & Oncology 03/30/20 04/29/21 Shari Salazar MD [address] [place] [address] Assigned OBGYN Provider 05/04/20 Nyasia Prince MD NO INFO AVAILABLE 06/27/2022 Assigned Cancer Care Provider 05/04/20 06/22/21 Tim Alicea MD [address] [place] [place], [place] 455[address] Assigned Surgical Provider 08/12/20 02/07/22 Tad Jordan MD [address] [place] [address] 480 [place], [place] 230375 BMT Physician Transplant 04/10/21 Mallory Malin MD [address] [place] [address] 076585 Endocrinology, Diabetes, and Metabolism 05/10/21 Latasha Wilcox PA-C [address] [place] [address] [phone] Referring Physician Hematology & Oncology 05/10/21 Matteo Gómez, RN Specialty Board Member BMT - Adult 05/16/21 04/07/23 Joe Herrera MD [address] [place] [address] 136 [place], [place] 061065 Assigned Endocrinology Provider 05/26/21 01/16/23 Marika Salcido, [facility] International Marketing Coordinator BMT - Adult 06/14/21 Tad Jordan MD [address] [address] Assigned Cancer Care Provider 06/23/21 Debbie Lugo, RN Registered Nurse 01/21/22 Blaine Chaves RN BMT Nurse Coordinator Transplant 04/08/23 documented as of this encounter
--- OUTSIDE RECORDS SUMMARY | 2023-08-17 14:29 | XMS_ITS | Encounter Summary ---
Author Name Unknown Organization [place] Address [address] [place] [address] Care Team Providers Care Steam Service Inspector Name Role Phone Caren Gómez Primary Care Provider Kathrin Peoples RN Unavailable Shari Salazar MD Unavailable [phone] Nyasia Prince MD Unavailable Unavailab Tim Jimenez MD Unavailable [phone] Tad Jordan MD Unavailable [phone] Mallory Malin MD Unavailable [phone] Latasha Wilcox PA-C Unavailable [phone] Matteo Gómez RN Unavailable [phone] Joe Herrera MD Unavailable [phone] Marika Salcido [facility] Unavailable Tad Jordan MD Unavailable [phone] Debbie Lugo RN Unavailable Unavailabl e Samec, Blaine L RN Unavailable Unavailable Reason for Visit * Reason Onset Date Comments Forms 05/14/2020 Encounter Details Date Type Department Care Team (Late st Contact Info) Description 05/14/2020 MyC Medical Advice [facility] [address] [place] [phone] Shari Salazar MD [address] [place] [address] Forms Social History Tobacco Use Types Packs/Day Years [...] Encounters Date Type Department Care Team (Late Contact Info) Description 04/25/2024 9:00 AM CDT Lab [facility] [address] [place] [address] [phone] Tad Jordan MD [address] [place] [address] 04/25/2024 9:15 AM CDT Oncology Visit [facility] Blood and Marrow Transplant Program [address] [phone] Tad Jordan MD [address] [place] [address] documented as of this encounter Visit Diagnoses Not on filedocumented in this encounter Additional Health Concerns Infection Onset Date Last Indicated Resolved Time Rule Out C-difficile 04/01/2021 04/01/202121/2 021 12:31 AM CDT Rule Out C-difficile 04/09/2021 04/10/2021 021 6:00 AM CDT Rule Out C-difficile 04/14/2021 04/14/2021 021 12:28 PM CDT Rule Out C-difficile 04/23/2021 04/23/2021 021 4:19 PM CDT Rule Out C-difficile 05/05/2021 05/05/2021 021 3:19 PM CDT Rule Out COVID-19 07/17/2021 07/17/2021 07/17/2021 11:03 PM SOCK KNITTER COVID-19 Comment:Spoke with infectious disease, Dr. Katrin Harvey. After review of cycle thresholds and patient symptoms, Dr. Harvey advises that this patient no longer requires covid isolation requirements. 07/17/2021 08/15/2021 08/16/2021 11:21 AM SOCK KNITTER Rule Out C-difficile 07/18/2021 07/19/2021 022 5:47 AM SOCK KNITTER 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 Rule Out C-difficile 08/15/2021 08/16/2021 022 8:33 AM SOCK KNITTER Rule Out C-difficile 01/20/2022 01/20/2022 022 7:37 PM CDT C-difficile 01/20/2022 01/20/2022 02/19/2022 11:4 1 PM CDT Rule Out Parvovirus 01/22/2022 01/23/2022 01/28/20 22 3:32 PM CDT Parvovirus 01/23/2022 04/27/2023 Rule Out Parvovirus 01/29/2022 01/29/2022 02/04/20 22 4:12 PM CDT Rule Out Parvovirus 04/27/2023 04/27/2023 05/01/20 23 9:52 PM CDT documented as of this encounter Care Teams Steam Service Inspector Relationship Specialty Start Date End Date Caren Gómez PCP - General Physician Apparel Pattern Maker 03/16/20 Kathrin Peoples, RN Specialty Research Management Associate Hematology & Oncology 03/30/20 04/29/21 Shari Salazar MD [address] [place] [address] Assigned OBGYN Provider 05/04/20 Nyasia Prince MD NO INFO AVAILABLE 06/27/2022 Assigned Cancer Care Provider 05/04/20 06/22/21 Tim Alicea MD [address] [facility] [address] Assigned Surgical Provider 08/12/20 02/07/22 Tad Jordan MD [address] [place] [address] [phone] BMT Physician Transplant 04/10/21 Mallory Malin MD [address] [place] [address] [phone] Endocrinology, Diabetes, and Metabolism 05/10/21 Latasha Wilcox PA-C [address] [place] [address] [phone] Referring Physician Hematology & Oncology 05/10/21 Matteo Gómez, NICKI Specialty Research Management Associate BMT - Adult 05/16/21 04/07/23 Joe Herrera MD [address] 420305 Assigned Endocrinology Provider 05/26/21 01/16/23 Marika Salcido, [facility] Face Man BMT - Adult 06/14/21 Tad Jordan MD [address] [place] [address] Assigned Cancer Care Provider 06/23/21 Debbie Lugo, RN Registered Nurse 01/21/22 Blaine Chaves RN BMT Nurse Coordinator Transplant 04/08/23 documented as of this encounter
--- OUTSIDE RECORDS SUMMARY | 2023-08-17 14:29 | XMS_ITS | Encounter Summary ---
Author Name Unknown Organization [place] Address [address] [facility] [place] [address] Care Team Providers Care Physiological Chemist Name Role Phone Caren Gómez Primary Care Provider Shari Salazar MD Unavailable [phone] Nyasia Prince MD Unavailable Unavailab Tim Jimenez MD Unavailable [phone] Tad Jordan MD Unavailable [phone] Mallory Malin MD Unavailable [phone] Latasha Wilcox PA-C Unavailable [phone] Matteo Gómez RN Unavailable [phone] Joe Herrera MD Unavailable [phone] Marika Salcido [facility] Unavailable Tad Jordan MD Unavailable [phone] Debbie Lugo RN Unavailable UnavailBlaine Gibbs RN Unavailable Unavailable Encounter Details Date Type Department Care Team (Late st Contact Info) Description 05/16/2021 MyC Medical Advice [facility] Endocrinology Clinic [address] [place] [phone] Robert Burdick Social History Tobacco Use [...] Info) Description 04/25/2024 9:00 AM CDT Lab [facility] [address] [place] [phone] Tad Jordan MD [address] [place] [address] [phone] 04/25/2024 9:15 AM CDT Oncology Visit [facility] Blood and Marrow Transplant Program [address] [phone] Tad Jordan MD 420 [facility] [address] [place] [address] documented as of this encounter Visit Diagnoses Not on filedocumented in this encounter Additional Health Concerns Infection Onset Date Last Indicated Resolved Time Rule Out COVID-19 07/17/2021 07/17/2021 07/17/2021 11:03 PM LICENSED SOCIAL WORKER COVID-19 Comment:Spoke with infectious disease, Dr. Katrin Harvey. After review of cycle thresholds and patient symptoms, Dr. Harvey advises that this patient no longer requires covid isolation requirements. 07/17/2021 08/15/2021 08/16/2021 11:21 AM LICENSED SOCIAL WORKER Rule Out C-difficile 07/18/2021 07/19/2021 022 5:47 AM LICENSED SOCIAL WORKER 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 Rule Out C-difficile 08/15/2021 08/16/2021 022 8:33 AM LICENSED SOCIAL WORKER Rule Out C-difficile 01/20/2022 01/20/2022 022 7:37 PM CDT C-difficile 01/20/2022 01/20/2022 02/19/2022 11:4 1 PM CDT Rule Out Parvovirus 01/22/2022 01/23/2022 01/28/20 22 3:32 PM CDT Parvovirus 01/23/2022 04/27/2023 Rule Out Parvovirus 01/29/2022 01/29/2022 02/04/20 22 4:12 PM CDT Rule Out Parvovirus 04/27/2023 04/27/2023 05/01/20 23 9:52 PM CDT documented as of this encounter Care Teams Physiological Chemist Relationship Specialty Start Date End Date Caren Gómez PCP - General Physician State Director 03/16/20 Shari Salazar MD [address] [place] [address] Assigned OBGYN Provider 05/04/20 Nyasia Prince MD NO INFO AVAILABLE 06/27/2022 Assigned Cancer Care Provider 05/04/20 06/22/21 Tim Alicea MD [address] [facility] [place], [place] 9[address] Assigned Surgical Provider 08/12/20 02/07/22 Tad Jordan MD [address] [place] [address] [id number] BMT Physician Transplant 04/10/21 Mallory Malin MD [address] [place] [address] [phone] Endocrinology, Diabetes, and Metabolism 05/10/21 Latasha Wilcox PA-C [address] [place] [address] Referring Physician Hematology & Oncology 05/10/21 Matteo Gómez, RN Specialty Celery Wrapper BMT - Adult 05/16/21 04/07/23 Joe Herrera MD 420 [facility] [address] [place], [place] 286545 Assigned Endocrinology Provider 05/26/21 01/16/23 Marika Salcido, [facility] Forensic Science Technician BMT - Adult 06/14/21 Tad Jordan MD [address] [place] [address] 480 [place], [place] 982535 Assigned Cancer Care Provider 06/23/21 Debbie Lugo, RN Registered Nurse 01/21/22 Blaine Chaves RN BMT Nurse Coordinator Transplant 04/08/23 documented as of this encounter
--- OUTSIDE RECORDS SUMMARY | 2023-08-17 14:29 | XMS_ITS | Encounter Summary ---
Author Name Unknown Organization [place] Address [address] [facility] [place] [address] Care Team Providers Care Eradicator Name Role Phone Caren Gómez Primary Care Provider Kathrin Peoples RN Unavailable Shari Salazar MD Unavailable [phone] Nyasia Prince MD Unavailable Unavailab Tim Jimenez MD Unavailable [phone] Tad Jordan MD Unavailable [phone] Mallory Malin MD Unavailable [phone] Latasha Wilcox PA-C Unavailable [phone] Matteo Gómez RN Unavailable [phone] Joe Herrera MD Unavailable [phone] Marika Salcido [facility] Unavailable Tad Jordan MD Unavailable [phone] Debbie Lugo RN Unavailable Unavailabl e Samec, Blaine L RN Unavailable Unavailable Reason for Visit * Reason Onset Date Comments Patient Request for Note/Letter 06/01/2020 Encounter Details Date Type Department Care Team (Late st Contact Info) Description 06/01/2020 MyC Medical Advice [facility] [address] [place] [id number] Shari Salazar MD [address] [place] [address] Patient Request for Note/Letter Social History Tobacco Use Types Packs/Day Years [...] have Coronavirus / COVID-19? No / Unsure 06/01/2020 8:48 AM PATTERN GRADER documented as of this encounter Plan of Treatment Upcoming Encounters Date Type Department Care Team (Late Contact Info) Description 04/25/2024 9:00 AM CDT Lab [facility] [address] [place] [phone] Tad Jordan MD [address] [place] [id number] 04/25/2024 9:15 AM CDT Oncology Visit [facility] Blood and Marrow Transplant Program [address] [address] Tad Jordan MD [address] [place] [id number] documented as of this encounter Visit Diagnoses [...] Out COVID-19 07/17/2021 07/17/2021 07/17/2021 11:03 PM PATTERN GRADER COVID-19 Comment:Spoke with infectious disease, Dr. Katrni Harvey. After review of cycle thresholds and patient symptoms, Dr. Harvey advises that this patient no longer requires covid isolation requirements. 07/17/2021 08/15/2021 08/16/2021 11:21 AM PATTERN GRADER Rule Out C-difficile 07/18/2021 07/19/2021 022 5:47 AM PATTERN GRADER 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 Rule Out C-difficile 08/15/2021 08/16/2021 022 8:33 AM PATTERN GRADER Rule Out C-difficile 01/20/2022 01/20/2022 022 7:37 PM CDT C-difficile 01/20/2022 01/20/2022 02/19/2022 11:4 1 PM CDT Rule Out Parvovirus 01/22/2022 01/23/2022 01/28/20 22 3:32 PM CDT Parvovirus 01/23/2022 04/27/2023 Rule Out Parvovirus 01/29/2022 01/29/2022 02/04/20 22 4:12 PM CDT Rule Out Parvovirus 04/27/2023 04/27/2023 05/01/20 23 9:52 PM CDT documented as of this encounter Care Teams Eradicator Relationship Specialty Start Date End Date Caren Gómez PCP - General Physician Warehouse Guard 03/16/20 Kathrin Peoples, RN Specialty Manager Human Capital Hematology & Oncology 03/30/20 04/29/21 Shari Salazar MD [address] [place] [address] Assigned OBGYN Provider 05/04/20 Nyasia Prince MD NO INFO AVAILABLE 06/27/2022 Assigned Cancer Care Provider 05/04/20 06/22/21 Tim Alicea MD [address] [place], [place] [address] Assigned Surgical Provider 08/12/20 02/07/22 Tad Jordan MD [address] [facility] [address] [place], [place] [address] BMT Physician Transplant 04/10/21 Mallory Malin MD [address] [place], [place] [address] Endocrinology, Diabetes, and Metabolism 05/10/21 Latasha Wilcox PA-C [address] [place], [place] [address] Referring Physician Hematology & Oncology 05/10/21 Matteo Gómez, NICKI Specialty Manager Human Capital BMT - Adult 05/16/21 04/07/23 Joe Herrera MD [address] [facility] [address] [place], [place] [phone] Assigned Endocrinology Provider 05/26/21 01/16/23 Marika Salcido, [facility] Dredge Pipe Installer BMT - Adult 06/14/21 Tad Jordan MD [address] [facility] [address] [place] [address] Assigned Cancer Care Provider 06/23/21 Debbie Lugo, RN Registered Nurse 01/21/22 [facility] Nurse Coordinator Transplant 04/08/23 documented as of this encounter
--- NOTE | 2023-08-17 14:30 | CRLHL7_ITS ---
For Patients: As a result of the Century Cures Act, medical imaging exams and procedure reports are released immediately into your electronic medical record. You may view this report before your referring provider. If you have questions, please contact your health care provider. INDICATION: Lumbar pain. TECHNIQUE: Three views of the lumbar spine. FINDINGS: Report assumes 5 lumbar vertebrae with tiny right rib on T12. Normal lumbar alignment. No fracture. Disk spaces preserved. Normal exam. Dictated by Wade Parker MD @ 08/18/2023 1:53:25 PM (Electronically Signed)
--- NOTE | 2023-08-17 14:30 | CRLHL7_ITS ---
For Patients: As a result of the Century Cures Act, medical imaging exams and procedure reports are released immediately into your electronic medical record. You may view this report before your referring provider. If you have questions, please contact your health care provider. INDICATION: Lumbar pain, right hip pain. TECHNIQUE: AP pelvis and 2 views of the right hip. FINDINGS: No bone, joint, or soft tissue abnormality in the pelvis or right hip. Normal exam. Dictated by Wade Parker MD @ 08/18/2023 2:08:00 PM (Electronically Signed)
== END 2023-08-17 14:21 | disposition home or self-care (01) ==
LOC: RAD 14:24
PROVIDERS: PCP Student in an Organized Health Care Education/Training Program; Visit Provider Physician Assistant
DX: M54.50 Low back pain, unspecified (principal); M25.551 Pain in right hip
CPT/HCPCS: 72100; 73502

== ENCOUNTER 2023-08-28 22:05 | Emergency (ER) | payer BC, SELFPAY ==
[2023-08-28 22:14] VITALS: BP 185/117; PULSE 106; RESP 16; TEMP 36.1; O2SAT 98; BMI 68.0
--- OUTSIDE RECORDS SUMMARY | 2023-08-28 22:41 | XMS_ITS | Clinical Summary ---
Author Name Unknown Organization [place] Address [address] [facility] [place] [address] Care Team Providers Care Digital Solutions Architect Name Role Phone Caren Gómez Omar Primary Care Provider [phone] Tad Jordan MD Unavailable [phone] Mallory Malin MD Unavailable [phone] Latasha Wilcox PA-C Unavailable Marika Salcido [facility] Unavailable Tad Jordan MD Unavailable [phone] Debbie Lugo RN Unavailable Unavailabl e [...] will receive M/W/F infusions of IVIG at [facility], starting 02/03, to complete on 02/12. Will have labs CBC, TySc, CMP (and possible RBC transfusions) on 02/03 and 02/10. All lab results to be faxed to Matteo Gómez at [phone]. If weekly labs are indicated beyond this, OP RNCC to arrange as we move closer to that time. [facility] On 01/29, faxed preliminary Summary of Care which includes lab orders, PRN blood orders, and IVIG orders. Called [facility] to discuss plan as well. At time of discharge, awaiting specific scheduling information from [facility]. Called back on 01/31/22 but the [...] for PT/OT/therapies: NA D/c location: Home - [place], [place] Has placement need been communicated to Social Work? NA [place] Teaching time arranged with patient/caregiver: Will discuss the above plan with pt prior to discharge. Notify nurse to schedule line care class/ DM teaching, prior to d/c: NA Caregiver: Ce (niece) Gerri (sister) [phone] Danial Cortez Measuring Machine Operator: Bhumi [phone] [facility] Phone - [phone] Fax - [phone] Johanna RN - [phone] Problem Noted Date Diagnosed Date Diarrhea 01/20/2022 [...] Overview: Added automatically from request for surgery [id number] Symptomatic anemia 04/03/2020 Overview: Added automatically from request for surgery [id number] Morbid obesity 04/02/2020 Immunizations Name Administration Dates [...] Description 04/25/2024 9:00 AM CDT Lab [facility] [address] [place] [phone] Tad Jordan MD [address] [place] [address] 04/25/2024 9:15 AM CDT Oncology Visit [facility] Blood and Marrow Transplant Program [address] [phone] Tad Jordan MD [address] [place] [address] Health Maintenance Due Date Last Done Comments [...] Advance Directives For more information, please contact: [phone] Documents on File Type Date Recorded Patient Framework Developer Expl anation Advance Directives and Living Will [...] Agent Relationship Communication Carmita Pena Mother [facility] Health Care Agent Janay (Gerri) [facility] Health Care Agent Care Teams Digital Solutions Architect Relationship Specialty Start Date End Date Caren Gómez PCP - General Physician Oyster Bed Worker 03/16/20 Tad Jordan MD [address] [address] BMT Physician Transplant 04/10/21 Mallory Malin MD [address] [place], [place] [address] Endocrinology, Diabetes, and Metabolism 05/10/21 Latasha Wilcox PA-C [address] [place] [address] Referring Physician Hematology & Oncology 05/10/21 Marika Salcido, [facility] Cannon Pinion Adjuster BMT - Adult 06/14/21 Tad Jordan MD [address] [address] Assigned Cancer Care Provider 06/23/21 Debbie Lugo, RN Registered Nurse 01/21/22 [facility] Nurse Coordinator Transplant 04/08/23
--- OUTSIDE RECORDS SUMMARY | 2023-08-28 22:41 | XMS_ITS ---
Author Name Unknown Organization [facility] Address [address] [place] [address] Care Team Providers Care Lead Web Application Developer Name Role Phone Caren Gómez Primary Care Provider Tad Jordan MD Unavailable [phone] Mallory Malin MD Unavailable [phone] Latasha Wilcox PA-C Unavailable [phone] Marika Salcido [facility] Unavailable Tad Jordan MD Unavailable [phone] Debbie Lugo RN Unavailable Unavailabl Blaine [...] will receive M/W/F infusions of IVIG at [facility], starting 02/03, to complete on 02/12. Will have labs CBC, TySc, CMP (and possible RBC transfusions) on 02/03 and Mon 02/10. All lab results to be faxed to Matteo Gómez at [phone]. If weekly labs are indicated beyond this, OP RNCC to arrange as we move closer to that time. [facility] On 01/29, faxed preliminary Summary of Care which includes lab orders, PRN blood orders, and IVIG orders. Called [facility] to discuss plan as well. At time of discharge, awaiting specific scheduling information from [facility]. Called back on 01/31/22 but the RN [...] for PT/OT/therapies: NA D/c location: Home - [place], [place] Has placement need been communicated to Social Work? NA MS Teaching time arranged with patient/caregiver: Will discuss the above plan with pt prior to discharge. Notify nurse to schedule line care class/ DM teaching, prior to d/c: NA Caregiver: Ce (niece) Gerri (sister) [phone] Danial [facility] Policy Change Clerk: Bhumi [phone] [facility] Phone - [phone] Fax - [phone] Johanna RN - [phone] Problem Noted Date Diagnosed Date Diarrhea 01/20/2022 [...] Overview: Added automatically from request for surgery [id number] Symptomatic anemia 04/03/2020 Overview: Added automatically from request for surgery [id number] Morbid obesity 04/02/2020 Current Oncology Plans No [...] treatments are documented for this patient in [facility]. Treatments may have been administered in another system. Lifetime Dose Tracking * Chemical Lifetime Dose Automatic Entry Manual Entr y Air Kerma 32.56 mGy 32.56 mGy 0 mGy Fluoro Time 22 Minutes 22 Minutes 0 Minutes
--- OUTSIDE RECORDS SUMMARY | 2023-08-28 22:41 | XMS_ITS | Clinical Summary ---
Author Name Unknown Organization [facility] Address [place], [place] [address] Care Team Providers Care Aircraft Engine Dismantler Name Role Phone Concha aRbago MD Unavailable Payton Eason NP Unavailable Nyasia Prince Unavailable Unavailable Dee Chris Primary Care Provider [phone] Allergies Active Allergy Reactions Criticality Noted Date [...] inusitis, unspecified chronicity, unspecified location Inhale 1 [place]amo into affected nostril(s) once daily. 16 g 0 05/30/2023 Active cyclobenzaprine (FLEXERIL) 10 mg tabletIndications:Acut e midline low back pain without sciatica Take 1 Tablet (10 mg) by mouth 3 times daily if needed for Muscle Spasm. 30 Tablet 0 08/24/2023 Active Hospital, Clinic, or Other Facility Administered Medication Ordered Dose Route Frequency Start Date End Date Status ketorolac 60 mg injection (TORADOL)Indications:Acute midline low back pain without sciatica,Rib pain on right side 60 mg IM ONE TIME 08/24/2023 08/24/2023 Ended Active Problems Problem Noted Date Diagnosed Date [...] 4. Had 3 Units of blood at [facility]. Work up pending. Had high SED [...] Encounters Date Type Department Care Team Description 08/25/2023 4:10 PM FRENCH FOLDER - 08/25/2023 11:59 PM FRENCH FOLDER Hospital Encounter [address] [address] Donny Brown MD Rein, Erik, PT 08/25/2023 Travel 08/24/2023 8:40 AM FRENCH FOLDER Office Visit [facility] [address] [place] [address] Dee Chris PA Follow Up (Tailbone/Right hip- fell on ice- sumit Christianson. Still having a lot of pain during movements, hard to sleep ) 08/23/2023 Travel 08/17/2023 2:30 PM FRENCH FOLDER Office Visit [facility] [address] [place] [address] Meghan Rider PA Back Pain (Patient complains of lower back pain for 1 1/2 weeks. Pain radiates back and towards front. Movement really hurts. Right leg hurts from the pain./Denies any other symptoms./Couldn't get comfortable sleeping, excruciating pain with movement./Tylenol arthritis 800 mg BID has not helped. 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 [address] [place] [address] Meghan Rider PA Lower Back Pain (Fell 1.5 weeks ago. Couldn't sleep last night. ) 08/17/2023 Travel 08/07/2023 3:30 PM FRENCH FOLDER - 08/07/2023 11:59 PM FRENCH FOLDER Hospital Encounter [facility] [address] [place] [address] Iron overload due to repeated red blood cell transfusions 08/07/2023 Travel 08/04/2023 3:30 PM FRENCH FOLDER - 08/04/2023 11:59 PM FRENCH FOLDER Hospital Encounter [facility] [address] [place] [address] Macrocytic anemia 08/04/2023 Travel 07/30/2023 Hospital/[facility] Telephone Encounter [facility] [address] [place] [address] Nahomy Castellanos RN Pre Procedure 07/27/2023 4:02 PM FRENCH FOLDER - 07/27/2023 11:59 PM FRENCH FOLDER Hospital Encounter [facility] [address] [place] [address] Donny Brown MD Leduc, Matthew, PT 07/27/2023 Travel 07/17/2023 2:59 PM FRENCH FOLDER - 07/17/2023 11:59 PM FRENCH FOLDER Hospital Encounter [facility] [address] [place] [address] Donny Brown MD Leduc, Matthew, PT Patellofemoral arthralgia of left knee; Patellofemoral maltracking 07/17/2023 7:20 AM FRENCH FOLDER Procedure Only [facility] [address] [place] [address] Trace aCnela MD Procedure (Ultrasound guided injection lef... 07/16/2023 Travel 07/10/2023 9:00 AM FRENCH FOLDER - 07/10/2023 11:59 PM FRENCH FOLDER Hospital Encounter [facility] [address] [facility] [place] [address] Iron overload due to repeated red blood cell transfusions 07/10/2023 Travel 07/08/2023 Hospital/[facility] Telephone Encounter [facility] [address] [facility] [place] [address] Dee Corbin RN Pre Procedure (PVP) 07/07/2023 8:58 AM FRENCH FOLDER - 07/07/2023 11:59 PM FRENCH FOLDER Hospital Encounter [facility] [address] [facility] [place] [address] Macrocytic anemia 07/07/2023 Travel 06/19/2023 Telephone [facility] [address] [place] [address] Payton Eason NP Appointment 06/15/2023 4:00 PM FRENCH FOLDER Ancillary Procedure [facility] [place] [address] [facility] [address] [place] [address] 06/15/2023 3:40 PM FRENCH FOLDER Office Visit [facility] [address] [facility] [place] [address] Donny Brown MD Consult (Left Knee) 06/15/2023 Travel 06/11/2023 Telephone [facility] [address] [facility] [place] [address] Payton Eason NP Appointment 05/30/2023 9:40 AM FRENCH FOLDER Telemedicine [facility] [address] [place] [phone] Apolinar Vasquez NP Influenza Like Illness (Telehealth (Virtual urgent care). No vitals taken.) 05/30/2023 Travel from Last 3 Months Immunizations Name Administration Dates Next Due COVID-19 Vaccine Spikevax (M oderna 50mcg/0.5mL) 12YO+ [id number] Formula PF 05/04/2023 COVID-19 vaccine ([employer]-Bio NTech 30mcg/0.3mL) 12YO+ BIVALENT PF, MDV 09/09/2022 [id number] (Pediarix) 05/01/2023,09/09/2022,1 HIB PRP-OMP (PedvaxHIB) 09/09/2022 HIB [...] Sign Reading Time Taken Comments Blood Pressure 140/108 08/24/2023 8:51 AM FRENCH FOLDER Pulse 91 08/24/2023 8:43 AM FRENCH FOLDER Temperature 36.8 ??C (98.2 ??F) 08/17/2023 1:07 PM CS T Respiratory Rate 20 08/07/2023 4:06 PM FRENCH FOLDER Oxygen Saturation 97% 08/24/2023 8:43 AM FRENCH FOLDER Inhaled Oxygen Concentration - - Weight 202.8 kg (447 lb 3.2 oz) 08/24/2023 8:43 AM FRENCH FOLDER Height 171.5 cm (5' 7.52) 04/23/2023 3:38 PM CD T Body Mass Index 68.97 04/23/2023 3:38 PM CDT Plan of Treatment Upcoming Encounters Date Type Department Care Team (Late st Contact Info) Description 09/01/2023 4:00 PM FRENCH FOLDER Appointment [facility] [address] [place] [address] 09/01/2023 4:30 PM FRENCH FOLDER Appointment [facility] [address] [facility] [place] [address] Mike Storey, PT [address] [place] [address] 09/04/2023 3:30 PM FRENCH FOLDER Appointment [facility] [address] [place] [address] 09/08/2023 4:30 PM FRENCH FOLDER Appointment [facility] [address] [facility] [place] [address] Mike Storey, PT [address] [facility] [address] [facility] [place] [address] 09/15/2023 4:30 PM FRENCH FOLDER Appointment [facility] [address] [facility] [place] [address] Mike Stroey, PT [address] [facility] [address] Health Maintenance Due Date Last Done Comments Pap test for age 21-65 03/27/2023 , 03/27/2020, 02/20/2017, Additional history exists Pneumococcal series for age 6-64 (2 of 2 - PPSV23 or PCV20) 06/26/2023 05/01/2023 COVID-19 vaccine series ( - 2022-24 season) 2023 05/04/2023, 09/09/2022, 05/01/2022, Additional history [...] 09/09/2022, 05/01/2022 Influenza for age 9-49 Completed 3, 05/01/2022, 05/01/2022, Additional history exists Medical Devices Implanted Type Area Supervisor Modern Languages Device Identifier Shelf Expiration Date Model / Serial / Lot Power Port Isp Mri 6fr [id number] - [id number] Implanted:Qty: 1 on 04/11/2020 by Will Henry DO at [facility] N/A: Chest [employer] 03/12/2021 [id number] / / [id number] Procedures Procedure Name Priority Date/Time Associated Diagnosis Comments URINE CULTURE Add On 08/17/2023 1:00 PM FRENCH FOLDER Hematuria, unspecified type URINALYSIS MICROSCOPIC Routine 08/17/2023 1:00 PM FRENCH FOLDER Back pain, unspecified back location, unspecified back pain laterality, unspecified chronicity UA W/ SEDIMENT EXAM REFLEXED PER CRITERIA Routine 08/17/2023 1:00 PM FRENCH FOLDER Back pain, unspecified back location, unspecified back pain laterality, unspecified chronicity SCAN-RADIOLOGY REPORT 08/17/2023 12:00 AM FRENCH FOLDER XR SPINE LUMBAR 3 VIEWS Routine 08/17/2023 12:00 AM FRENCH FOLDER Accidental fall, initial encounter Lumbar pain PHLEBOTOMY THERAPEUTIC Routine 08/07/2023 3:36 PM FRENCH FOLDER Iron overload due to repeated red blood cell transfusions CBC WITH AUTO DIFFERENTIAL Timed 08/04/2023 3:37 PM FRENCH FOLDER Macrocytic anemia FERRITIN Today 08/04/2023 3:37 PM FRENCH FOLDER Macrocytic anemia CBC WITH AUTO DIFFERENTIAL Today 08/04/2023 3:37 PM FRENCH FOLDER Macrocytic anemia BEDSIDE US STUDY ARCHIVE Routine 07/17/2023 12:04 PM FRENCH FOLDER Patellofemoral arthralgia of left knee Patellofemoral maltracking PHLEBOTOMY THERAPEUTIC Routine 07/10/2023 9:01 AM FRENCH FOLDER Iron overload due to repeated red blood cell transfusions CBC WITH AUTO DIFFERENTIAL Timed 07/07/2023 9:03 AM FRENCH FOLDER Macrocytic anemia FERRITIN Today 07/07/2023 9:03 AM FRENCH FOLDER Macrocytic anemia CBC WITH AUTO DIFFERENTIAL Today 07/07/2023 9:03 AM FRENCH FOLDER Macrocytic anemia XR KNEE 1 VIEW LEFT Routine 06/15/2023 3 :45 PM FRENCH FOLDER Chronic pain of left knee from Last 3 Months Results * (ABNORMAL) URINALYSIS MICROSCOPIC (08/17/2023 1:00 PM FRENCH FOLDER) RBC 3-5(A) 0-2, None Seen /HPF 08/17/2023 1:12 PM FRENCH FOLDER [facility] WBC 6-10(A) 0-2, 3-5, None Seen /HPF 08/17/2023 1:12 PM FRENCH FOLDER [facility] BACTERIA Many(A) None Seen, Rare, Few Bacteria/H PF 08/17/2023 1:12 PM FRENCH FOLDER [facility] EPITHELIAL CELLS Many(A) None Seen, Few Epi/HPF 08/17/2023 1:12 PM FRENCH FOLDER [facility] Urine URINE SPECIMEN / Unknown Non-Blood / Unknown 08/17/2023 1:00 PM FRENCH FOLDER 08/17/2023 1:06 PM FRENCH FOLDER Meghan NELSON URINE [facility] [address] [place] [address], * URINE CULTURE (08/17/2023 1:00 PM FRENCH FOLDER) CULTURE <10,000 CFU/mL multiple organisms 08/18/2023 7:12 PM FRENCH FOLDER [facility] Urine URINE SPECIMEN / Unknown Non-Blood / Unknown 08/17/2023 1:00 PM FRENCH FOLDER 08/17/2023 1:06 PM FRENCH FOLDER Meghan NELSON MICROBIOLOGY [facility] [address] [place] [address], [place] * (ABNORMAL) UA W/ SEDIMENT EXAM REFLEXED PER CRITERIA (08/17/2023 1:00 PM FRENCH FOLDER) COLOR Yellow Yellow Color 08/17/2023 1:11 PM FRENCH FOLDER [facility] CLARITY Clear Clear Clarity 08/17/2023 1:11 PM FRENCH FOLDER [facility] SPECIFIC GRAVITY,URINE >=1.030(A) 1.010, 1.015, 1.020, 1.025 08/17/2023 1:11 PM FRENCH FOLDER [facility] PH,URINE 5.5 6.0, 7.0, 8.0, 5.5, 6.5, 7.5, 8.5 08/17/2023 1:11 PM FRENCH FOLDER [facility] UROBILINOGEN, QUALITATIVE [place] EU/dl 08/17/2023 1:11 PM FRENCH FOLDER [facility] PROTEIN, URINE 100(A) Negative mg/dL 08/17/2023 1:11 PM FRENCH FOLDER [facility] GLUCOSE, URINE Negative Negative mg/dL 08/17/2023 1:11 PM FRENCH FOLDER [facility] KETONES,URINE Negative Negative mg/dL 08/17/2023 1:11 PM FRENCH FOLDER [facility] BILIRUBIN,URI NE Negative Negative 08/17/2023 1:11 PM FRENCH FOLDER [facility] OCCULT BLOOD,URINE Trace(A) Negative 08/17/2023 1:11 PM FRENCH FOLDER [facility] NITRITE Negative Negative 08/17/2023 1:11 PM FRENCH FOLDER [facility] LEUKOCYTE ESTERASE Negative Negative 08/17/2023 1:11 PM FRENCH FOLDER [facility] Urine URINE SPECIMEN / Unknown Non-Blood / Unknown 08/17/2023 1:00 PM FRENCH FOLDER 08/17/2023 1:06 PM FRENCH FOLDER Meghan NELSON URINE [facility] [address] [place] [address], [place] [phone] * XR SPINE LUMBAR 3 VIEWS (08/17/2023 12:00 AM FRENCH FOLDER) Anatomical Region Laterality Modality LUMBAR SPINE Computed Radiogr aphy Meghan NELSON GENERAL IMAGIN G * SCAN-RADIOLOGY REPORT (08/17/2023 12:00 AM FRENCH FOLDER) Anatomical Region Laterality Modality Other Scanner OTHER * (ABNORMAL) CBC WITH AUTO DIFFERENTIAL (08/04/2023 3:37 PM FRENCH FOLDER) Only the most recent of2 resultswithin the time period is included. WHITE BLOOD COUNT 6.8 4.5 - 11.0 thou/cu mm 08/04/2023 3:[address] [facility] RED BLOOD COUNT 4.02 4.00 - 5.20 mil/cu mm 08/04/2023 3:[address] [facility] HEMOGLOBIN 13.9 12.0 - 16.0 g/dL 08/04/2023 3:[address] [facility] HEMATOCRIT 42.2 33.0 - 51.0 % 08/04/2023 3:[address] [facility] MCV 105(H) 80 - 100 fL 08/04/2023 3:[address] [facility] MCH 34.6(H) 26.0 - 34.0 pg 08/04/2023 3:[address] [facility] MCHC 32.9 32.0 - 36.0 g/dL 08/04/2023 3:[address] [facility] RDW 13.9 11.5 - 15.5 % 08/04/2023 3:[address] [facility] PLATELET COUNT 194 140 - 440 thou/cu mm 08/04/2023 3:[address] [facility] MPV 9.7 6.5 - 11.0 fL 08/04/2023 3:[address] [facility] % NEUT 49.2 % 08/04/2023 3:[address] [facility] % LYMPH 34.5 % 08/04/2023 3:[address] [facility] % MONO 12.7 % 08/04/2023 3:[address] [facility] % EOS 3.0 % 08/04/2023 3:[address] [facility] % BASO 0.6 % 08/04/2023 3:[address] [facility] ABSOLUTE NEUTROPHILS 3.3 1.7 - 7.0 thou/cu mm 08/04/2023 3:[address] [facility] ABSOLUTE LYMPHOCYTES 2.3 0.9 - 2.9 thou/cu mm 08/04/2023 3:[address] [facility] ABSOLUTE MONOCYTES 0.9(H) <0.9 thou/cu mm 08/04/2023 3:[address] [facility] ABSOLUTE EOSINOPHILS 0.2 <0.5 thou/cu mm 08/04/2023 3:[address] [facility] ABSOLUTE BASOPHILS 0.0 <0.3 thou/cu mm 08/04/2023 3:41 PM FRENCH FOLDER [facility] Blood BLOOD SPECIMEN / Unknown Venipuncture / Unknown 08/04/2023 3:37 PM FRENCH FOLDER 08/04/2023 3:37 PM FRENCH FOLDER Tad Jordan MD HEMATOLOGY [facility] [address] [place] [address] * (ABNORMAL) FERRITIN (08/04/2023 3:37 PM FRENCH FOLDER) Only the most recent of2 resultswithin the time period is included. FERRITIN 1,526.0(H) 15.0 - 150.0 ng/mL 08/05/2023 12:48 PM FRENCH FOLDER [facility] Blood BLOOD SPECIMEN / Unknown Venipuncture / Unknown 08/04/2023 3:37 PM FRENCH FOLDER 08/04/2023 3:37 PM FRENCH FOLDER Tad Jordan MD CHEMISTRY [facility] [address] [place] [address], [place] * BEDSIDE US STUDY ARCHIVE (07/17/2023 12:04 PM FRENCH FOLDER) Narrative Darline Morgan - 07/17/2023 12:04 PM FRENCH FOLDER The patient was seen for ultrasound guided [...] KNEE 1 VIEW LEFT (06/15/2023 3:45 PM FRENCH FOLDER) Anatomical Region Laterality Modality KNEE L Computed Radiogr aphy 06/16/2023 6:41 AM FRENCH FOLDER Narrative 06/16/2023 6:41 AM FRENCH FOLDER For Patients: ??As a result of the [...] For Patients: As a result of the Cures Act, medical imagingexams and procedure reports [...] (Electronically Signed) Donny Brown MD GENERAL IMAGING from Last 3 Months Advance Directives Documents on File Type Date Recorded Patient Artificial Pearl Maker Expl anation Healthcare Directive 05/09/2020 020 Latest [...] 12:12 AM 12/03/2009 3:41 PM Care Teams Aircraft Engine Dismantler Relationship Specialty Start Date End Date Dee Chris PA [address] [place] [address] PCP - General Physician Water Attendant 01/28/23 Concha Rabago MD [address] [place] [address] Hematology Hematology and Oncology 01/25/20 Payton Esaon, ANIBAL [address] [place] [address] Hematology Nurse Practitioner - Family 01/25/20 Nyasia Prince [address] [place] [address] Hematology Internal Medicine 10/25/20
--- OUTSIDE RECORDS SUMMARY | 2023-08-28 22:41 | XMS_ITS | Referral Summary ---
Author Name Unknown Organization [facility] Address [address] [place] [address] Care Team Providers Care Division Order Analyst Name Role Phone Elsewhere, Pcp Primary Care Provider Unavailabl e Source Comments Patient records contain information from all sites at [facility]. For routine questions regarding patient records, call [phone] during business hours, M-F 8:00 AM - 5:00 PM Central Time. Record requests for emergency care only can be directed to [phone] at any time.[facility] Allergies Active Allergy Reactions Criticality Noted Date [...] Comments Blood Pressure 153/93 07/07/2022 5:14 PM BOILER SHOP MECHANIC Pulse 95 07/07/2022 5:20 PM BOILER SHOP MECHANIC Temperature 36.8 ??C (98.2 ??F) 07/07/2022 5:14 PM CS T Respiratory Rate 20 07/07/2022 5:14 PM BOILER SHOP MECHANIC Oxygen Saturation 97% 07/07/2022 5:20 PM BOILER SHOP MECHANIC Inhaled Oxygen Concentration - - Weight 173 kg (381 lb 2.8 oz) 07/07/2022 3:08 PM BOILER SHOP MECHANIC Height 174 cm (5' 8.5) 07/07/2022 3:08 PM BOILER SHOP MECHANIC Body Mass Index 57.11 07/07/2022 3:08 PM BOILER SHOP MECHANIC Plan of Treatment Not on file Care Teams Division Order Analyst Relationship Specialty Start Date End Date Elsewhere, Pcp PCP - General Internal Medicine 07/07/22
--- OUTSIDE RECORDS SUMMARY | 2023-08-28 22:41 | XMS_ITS | Referral Summary ---
Author Name Unknown Organization [facility] Address [address] [facility] [place] [address] Care Team Providers Care Calender Tender Name Role Phone Caren Gómez Omar Primary Care Provider Tad Jordan MD Unavailable [phone] Mallory Malin MD Unavailable [phone] Latasha Wilcox PA-C Unavailable [phone] [facility] Unavailable Tad Jordan MD Unavailable [phone] Debbie Lugo RN Unavailable Unavailabl e [...] will receive M/W/F infusions of IVIG at [facility], starting 02/03, to complete on 02/12. Will have labs CBC, TySc, CMP (and possible RBC transfusions) on 02/03 and 02/10. All lab results to be faxed to Matteo Gómez at [phone]. If weekly labs are indicated beyond this, OP RNCC to arrange as we move closer to that time. [facility] On 01/29, faxed preliminary Summary of Care which includes lab orders, PRN blood orders, and IVIG orders. Called [facility] to discuss plan as well. At time of discharge, awaiting specific scheduling information from [facility]. Called back on 01/31/22 but the [...] for PT/OT/therapies: NA D/c location: Home - [place], [place] Has placement need been communicated to Social Work? [place] Teaching time arranged with patient/caregiver: Will discuss the above plan with pt prior to discharge. Notify nurse to schedule line care class/ DM teaching, prior to d/c: NA Caregiver: Ce (niece) Gerri (sister) [phone] Danial Cortez Substation Operator Helper: Bhumi [phone] [facility] Phone - [phone] Fax - [phone] Johanna RN - [phone] Problem Noted Date Diagnosed Date Diarrhea 01/20/2022 [...] Overview: Added automatically from request for surgery [id number] Symptomatic anemia 04/03/2020 Overview: Added automatically from request for surgery [id number] Morbid obesity 04/02/2020 Immunizations Name Administration Dates [...] Info) Description 04/25/2024 9:00 AM CDT Lab [facility] [address] [place] [phone] Tad Jordan MD [address] [place] [phone] 04/25/2024 9:15 AM CDT Oncology Visit [facility] Blood and Marrow Transplant Program [address] [phone] Tad Jordan MD [address] [place] [address] [phone] Additional Health Concerns Infection Onset Date 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 Parvovirus 01/23/2022 04/27/2023 Advance Directives For more information, please contact: [phone] Documents on File Type Date Recorded Patient Make Ready Mechanic Expl anation Advance Directives and Living Will [...] Name Relationship Healthcare Agent Relationship Communication [facility] Health Care Agent Janay (Gerri) [facility] Health Care Agent Care Teams Calender Tender Relationship Specialty Start Date End Date Caren Gómez Omar PCP - General Physician Railroad Car Inspector 03/16/20 Tad Jordan MD [address] [place] [address] BMT Physician Transplant 04/10/21 Mallory Malin MD [address] [place] [address] Endocrinology, Diabetes, and Metabolism 05/10/21 Latasha Wilcox PA-C [address] [place] [address] [phone] Referring Physician Hematology & Oncology 05/10/21 Omari Marikacorry Mcqueen, [facility] Dictaphone Technician BMT - Adult 06/14/21 Tad Jordan MD [address] [place] [address] Assigned Cancer Care Provider 06/23/21 Debbie Lugo, RN Registered Nurse 01/21/22 [facility] B[facility] Nurse Coordinator Transplant 04/08/23
--- OUTSIDE RECORDS SUMMARY | 2023-08-28 22:41 | XMS_ITS | Encounter Summary ---
Author Name Unknown Organization [facility] Address [address] [facility] [place] [address] Care Team Providers Care Mobile Heavy Equipment Operator Name Role Phone Caren Gómez Omar Primary Care Provider [phone] Tad Jordan MD Unavailable [phone] Mallory Malin MD Unavailable [phone] Latasha Wilcox PA-C Unavailable [phone] Marika Salcido [facility] Unavailable Tad Jordan MD Unavailable [phone] Debbie Lugo RN Unavailable [facility] Blaine Chaves RN Unavailable Unavailable Encounter [...] Info) Description 04/25/2024 9:00 AM CDT Lab [facility] [address] [place] [phone] Tad Jordan MD [address] [place] [address] [phone] 04/25/2024 9:15 AM CDT Oncology Visit [facility] Blood and Marrow Transplant Program [address] [address] Tad Jordan MD [address] [place] [address] [phone] documented as of this encounter Visit Diagnoses Not on filedocumented in this encounter Additional Health Concerns Infection Onset Date Last Indicated Resolved 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 Parvovirus 01/23/2022 04/27/2023 Rule Out Parvovirus 04/27/2023 04/27/2023 05/01/20 9:52 PM CDT documented as of this encounter Care Teams Mobile Heavy Equipment Operator Relationship Specialty Start Date End Date Caren Gómez PCP - General Physician Windows Desktop Engineer 03/16/20 Tad Jordan MD [address] [place] [address] BMT Physician Transplant 04/10/21 Mallory Malin MD [address] [place] [address] Endocrinology, Diabetes, and Metabolism 05/10/21 Latasha Wilcox PA-C [address] [place] [address] Referring Physician Hematology & Oncology 05/10/21 Marika Salcido, [facility] Electrician Yard BMT - Adult 06/14/21 Tad Jordan MD [address] [place] [address] [phone] Assigned Cancer Care Provider 06/23/21 Debbie Lugo, RN Registered Nurse 01/21/22 [facility] B[facility] Nurse Coordinator Transplant 04/08/23 documented as of this encounter
--- OUTSIDE RECORDS SUMMARY | 2023-08-28 22:41 | XMS_ITS | Encounter Summary ---
Author Name Unknown Organization [place] Address [address] [facility] [place] [address] Care Team Providers Care Wick Tender Name Role Phone Caren Gómez Omar Primary Care Provider [phone] Tad Jordan MD Unavailable [phone] Mallory Malin MD Unavailable [phone] Latasha Wilcox PA-C Unavailable [phone] Marika Salcido [facility] Unavailable Tad Jordan MD Unavailable [phone] Debbie Lugo RN Un[facility] Blaine Mullins RN Unavailable Unavailable Encounter Details Date Type Department Care Team (Late st Contact Info) Description 05/05/2023 [facility] [address] [place] [address] [place] Social History Tobacco [...] AM CDT Lab [facility] [address] [place] [phone] Tad Jordan MD [address] [place] [address] 14476 04/25/2024 9:15 AM CDT Oncology Visit [facility] Blood and Marrow Transplant Program [address] [phone] Tad Jordan MD [address] [place] [address] 064405 documented as of this encounter Visit Diagnoses Not on filedocumented in this encounter Additional Health Concerns Infection Onset Date Last Indicated Resolved 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 Parvovirus 01/23/2022 04/27/2023 documented as of this encounter Care Teams Wick Tender Relationship Specialty Start Date End Date Caren Gómez PCP - General Physician Cold Patcher 03/16/20 Tad Jordan MD [address] [place] [address] 82230 BMT Physician Transplant 04/10/21 Mallory Malin MD [address] [place] [address] 32779 Endocrinology, Diabetes, and Metabolism 05/10/21 Latasha Wilcox PA-C [address] [place] [address] 28147 Referring Physician Hematology & Oncology 05/10/21 Marika Salcido, [facility] Flat Bed Knitter BMT - Adult 06/14/21 Tad Jordan MD [address] [place] [address] 87229 Assigned Cancer Care Provider 06/23/21 Debbie Lugo, RN Registered Nurse 01/21/22 Blaine Chaves RN BMT Nurse Coordinator Transplant 04/08/23 documented as of this encounter
--- OUTSIDE RECORDS SUMMARY | 2023-08-28 22:41 | XMS_ITS ---
Author Name Unknown Organization [facility] Address [address] [place] [address] Care Team Providers Care Quality Control Clerk Name Role Phone Unavailable Unavailable Unavailable Surgery Details Not on file Complications Check Surgery Details section. Procedure Estimated Blood Loss Check Surgery Details section. Procedure Findings Check Surgery Details section. Procedure Specimens Taken Check Surgery Details section.
--- OUTSIDE RECORDS SUMMARY | 2023-08-28 22:41 | XMS_ITS | Clinical Summary ---
Author Name Unknown Organization [facility] Address [address] [place] [address] Care Team Providers Care Iron Assorter Name Role Phone Elsewhere, Pcp Primary Care Provider Unavailabl e Source Comments Patient records contain information from all sites at [facility]. For routine questions regarding patient records, call [phone] during business hours, M-F 8:00 AM - 5:00 PM Central Time. Record requests for emergency care only can be directed to [phone] at any time.[facility] Allergies Active Allergy Reactions Criticality Noted Date [...] Comments Blood Pressure 153/93 07/07/2022 5:14 PM LUGGAGE REPAIRER Pulse 95 07/07/2022 5:20 PM LUGGAGE REPAIRER Temperature 36.8 ??C (98.2 ??F) 07/07/2022 5:14 PM CS T Respiratory Rate 20 07/07/2022 5:14 PM LUGGAGE REPAIRER Oxygen Saturation 97% 07/07/2022 5:20 PM LUGGAGE REPAIRER Inhaled Oxygen Concentration - - Weight 173 kg (381 lb 2.8 oz) 07/07/2022 3:08 PM LUGGAGE REPAIRER Height 174 cm (5' 8.5) 07/07/2022 3:08 PM LUGGAGE REPAIRER Body Mass Index 57.11 07/07/2022 3:08 PM LUGGAGE REPAIRER Plan of Treatment Health Maintenance Due Date [...] age to complete this topic Care Teams Iron Assorter Relationship Specialty Start Date End Date Elsewhere, Pcp PCP - General Internal Medicine 07/07/22
--- OUTSIDE RECORDS SUMMARY | 2023-08-28 22:42 | XMS_ITS | Encounter Summary ---
Author Name Unknown Organization [place] Address [address] [facility] [place] [address] Care Team Providers Care Customs And Border Protection Officer Name Role Phone Caren Gómez Omar Primary Care Provider Tad Jordan MD Unavailable [phone] Mallory Malin MD Unavailable [phone] Latasha Wilcox PA-C Unavailable [phone] Marika Salcido [facility] Unavailable Tad Jordan MD Unavailable [phone] Debbie Lugo RN Unavailable Unavailabl Blaine Mullins RN Unavailable Unavailable Encounter Details Date Type Department Care Team (Late st Contact Info) Description 04/27/2023 12:30 PM CDT Office Visit [facility] [address] [place] [phone] Red cell aplasia (H) (Primary Dx) Social [...] AM CDT Lab [facility] [address] [place] [phone] Tad Jordan MD [address] [place] [address] [phone] 04/25/2024 9:15 AM CDT Oncology Visit [facility] Blood and Marrow Transplant Program [address] [phone] Tad Jordan MD [address] [place] [address] [phone] documented as of this encounter Procedures Procedure [...] OR [facility] [address] [phone] documented in this encounter Visit Diagnoses 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) documented in this encounter Additional Health Concerns Infection Onset Date Last Indicated Resolved 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 Parvovirus 01/23/2022 04/27/2023 Rule Out Parvovirus 04/27/2023 04/27/2023 05/01/20 23 9:52 PM CDT documented as of this encounter Care Teams Customs And Border Protection Officer Relationship Specialty Start Date End Date Caren Gómez PCP - General Physician Package Winder 03/16/20 Tad Jordan MD [address] [place] [address] [phone] BMT Physician Transplant 04/10/21 Mallory Malin MD [address] [place], [place] [address] Endocrinology, Diabetes, and Metabolism 05/10/21 Latasha Wilcox PA-C [address] [place] [address] 54105 Referring Physician Hematology & Oncology 05/10/21 Marika Salcido, [facility] Scientific Laboratory Supervisor BMT - Adult 06/14/21 Tad Jordan MD [address] [phone] Assigned Cancer Care Provider 06/23/21 Debbie Lugo, RN Registered Nurse 01/21/22 Blaine Chaves RN BMT Nurse Coordinator Transplant 04/08/23 documented as of this encounter
--- OUTSIDE RECORDS SUMMARY | 2023-08-28 22:42 | XMS_ITS | Encounter Summary ---
Author Name Unknown Organization [place] Address [address] [place] [address] Care Team Providers Care Director Of Entertainment Name Role Phone Caren Gómez Omar Primary Care Provider [phone] Tad Jordan MD Unavailable [phone] Mallory Malin MD Unavailable [phone] Latasha Wilcox PA-C Unavailable [phone] Marika Salcido [facility] Unavailable Tad Jordan MD Unavailable [phone] Debbie Lugo RN Unavailable [facility] Blaine Chaves RN Unavailable Unavailable Encounter [...] Lab [facility] [address] [place] [address] Tad Jordan MD [address] [place] [address] 398205 04/25/2024 9:15 AM CDT Oncology Visit [facility] Blood and Marrow Transplant Program [address] [address] Tad Jordan MD [address] [place] [address] [phone] documented as of this encounter Visit Diagnoses Not on filedocumented in this encounter Additional Health Concerns Infection Onset Date Last Indicated Resolved 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 Parvovirus 01/23/2022 04/27/2023 Rule Out Parvovirus 04/27/2023 04/27/2023 05/01/20 9:52 PM CDT documented as of this encounter Care Teams Director Of Entertainment Relationship Specialty Start Date End Date Caren Gómez PCP - General Physician Case Mgr 03/16/20 Tad Jordan MD [address] [place] [address] 21924 BMT Physician Transplant 04/10/21 Mallory Malin MD [address] [place] [address] 449875 Endocrinology, Diabetes, and Metabolism 05/10/21 Latasha Wilcox PA-C [address] [place], [place] [address] Referring Physician Hematology & Oncology 05/10/21 Marika Salcido, [facility] Sales Representative Advertising BMT - Adult 06/14/21 Tad Jordan MD [address] [place] [address] 83380 Assigned Cancer Care Provider 06/23/21 Debbie Lugo, RN Registered Nurse 01/21/22 Blaine Chaves RN BMT Nurse Coordinator Transplant 04/08/23 documented as of this encounter
--- OUTSIDE RECORDS SUMMARY | 2023-08-28 22:42 | XMS_ITS | Encounter Summary ---
Author Name Unknown Organization [place] Address [address] [facility] [place] [address] Care Team Providers Care Motion Picture Camera Operator Name Role Phone Caren Gómez Primary Care Provider Tad Jordan MD Unavailable [phone] Mallory Malin MD Unavailable [phone] Latasha WilcoxC Unavailable [phone] Matteo Gómez RN Unavailable [phone] Marika Salcido [facility] Unavailable Tad Jordan MD Unavailable [phone] Debbie Lugo RN Unavailable Unavailabl e Encounter Details Date Type Department Care Team (Late st Contact Info) Description 01/19/[address] [facility] Blood and Marrow Transplant Program [address] [address] Social History [...] time Glenna Teixeira RD, LD 5C/BMT pager: [phone] documented in this encounter Plan of Treatment Upcoming Encounters Date Type Department Care Team (Late st Contact Info) Description 04/25/2024 9:[address] 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 Parvovirus 01/23/2022 04/27/2023 documented as of this encounter Care Teams Motion Picture Camera Operator Relationship Specialty Start Date End Date Caren Gómez PCP - General Physician Anime Designer 03/16/20 Tad Jordan MD [address] [place] [address] 53278 BMT Physician Transplant 04/10/21 Mallory Malin MD [address] [place] [address] 485615 Endocrinology, Diabetes, and Metabolism 05/10/21 Latasha Wilcox PA-C [address] [place] [address] 226525 Referring Physician Hematology & Oncology 05/10/21 Matteo Gómez, RN Specialty Net Developer Software Engineer C BMT - Adult 05/16/21 04/07/23 Marika Salcido, [facility] Management Development Specialist BMT - Adult 06/14/21 Tad Jordan MD [address] [place] [address] 97081 Assigned Cancer Care Provider 06/23/21 Debbie Lugo, RN Registered Nurse 01/21/22 documented as of this encounter
--- OUTSIDE RECORDS SUMMARY | 2023-08-28 22:42 | XMS_ITS | Encounter Summary ---
Author Name Unknown Organization [place] Address [address] [facility] [place] [address] Care Team Providers Care Wood Buffer Name Role Phone Caren Gómez Primary Care Provider Omar Burton MD Unavailable Mallory Malin MD Unavailable [phone] Latasha Wilcox PA-C Unavailable [phone] Tasneem Gómez RN Unavailable [phone] Joe Herrera MD Unavailable Marika Salcido [facility] Unavailable Omar Burton MD Unavailable [phone] Debbie Lugo RN Unavailable Unavailabl e Reason for Referral * Therapeutic Imaging/IR (Routine: Next available opening) - Pending Review Specialty Diagnoses / Procedures Referred By Dominick t Referred To Contact Radiology. Diagnoses Red cell aplasia (H) Procedures IR Bone Biopsy Deep Right IR Referral Omar Burton MD [address] [facility] [address] [place] [address] Referral ID Status Reason Start Date Expiration Date V isits Requested Visits Authorized [id number] Pending Review 12/17/2022 12/17/2023 1 1 * [...] DOPPLER W/O CONTRAST Omar Burton MD [address] [place] [address] [facility] [address] [place] [phone] Referral ID Status Reason Start Date Expiration Date Visits Re quested Visits Authorized Closed 12/17/2022 12/17/2023 1 1 * Consultation (Priority: 1-2 Weeks) - Pending Review Specialty Diagnoses / Procedures Referred By Dominick salas Referred To Contact Diagnoses Iron overload due to repeated red blood cell transfusions Omar Burton MD [address] [place] [address] [phone] Referral ID Status Reason Start Date Expiration Date V isits Requested Visits Authorized [id number] Pending Review 12/16/2022 12/16/2023 1 1 Question Answer Reason for Consult Iron overload Procedure Requested: Therapeutic Phlebotomy 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 No History of Latex allergies? No SUSANA Inhibitor? No Procedure Frequency: Monthly Procedure Duration: Until notification of discontinuation Target Dose: Remove 1 unit (500mL) monthly if Hgb >/= 10.0 Comments External referral. To be administered locally at [facility] [place] [facility]. Encounter Details Date Type Department Care Team (Late st Contact Info) Description 12/16/2022 Orders Only [facility] Blood and Marrow Transplant Program [address] [address] Tasneem Gómez, NICKI Iron overload [...] 04/25/2024 9:[address] [facility] [address] [place] [address] Omar Burton MD [address] [place] [address] 04/25/2024 9:15 AM CDT Oncology Visit [facility] Blood and Marrow Transplant Program [address] [address] Omar Burton MD [address] [place] [address] 224395 Scheduled Orders Name Type Priority Associated Diagnoses [...] PROCEDURE Radio Fluoroscopy Impressions 05/29/2023 9:21 AM MANAGEMENT DEPARTMENT CHAIR IMPRESSION: 1. ??Uncomplicated fluoroscopy guided right iliac bone marrow biopsy, as above. PLAN: -Bedrest for 1 hours. I have personally reviewed the examination and initial interpretation and I agree with the findings. ALEXEI DAVEY MD Narrative 05/29/2023 9:21 AM MANAGEMENT DEPARTMENT CHAIR PROCEDURE: Fluoroscopy-guided bone marrow biopsy of right [...] IV 3. 1% lidocaine 20 ml local manager bar [id number] sedation time: 19 minutes PROCEDURE/FINDINGS: Informed consent [...] IV 3. 1% lidocaine 20 ml local manager bar [id number] sedation time: 19 minutes PROCEDURE/FINDINGS: Informed consent [...] Atrial Rate 72 BPM RADIOLOG Y RESULTS PA Interval 148 ms RADIOLOG Y RESULTS QRS Duration 82 ms RADIOLO GY RESULTS QT 418 ms RADIOLOGY RESULTS QTc 457 ms RADIOLOGY RESULTS P Ephraim 24 degrees RADIOLOGY RESULTS R AXIS 54 degrees RADIOLOGY RESULTS T Ephraim 24 degrees RADIOLOGY RESULTS Interpretation ECG Sinus rhythm When compared with ECG of 01-MAY-2022 15:57, No significant change was found Confirmed by fellow Osiel Ruelas ([id number]) on 04/29/2023 2:59:59 PM Confirmed by MD BENJI, MITA ([id number]) on 04/30/2023 3:07:46 PM RADIOLOGY RESULTS 04/27/2023 10:3 4 AM CDT 04/30/2023 3:07 PM CDT Omar Burton MD ECG ORDERABLES RADIOLOGY RESULTS * ECHO COMPLETE WITH CONTRAST (04/27/2023 10:03 AM CDT) LVEF 55-60% CARDIOLOGY RESULTS Anatomical Region Laterality Modality Echocardiography 04/27/2023 8:57 AM CDT Narrative 04/27/2023 11:07 AM CDT [id number]^MICHEAL^OSITO [facility] Diagnostic and Treatment-3rd Floor [address] [place] [address] Name: AKHIL CASTILLO : 1980 Study Date: 04/27/2023 08:57 AM Age: 42 yrs Gender: Female Patient Location: [facility] Reason For Study: Red cell aplasia (H) Ordering Physician: OMAR BURTON Referring Physician: OMAR BURTON Performed By: River Cota RDCS BSA: 2.7 m2 Height: 67 in Weight: 399 lb BP: 160/106 mmHg Procedure Echocardiogram with two-dimensional, color and spectral Doppler performed. Contrast Optison. Optison ([facility] #[id number]) given intravenously. Patient was given 6 ml [...] Procedure Note Patricia Arredondo MD - 04/27/2023 [id number]^MICHEAL^OSITO [facility] Diagnostic and Treatment-3rd Floor [address] [place] [address] Name: AKHIL CASTILLO : 1980 Study Date: 04/27/2023 08:57 AM Age: 42 yrs Gender: Female Patient Location: [facility] Reason For Study: Red cell aplasia (H) Ordering Physician: OMAR BURTON Referring Physician: OMAR BURTON Performed By: River Cota RDCS BSA: 2.7 m2 Height: 67 in Weight: 399 lb BP: 160/106 mmHg Procedure Echocardiogram with two-dimensional, color and spectral Dopplerperformed. Contrast Optison. Optison ([facility] #[id number]) given intravenously. Patientwas given 6 ml mixture [...] as of this encounter Care Teams Wood Buffer Relationship Specialty Start Date End Date Rico Caren Omar PCP - General Physician Track Vehicle Repairer 03/16/20 Omar Burton MD [address] [facility] [address] [place] [address] BMT Physician Transplant 04/10/21 Mallory Malin MD [address] [place], [place] 097545 Endocrinology, Diabetes, and Metabolism 05/10/21 Latasha Wilcox PA-C [address] [place], [place] 0187[address] Referring Physician Hematology & Oncology 05/10/21 Tasneem Gómez, RN Specialty School Psychological Examiner BMT - Adult 05/16/21 04/07/23 Joe Herrera MD [address] [facility] [address] [place], [place] 7313[address] Assigned Endocrinology Provider 05/26/21 01/16/23 Marika Salcido, [facility] Lead Web Developer BMT - Adult 06/14/21 Omar Burton MD [address] [facility] [address] [place] [address] Assigned Cancer Care Provider 06/23/21 Debbie Lugo, RN Registered Nurse 01/21/22 documented as of this encounter
--- OUTSIDE RECORDS SUMMARY | 2023-08-28 22:42 | XMS_ITS | Encounter Summary ---
Author Name Unknown Organization [place] Address [address] [facility] 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 marker post bmt engraft bld Omar Burton MD [address] [facility] [address] [place] [address] Referral ID Status Reason Start Date Expiration Date V isits Requested Visits Authorized [id number] Authorized 05/01/2023 04/30/2024 1 1 Reason for Visit * Reason Comments Oncology Clinic Visit Red cell aplasia Encounter Details Date Type Department Care Team (Late st Contact Info) Description 05/01/2023 2:00 PM CDT Office Visit [facility] Blood and Marrow Transplant Program [address] [address] Omar Burton MD [address] [place] [address] 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 Concurrent flow cytometry ([id number]) demonstrates no increase in myeloid blasts and [...] cannot be reliably determined. Concurrent flow cytometry ([id number]) demonstrates no increase in myeloid blasts and [...] treated with steroids and alpha-1 antitrypsin study ([id number]); completed study 06/28. Tapered off steroids as [...] not needed today. Pharmacy name entered into [facility]: [id number] - [place], [place] - [address] [facility] [place] [place] [facility] [address] [facility] [address] [facility] - [place], [place] - [address] [facility] [place] [address] [address] Clinical concerns: Patient states there are no new concerns to discuss with provider. Ailin Crespo documented in this encounter Plan of Treatment Upcoming Encounters Date Type Department Care Team (Late st Contact Info) Description 04/25/2024 9:00 AM CDT [facility] [address] [place] [phone] Omar Burton MD [address] [place] [address] 275675 04/25/2024 9:15 AM CDT Oncology Visit [facility] Blood and Marrow Transplant Program [address] [phone] Omar Burton MD [address] [place] [address]371 Scheduled Orders Name Type Priority Associated Diagnoses [...] documented as of this encounter Care Teams Licensed Psychiatric Technician Relationship Specialty Start Date End Date Caren Gómez PCP - General Physician Neurology Nurse 03/16/20 Omar Burton MD [address] [place] [address] 13360 BMT Physician Transplant 04/10/21 Mallory Malin MD [address] [place] [address] 218875 Endocrinology, Diabetes, and Metabolism 05/10/21 Latasha Wilcox PA-C [address] [place] [address] 355645 Referring Physician Hematology & Oncology 05/10/21 Marika Salcido, [facility] Naval Gunfire Spotter BMT - Adult 06/14/21 Omar Burton MD [address] [place] [address] 18245 Assigned Cancer Care Provider 06/23/21 Debbie Lugo, RN Registered Nurse 01/21/22 Blaine Chaves RN BMT Nurse Coordinator Transplant 04/08/23 documented as of this encounter
--- OUTSIDE RECORDS SUMMARY | 2023-08-28 22:42 | XMS_ITS | Encounter Summary ---
Author Name Unknown Organization [place] Address [address] [facility] [place] [address] Care Team Providers Care Wardrobe Image Consultant Name Role Phone Caren Gómez Omar Primary Care Provider [phone] Tad Jordan MD Unavailable Mallory Malin MD Unavailable [phone] Latasha Wilcox PA-C Unavailable [phone] aMrika Salcido [facility] Unavailable Tad Jordan MD Unavailable [phone] Debbie Lugo RN Unavailable [facility] Blaine Chaves RN Unavailable Unavailable Encounter [...] [facility] [address] [place] [address] Tad Jordan MD [address] [place] [address] 459855 04/25/2024 9:15 AM CDT Oncology Visit [facility] Blood and Marrow Transplant Program [address] [phone] Tad Jordan MD [address] [place] [address] 767105 documented as of this encounter Visit Diagnoses Not on filedocumented in this encounter Additional Health Concerns Infection Onset Date Last Indicated Resolved 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 Parvovirus 01/23/2022 04/27/2023 documented as of this encounter Care Teams Wardrobe Image Consultant Relationship Specialty Start Date End Date Caren Gómez PCP - General Physician Tractor Operator 03/16/20 Tad Jordan MD [address] [place] [address] [phone] BMT Physician Transplant 04/10/21 Mallory Malin MD [address] [place], [place] 265[address] Endocrinology, Diabetes, and Metabolism 05/10/21 Latasha Wilcox PA-C [address] [place], [place] 979065 Referring Physician Hematology & Oncology 05/10/21 Marika Salcido, [facility] Customer Care Coordinator BMT - Adult 06/14/21 Tad Jordan MD [address] [place] [address] [phone] Assigned Cancer Care Provider 06/23/21 Debbie Lugo, RN Registered Nurse 01/21/22 Blaine Chaves RN BMT Nurse Coordinator Transplant 04/08/23 documented as of this encounter
--- OUTSIDE RECORDS SUMMARY | 2023-08-28 22:42 | XMS_ITS | Encounter Summary ---
Author Name Unknown Organization [place] Address [address] [facility] [place] [address] Care Team Providers Care Licensed Acupuncturist Name Role Phone Caren Gómez Omar Primary Care Provider [phone] Tad Jordan MD Unavailable [phone] Mallory Malin MD Unavailable [phone] Latasha Wilcox PA-C Unavailable [phone] Marika Salcido [facility] Unavailable Tad Jordan MD Unavailable [phone] Debbie Lugo RN Un[facility] Blaine Mullins RN Unavailable Unavailable Reason for Visit * Reason Comments Oncology Clinic Visit Acute myeloid leuk emia Encounter Details Date Type Department Care Team (Late st Contact Info) Description 04/27/2023 10:00 AM CDT Allied Health/Nurse Visit [facility] Blood and Marrow Transplant Program [place] [address] [place] [address] Tad Jordan MD [address] [phone] 1, Bmt Nurse Oncology Clinic Visit (Acute [...] Body Mass Index 68.09 07/28/2022 9:24 AM VERTICAL PUNCH OPERATOR documented in this encounter Nursing Notes [...] not needed today. Pharmacy name entered into [facility]: [id number] - [place], [place] - [address] [facility] [place] [facility] [address] [facility] [place] [id number] [address] [facility] - [place] [id number] [address] Clinical concerns: none CELINE [...] Lab [facility] [address] [place] [phone] Tad Jordan MD [address] [place] [address] [phone] 04/25/2024 9:15 AM CDT Oncology Visit [facility] [address] [address] Tad Jordan MD [address] [place] [address] 352175 documented as of this encounter Visit Diagnoses Diagnosis 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 documented in this encounter Additional Health Concerns Infection Onset Date Last Indicated Resolved 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 Parvovirus 01/23/2022 04/27/2023 Rule Out Parvovirus 04/27/2023 04/27/2023 05/01/20 23 9:52 PM CDT documented as of this encounter Care Teams Licensed Acupuncturist Relationship Specialty Start Date End Date Rico Caren Omar PCP - General Physician Gear Hobber Operator 03/16/20 Tad Jordan MD [address] [place] [address] 75843 BMT Physician Transplant 04/10/21 Mallory Malin MD [address] [place] [address] 286275 Endocrinology, Diabetes, and Metabolism 05/10/21 Latasha Wilcox PA-C [address] [place] [address] Referring Physician Hematology & Oncology 05/10/21 [facility] Ev[facility] General Counsel BMT - Adult 06/14/21 Tad Jordan MD [address] [place] [address] 31702 Assigned Cancer Care Provider 06/23/21 Debbie Lugo, RN Registered Nurse 01/21/22 Blaine Chaves RN BMT Nurse Coordinator Transplant 04/08/23 documented as of this encounter
--- OUTSIDE RECORDS SUMMARY | 2023-08-28 22:42 | XMS_ITS | Encounter Summary ---
Author Name Unknown Organization [place] Address [address] [facility] [place] [address] Care Team Providers Care Clarity Developer Name Role Phone Caren Gómez Primary Care Provider Tad Jordan MD Unavailable [phone] Mallory Malin MD Unavailable [phone] Latasha WilcoxC Unavailable [phone] Matteo Gómez RN Unavailable [phone] Marika Salcido [facility] Unavailable Tad Jordan MD Unavailable eDbbie Lugo RN Unavailable Unavailabl e Encounter Details Date Type Department Care Team (Late st Contact Info) Description 02/25/[address] [facility] Blood and Marrow Transplant Program [place] [address] [place] [address] Tad Jordan MD 420 [facility] [address] [place], [place] [phone] Social History Tobacco Use Types Packs/Day Years [...] Info) Description 04/25/2024 9:00 AM CDT Lab [facility] [address] [place] [phone] Tad Jordan MD [address] [place] [address] [phone] 04/25/2024 9:15 AM CDT Oncology Visit [facility] Blood and Marrow Transplant Program [address] [phone] Tad Jordan MD [address] [place] [address] 15558 documented as of this encounter Visit Diagnoses Not on filedocumented in this encounter Additional Health Concerns Infection Onset Date Last Indicated Resolved 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 Parvovirus 01/23/2022 04/27/2023 documented as of this encounter Care Teams Clarity Developer Relationship Specialty Start Date End Date Rico Caren M PCP - General Physician Dependency Counselor 03/16/20 Tad Jordan MD [address] [place] [address] 16994 BMT Physician Transplant 04/10/21 Mallory Malin MD [address] [place] [address] [phone] Endocrinology, Diabetes, and Metabolism 05/10/21 Latasha Wilcox PA-C [address] [place] [address] [phone] Referring Physician Hematology & Oncology 05/10/21 Matteo Gómez, RN Specialty Evidence Specialist BMT - Adult 05/16/21 04/07/23 [facility] S[facility] Rn BMT - Adult 06/14/21 Tad Jordan MD [address] [place] [address] [phone] Assigned Cancer Care Provider 06/23/21 Debbie Lugo, RN Registered Nurse 01/21/22 documented as of this encounter
--- OUTSIDE RECORDS SUMMARY | 2023-08-28 22:42 | XMS_ITS | Encounter Summary ---
Author Name Unknown Organization [place] Address [address] [facility] [place] [address] Care Team Providers Care Metal Caster Name Role Phone Caren Gómez Primary Care Provider Tad Jordan MD Unavailable [phone] Mallory Malin MD Unavailable [phone] Latasha WilcoxC Unavailable [phone] Matteo Gómez RN Unavailable [phone] Marika Salcido [facility] Unavailable Tad Jordan MD Unavailable [phone] Debbie Lugo RN Unavailable Unavailabl e Encounter Details Date Type Department Care Team (Latest Contact Info) Description 01/19/2023 Medical Correspondence M [facility] Blood and Marrow Transplant Program [address] [address] Outside, Provider BMT- OUTSIDE LABS [...] Description 04/25/2024 9:00 AM CDT Lab [facility] [address] [place] [phone] Tad Jordan MD [address] [place] [address] [phone] 04/25/2024 9:15 AM CDT Oncology Visit [facility] Blood and Marrow Transplant Program [address] [phone] Tad Jordan MD [address] [place] [address] documented as of this encounter Visit Diagnoses Not on filedocumented in this encounter Additional Health Concerns Infection Onset Date Last Indicated Resolved 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 Parvovirus 01/23/2022 04/27/2023 documented as of this encounter Care Teams Metal Caster Relationship Specialty Start Date End Date Caren Gómez PCP - General Physician Funds Development Director 03/16/20 Tad Jordan MD [address] [place] [address] 24019 BMT Physician Transplant 04/10/21 Mallory Malin MD [address] [place] [address] Endocrinology, Diabetes, and Metabolism 05/10/21 Latasha Wilcox PA-C [address] [place] [address] 22094 Referring Physician Hematology & Oncology 05/10/21 Matteo Gómez, NICKI Specialty Senior Property Accountant BMT - Adult 05/16/21 04/07/23 Marika Salcido, [facility] Survey Coordinator BMT - Adult 06/14/21 Tad Jordan MD [address] [place] [address] 11783 Assigned Cancer Care Provider 06/23/21 Debibe Lugo, RN Registered Nurse 01/21/22 documented as of this encounter
--- OUTSIDE RECORDS SUMMARY | 2023-08-28 22:42 | XMS_ITS | Encounter Summary ---
Author Name Unknown Organization [place] Address [address] [facility] [address] Care Team Providers Care Wheel Braider Name Role Phone Caren Gómez Omar Primary Care Provider Tad Jordan MD Unavailable [phone] Mallory Malin MD Unavailable [phone] Latasha Wilcox PA-C Unavailable [phone] Marika Salcido [facility] Unavailable Tad Jordan MD Unavailable [phone] Debbie Lugo RN Unavailable UnavailBlaine Gibbs RN Unavailable Unavailable Encounter Details Date Type Department Care Team (Late st Contact Info) Description 04/23/2023 [facility] [place] [facility] Interventional Radiology [address] [place] [address] Марина Stafford, NICKI Social History [...] Info) Description 04/25/2024 9:00 AM CDT Lab [facility] [address] [place] [phone] Tad Jordan MD [address] [place] [address] 04/25/2024 9:15 AM CDT Oncology Visit [facility] Blood and Marrow Transplant Program [address] [phone] Tad Jordan MD [address] [place] [address] 84335 documented as of this encounter Visit Diagnoses Not on filedocumented in this encounter Additional Health Concerns Infection Onset Date Last Indicated Resolved 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 Parvovirus 01/23/2022 04/27/2023 documented as of this encounter Care Teams Wheel Braider Relationship Specialty Start Date End Date Caren Gómez PCP - General Physician Professor Of Genetics 03/16/20 Tad Jordan MD [address] [place] [address] 64522 BMT Physician Transplant 04/10/21 Mallory Malin MD [address] [place] [address] [phone] Endocrinology, Diabetes, and Metabolism 05/10/21 Latasha Wilcox PA-C [address] [place] [address] 11418 Referring Physician Hematology & Oncology 05/10/21 Marika Salcido, [facility] Exhibitions And Collections Manager BMT - Adult 06/14/21 Tad Jordan MD [address] [place] [address] 69458 Assigned Cancer Care Provider 06/23/21 eDbbie Lugo, RN Registered Nurse 01/21/22 Blaine Chaves RN BMT Nurse Coordinator Transplant 04/08/23 documented as of this encounter
--- OUTSIDE RECORDS SUMMARY | 2023-08-28 22:42 | XMS_ITS | Encounter Summary ---
Author Name Unknown Organization [place] Address [address] [facility] [place] [address] Care Team Providers Care Waiter/Waitress Tourist Class Name Role Phone Caren Gómez Primary Care Provider [phone] Tad Jordan MD Unavailable [phone] Mallory Malin MD Unavailable [phone] Latasha WilcoxC Unavailable [phone] Matteo Gómez RN Unavailable [phone] Marika Salcido [facility] Unavailable Tad Jordan MD Unavailable [phone] Debbie Lugo RN Unavailable Unavailabl e [...] 9:00 AM CDT Lab [facility] [address] [place] [address] Tad Jordan MD [address] [place] [address] 150365 04/25/2024 9:15 AM CDT Oncology Visit [facility] Blood and Marrow Transplant Program [address] [phone] Tad Jordan MD [address] [place] [address] documented as of this encounter Visit Diagnoses Not on filedocumented in this encounter Additional Health Concerns Infection Onset Date Last Indicated Resolved 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 Parvovirus 01/23/2022 04/27/2023 documented as of this encounter Care Teams Waiter/Waitress Tourist Class Relationship Specialty Start Date End Date Caren Gómez PCP - General Physician Entry Level Management 03/16/20 Tad Jordan MD [address] [place] [address] 93182 BMT Physician Transplant 04/10/21 Mallory Malin MD [address] [place] [address] [phone] Endocrinology, Diabetes, and Metabolism 05/10/21 Latasha Wilcox PA-C [address] [place] [address] [phone] Referring Physician Hematology & Oncology 05/10/21 Matteo Gómez RN Specialty Time Study Engineer BMT - Adult 05/16/21 04/07/23 Marika Salcido, [facility] Marketing Summer Intern BMT - Adult 06/14/21 Tad Jordan MD [address] [place] [address] 25298 Assigned Cancer Care Provider 06/23/21 Debbie Lugo, RN Registered Nurse 01/21/22 documented as of this encounter
--- OUTSIDE RECORDS SUMMARY | 2023-08-28 22:42 | XMS_ITS | Encounter Summary ---
Author Name Unknown Organization [place] Address [address] [facility] [place] [address] Care Team Providers Care Hydrological Technical Officer Name Role Phone Caren Gómez Primary Care Provider Tad Jordan MD Unavailable [phone] Mallory Malin MD Unavailable [phone] Latasha Wilcox PA-C Unavailable [phone] Marika Salcido [facility] Unavailable Tad Jordan MD Unavailable [phone] Debbie Lugo RN Unavailable UnavailBlaine Gibbs RN Unavailable Unavailable Encounter Details Date Type Department Care Team (Late st Contact Info) Description 04/27/2023 Orders Only M [facility] Blood and Marrow Transplant Program [address] [address] Matteo Gómez, RN Red cell [...] Info) Description 04/25/2024 9:00 AM CDT Lab [facility] [address] [place] [phone] Tad Jordan MD [address] [place] [address] 827125 04/25/2024 9:15 AM CDT Oncology Visit [facility] Blood and Marrow Transplant Program [address] [phone] Tad Jordan MD [address] [place] [address] 120765 documented as of this encounter Results * [...] BODY FLUIDS OR DERABLES [facility] [address] [place] [address] [phone] documented in this encounter Visit Diagnoses 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) documented in this encounter Additional Health Concerns Infection Onset Date Last Indicated Resolved 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 Parvovirus 01/23/2022 04/27/2023 Rule Out Parvovirus 04/27/2023 04/27/2023 05/01/20 23 9:52 PM CDT documented as of this encounter Care Teams Hydrological Technical Officer Relationship Specialty Start Date End Date Caren Gómez PCP - General Physician Airplane Mechanic 03/16/20 Tad Jordan MD [address] [phone] BMT Physician Transplant 04/10/21 Mallory Malin MD [address] [place] [address] 30881 Endocrinology, Diabetes, and Metabolism 05/10/21 Latasha Wilcox PA-C [address] [place] [address] Referring Physician Hematology & Oncology 05/10/21 Marika Salcido, [facility] Ethanol Operator BMT - Adult 06/14/21 Tad Jordan MD [address] [address] Assigned Cancer Care Provider 06/23/21 Debbie Lugo, RN Registered Nurse 01/21/22 Blaine Chaves, RN BMT Nurse Coordinator Transplant 04/08/23 documented as of this encounter
--- OUTSIDE RECORDS SUMMARY | 2023-08-28 22:42 | XMS_ITS | Encounter Summary ---
Author Name Unknown Organization [place] Address [address] [place] [address] Care Team Providers Care Professional Sports Scout Name Role Phone Caren Gómez Omar Primary Care Provider Omar Burton MD Unavailable [phone] Mallory Malin MD Unavailable [phone] Latasha WilcoxC Unavailable [phone] Marika Salcido [facility] Unavailable Omar Burton MD Unavailable [phone] Debbie Lugo RN Unavailable Unavailabl Blaine [...] ZZHC STATISTIC IV PUSH SINGLE INITIAL SUBSTANCE MO ECHO MYOCARD BX MO INJECTION, PERFLUTREN LIPID MICROSPHERES, PER ML MO TTE W/DOPPLER, COMPLETE MO IV PUSH SINGLE, INITIAL SUBSTANCE MO TTE W/DOPPLER, COMPLETE MO TTE W/DOPPLER, COMPLETE HC US GUIDE FOR PERICARDIOCENTESIS HC ECHO MYOCARD BX HC IV PUSH SINGLE, INITIAL SUBSTANCE HC STATISTIC IV PUSH SINGLE INITIAL SUBSTANCE HC ECHO COMPLETE W DOPPLER W CONTRAST HC ECHO COMPLETE W DOPPLER W/O CONTRAST Omar Burton MD [address] [address] [facility] [address] [place] [address] Referral ID Status Reason Start Date Expiration Date Visits Re quested Visits Authorized [id number] Closed 12/17/2022 12/17/2023 1 1 Encounter Details Date Type Department Care Team (Latest Contact Info) Description 04/27/2023 9:00 AM CDT Ancillary Procedure [facility] [address] [address] Omar Burton MD [address] [place] [address] Red cell aplasia (H) Social History [...] 04/25/2024 9:00 AM CDT Lab [facility] [address] [place] [address] [phone] Omar Burton MD [address] [place] [address] 167245 04/25/2024 9:15 AM CDT Oncology Visit [facility] Blood and Marrow Transplant Program [address] [phone] Omar Burton MD [address] [place] [address] 775605 documented as of this encounter Procedures Procedure Name Priority Date/Time Associated Diagnosis Comments ECHO COMPLETE WITH CONTRAST Routine 04/27/2023 10:03 AM CDT Red cell aplasia (H) documented in this encounter Results * ECHO COMPLETE WITH CONTRAST (04/27/2023 10:03 AM CDT) LVEF 55-60% CARDIOLOGY RESULTS Anatomical Region Laterality Modality Echocardiography 04/27/2023 8:57 AM CDT Narrative 04/27/2023 11:07 AM CDT [id number]^MICHEAL^OSITO [facility] Diagnostic and Treatment-3rd Floor [address] [place] [address] Name: AKHIL VEE : 1980 Study Date: 04/27/2023 08:57 AM Age: 42 yrs Gender: Female Patient Location: [facility] Reason For Study: Red cell aplasia (H) Ordering Physician: OMAR BURTON Referring Physician: OMAR BURTON Performed By: [place] RDCS BSA: 2.7 m2 Height: 67 in Weight: 399 lb BP: 160/106 mmHg Procedure Echocardiogram with two-dimensional, color and spectral Doppler performed. Contrast Optison. Optison ([facility] #[id number]) given intravenously. Patient was given 6 ml [...] Procedure Note Patricia Arredondo MD - 04/27/2023 [id number]^MICHEAL^OSITO [facility] Diagnostic and Treatment-3rd Floor [address] [place] [address] Name: AKHIL VEE : 1980 Study Date: 04/27/2023 08:57 AM Age: 42 yrs Gender: Female Patient Location: [facility] [place] Reason For Study: Red cell aplasia (H) Ordering Physician: OMAR BURTON Referring Physician: OMAR BURTON Performed By: [place] RDCS BSA: 2.7 m2 Height: 67 in Weight: 399 lb BP: 160/106 mmHg Procedure Echocardiogram with two-dimensional, color and spectral Dopplerperformed. Contrast Optison. Optison ([facility] #[id number]) given intravenously. Patientwas given 6 ml mixture [...] documented as of this encounter Care Teams Professional Sports Scout Relationship Specialty Start Date End Date Caren Gómez PCP - General Physician Database Administrator 03/16/20 Omar Burton MD [address] [place] [address] [phone] BMT Physician Transplant 04/10/21 Mallory Malin MD [address] [place] [address] Endocrinology, Diabetes, and Metabolism 05/10/21 Latasha Wilcox PA-C [address] [place] [address] Referring Physician Hematology & Oncology 05/10/21 Marika Salcido, [facility] Automatic Transmission Mechanic BMT - Adult 06/14/21 Omar Burton MD [address] [place] [address] Assigned Cancer Care Provider 06/23/21 Debbie Lugo, RN Registered Nurse 01/21/22 Blaine Chaves RN BMT Nurse Coordinator Transplant 04/08/23 documented as of this encounter
--- OUTSIDE RECORDS SUMMARY | 2023-08-28 22:42 | XMS_ITS | Encounter Summary ---
Author Name Unknown Organization [place] Address [address] [facility] [place] [address] Care Team Providers Care Glass Carrier Name Role Phone Caren Gómez Omar Primary Care Provider [phone] Tad Jordan MD Unavailable [phone] Mallory Malin MD Unavailable [phone] Latasha Wilcox PA-C Unavailable [phone] Marika Salcido [facility] Unavailable Tad Jordan MD Unavailable [phone] Debbie Lugo RN 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 Parvovirus 01/23/2022 04/27/2023 Rule Out Parvovirus 04/27/2023 04/27/2023 05/01/20 9:52 PM CDT documented as of this encounter Care Teams Glass Carrier Relationship Specialty Start Date End Date Caren Gómez PCP - General Physician Tetryl Blender Operator 03/16/20 Tad Jordan MD [address] [place] [address] 87190 BMT Physician Transplant 04/10/21 Mallory Malin MD [address] [place] [address] [phone] Endocrinology, Diabetes, and Metabolism 05/10/21 Latasha Wilcox PA-C [address] [place], [place] [address] Referring Physician Hematology & Oncology 05/10/21 Marika Salcido, [facility] Shale Miner Blasting BMT - Adult 06/14/21 Tad Jordan MD [address] [place] [address] 77803 Assigned Cancer Care Provider 06/23/21 Debbie Lugo, RN Registered Nurse 01/21/22 Blaine Chaves RN BMT Nurse Coordinator Transplant 04/08/23 documented as of this encounter
--- OUTSIDE RECORDS SUMMARY | 2023-08-28 22:42 | XMS_ITS | Encounter Summary ---
Author Name Unknown Organization [place] Address [address] [facility] 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) Procedures DNA Marker Post Bmt Engraftment Bone Marrow Tad Jordan MD [address] [facility] [address] [place] [address] Referral ID Status Reason Start Date Expiration Date V isits Requested Visits Authorized [id number] Authorized 04/27/2023 04/26/2024 1 1 Encounter Details Date Type Department Care Team (Latest Contact Info) Description 04/27/2023 10:55 AM CDT - 04/27/2023 3:36 PM CDT Hospital Encounter M Misty Jones [facility] [address] [place] [address] [place] [phone] Tad Jordan MD [address] [address] Red cell aplasia (H) (Primary [...] Kline RN - 04/27/2023 2:51 PM CDT [facility] Interventional Radiology Patient Instructions Following Biopsy AFTER [...] or cough up blood, lightheadedness or fainting [facility] INTERVENTIONAL RADIOLOGY DEPARTMENT Procedure Physician: Dr Davey Date of procedure: April 27, 2023 Telephone Numbers: [phone] Thursday-Thursday 7:30 am to 4:00 pm [phone] After 4:00 pm Thursday-Thursday, Weekends & Holidays. Ask for the Interventional Radiologist commercial relationship manager. Someone is commercial relationship manager 24 hrs/day [facility] toll free number: Thursday-Thursday 8:00 am to 4:30 pm [facility] Emergency Dept: [phone] documented in this encounter Medications at Time [...] CDTAssociated Order(s): Image guided Bone marrow biopsy [facility] Procedure: Image guided Bone marrow biopsy Date/Time: 04/27/2023 2:01 PM Performed by: Monica Arreola MD Authorized by: John Davey MD IR Fellow Physician: Johann Arreoal [employer] Site Marked: NA Prior Images [...] the procedure a time out was called [place] Protocol: the Joint Commission [place] Protocol was followed Preparation: Patient was prepped [...] encounter Miscellaneous Notes * IR Note - Darline Irby RN - 04/27/2023 2:06 PM CDT Patient Name: Lainey Vee Today's Date: 04/27/2023 Procedure: Bone marrow biopsy Proceduralist: Dr. Davey, Dr. Arreola Pathology present: Yes, Special Heme Procedure Start: 1333 Procedure end: 1352 Sedation medications administered: Midazolam 3 mg, Fentanyl 100 mcg, diphenhydramine 50 mg Report given to: Latasha Newell RN 2A Hand Gluer And Slicer: N/A Other Notes: Pt arrived to IR [...] AM CDT Lab [facility] [address] [place] [phone] Tad Jordan MD [address] [place] [address] [phone] 04/25/2024 9:15 AM CDT Oncology Visit [facility] Blood and Marrow Transplant Program [place] [address] [place] [phone] Tad Jordan MD [address] [place] [phone] documented as of this encounter Procedures Procedure [...] Monica Arreola MD ? 04/27/2023 ??2:02 PM [facility] Procedure: Image guided Bone marrow biopsy Date/Time: [...] procedure a time out was called ?? [place] Protocol: the Joint Commission [place] Protocol was followed ?? Preparation: Patient was [...] 1HG Culture (04/27/2023 1:48 PM CDT) Culture [place] Complete Date 06/02/2023 4:47 PM [facility] Bone Marrow SPECIMEN FROM BONE MARROW OBTAINED BY ASPIRATION AND BIOPSY / Unknown Non-blood Collection / Unknown 04/27/2023 1:48 PM CDT 04/27/2023 2:27 PM CDT Tad BRITO Performing Organization Address City/[facility]/ZIP Co de Phone Number CYTOGENETICS [facility] Cytogenetics Lab [address] [place] [address] * DFISH Culture (04/27/2023 1:48 PM CDT) Pathologist [facility] Culture [place] Complete Date 06/02/2023 4:47 PM CURTAIN MENDER [facility] Bone Marrow SPECIMEN FROM BONE MARROW OBTAINED BY ASPIRATION AND BIOPSY / Unknown Non-blood Collection / Unknown 04/27/2023 1:48 PM CDT 04/27/2023 2:27 PM CDT Tad STONE [facility] Cyt[facility]etics Lab [address] [place] [address] [phone] * (ABNORMAL) Parvovirus B19 DNA PCR (Blood or Bone Marrow) (04/27/2023 1:48 PM CDT) Pathologist [facility] Parvovirus DNAPCR Detected( A) 05/01/2023 8:52 PM CDT [facility] Comment: INTERPRETIVE INFORMATION: Parvovirus B19 by Qualitative PCR This test was developed and its performance characteristics determined by [employer] [facility]. It has not been cleared or approved by the US Food and Drug Administration. This test was performed in a CLIA certified laboratory and is intended for clinical purposes. Performed By: [facility] [address] [place] [address] Tour Director: Donavan Zavala MD, PhD CLIA Number: [id number] Bone Marrow RIGHT POSTERIOR ILIAC CREST / Unknown Non-blood Collection / Unknown 04/27/2023 1:48 PM CDT 04/27/2023 2:27 PM CDT Tad Jordan MD LAB - BLOOD ORDERABL ES [facility] [address] [place] [address], [facility] [phone] * DNA Marker Post Bmt Engraftment Bone [...] 2023 4:23 PM) 04/27/2023 1:48 PM CDT [facility] (LDL) METHODOLOGY Genomic DNA was extracted from above specimen and amplified by PCR using a series of fluorescently labeled oligonucleotide primers specific for highly polymorphic genetic markers (STRs). Pre-transplant samples from both the bone marrow donor(s) and recipient were previously analyzed to identify informative markers from the following STR markers: TH01, CSF1PO, Z49P301, C8C8426, E9S2795, vWa, FGA, Amelogenin, K7H9421, D21S11, D18S51, Q9L718, F04O766, C40V138, TPOX, and S8V839. The resulting products were then analyzed on a Model 3500xl Genescan system, ([employer]) from which the pre and post transplant specimens are compared. Number of markers (loci) used in calculation of result: 6. 04/27/2023 1:48 PM CDT [facility] (LDL) DISCLAIMER This test was developed and its performance characteristics determined by [facility]. It has not been cleared [...] the interpretation(s) . 04/27/2023 1:48 PM CDT [facility] (LDL) Bone Marrow SPECIMEN FROM BONE MARROW OBTAINED BY ASPIRATION AND BIOPSY / Unknown Non-blood Collection / Unknown 04/27/2023 1:48 PM CDT 04/27/2023 2:27 PM CDT Tad Jordan MD LAB - GENOMICS [facility] (LDL) [facility] [address] 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 ISCN: nuc cassandra(D7Z1x2,D7S52 2x1)[41/800] nuc cassandra(F29Y823-R46R 858,MYBL2)x1[49/ 800] ADDITIONAL COMMENTS: Control ranges: K1K822b3: 0-1.6% del(20q): 0-1.1% Analyte Specific Reagents (ASRs) are used in many laboratory tests necessary for standard medical care and generally do not require FDA approval. This test was developed and its performance characteristics determined by the [facility]. It has not been cleared or approved by the U.S. Food and Drug Administration. Electronically signed by Nishi Dougherty M.D., [facility] on 06/04/23 at 3:22 PM. 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 No clonal abnormality was found among the donor cells. Consistent with these findings, the concurrent FISH analysis ([id number]) showed losses of 7q and 20q in [...] of this clone. . 06/04/2023 3:24 PM [facility] Methods G-BAND ANALYSIS: Metaphases analyzed: 20 Metaphases screened: 0 Metaphases karyotyped: 3 Banding utilized: G-banding Band resolution: <400-400 Karyotypically Normal Cells: 16 Karyotypically Abnormal Cells: 4* Unstimulated, 24 hour culture. 06/04/2023 3:24 PM [facility] Additional Comments *One recipient cell had a nonclonal abnormality. 06/04/2023 3:24 PM [facility] Bone Marrow SPECIMEN FROM BONE MARROW OBTAINED BY ASPIRATION AND BIOPSY / Unknown Non-blood Collection / Unknown 04/27/2023 1:48 PM CDT 04/27/2023 2:27 PM CDT Tad BRITO [facility] Cyt[facility]etics Lab [address] [facility] Room 15-[address] [phone] * Flow Cytometry Bone Marrow (04/27/2023 1:48 PM CDT) Case Report Flow Cytometry Report ? Case: [id number] ? Authorizing Provider: ??Tad Jordan MD ?Collected: ? 04/27/2023 01:48 PM ? Ordering Location: ? [facility] ? Received: ?04/27/2023 02:27 PM ? [address] [place] ? Pathologist: ? Payton Escalante MD ? [...] and its performance characteristics determined by the [facility]. It has not been cleared [...] component of this testing was completed at [facility] 04/28/2023 2:42 PM CDT [facility] FLOW CYTOMETRY Bone Marrow SPECIMEN FROM BONE MARROW OBTAINED BY ASPIRATION AND BIOPSY / Unknown Non-blood Collection / Unknown 04/27/2023 1:48 PM CDT 04/27/2023 2:27 PM CDT Tad Jordan MD LAB - BERTHA BRITO FLOW CYTOMETRY Flow Cytometry [address] [facility] J [facility], Room [address] [address], [facility] [phone] * Bone marrow biopsy (04/27/2023 1:48 PM [...] cannot be reliably determined. Concurrent flow cytometry ([id number]) demonstrates no increase in myeloid blasts and no abnormal myeloid blast population. Please correlate these findings with the results of other ancillary studies and the clinical presentation. 04/29/2023 5:34 PM CDT [facility] Clinical Information Per [facility] records, 42 year old female with history [...] determine the final diagnosis. 04/29/2023 5:34 PM [facility] Gross Description Procedure/Gross Description Aspirate(s) [...] eosin per laboratory protocol. 04/29/2023 5:34 PM [facility] Performing Labs The technical component of this testing was completed at [facility] 04/29/2023 5:34 PM [facility] Bone Marrow SPECIMEN FROM BONE MARROW OBTAINED BY ASPIRATION AND BIOPSY / Unknown 04/27/2023 1:48 PM CDT 04/27/2023 9:43 AM CDT Bone marrow specimen (specimen) SPECIMEN FROM BONE MARROW OBTAINED BY ASPIRATION AND BIOPSY / Unknown 04/27/2023 1:48 PM CDT 04/27/2023 9:43 AM CDT Tad Jordan MD LAB - [facility] Specialty Lab [address] [facility], Room [address] [address], [facility] [phone] * INR (04/27/2023 11:47 AM CDT) Pathologist [facility] INR 0.98 0.85 - 1.15 04/27/2023 12:13 PM CDT [facility] Blood STRUCTURE OF LEFT UPPER LIMB / Unknown Venipuncture / Unknown 04/27/2023 11:47 AM CDT 04/27/2023 11:59 AM CDT Cady Jean APRN RETURN CLERK LAB - BLOOD ORDERABLES [facility] [place] [facility] [address] [facility], Room [address] [address], [facility] [phone] * (ABNORMAL) CBC with platelets (04/27/2023 11:47 AM CDT) Pathologist [facility] WBC Count 6.1 4.0 - 11.0 10e3/uL [...] 04/27/2023 11:59 AM CDT Cady Jean APRN RETURN CLERK LAB - BLOOD ORDERABLES [facility] [place] [facility] [address] [facility], Room [address] [address], [facility] [phone] documented in this encounter Visit Diagnoses Diagnosis [...] documented as of this encounter Care Teams Special Service Representative Relationship Specialty Start Date End Date Caren Gómez PCP - General Physician Ancillary Services Manager Therapy 03/16/20 Tad Jordan MD [address] [place] [address] BMT Physician Transplant 04/10/21 Mallory Malin MD [address] [place], [place] [address] Endocrinology, Diabetes, and Metabolism 05/10/21 Latasha Wilcox PA-C [address] [place] [address] 196115 Referring Physician Hematology & Oncology 05/10/21 Marika Salcido, [facility] Portable Sawyer BMT - Adult 06/14/21 Tad Jordan MD [address] [place] [address] [phone] Assigned Cancer Care Provider 06/23/21 Debbie Lugo, RN Registered Nurse 01/21/22 Blaine Chaves RN BMT Nurse Coordinator Transplant 04/08/23 documented as of this encounter
--- OUTSIDE RECORDS SUMMARY | 2023-08-28 22:43 | XMS_ITS | Encounter Summary ---
Author Name Unknown Organization [place] Address [address] [facility] [address] Care Team Providers Care Weed Inspector Name Role Phone Caren Gómez Primary Care Provider Tad Jordan MD Unavailable Mallory Malin MD Unavailable [phone] Latasha WilcoxC Unavailable [phone] Matteo Gómez RN Unavailable [phone] Joe Herrera MD Unavailable [phone] Marika Salcido [facility] Unavailable Tad Jordan MD Unavailable Debbie Lugo RN Unavailable Unavailabl Blaine Mullins RN Unavailable Unavailable Encounter Details Date Type Department Care Team (Late st Contact Info) Description 07/28/2022 [facility] Blood and Marrow Transplant Program [address] [address] Vivian De Santiago Social History [...] Coronavirus/COVID-19? No / Unsure 07/28/2022 9:08 AM PUBLIC HEALTH TRAINING ASSISTANT documented as of this encounter Plan of Treatment Upcoming Encounters Date Type Department Care Team (Late st Contact Info) Description 04/25/2024 9:00 AM CDT Lab [facility] [address] [place] [phone] Tad Jordan MD [address] [place] [address] 04/25/2024 9:15 AM CDT Oncology Visit [facility] Blood and Marrow Transplant Program [address] [phone] Tad Jordan MD [address] [place] [address] [phone] documented as of this encounter Visit Diagnoses Not on filedocumented in this encounter Additional Health Concerns Infection Onset Date Last Indicated Resolved 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 Parvovirus 01/23/2022 04/27/2023 Rule Out Parvovirus 04/27/2023 04/27/2023 05/01/20 9:52 PM CDT documented as of this encounter Care Teams Weed Inspector Relationship Specialty Start Date End Date Caren Gómez PCP - General Physician Tire Fabricator 03/16/20 Tad Jordan MD [address] [place] [address] BMT Physician Transplant 04/10/21 Mallory Malin MD [address] [place] [address] Endocrinology, Diabetes, and Metabolism 05/10/21 Latasha Wilcox PA-C [address] [place] [address] Referring Physician Hematology & Oncology 05/10/21 Matteo Gómez, RN Specialty Steel Fitter BMT - Adult 05/16/21 04/07/23 Joe Herrera MD [address] [place] [address] [address] [place], [place] [phone] Assigned Endocrinology Provider 05/26/21 01/16/23 Marika Salcido, [facility] Internet Systems Administrator BMT - Adult 06/14/21 Tad Jordan MD [address] [place] [address] [phone] Assigned Cancer Care Provider 06/23/21 Debbie Lugo, RN Registered Nurse 01/21/22 Blaine Chaves RN BMT Nurse Coordinator Transplant 04/08/23 documented as of this encounter
--- OUTSIDE RECORDS SUMMARY | 2023-08-28 22:43 | XMS_ITS | Encounter Summary ---
Author Name Unknown Organization [place] Address [address] [facility] [place] [address] Care Team Providers Care Intrusion Analyst Name Role Phone Caren Gómez Primary Care Provider Tad Jordan MD Unavailable [phone] Mallory Malin MD Unavailable [phone] Latasha WilcoxC Unavailable [phone] Matteo Gómez RN Unavailable [phone] Joe Herrera MD Unavailable [phone] Marika Salcido [facility] Unavailable Tad Jordan MD Unavailable [phone] Debbie Lugo RN Unavailable UnavailBlaine Gibbs RN Unavailable Unavailable Encounter Details Date Type Department Care Team (Late st Contact Info) Description 02/11/[address] [facility] Blood and Marrow Transplant Program [place] [address] [place] [address] Tad Jordan MD [address] [facility] [address] [place] [address] Social History Tobacco Use Types Packs/Day Years [...] CDT Lab [facility] [address] [place] [phone] Tad Jordan MD [address] [place] [address] 04/25/2024 9:15 AM CDT Oncology Visit [facility] Blood and Marrow Transplant Program [address] [address] Tad Jordan MD 420 [facility] [address] [place], [place] [phone] documented as of this encounter Visit Diagnoses Not on filedocumented in this encounter Additional Health Concerns Infection Onset Date Last Indicated Resolved 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 C-difficile 01/20/2022 01/20/2022 02/19/2022 11:4 1 PM CDT Parvovirus 01/23/2022 04/27/2023 Rule Out Parvovirus 04/27/2023 04/27/2023 05/01/20 9:52 PM CDT documented as of this encounter Care Teams Intrusion Analyst Relationship Specialty Start Date End Date Caren Gómez PCP - General Physician Credit Administration Specialist 03/16/20 Tad Jordan MD [address] [place] [address] [phone] BMT Physician Transplant 04/10/21 Mallory Malin MD [address] [place] [address] Endocrinology, Diabetes, and Metabolism 05/10/21 Latasha Wilcox PA-C [address] [place] [address] [phone] Referring Physician Hematology & Oncology 05/10/21 Matteo Gómez, RN Specialty Patient Intake Representative BMT - Adult 05/16/21 04/07/23 Joe Herrera MD [address] [place] [address] [address] [place], [place] [address] Assigned Endocrinology Provider 05/26/21 01/16/23 Marika Salcido, [facility] Construction Driller BMT - Adult 06/14/21 Tad Jordan MD [address] [address] Assigned Cancer Care Provider 06/23/21 Debbie Lugo, RN Registered Nurse 01/21/22 Blaine Chaves RN BMT Nurse Coordinator Transplant 04/08/23 documented as of this encounter
--- OUTSIDE RECORDS SUMMARY | 2023-08-28 22:43 | XMS_ITS | Encounter Summary ---
Author Name Unknown Organization [place] Address [address] [facility] [place] [address] Care Team Providers Care Assembler Trim Name Role Phone Caren Gómez Primary Care Provider Omar Burton MD Unavailable [phone] Mallory Malin MD Unavailable [phone] Latasha WilcoxC Unavailable [phone] Matteo Gómez RN Unavailable [phone] Joe Herrera MD Unavailable [phone] Marika Salcido [facility] Unavailable Omar Burton MD Unavailable Debbie Lugo RN Unavailable Unavailabl e Reason for Referral * Consultation (Priority: 1-2 Weeks) - Pending Review Specialty Diagnoses / Procedures Referred By Contbella t Referred To Contact Diagnoses Iron overload due to repeated red blood cell transfusions Omar Burton MD [address] [facility] [address] [place] [address] [address] Referral ID Status Reason Start Date Expiration Date V isits Requested Visits Authorized [id number] Pending Review 10/20/2022 10/20/2023 99 99 Question [...] Red cell aplasia (H) Omar Burton MD [address] [place] [address] Referral ID Status Reason Start Date Expiration Date Visits Re quested Visits Authorized [id number] Closed 1 1 Reason for Visit * Reason Comments Blood Draw Labs drawn via INDUSTRIAL MACHINE OPERATOR by RN in lab. VS taken Oncology Clinic Visit Red cell aplasia Encounter Details Date Type Department Care Team (Late st Contact Info) Description 10/20/2022 9:15 AM CDT Oncology Visit 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 Tapered off steroids as [...] with ??? Blood Draw Labs drawn via INDUSTRIAL MACHINE OPERATOR by RN in lab. VS taken Labs collected from venipuncture by RN. Vitals taken. Checked in for appointment(s). Kanwal Hitchcock RN * Janay Frederick - 10/20/2022 9:15 AM CDT Oncology Rooming Note October 20, 2022 9:33 AM Lainey Vee is a 42 year old female who presents for: Chief Complaint Patient presents with ??? Blood Draw Labs drawn via INDUSTRIAL MACHINE OPERATOR by RN in lab. VS taken ??? [...] not needed today. Pharmacy name entered into Praedicat: [id number] - [place], [place] - [address] [facility] [address] [facility] [address] [facility] [place] [phone] [facility] [place] [address] Clinical concerns: None Janay Frederick documented in this encounter Plan of Treatment Upcoming Encounters Date Type Department Care Team (Earl Contact Info) Description 04/25/2024 9:00 AM CDT Lab [facility] [address] [place] [phone] Omar Burton MD [address] [place] [address] [address] [place] [address] 04/25/2024 9:15 AM CDT Oncology Visit [facility] Blood and Marrow Transplant Program [address] [phone] Omar Burton MD [address] [place] [phone] Scheduled Referrals Name Type Priority Associated Diagnoses [...] - 11.0 10e3/uL 10/20/2022 9:32 AM CDT [facility] RBC Count 3.23(L) 3.80 - 5.20 10e6/uL 10/20/2022 9:32 AM CDT [facility] Hemoglobin 11.5(L) 11.7 - 15.7 g/dL 10/20/2022 9:32 AM CDT [facility] Hematocrit 33.8(L) 35.0 - 47.0 % 10/20/2022 9:32 AM CDT [facility] MCV 105(H) 78 - 100 fL 10/20/2022 9:32 AM CDT [facility] MCH 35.6(H) 26.5 - 33.0 pg 10/20/2022 9:32 AM CDT [facility] MCHC 34.0 31.5 - 36.5 g/dL 10/20/2022 9:32 AM CDT [facility] RDW 14.5 10.0 - 15.0 % 10/20/2022 9:32 AM CDT [facility] Platelet Count 215 150 - 450 10e3/uL 10/20/2022 9:32 AM CDT [facility] % Neutrophils 60 % 10/20/2022 9:32 AM CDT [facility] % Lymphocytes 27 % 10/20/2022 9:32 AM CDT [facility] % Monocytes 8 % 10/20/2022 9:32 AM CDT [facility] % Eosinophils 3 % 10/20/2022 9:32 AM CDT [facility] % Basophils 1 % 10/20/2022 9:32 AM CDT [facility] % Immature Granulocytes 1 % 10/20/2022 9:32 AM CDT [facility] NRBCs per 100 WBC 0 <1 /100 023 9:32 AM CDT [facility] Absolute Neutrophils 3.8 1.6 - 8.3 10e3/uL 10/20/2022 9:32 AM CDT [facility] Absolute Lymphocytes 1.7 0.8 - 5.3 10e3/uL 10/20/2022 9:32 AM CDT [facility] Absolute Monocytes 0.5 0.0 - 1.3 10e3/uL 10/20/2022 9:32 AM CDT [facility] Absolute Eosinophils 0.2 0.0 - 0.7 10e3/uL 10/20/2022 9:32 AM CDT [facility] Absolute Basophils 0.0 0.0 - 0.2 10e3/uL 10/20/2022 9:32 AM CDT [facility] Absolute Immature Granulocytes 0.0 <=0.4 10e3/uL 10/20/2022 9:32 AM CDT [facility] Absolute NRBCs 0.0 10e3/uL 10/20/2022 9:32 AM CDT [facility] Blood STRUCTURE OF LEFT UPPER LIMB / Unknown Venipuncture / Unknown 10/20/2022 9:16 AM CDT 10/20/2022 9:25 AM CDT Omar Burton MD LAB - BLOOD ORDERABL ES [facility] [address] [place] [address] 1st [place] [address] * DNA Marker Post BMT Engraftment Blood, [...] placed in the magnetic field of a Innovate/Protect-S Automated Cell sorter. The fraction positive for the target cells was extracted and amplified by PCR using a series of fluorescently labeled oligonucleotide primers specific for highly polymorphic genetic markers (STRs). Pre-transplant samples from both the bone marrow donor(s) and recipient were previously analyzed to identify informative markers from the following STR markers: TH01, CSF1PO, [id number], Z0E3874, W2S7811, vWa, FGA, Amelogenin, Y7J4665, D21S11, D18S51, L0Q895, D15Z902, J79K474, TPOX, and V6C523. The resulting products were then analyzed on a Model 3500xl Genescan system, ([employer]) from which the pre and post transplant [...] developed and its performance characteristics determined by [facility]. It has not [...] LAB - GENOMICS [facility] (LDL) [facility] [address] [facility], Room [address] [place] [address], [facility] * DNA Marker Post BMT Engraftment Blood, T Cell (10/20/2022 9:16 AM CDT) Specimen Description CD3+ blood 10/20/2022 9:16 AM CDT [facility] (LDL) RESULTS RESULTS: POST CD3+ FRACTION DONOR: (ALEKSANDR CORTEZ) 79 % RECIPIENT: 21 % These results are accurate +/-5%. 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 This can be seen in non-ablative transplants, loss of engraftment of the cell lineage, disease recurrence, or in stable partial engraftment. Correlation with clinical and other laboratory findings is recommended. (Electronically signed by: Nevin Spivey MD October 21, 2022 5:23 PM) 10/20/2022 9:16 AM CDT [facility] (LDL) METHODOLOGY Magnetically labeled microbeads were added to above sample. The labeled sample was placed in the magnetic field of a Innovate/Protect-S Automated Cell sorter. The fraction positive for the target cells was extracted and amplified by PCR using a series of fluorescently labeled oligonucleotide primers specific for highly polymorphic genetic markers (STRs). Pre-transplant samples from both the bone marrow donor(s) and recipient were previously analyzed to identify informative markers from the following STR markers: TH01, CSF1PO, U12Z529, L8G7111, W0J8871, vWa, FGA, Amelogenin, H1V8806, D21S11, D18S51, K7N977, N85P285, F29Q594, TPOX, and Y1D512. The resulting products were then analyzed on a Model 3500xl Genescan system, ([employer]) from which the pre and post transplant [...] Myeloid (encompassing CD33/CD66B). 10/20/2022 9:16 AM CDT [facility] (LDL) DISCLAIMER This test was developed and its performance characteristics determined by [facility] Atomic Reach Laboratory. It has not been cleared or [...] the interpretation(s) . 10/20/2022 9:16 AM CDT [facility] (LDL) Blood STRUCTURE OF LEFT UPPER LIMB / Unknown Venipuncture / Unknown 10/20/2022 9:16 AM CDT 10/20/2022 9:25 AM CDT Omar Burton MD LAB - BODY FLUIDS OR DERABLES [facility] (LDL) [facility] [address] [facility], [address] [place] [id number] * (ABNORMAL) Comprehensive metabolic panel (10/20/2022 9:16 AM CDT) Sodium 137 136 - 145 mmol/L 10/20/2022 10:04 AM CDT [facility] Potassium 4.8 3.4 - 5.3 mmol/L 10/20/2022 10:04 AM CDT [facility] Comment:Specimen slightly he molyzed, potassium may be falsely elevated. Chloride 103 98 - 107 mmol/L 10/20/2022 10:04 AM [facility] Carbon Dioxide (CO2) 27 22 - 29 mmol/L 10/20/2022 10:04 AM [facility] Anion Gap 7 7 - 15 mmol/L 10/20/2022 10:04 AM T [facility] Urea Nitrogen 21.6(H) 6.0 - 20.0 mg/dL 10/20/2022 10:04 AM [facility] Creatinine 1.17(H) 0.51 - 0.95 mg/dL 10/20/2022 10:04 AM [facility] Calcium 10.0 8.6 - 10.0 mg/dL 10/20/2022 10:04 AM [facility] Glucose 96 70 - 99 mg/dL 10/20/2022 10:04 AM [facility] Alkaline Phosphatase 65 35 - 104 U/L 10/20/2022 10:04 AM [facility] AST 33 10 - 35 U/L 10/20/2022 10:04 AM [facility] Comment:Specimen is hemolyze d which can falsely elevate AST. Analysis of a non-hemolyzed specimen may result in a lower value. ALT 44(H) 10 - 35 U/L 10/20/2022 10:04 AM [facility] Protein Total 8.0 6.4 - 8.3 g/dL 10/20/2022 10:04 AM [facility] Albumin 4.1 3.5 - 5.2 g/dL 10/20/2022 10:04 AM [facility] Bilirubin Total 0.5 <=1.2 mg/dL 10/20/2022 10:04 AM [facility] GFR Estimate 60(L) >60 mL/min/1.7 3m2 10/20/2022 10:04 AM [facility]ORE [facility] Comment:eGFR calculated us2020 CKD-EPI equation. Blood STRUCTURE OF LEFT UPPER LIMB / Unknown Venipuncture / Unknown 10/20/2022 9:16 AM CDT 10/20/2022 9:25 AM CDT Omar Burton MD LAB - BLOOD ORDERABL ES [facility] - [address] 1st [place] [address] * (ABNORMAL) Ferritin (10/20/2022 9:16 AM CDT) Ferritin 1,927(H) 6 - 175 ng/mL 10/20/2022 1:05 PM CDT [facility] Blood STRUCTURE OF LEFT UPPER LIMB / Unknown Venipuncture / Unknown 10/20/2022 9:16 AM CDT 10/20/2022 9:25 AM CDT Omar Burton MD LAB - BLOOD ORDERABL ES [facility] [place] [facility] [address] [place] [address], Room [address] [place] [id number] [phone] documented in this encounter Visit Diagnoses Diagnosis Iron overload due to repeated red blood cell transfusions- Primary 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) documented in this encounter Additional Health Concerns Infection Onset Date Last Indicated Resolved 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 Parvovirus 01/23/2022 04/27/2023 documented as of this encounter Care Teams Assembler Trim Relationship Specialty Start Date End Date Caren Gómez PCP - General Physician Motor Room Controller 03/16/20 Omar Burton MD [address] [place] [address] BMT Physician Transplant 04/10/21 Mallory Malin MD [address] [place] [address] Endocrinology, Diabetes, and Metabolism 05/10/21 Latasha Wilcox PA-C [address] [place], [place] 16[address] Referring Physician Hematology & Oncology 05/10/21 Matteo Gómez, RN Specialty Fueler BMT - Adult 05/16/21 04/07/23 Joe Herrera MD [address] [facility] [address] [place], [place] [address] Assigned Endocrinology Provider 05/26/21 01/16/23 Marika Salcido, [facility] Automobile Bumper Straightener BMT - Adult 06/14/21 Omar Burton MD [address] [facility] [address] [place] [address] Assigned Cancer Care Provider 06/23/21 Debbie Lugo, RN Registered Nurse 01/21/22 documented as of this encounter
--- OUTSIDE RECORDS SUMMARY | 2023-08-28 22:43 | XMS_ITS | Encounter Summary ---
Author Name Unknown Organization [place] Address [address] [facility] [place] [address] Care Team Providers Care Supervisor Silvering Department Name Role Phone Caren Gómez Primary Care Provider Shari Salazar MD Unavailable [phone] Tim Alicea MD Unavailable [phone] Tad Jordan MD Unavailable [phone] Mallory Malin MD Unavailable [phone] Latasha WilcoxC Unavailable [phone] Matteo Gómez RN Unavailable [phone] Joe Herrera MD Unavailable [phone] Marika Salcido [facility] Unavailable Tad Jordan MD Unavailable [phone] Debbie Lugo RN Unavailable Unavailabl Blaine Mullins RN Unavailable Unavailable Reason for Visit * Reason Onset Date Comments Prior Auth - Medication 08/14/2021 LORazepa m (ATIVAN) 0.5 MG tablet-APPROVED Encounter Details Date Type Department Care Team (Late st Contact Info) Description 08/14/2021 Telephone [facility] Blood and Marrow Transplant Program [place] [address] [place] [address] Janay Gray APRN [facility] 420 [facility] [address] [place] [address] Prior Auth - Medication (LORazepam (ATIVAN) 0.5 [...] COVID-19? No / Unsure 08/15/2021 4:14 PM CHEESEMAKER HELPER documented as of this encounter Miscellaneous Notes * Telephone Encounter - Yesica Crump - 08/20/2021 10:54 AM CST Images from the original note were not included. Prior Authorization Approval Authorization Effective Date: 07/13/2021 Authorization Expiration Date: 08/18/2022 Medication: LORazepam (ATIVAN) 0.5 MG tablet-APPROVED Approved Dose/Quantity: Reference #: Insurance Company: [employer] - Expected CoPay: CoPay Card Available: [facility] Assistance Needed: Which Pharmacy is filling the prescription (Not needed for infusion/clinic administered): [id number] [place] - [address] AT [place] [address] Pharmacy Notified: Yes Patient Notified: No SEMAKER HELPER * Telephone Encounter - Yesica Crump - 08/18/2021 11:37 AM CST Images from the original note were not included. Central Prior Authorization Team PA Initiation Medication: LORazepam (ATIVAN) 0.5 MG tablet Insurance Company: [employer] - Pharmacy Filling the Rx: [id number] - [place] - [address] AT [place] [address] Filling Pharmacy Filling Pharmacy Fax: Start Date: 08/18/2021 SEMAKER HELPER * Telephone Encounter - Berenice Albarado - 08/14/2021 4:38 PM CST Images from the original note were not included. 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 Pharmacy Information (if different than what is on RX) Name: [id number] - [place] - [address] AT [place] [address] SEMAKER HELPER documented in this encounter Plan of Treatment Upcoming Encounters Date Type Department Care Team (Late st Contact Info) Description 04/25/2024 9:00 AM CDT Lab [facility] [address] [place] [phone] Tad Jordan MD [address] [place] [id number] 04/25/2024 9:15 AM CDT Oncology Visit [facility] Blood and Marrow Transplant Program [address] [phone] Tad Jordan MD [address] [place] [address] documented as of this encounter Visit Diagnoses Not on filedocumented in this encounter Additional Health Concerns Infection Onset Date Last Indicated Resolved Time COVID-19 Comment:Spoke with infectious disease, Dr. Katrin Harvey. After review of cycle thresholds and patient symptoms, Dr. Harvey advises that this patient no longer requires covid isolation requirements. 07/17/2021 08/15/2021 08/16/2021 11:21 AM CHEESEMAKER HELPER 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 Rule Out C-difficile 08/15/2021 08/16/2021 022 8:33 AM CHEESEMAKER HELPER Rule Out C-difficile 01/20/2022 01/20/2022 022 7:37 PM CDT C-difficile 01/20/2022 01/20/2022 02/19/2022 11:4 1 PM CDT Rule Out Parvovirus 01/22/2022 01/23/2022 01/28/20 22 3:32 PM CDT Parvovirus 01/23/2022 04/27/2023 Rule Out Parvovirus 01/29/2022 01/29/2022 02/04/20 22 4:12 PM CDT Rule Out Parvovirus 04/27/2023 04/27/2023 05/01/20 9:52 PM CDT documented as of this encounter Care Teams Supervisor Silvering Department Relationship Specialty Start Date End Date Caren Gómez PCP - General Physician Linoleum Installer 03/16/20 Shari Salazar MD [address] [place] [address] Assigned OBGYN Provider 05/04/20 Tim Alicea MD [address] [place] [address] Assigned Surgical Provider 08/12/20 02/07/22 Tad Jordan MD [address] [place] [address] [address] [place], [place] [address] BMT Physician Transplant 04/10/21 Mallory Malin MD [address] [place], [place] [address] Endocrinology, Diabetes, and Metabolism 05/10/21 Latasha Wilcox PA-C [address] [place], [place] [address] Referring Physician Hematology & Oncology 05/10/21 Matteo Gómez, RN Specialty Sheriff'S Sergeant BMT - Adult 05/16/21 04/07/23 Joe Hrerera MD [address] [place] [address] 136 [place], [place] [address] Assigned Endocrinology Provider 05/26/21 01/16/23 Marika Salcido, [facility] Sales Project Manager BMT - Adult 06/14/21 Tad Jordan MD [address] [place] [address] Assigned Cancer Care Provider 06/23/21 Debbie Lugo, RN Registered Nurse 01/21/22 Blaine Chaves RN BMT Nurse Coordinator Transplant 04/08/23 documented as of this encounter
--- OUTSIDE RECORDS SUMMARY | 2023-08-28 22:43 | XMS_ITS | Encounter Summary ---
Author Name Unknown Organization [place] Address [address] [facility] [place] [address] Care Team Providers Care Casting Chipper Name Role Phone Caren Gómez Primary Care Provider Tad Jordan MD Unavailable [phone] Mallory Malin MD Unavailable [phone] Latasha WilcoxC Unavailable [phone] Matteo Gómez RN Unavailable [phone] Joe Herrera MD Unavailable [phone] Marika Salcido [facility] Unavailable Tad Jordan MD Unavailable [phone] Debbie Lugo RN Unavailable UnavailBlaine Gibbs RN Unavailable Unavailable Encounter Details Date Type Department Care Team (Late st Contact Info) Description 04/06/[address] [facility] Blood and Marrow Transplant Program [place] [address] [place] [address] Tad Jordan MD 420 [facility] [address] [place] [address] Social History Tobacco Use Types Packs/Day Years [...] CDT Lab [facility] [address] [place] [phone] Tad Jordan MD [address] [place] [address] 04/25/2024 9:15 AM CDT Oncology Visit [facility] Blood and Marrow Transplant Program [address] [address] Tad Jordan MD 420 [facility] 480 [place], [place] [phone] documented as of this encounter Visit Diagnoses Not on filedocumented in this encounter Additional Health Concerns Infection Onset Date Last Indicated Resolved 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 Parvovirus 01/23/2022 04/27/2023 Rule Out Parvovirus 04/27/2023 04/27/2023 05/01/20 9:52 PM CDT documented as of this encounter Care Teams Casting Chipper Relationship Specialty Start Date End Date Caren Gómez PCP - General Physician Director Equipment 03/16/20 Tad Jordan MD [address] [place] [id number] BMT Physician Transplant 04/10/21 Mallory Malin MD [address] [place] [address] Endocrinology, Diabetes, and Metabolism 05/10/21 Latasha Wilcox PA-C [address] [place] [id number] Referring Physician Hematology & Oncology 05/10/21 Matteo Gómez, RN Specialty Installation Drafter BMT - Adult 05/16/21 04/07/23 Joe Herrera MD [address] [place] [id number] Assigned Endocrinology Provider 05/26/21 01/16/23 Marika Salcido, [facility] Telephone Directory Distributor Driver BMT - Adult 06/14/21 Tad Jordan MD 420 [facility] [address] [place] [address] Assigned Cancer Care Provider 06/23/21 Debbie Lugo, RN Registered Nurse 01/21/22 Blaine Chaves, NICKI BMT Nurse Coordinator Transplant 04/08/23 documented as of this encounter
--- OUTSIDE RECORDS SUMMARY | 2023-08-28 22:43 | XMS_ITS | Encounter Summary ---
Author Name Unknown Organization [place] Address [address] [facility] [place] [address] Care Team Providers Care Assurance Senior Name Role Phone Caren Gómez Primary Care Provider [phone] Tad Jordan MD Unavailable [phone] Mallory Malin MD Unavailable [phone] Latasha Wilcox PA-C Unavailable +[phone] Matteo Gómez RN Unavailable [phone] Joe Herrera MD Unavailable [phone] Marika Salcido [facility] Unavailable Tad Jordan MD Unavailable Debbie Lugo RN Unavailable Unavailabl e Encounter Details Date Type Department Care Team (Late st Contact Info) Description 11/18/2022 Telephone [facility] Blood and Marrow Transplant Program [address] [address] Social History [...] month Glenna Teixeira RD, LD 5C/BMT pager: [phone] documented in this encounter Plan of Treatment Upcoming Encounters Date Type Department Care Team (Late st Contact Info) Description 04/25/2024 9:00 AM CDT [address] [place] [phone] Tad Jordan MD [address] [place] [address] 698405 04/25/2024 9:15 AM CDT Oncology Visit [facility] Blood and Marrow Transplant Program [address] [address] Tad Jordan MD [address] [place] [address] 340745 documented as of this encounter Visit Diagnoses Not on filedocumented in this encounter Additional Health Concerns Infection Onset Date Last Indicated Resolved 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 Parvovirus 01/23/2022 04/27/2023 documented as of this encounter Care Teams Assurance Senior Relationship Specialty Start Date End Date Caren Gómez PCP - General Physician Warehouse Assembly Worker 03/16/20 Tad Jordan MD [address] [place] [address] 655255 BMT Physician Transplant 04/10/21 Mallory Malin MD [address] [place] [address] 678475 Endocrinology, Diabetes, and Metabolism 05/10/21 Latasha Wilcox PA-C [address] [place] [address] [phone] Referring Physician Hematology & Oncology 05/10/21 Matteo Gómez, RN Specialty Marketing Operations Assistant BMT - Adult 05/16/21 04/07/23 Joe Herrera MD [address] [place] [address] [place] [address] Assigned Endocrinology Provider 05/26/21 01/16/23 Marika Salcido, [facility] Copper Tapper BMT - Adult 06/14/21 Tad Jordan MD [address] [address] Assigned Cancer Care Provider 06/23/21 Debbie Lugo, RN Registered Nurse 01/21/22 documented as of this encounter
--- OUTSIDE RECORDS SUMMARY | 2023-08-28 22:43 | XMS_ITS | Encounter Summary ---
Author Name Unknown Organization [place] Address [address] [facility] [place] [address] Care Team Providers Care Teacher Resource Name Role Phone Caren Gómez Primary Care Provider [phone] Shari Salazar MD Unavailable [phone]- [phone] Tim Alicea MD Unavailable [phone] Tad Jordan MD Unavailable [phone] Mallory Malin MD Unavailable [phone] Latasha WilcoxC Unavailable [phone] Matteo Gómez RN Unavailable Joe Herrera MD Unavailable [phone] Marika Salcido [facility] Unavailable Tad Jordan MD Unavailable [phone] Debbie Lugo RN Unavailable Unavailabl Blaine Mullins RN Unavailable Unavailable Encounter Details Date Type Department Care Team (Late st Contact Info) Description 11/18/2021 [facility] Blood and Marrow Transplant Program [address] [phone] Robert Burdick Social History Tobacco Use Types [...] Description 04/25/2024 9:00 AM CDT Lab [facility] [address] [place] [address] Tad Jordan MD [address] [place] [address] 04/25/2024 9:15 AM CDT Oncology Visit [facility] Blood and Marrow Transplant Program [address] [phone] Tad Jordan MD 420 [facility] [address] [place] [address] documented as of this encounter Visit Diagnoses [...] documented as of this encounter Care Teams Teacher Resource Relationship Specialty Start Date End Date Rico Caren M PCP - General Physician Copra Processor 03/16/20 Shari Salazar MD [address] [place] [address] Assigned OBGYN Provider 05/04/20 Tim Alicea MD [address] [place] [address] Assigned Surgical Provider 08/12/20 02/07/22 Tad Jordan MD 420 [facility] [address] [place] [address] BMT Physician Transplant 04/10/21 Mallory Malin MD [address] [place] [address] Endocrinology, Diabetes, and Metabolism 05/10/21 Latasha Wilcox PA-C [address] [place] [address] Referring Physician Hematology & Oncology 05/10/21 Matteo Gómez, RN Specialty Phone Screener BMT - Adult 05/16/21 04/07/23 Joe Herrera MD [address] [place] [address] [address] [place], [place] 457505 Assigned Endocrinology Provider 05/26/21 01/16/23 Marika Salcido, [facility] Optical Engineering Technician BMT - Adult 06/14/21 Tad Jordan MD 420 [facility] [address] [place], [place] 467585 Assigned Cancer Care Provider 06/23/21 Debbie Lugo, RN Registered Nurse 01/21/22 Blaine Chaves RN BMT Nurse Coordinator Transplant 04/08/23 documented as of this encounter
--- OUTSIDE RECORDS SUMMARY | 2023-08-28 22:43 | XMS_ITS | Encounter Summary ---
Author Name Unknown Organization [place] Address [address] [facility] [place] [address] Care Team Providers Care Loan Manager Name Role Phone Caren Gómez Primary Care Provider [phone] Shari Salazar MD Unavailable [phone] Tim Alicea MD Unavailable [phone] Tad Jordan MD Unavailable [phone] Mallory Malin MD Unavailable [phone] Latasha WilcoxC Unavailable [phone] Matteo Gómez RN Unavailable [phone] Joe Herrera MD Unavailable [phone] Marika Salcido [facility] Unavailable Tad Jordan MD Unavailable [phone] Debbie Lugo RN Unavailable Unavailabl Blaine Mullins RN Unavailable Unavailable Encounter Details Date Type Department Care Team (Late st Contact Info) Description 08/12/2021 [facility] Blood and Marrow Transplant Program [address] [phone] Tad Jordan MD [address] [place] [address] [phone] Social History Tobacco Use Types Packs/Day Years [...] COVID-19? No / Unsure 08/15/2021 4:14 PM ENGINEERING DESIGNER documented as of this encounter Plan of Treatment Upcoming Encounters Date Type Department Care Team (Late st Contact Info) Description 04/25/2024 9:00 AM CDT [facility] Cancer [address] [phone] Tad Jordan MD [address] [place] [address] 659655 04/25/2024 9:15 AM CDT Oncology Visit [facility] Blood and Marrow Transplant Program [place] [address] [place] [address] Tad Jordan MD [address] [place] [address] 480 [place] [address] documented as of this encounter Visit Diagnoses Not on filedocumented in this encounter Additional Health Concerns Infection Onset Date Last Indicated Resolved Time COVID-19 Comment:Spoke with infectious disease, Dr. Katrin Harvey. After review of cycle thresholds and patient symptoms, Dr. Harvey advises that this patient no longer requires covid isolation requirements. 07/17/2021 08/15/2021 08/16/2021 11:21 AM ENGINEERING DESIGNER 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 Rule Out C-difficile 08/15/2021 08/16/2021 022 8:33 AM ENGINEERING DESIGNER Rule Out C-difficile 01/20/2022 01/20/2022 022 7:37 PM CDT C-difficile 01/20/2022 01/20/2022 02/19/2022 11:4 1 PM CDT Rule Out Parvovirus 01/22/2022 01/23/2022 01/28/20 22 3:32 PM CDT Parvovirus 01/23/2022 04/27/2023 Rule Out Parvovirus 01/29/2022 01/29/2022 02/04/20 22 4:12 PM CDT Rule Out Parvovirus 04/27/2023 04/27/2023 05/01/20 23 9:52 PM CDT documented as of this encounter Care Teams Loan Manager Relationship Specialty Start Date End Date Caren Gómez PCP - General Physician Tenant Selector 03/16/20 Shari Salazar MD [address] [place] [address] Assigned OBGYN Provider 05/04/20 Tim Alicea MD [address] [place] [address] Assigned Surgical Provider 08/12/20 02/07/22 Tad Jordan MD 420 [facility] [address] [place] [address] BMT Physician Transplant 04/10/21 Mallory Malin MD 9[address] [place], [place] 433315 Endocrinology, Diabetes, and Metabolism 05/10/21 Latasha Wilcox PA-C [address] [place], [place] 910715 Referring Physician Hematology & Oncology 05/10/21 Matteo Gómez, RN Specialty Hardwood Floor Installer BMT - Adult 05/16/21 04/07/23 Joe Herrera MD [address] [place] [address] 136 [place] [address] Assigned Endocrinology Provider 05/26/21 01/16/23 Marika Salcido, [facility] Boat Carpenter BMT - Adult 06/14/21 Tad Jordan MD [address] [place] [address] 480 [place] [address] Assigned Cancer Care Provider 06/23/21 Debbie Lugo, RN Registered Nurse 01/21/[facility] Nurse Coordinator Transplant 04/08/23 documented as of this encounter
--- OUTSIDE RECORDS SUMMARY | 2023-08-28 22:43 | XMS_ITS | Encounter Summary ---
Author Name Unknown Organization [place] Address [address] [facility] [place] [address] Care Team Providers Care Recreation Professor Name Role Phone Caren Gómez Primary Care Provider Tad Jordan MD Unavailable [phone] Mallory Malin MD Unavailable [phone] Latasha Wilcox PA-C Unavailable [phone] Matteo Gómez RN Unavailable [phone] Joe Herrera MD Unavailable [phone] Marika Salcido [facility] Unavailable Tad Jordan MD Unavailable [phone] Debbie Lugo RN Unavailable Unavailabl e [...] CDT Lab [facility] [address] [place] [address] Tad Jordan MD [address] [place] [address] 165425 04/25/2024 9:15 AM CDT Oncology Visit [facility] Blood and Marrow Transplant Program [address] [address] Tad Jordan MD [address] [place] [address] 700585 documented as of this encounter Visit Diagnoses Not on filedocumented in this encounter Additional Health Concerns Infection Onset Date Last Indicated Resolved 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 Parvovirus 01/23/2022 04/27/2023 documented as of this encounter Care Teams Recreation Professor Relationship Specialty Start Date End Date Rico Caren Nelson PCP - General Physician Utility Repairer 03/16/20 Tad Jordan MD 420 [facility] 480 [place], [place] 646855 BMT Physician Transplant 04/10/21 Mallory Malin MD [address] [place] [address] Endocrinology, Diabetes, and Metabolism 05/10/21 Latasha Wilcox PA-C [address] [place] [address] Referring Physician Hematology & Oncology 05/10/21 Matteo Gómez, RN Specialty Lab Nurse BMT - Adult 05/16/21 04/07/23 Joe Herrera MD 420 [facility] 136 [place], [place] 447075 Assigned Endocrinology Provider 05/26/21 01/16/23 Marika Salcido, [facility] Entomology Professor BMT - Adult 06/14/21 Tad Jordan MD 420 [facility] 480 [place], [place] 242895 Assigned Cancer Care Provider 06/23/21 Debbie Lugo, RN Registered Nurse 01/21/22 documented as of this encounter
--- OUTSIDE RECORDS SUMMARY | 2023-08-28 22:43 | XMS_ITS | Encounter Summary ---
Author Name Unknown Organization [place] Address [address] [facility] [place] [address] Care Team Providers Care Security Assurance Analyst Name Role Phone Caren Gómez Primary Care Provider [phone] Tad Jordan MD Unavailable [phone] Mallory Malin MD Unavailable [phone] Latasha WilcoxC Unavailable [phone] Matteo Gómez RN Unavailable [phone] Joe Herrera MD Unavailable [phone] Marika Salcido [facility] Unavailable Tad Jordan MD Unavailable [phone] Debbie Lugo RN Unavailable UnavailBlaine Gibbs RN Unavailable Unavailable Encounter Details Date Type Department Care Team (Late st Contact Info) Description 02/25/2022 [facility] Blood and Marrow Transplant Program [place] [address] [place] [address] Tad Jordan MD 420 [facility] EMERG[facility]MENT [address] [place] [address] Social History Tobacco Use Types Packs/Day Years [...] Info) Description 04/25/2024 9:00 AM CDT Lab [facility] [address] [place] [address] Tad Jordan MD [address] [place] [address] 04/25/2024 9:15 AM CDT Oncology Visit [facility] Blood and Marrow Transplant Program [address] [address] Tad Jordan MD 420 [facility] [address] [place], [place] 411285 documented as of this encounter Visit Diagnoses Not on filedocumented in this encounter Additional Health Concerns Infection Onset Date Last Indicated Resolved 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 Parvovirus 01/23/2022 04/27/2023 Rule Out Parvovirus 04/27/2023 04/27/2023 05/01/20 9:52 PM CDT documented as of this encounter Care Teams Security Assurance Analyst Relationship Specialty Start Date End Date Caren Gómez PCP - General Physician Commercial Art Instructor 03/16/20 Tad Jordan MD [address] [place] [address] 113405 BMT Physician Transplant 04/10/21 Mallory Malin MD [address] [place] [address] 436985 Endocrinology, Diabetes, and Metabolism 05/10/21 Latasha Wilcox PA-C [address] [place] [address] 814615 Referring Physician Hematology & Oncology 05/10/21 Matteo Gómez, RN Specialty Sales Representative Metals BMT - Adult 05/16/21 04/07/23 Joe Herrera MD [address] [place] [address] 353885 Assigned Endocrinology Provider 05/26/21 01/16/23 Marika Salcido, [facility] Disability Specialist BMT - Adult 06/14/21 Tad Jordan MD 420 [facility] EMERGENCY DEPARTMENT [address] [place] [address] Assigned Cancer Care Provider 06/23/21 Debbie Lugo, RN Registered Nurse 01/21/22 Blaine Chaves, NICKI BMT Nurse Coordinator Transplant 04/08/23 documented as of this encounter
--- OUTSIDE RECORDS SUMMARY | 2023-08-28 22:43 | XMS_ITS | Encounter Summary ---
Author Name Unknown Organization [place] Address [address] [facility] [address] Care Team Providers Care Nanoscience Technician Name Role Phone Caren Gómez Primary Care Provider [phone] Shari Salazar MD Unavailable [phone] Tim Alicea MD Unavailable [phone] Tad Jordan MD Unavailable [phone] Mallory Malin MD Unavailable [phone] Latasha WilcoxC Unavailable [phone] Matteo Gómez RN Unavailable [phone] Joe Herrera MD Unavailable [phone] Marika Salcido [facility] Unavailable Tad Jordan MD Unavailable [phone] Debbie Lugo RN Unavailable Unavailabl Blaine Mullins RN Unavailable Unavailable Encounter Details Date Type Department Care Team (Late st Contact Info) Description 10/21/2021 [facility] Blood and Marrow Transplant Program [address] [phone] Tad Jordan MD [address] [place] [address] 007375 Social History Tobacco Use Types Packs/Day Years [...] Contact Info) Description 04/25/2024 9:00 AM CDT [facility] [address] [phone] Tad Jordan MD [address] [place] [address] 272805 04/25/2024 9:15 AM CDT Oncology Visit [facility] Blood and Marrow Transplant Program [address] [address] Tad Jordan MD [address] [place] [address] 442685 documented as of this encounter Visit Diagnoses [...] documented as of this encounter Care Teams Nanoscience Technician Relationship Specialty Start Date End Date Caren Gómez PCP - General Physician Steam Tunnel Feeder 03/16/20 Shari Salazar MD [address] [place] [address] Assigned OBGYN Provider 05/04/20 Tim Alicea MD [address] [place] [address] Assigned Surgical Provider 08/12/20 02/07/22 Tad Jordan MD [address] [place] [address] BMT Physician Transplant 04/10/21 Mallory Malin MD 909 [place] [address] Endocrinology, Diabetes, and Metabolism 05/10/21 Latasha Wilcox PA-C 9 [place] [address] Referring Physician Hematology & Oncology 05/10/21 Matteo Gómez, NICKI Specialty Sponge Packer BMT - Adult 05/16/21 04/07/23 Joe Herrera MD 420 [facility] [address] [place] [address] Assigned Endocrinology Provider 05/26/21 01/16/23 Marika Salcido, [facility] Log Stacker Operator BMT - Adult 06/14/21 Tad Jordan MD 420 [facility] [address] [place] [address] Assigned Cancer Care Provider 06/23/21 Debbie Lugo, RN Registered Nurse 01/21/22 Blaine Chaves RN BMT Nurse Coordinator Transplant 04/08/23 documented as of this encounter
--- OUTSIDE RECORDS SUMMARY | 2023-08-28 22:43 | XMS_ITS | Encounter Summary ---
Author Name Unknown Organization [place] Address [address] [place] [address] Care Team Providers Care Farmworker Brooder Farm Name Role Phone Caren Gómez Primary Care Provider Shari Salazar MD Unavailable [phone] Tim Alicea MD Unavailable [phone] Tad Jordan MD Unavailable [phone] Mallory Malin MD Unavailable [phone] Latasha WilcoxC Unavailable [phone] Matteo Gómez RN Unavailable [phone] Joe Herrera MD Unavailable [phone] Marika Salcido [facility] Unavailable Tad Jordan MD Unavailable [phone] Debbie Lugo RN Unavailable Unavailabl Blaine Mullins RN Unavailable Unavailable Encounter Details Date Type Department Care Team (Late st Contact Info) Description 11/05/2021 [facility] Blood and Marrow Transplant Program [address] [phone] Tad Jordan MD [address] [place] [address] [phone] Social History Tobacco Use Types Packs/Day Years [...] CDT [facility] Cancer [address] [phone] Tad Jordan MD [address] [place] [address] 529285 04/25/2024 9:15 AM CDT Oncology Visit [facility] Blood and Marrow Transplant Program [address] [address] Tad Jordan MD [address] [place] [address] 184595 documented as of this encounter Visit Diagnoses [...] documented as of this encounter Care Teams Farmworker Brooder Farm Relationship Specialty Start Date End Date Caren Gómez PCP - General Physician Wild Animal Caretaker 03/16/20 Shari Salazar MD [address] [place] [address] Assigned OBGYN Provider 05/04/20 Tim Alicea MD [address] [address] Assigned Surgical Provider 08/12/20 02/07/22 Tad Jordan MD [address] [place] [address] BMT Physician Transplant 04/10/21 Mallroy Malin MD [address] [place] [address] Endocrinology, Diabetes, and Metabolism 05/10/21 Latasha Wilcox PA-C 9 [place] [address] Referring Physician Hematology & Oncology 05/10/21 Matteo Gómez, NICKI Specialty Engineering Job Titles BMT - Adult 05/16/21 04/07/23 Joe Herrera MD 420 [facility] 136 [place] [address] Assigned Endocrinology Provider 05/26/21 01/16/23 Marika Salcido, [facility] Elementary Assistant Teacher BMT - Adult 06/14/21 Tad Jordan MD 420 [facility] [address] [place] [address] Assigned Cancer Care Provider 06/23/21 Debbie Lugo, RN Registered Nurse 01/21/22 Blaine Chaves RN BMT Nurse Coordinator Transplant 04/08/23 documented as of this encounter
--- OUTSIDE RECORDS SUMMARY | 2023-08-28 22:43 | XMS_ITS | Encounter Summary ---
Author Name Unknown Organization [place] Address [address] [facility] [place] [address] Care Team Providers Care Woods Laborer Name Role Phone Caren Gómez Primary Care Provider [phone] Tad Jordan MD Unavailable [phone] Mallory Malin MD Unavailable [phone] Latasha Wilcox PA-C Unavailable [phone] Matteo Gómez RN Unavailable [phone] Joe Herrera MD Unavailable [phone] Marika Salcido [facility] Unavailable Tad Jordan MD Unavailable [phone] Debbie Lugo RN Unavailable Unavailabl e [...] Info) Description 04/25/2024 9:00 AM CDT Lab [facility] [address] [place] [address] Tad Jordan MD [address] [place] [address] 141635 04/25/2024 9:15 AM CDT Oncology Visit [facility] Blood and Marrow Transplant Program [address] [address] Tad Jordan MD [address] [place] [address] 893025 documented as of this encounter Visit Diagnoses Not on filedocumented in this encounter Additional Health Concerns Infection Onset Date Last Indicated Resolved 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 Parvovirus 01/23/2022 04/27/2023 documented as of this encounter Care Teams Woods Laborer Relationship Specialty Start Date End Date Rico Caren Nelson PCP - General Physician Fisher Trammel Net 03/16/20 Tad Jordan MD 420 [facility] 480 [place], [place] [address]115 BMT Physician Transplant 04/10/21 Mallory Malin MD 909 [place] [address] Endocrinology, Diabetes, and Metabolism 05/10/21 Latasha Wilcox PA-C 9[address] [place] [address] Referring Physician Hematology & Oncology 05/10/21 Matteo Gómez, RN Specialty Pv Design Engineer BMT - Adult 05/16/21 04/07/23 Joe Herrera MD 420 [facility] 136 [place], [place] 123495 Assigned Endocrinology Provider 05/26/21 01/16/23 Marika Salcido, [facility] Link Machine Operator BMT - Adult 06/14/21 Tad Jordan MD 420 [facility] [address] [place], [place] 081285 Assigned Cancer Care Provider 06/23/21 Debbie Lugo, RN Registered Nurse 01/21/22 documented as of this encounter
--- OUTSIDE RECORDS SUMMARY | 2023-08-28 22:43 | XMS_ITS | Encounter Summary ---
Author Name Unknown Organization [place] Address [address] [facility] [place] [address] Care Team Providers Care Continuous Improvement Facilitator Name Role Phone Caren Gómez Primary Care Provider Tad Jordan MD Unavailable Mallory Malin MD Unavailable [phone] Latasha WilcoxC Unavailable [phone] Matteo Gómez RN Unavailable [phone] Joe Herrera MD Unavailable [phone] Marika Salcido [facility] Unavailable Tad Jordan MD Unavailable [phone] Debbie Lugo RN Unavailable UnavailBlaine Gibbs RN Unavailable Unavailable Encounter Details Date Type Department Care Team (Late st Contact Info) Description 12/16/2022 [facility] Blood and Marrow Transplant Program [place] [address] [place] [address] Tad Jordan MD 420 [facility] [address] [place] [address] Social History Tobacco Use Types Packs/Day Years [...] Info) Description 04/25/2024 9:00 AM CDT Lab [facility] [address] [place] [address] [phone] Tad Jordan MD [address] [place] [address] 04/25/2024 9:15 AM CDT Oncology Visit [facility] Blood and Marrow Transplant Program [address] [phone] Tad Jordan MD [address] [place] [address] documented as of this encounter Visit Diagnoses Not on filedocumented in this encounter Additional Health Concerns Infection Onset Date Last Indicated Resolved 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 Parvovirus 01/23/2022 04/27/2023 Rule Out Parvovirus 04/27/2023 04/27/2023 05/01/20 23 9:52 PM CDT documented as of this encounter Care Teams Continuous Improvement Facilitator Relationship Specialty Start Date End Date GómezCaren PCP - General Physician Tobacco Roller 03/16/20 Tad Jordan MD 420 [facility] [address] [place], [place] [phone] BMT Physician Transplant 04/10/21 Mallory Malin MD [address] [place], [place] [phone] Endocrinology, Diabetes, and Metabolism 05/10/21 Latasha Wilcox PA-C [address] [place] [address] [phone] Referring Physician Hematology & Oncology 05/10/21 Matteo Gómez, RN Specialty Professional Bass Fisher BMT - Adult 05/16/21 04/07/23 Joe Herrera MD 420 [facility] [address] [place], [place] 8[address] Assigned Endocrinology Provider 05/26/21 01/16/23 Marika Salcido, [facility] Home Care Companion BMT - Adult 06/14/21 Tad Jordan MD 420 [facility] [address] [place], [place] 6[address] Assigned Cancer Care Provider 06/23/21 Debbie Lugo, RN Registered Nurse 01/21/22 Blaine Chaves RN BMT Nurse Coordinator Transplant 04/08/23 documented as of this encounter
--- OUTSIDE RECORDS SUMMARY | 2023-08-28 22:43 | XMS_ITS | Encounter Summary ---
Author Name Unknown Organization [place] Address [address] [facility] [place] [address] Care Team Providers Care Casting Director Name Role Phone Caren Gómez Primary Care Provider Tad Jordan MD Unavailable [phone] Mallory Malin MD Unavailable [phone] Latasha WilcoxC Unavailable [phone] Matteo Gómez RN Unavailable [phone] Joe Herrera MD Unavailable [phone] Marika Salcido [facility] Unavailable Tad Jordan MD Unavailable [phone] Debbie Lugo RN Unavailable Unavailabl Blaine Mullins RN Unavailable Unavailable Encounter Details Date Type Department Care Team (Late st Contact Info) Description 06/02/2022 [facility] Blood and Marrow Transplant Program [place] [address] [place] [address] Tad Jordan MD 420 [facility] [address] [place] [address] Social History Tobacco Use Types Packs/Day Years [...] [facility] [address] [place] [address] [phone] Tad Jordan MD [address] [place] [address] 04/25/2024 9:15 AM CDT Oncology Visit [facility] Blood and Marrow Transplant Program [address] [phone] Tad Jordan MD [address] [place] [address] documented as of this encounter Visit Diagnoses Not on filedocumented in this encounter Additional Health Concerns Infection Onset Date Last Indicated Resolved 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 Parvovirus 01/23/2022 04/27/2023 Rule Out Parvovirus 04/27/2023 04/27/2023 05/01/20 23 9:52 PM CDT documented as of this encounter Care Teams Casting Director Relationship Specialty Start Date End Date GómezCaren PCP - General Physician Managed Care Coordinator 03/16/20 Tad Jordan MD 420 [facility] [address] [place], [place] 0834[address] BMT Physician Transplant 04/10/21 Mallory Malin MD [address]09 [place], [place] [phone] Endocrinology, Diabetes, and Metabolism 05/10/21 Latasha Wilcox PA-C [address] [place] [address] [phone] Referring Physician Hematology & Oncology 05/10/21 Matteo Gómez, RN Specialty Retail Mortgage Banker BMT - Adult 05/16/21 04/07/23 Joe Herrera MD 420 [facility] 136 [place], [place] 7669[address] Assigned Endocrinology Provider 05/26/21 01/16/23 Marika Salcido, [facility] Cement Railroad Car Loader BMT - Adult 06/14/21 Tad Jordan MD 420 [facility] [address] [place], [place] 702455 Assigned Cancer Care Provider 06/23/21 Debbie Lugo, RN Registered Nurse 01/21/22 Blaine Chaves RN BMT Nurse Coordinator Transplant 04/08/23 documented as of this encounter
--- OUTSIDE RECORDS SUMMARY | 2023-08-28 22:43 | XMS_ITS | Encounter Summary ---
Author Name Unknown Organization [place] Address [address] [facility] [place] [address] Care Team Providers Care Interlocking Machine Operator Name Role Phone Caren Gómez Primary Care Provider [phone] Tad Jordan MD Unavailable [phone] Mallory Malin MD Unavailable [phone] Latasha Wilcox PA-C Unavailable [phone] Matteo Gómez RN Unavailable Joe Herrera MD Unavailable [phone] Marika Salcido [facility] Unavailable Tad Jodran MD Unavailable Debbie Lugo RN Unavailable Unavailabl e Encounter Details Date Type Department Care Team (Late st Contact Info) Description 10/22/2022 Telephone [facility] Blood and Marrow Transplant Program [address] [address] Social History [...] days. Glenna Teixeira RD, LD 5C/BMT pager: [phone] documented in this encounter Plan of Treatment Upcoming Encounters Date Type Department Care Team (Late st Contact Info) Description 04/25/2024 9:00 AM CDT [facility] [place] [address] [place] [address] Tad Jordan MD [address] [place] [address] 04/25/2024 9:15 AM CDT Oncology Visit [facility] Blood and Marrow Transplant Program [place] [address] [place] [phone] Tad Jordan MD [address] [place] [address] [phone] documented as of this encounter Visit Diagnoses Not on filedocumented in this encounter Additional Health Concerns Infection Onset Date Last Indicated Resolved 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 Parvovirus 01/23/2022 04/27/2023 documented as of this encounter Care Teams Interlocking Machine Operator Relationship Specialty Start Date End Date Caren Gómez PCP - General Physician Box Packer 03/16/20 Tad Jordan MD [address] [place] [address] BMT Physician Transplant 04/10/21 Mallory Malin MD [address] [place] [address] 806435 Endocrinology, Diabetes, and Metabolism 05/10/21 Latasha Wilcox PA-C [address] [place] [address] 628555 Referring Physician Hematology & Oncology 05/10/21 Matteo Gómez, RN Specialty Vacuum Furnace Operator BMT - Adult 05/16/21 04/07/23 Joe Herrera MD [address] [place] [address] 806725 Assigned Endocrinology Provider 05/26/21 01/16/23 Marika Salcido, [facility] Area Development Manager BMT - Adult 06/14/21 Tad Jordan MD [address] [place] [address] 480 [place] [address] Assigned Cancer Care Provider 06/23/21 Debbie Lugo, RN Registered Nurse 01/21/22 documented as of this encounter
--- OUTSIDE RECORDS SUMMARY | 2023-08-28 22:44 | XMS_ITS | Encounter Summary ---
Author Name Unknown Organization [place] Address [address] [facility] [place] [address] Care Team Providers Care Sack Lifter Name Role Phone Caren Gómez Primary Care Provider [phone] Shari Salazar MD Unavailable [phone] Tim Alicea MD Unavailable [phone] Tad Jordan MD Unavailable [phone] Mallory Malin MD Unavailable [phone] Latasha WilcoxC Unavailable [phone] Matteo Gómez RN Unavailable [phone] Joe Herrera MD Unavailable [phone] Marika Salcido [facility] Unavailable Tad Jordan MD Unavailable [phone] Debbie Lugo RN Unavailable Unavailabl Blaine Mullins RN Unavailable Unavailable Encounter Details Date Type Department Care Team (Late st Contact Info) Description 07/17/2021 [facility] Interventional Radiology [address] [place] [address] Stephy Hernandez RN Social History Tobacco Use [...] COVID-19? No / Unsure 07/17/2021 8:40 PM VEHICLE INSPECTOR documented as of this encounter Plan of Treatment Upcoming Encounters Date Type Department Care Team (Late st Contact Info) Description 04/25/2024 9:[address] [facility] [address] [place] [phone] Tad Jordan MD [address] [place] [address] 04/25/2024 9:15 AM CDT Oncology Visit [facility] Blood and Marrow Transplant Program [address] [address] Tad Jordan MD 420 [facility] 480 [place] [address] documented as of this encounter Visit Diagnoses Not on filedocumented in this encounter Additional Health Concerns Infection Onset Date Last Indicated Resolved Time Rule Out COVID-19 07/17/2021 07/17/2021 07/17/2021 11:03 PM VEHICLE INSPECTOR COVID-19 Comment:Spoke with infectious disease, Dr. Katrin Harvey. After review of cycle thresholds and patient symptoms, Dr. Harvey advises that this patient no longer requires covid isolation requirements. 07/17/2021 08/15/2021 08/16/2021 11:21 AM VEHICLE INSPECTOR Rule Out C-difficile 07/18/2021 07/19/2021 022 5:47 AM VEHICLE INSPECTOR 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 Rule Out C-difficile 08/15/2021 08/16/2021 022 8:33 AM VEHICLE INSPECTOR Rule Out C-difficile 01/20/2022 01/20/2022 022 7:37 PM CDT C-difficile 01/20/2022 01/20/2022 02/19/2022 11:4 1 PM CDT Rule Out Parvovirus 01/22/2022 01/23/2022 01/28/20 22 3:32 PM CDT Parvovirus 01/23/2022 04/27/2023 Rule Out Parvovirus 01/29/2022 01/29/2022 02/04/20 22 4:12 PM CDT Rule Out Parvovirus 04/27/2023 04/27/2023 05/01/20 23 9:52 PM CDT documented as of this encounter Care Teams Sack Lifter Relationship Specialty Start Date End Date Caren Gómez PCP - General Physician Branch Office Administrator 03/16/20 Shari Salazar MD [address] [place] [address] Assigned OBGYN Provider 05/04/20 Tim Alicea MD [address] [place] [address] Assigned Surgical Provider 08/12/20 02/07/22 Tad Jordan MD [address] [place] [address] BMT Physician Transplant 04/10/21 Mallory Malin MD [address] [place] [address] [phone] Endocrinology, Diabetes, and Metabolism 05/10/21 Latasha Wilcox PA-C [address] [place] [address] 170465 Referring Physician Hematology & Oncology 05/10/21 Mateto Gómez, RN Specialty Taker Off Drying Kiln BMT - Adult 05/16/21 04/07/23 Joe Herrera MD [address] [place] [address] Assigned Endocrinology Provider 05/26/21 01/16/23 Marika Salcido, [facility] Temple Marker BMT - Adult 06/14/21 Tad Jordan MD [address] [place] [address] Assigned Cancer Care Provider 06/23/21 Debbie Lugo, RN Registered Nurse 01/21/22 [facility] B[facility] Nurse Coordinator Transplant 04/08/23 documented as of this encounter
--- OUTSIDE RECORDS SUMMARY | 2023-08-28 22:44 | XMS_ITS | Encounter Summary ---
Author Name Unknown Organization [place] Address [address] [facility] [place] [address] Care Team Providers Care Clock And Watch Hands Painter Name Role Phone Caren Gómez Primary Care Provider [phone] Kathrin Peoples RN Unavailable Shari Salazar MD Unavailable [phone] Nyasia Prince MD Unavailable Unavailab Tim Jimenez MD Unavailable [phone] Tad Jordan MD Unavailable [phone] Mallory Malin MD Unavailable [phone] Latasha Wilcox PA-C Unavailable [phone] Matteo Gómez RN Unavailable [phone] Joe Herrera MD Unavailable [phone] Marika Salcido [facility] Unavailable Tad Jordan MD Unavailable [phone] Debbie Lugo RN Unavailable Unavailabl e Samec, Blaine L RN Unavailable Unavailable Reason for Visit * Reason Onset Date Comments Forms 05/14/2020 Encounter Details Date Type Department Care Team (Late st Contact Info) Description 05/14/2020 MyC Medical Advice [facility] [place] [address] [place] [phone] Shari Salazar MD [address] [place] [address] Forms Social History Tobacco Use [...] Info) Description 04/25/2024 9:00 AM CDT Lab [facility] [address] [place] [address] [phone] Tad Jordan MD [address] [place] [address] 04/25/2024 9:15 AM CDT Oncology Visit [facility] Blood and Marrow Transplant Program [address] [address] Tad Jordan MD [address] [place] [address] documented as of this encounter Visit Diagnoses [...] Out COVID-19 07/17/2021 07/17/2021 07/17/2021 11:[address] PROJECT MANAGER COVID-19 Comment:Spoke with infectious disease, Dr. Katrin Harvey. After review of cycle thresholds and patient symptoms, Dr. Harvey advises that this patient no longer requires covid isolation requirements. 07/17/2021 08/15/2021 08/16/2021 11:[address] PROJECT MANAGER Rule Out C-difficile 07/18/2021 07/19/2021 022 5:[address] PROJECT MANAGER 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 Rule Out C-difficile 08/15/2021 08/16/2021 022 8:[address] PROJECT MANAGER Rule Out C-difficile 01/20/2022 01/20/2022 022 7:37 PM CDT C-difficile 01/20/2022 01/20/2022 02/19/2022 11:4 1 PM CDT Rule Out Parvovirus 01/22/2022 01/23/2022 01/28/20 22 3:32 PM CDT Parvovirus 01/23/2022 04/27/2023 Rule Out Parvovirus 01/29/2022 01/29/2022 02/04/20 22 4:12 PM CDT Rule Out Parvovirus 04/27/2023 04/27/2023 05/01/20 23 9:52 PM CDT documented as of this encounter Care Teams Clock And Watch Hands Painter Relationship Specialty Start Date End Date Caren Gómez PCP - General Physician Fiscal Analyst 03/16/20 Kathrin Peoples, RN Specialty Cloud Systems Administrator Hematology & Oncology 03/30/20 04/29/21 Shari Salazar MD [address] [place] [address] Assigned OBGYN Provider 05/04/20 Nyasia Prince MD NO INFO AVAILABLE 06/27/2022 Assigned Cancer Care Provider 05/04/20 06/22/21 Tim Alicea MD [address] [place] [address] Assigned Surgical Provider 08/12/20 02/07/22 Tad Jordan MD [address] [place] [address] [phone] BMT Physician Transplant 04/10/21 Mallory Malin MD [address] [place] [address] 816095 Endocrinology, Diabetes, and Metabolism 05/10/21 Latasha Wilcox PA-C [address] [place] [address] [phone] Referring Physician Hematology & Oncology 05/10/21 Matteo Gómez, NICKI Specialty Cloud Systems Administrator BMT - Adult 05/16/21 04/07/23 Joe Herrera MD [address] 852185 Assigned Endocrinology Provider 05/26/21 01/16/23 Marika Salcido, [facility] Information Scientist BMT - Adult 06/14/21 Tad Jordan MD [address] [place] [address] Assigned Cancer Care Provider 06/23/21 Debbie Lugo, RN Registered Nurse 01/21/22 Blaine Chaves RN BMT Nurse Coordinator Transplant 04/08/23 documented as of this encounter
--- OUTSIDE RECORDS SUMMARY | 2023-08-28 22:44 | XMS_ITS | Encounter Summary ---
Author Name Unknown Organization [place] Address [address] [facility] [place] [address] Care Team Providers Care Operations Support Professionals Name Role Phone Caren Gómez Primary Care Provider Shari Salazar MD Unavailable [phone] Nyasia Prince MD Unavailable Unavailab Tim Jimenez MD Unavailable [phone] Tad Jordan MD Unavailable [phone] Mallory Malin MD Unavailable [phone] Latasha Wilcox PA-C Unavailable [phone] Matteo Gómez RN Unavailable [phone] Joe Herrera MD Unavailable [phone] Marika Salcido [facility] Unavailable Tad Jordan MD Unavailable [phone] Debbie Lugo RN Unavailable UnavailBlaine Gibbs RN Unavailable Unavailable Encounter Details Date Type Department Care Team (Late st Contact Info) Description 05/28/2021 MyC Medical Advice [facility] Cancer [address] [address] Robert Burdick Social History Tobacco [...] COVID-19? No / Unsure 05/30/2021 9:52 AM SKY CAP documented as of this encounter Plan of Treatment Upcoming Encounters Date Type Department Care Team (Late st Contact Info) Description 04/25/2024 9:00 AM CDT Lab [facility] Cancer [address] [address] Tad Jordan MD [address] [place] [address] 04/25/2024 9:15 AM CDT Oncology Visit [facility] Blood and Marrow Transplant Program [address] [phone] Tad Jordan MD 420 [facility] 480 [place] [address] documented as of this encounter Visit Diagnoses Not on filedocumented in this encounter Additional Health Concerns Infection Onset Date Last Indicated Resolved Time Rule Out COVID-19 07/17/2021 07/17/2021 07/17/2021 11:03 PM SKY CAP COVID-19 Comment:Spoke with infectious disease, Dr. Katrin Harvey. After review of cycle thresholds and patient symptoms, Dr. Harvey advises that this patient no longer requires covid isolation requirements. 07/17/2021 08/15/2021 08/16/2021 11:21 AM SKY CAP Rule Out C-difficile 07/18/2021 07/19/2021 022 5:47 AM SKY CAP 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 Rule Out C-difficile 08/15/2021 08/16/2021 022 8:33 AM SKY CAP Rule Out C-difficile 01/20/2022 01/20/2022 022 7:37 PM CDT C-difficile 01/20/2022 01/20/2022 02/19/2022 11:4 1 PM CDT Rule Out Parvovirus 01/22/2022 01/23/2022 01/28/20 22 3:32 PM CDT Parvovirus 01/23/2022 04/27/2023 Rule Out Parvovirus 01/29/2022 01/29/2022 02/04/20 22 4:12 PM CDT Rule Out Parvovirus 04/27/2023 04/27/2023 05/01/20 23 9:52 PM CDT documented as of this encounter Care Teams Operations Support Professionals Relationship Specialty Start Date End Date Caren Gómez PCP - General Physician Fuel Handler 03/16/20 Shari Salazar MD [address] [place] [address] Assigned OBGYN Provider 05/04/20 Nyasia Prince MD NO INFO AVAILABLE 06/27/2022 Assigned Cancer Care Provider 05/04/20 06/22/21 Tim Alicea MD [address] [place], [place] [address] Assigned Surgical Provider 08/12/20 02/07/22 Tad Jordan MD [address] [place] [address] [phone] BMT Physician Transplant 04/10/21 Mallory Malin MD [address] [place] [address] [phone] Endocrinology, Diabetes, and Metabolism 05/10/21 Latasha Wilcox PA-C [address] [place] [address] Referring Physician Hematology & Oncology 05/10/21 Matteo Gómez, RN Specialty Retrieval Specialist BMT - Adult 05/16/21 04/07/23 Joe Herrera MD [address] [place] [address] 136 [place], [place] 271875 Assigned Endocrinology Provider 05/26/21 01/16/23 Marika Salcido, [facility] Asp Developer BMT - Adult 06/14/21 Tad Jordan MD [address] [place] [address] 863135 Assigned Cancer Care Provider 06/23/21 Debbie Lugo, RN Registered Nurse 01/21/22 Blaine Chaves RN BMT Nurse Coordinator Transplant 04/08/23 documented as of this encounter
--- OUTSIDE RECORDS SUMMARY | 2023-08-28 22:44 | XMS_ITS | Encounter Summary ---
Author Name Unknown Organization [place] Address [address] [facility] [place] [address] Care Team Providers Care Customs And Border Protection Officer Name Role Phone Caren Gómez Primary Care Provider Kathrin Peoples RN Unavailable Shari Salazar MD Unavailable Nyasia Prince MD Unavailable Unavailab Tim Jimenez MD Unavailable [phone] Tad Jordan MD Unavailable [phone] Mallory Malin MD Unavailable [phone] Latasha Wilcox PA-C Unavailable [phone] Matteo Gómez RN Unavailable [phone] Joe Herrera MD Unavailable [phone] Marika Salcido [facility] Unavailable Tad Jordan MD Unavailable [phone] Debbie Lugo RN Unavailable Unavailabl e Samec, Blaine L RN Unavailable Unavailable Encounter Details Date Type Department Care Team (Late st Contact Info) Description 03/12/2021 MyC Medical Advice [facility] Interventional Radiology [address] [place] [address] Stephy Hernandez RN Social History Tobacco Use [...] [facility] Clinic [address] [place] [address] [phone] Tad Jordan MD [address] [place] [address] 927375 04/25/2024 9:15 AM CDT Oncology Visit [facility] Blood and Marrow Transplant Program [address] [phone] Tad Jordan MD [address] [place] [address] 806645 documented as of this encounter Visit Diagnoses [...] Out COVID-19 07/17/2021 07/17/2021 07/17/2021 11:03 PM SUPERVISOR CAPACITOR PROCESSING COVID-19 Comment:Spoke with infectious disease, Dr. Katrin Harvey. After review of cycle thresholds and patient symptoms, Dr. Harvey advises that this patient no longer requires covid isolation requirements. 07/17/2021 08/15/2021 08/16/2021 11:21 AM SUPERVISOR CAPACITOR PROCESSING Rule Out C-difficile 07/18/2021 07/19/2021 022 5:47 AM SUPERVISOR CAPACITOR PROCESSING 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 Rule Out C-difficile 08/15/2021 08/16/2021 022 8:33 AM SUPERVISOR CAPACITOR PROCESSING Rule Out C-difficile 01/20/2022 01/20/2022 022 7:37 [...] Date Caren Gómez PCP - General Physician Regulatory Product Manager 03/16/20 Kathrin Peoples, NICKI Specialty Teacher Of The Handicapped Hematology & Oncology 03/30/20 04/29/21 Shari Salazar MD [address] [place] [address] Assigned OBGYN Provider 05/04/20 Nyasia Prince MD NO INFO AVAILABLE 06/27/2022 Assigned Cancer Care Provider 05/04/20 06/22/21 Tim Alicea MD [address] [place] [address] Assigned Surgical Provider 08/12/20 02/07/22 Tad Jordan MD [address] [place] [address] 480 [place], [place] 274655 BMT Physician Transplant 04/10/21 Mallory Malin MD [address] [place] [address] [phone] Endocrinology, Diabetes, and Metabolism 05/10/21 Latasha Wilcox PA-C [address] [place] [address] [phone] Referring Physician Hematology & Oncology 05/10/21 Matteo Gómez, RN Specialty Teacher Of The Handicapped BMT - Adult 05/16/21 04/07/23 Joe Herrera MD [address] [place] [address] 136 [place] [address] Assigned Endocrinology Provider 05/26/21 01/16/23 Marika Salcido, [facility] Client Service Coordinator BMT - Adult 06/14/21 Tad Jordan MD [address] [address] Assigned Cancer Care Provider 06/23/21 Debbie Lugo, RN Registered Nurse 01/21/22 Blaine Chaves RN BMT Nurse Coordinator Transplant 04/08/23 documented as of this encounter
--- OUTSIDE RECORDS SUMMARY | 2023-08-28 22:44 | XMS_ITS | Encounter Summary ---
Author Name Unknown Organization [facility] Address [address] [facility] [address] Care Team Providers Care Senior Informatica Etl Developer Name Role Phone Caren Gómez Primary Care Provider [phone] Shari Salazar MD Unavailable [phone] Nyasia Prince MD Unavailable Unavailab Tim Jimenez MD Unavailable [phone] Tad Jordan MD Unavailable Mallory Malin MD Unavailable [phone] Latasha Wilcox PA-C Unavailable [phone] Matteo Gómez RN Unavailable [phone] Joe Herrera MD Unavailable [phone] Marika Salcido [facility] Unavailable Tad Jordan MD Unavailable [phone] Debbie Lugo RN Unavailable UnavailBlaine Gibbs RN Unavailable Unavailable Encounter Details Date Type Department Care Team (Late st Contact Info) Description 06/16/2021 MyC Medical Advice [facility] [address] [phone] Robert Burdick Social History Tobacco [...] COVID-19? No / Unsure 06/18/2021 8:55 AM AUTO TRANSMISSION SPECIALIST documented as of this encounter Plan of Treatment Upcoming Encounters Date Type Department Care Team (Late st Contact Info) Description 04/25/2024 9:00 AM CDT Lab [facility] [address] [phone] Tad Jordan MD [address] [place] [address] 04/25/2024 9:15 AM CDT Oncology Visit [facility] Blood and Marrow Transplant Program [address] [phone] Tad Jordan MD 420 [facility] 480 [place] [address] documented as of this encounter Visit Diagnoses Not on filedocumented in this encounter Additional Health Concerns Infection Onset Date Last Indicated Resolved Time Rule Out COVID-19 07/17/2021 07/17/2021 07/17/2021 11:03 PM AUTO TRANSMISSION SPECIALIST COVID-19 Comment:Spoke with infectious disease, Dr. Katrin Harvey. After review of cycle thresholds and patient symptoms, Dr. Harvey advises that this patient no longer requires covid isolation requirements. 07/17/2021 08/15/2021 08/16/2021 11:21 AM AUTO TRANSMISSION SPECIALIST Rule Out C-difficile 07/18/2021 07/19/2021 022 5:47 AM AUTO TRANSMISSION SPECIALIST 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 Rule Out C-difficile 08/15/2021 08/16/2021 022 8:33 AM AUTO TRANSMISSION SPECIALIST Rule Out C-difficile 01/20/2022 01/20/2022 022 7:37 PM CDT C-difficile 01/20/2022 01/20/2022 02/19/2022 11:4 1 PM CDT Rule Out Parvovirus 01/22/2022 01/23/2022 01/28/20 22 3:32 PM CDT Parvovirus 01/23/2022 04/27/2023 Rule Out Parvovirus 01/29/2022 01/29/2022 02/04/20 22 4:12 PM CDT Rule Out Parvovirus 04/27/2023 04/27/2023 05/01/20 23 9:52 PM CDT documented as of this encounter Care Teams Senior Informatica Etl Developer Relationship Specialty Start Date End Date Caren Gómez PCP - General Physician Bottle Machine Operator 03/16/20 Shari Salazar MD [address] [place] [address] Assigned OBGYN Provider 05/04/20 Nyasia Prince MD NO INFO AVAILABLE 06/27/2022 Assigned Cancer Care Provider 05/04/20 06/22/21 Tim Alicea MD [address] [place], [place] 5228[address] Assigned Surgical Provider 08/12/20 02/07/22 Tad Jordan MD [address] [place] [address] [id number] BMT Physician Transplant 04/10/21 Mallory Malin MD [address] [place] [address] [phone] Endocrinology, Diabetes, and Metabolism 05/10/21 Latasha Wilcox PA-C [address] [place] [address] Referring Physician Hematology & Oncology 05/10/21 Matteo Gómez, RN Specialty Social Work Instructor BMT - Adult 05/16/21 04/07/23 Joe Herrera MD [address] [place] [address] 136 [place], [place] 4[address]95 Assigned Endocrinology Provider 05/26/21 01/16/23 Marika Salcido, [facility] Photography Colorist BMT - Adult 06/14/21 Tad Jordan MD [address] [place] [address] 447215 Assigned Cancer Care Provider 06/23/21 Debbie Lugo, RN Registered Nurse 01/21/22 Blaine Chaves RN BMT Nurse Coordinator Transplant 04/08/23 documented as of this encounter
--- OUTSIDE RECORDS SUMMARY | 2023-08-28 22:44 | XMS_ITS | Encounter Summary ---
Author Name Unknown Organization [facility] Address [address] [facility] [place] [address] Care Team Providers Care Swaging Machine Adjuster Name Role Phone Caren Gómez Primary Care Provider Kathrin Peoples RN Unavailable Shari Salazar MD Unavailable Nyasia Prince MD Unavailable Unavailab Tim Jimenez MD Unavailable [phone] Tad Jordan MD Unavailable [phone] Mallory Malin MD Unavailable [phone] Latasha Wilcox PA-C Unavailable [phone] Matteo Gómez RN Unavailable [phone] Joe Herrera MD Unavailable [phone] Marika Salcido [facility] Unavailable Tad Jordan MD Unavailable [phone] Debbie Lugo RN Unavailable Unavailabl e Samec, Blaine L RN Unavailable Unavailable Encounter Details Date Type Department Care Team (Late st Contact Info) Description 03/19/2021 MyC Medical Advice [facility] Blood and Marrow Transplant Program [address] [phone] Tad Jordan MD [address] [place] [address] 998365 Social History Tobacco Use Types Packs/Day Years [...] Info) Description 04/25/2024 9:00 AM CDT Lab [facility] [address] [place] [phone] Tad Jordan MD [address] [place] [address] [phone] 04/25/2024 9:15 AM CDT Oncology Visit [facility] Blood and Marrow Transplant Program [address] [phone] Tad Jordan MD [address] [place] [address] [phone] documented as of this encounter Visit Diagnoses [...] Out COVID-19 07/17/2021 07/17/2021 07/17/2021 11:03 PM UPSETTER COVID-19 Comment:Spoke with infectious disease, Dr. Katrin Harvey. After review of cycle thresholds and patient symptoms, Dr. Harvey advises that this patient no longer requires covid isolation requirements. 07/17/2021 08/15/2021 08/16/2021 11:21 AM UPSETTER Rule Out C-difficile 07/18/2021 07/19/2021 022 5:47 AM UPSETTER 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 Rule Out C-difficile 08/15/2021 08/16/2021 022 8:33 AM UPSETTER Rule Out C-difficile 01/20/2022 01/20/2022 022 7:37 PM CDT C-difficile 01/20/2022 01/20/2022 02/19/2022 11:4 1 PM CDT Rule Out Parvovirus 01/22/2022 01/23/2022 01/28/20 22 3:32 PM CDT Parvovirus 01/23/2022 04/27/2023 Rule Out Parvovirus 01/29/2022 01/29/2022 02/04/20 22 4:12 PM CDT Rule Out Parvovirus 04/27/2023 04/27/2023 05/01/20 23 9:52 PM CDT documented as of this encounter Care Teams Swaging Machine Adjuster Relationship Specialty Start Date End Date Caren Gómez PCP - General Physician Window Glazier 03/16/20 Kathrin Peoples, RN Specialty Cat And Dog Bather Hematology & Oncology 03/30/20 04/29/21 Shari Salazar MD [address] [place] [address] Assigned OBGYN Provider 05/04/20 Nyasia Prince MD NO INFO AVAILABLE 06/27/2022 Assigned Cancer Care Provider 05/04/20 06/22/21 Tim Alicea MD [address] [facility] [place] [address] Assigned Surgical Provider 08/12/20 02/07/22 Tad Jordan MD [address] [place] [address] 053205 BMT Physician Transplant 04/10/21 Mallory Malin MD [address] [place] [address] 031965 Endocrinology, Diabetes, and Metabolism 05/10/21 Latasha Wilcox PA-C [address] [place] [address] [phone] Referring Physician Hematology & Oncology 05/10/21 Matteo Gómez, RN Specialty Cat And Dog Bather BMT - Adult 05/16/21 04/07/23 Joe Herrera MD [address] [place] [address] [phone] Assigned Endocrinology Provider 05/26/21 01/16/23 Marika Salcido, [facility] Tanning Drum Operator BMT - Adult 06/14/21 Tad Jordan MD 420 [facility] 480 [place] [address] Assigned Cancer Care Provider 06/23/21 Debbie Lugo, RN Registered Nurse 01/21/22 [facility] Nurse Coordinator Transplant 04/08/23 documented as of this encounter
--- OUTSIDE RECORDS SUMMARY | 2023-08-28 22:44 | XMS_ITS | Encounter Summary ---
Author Name Unknown Organization [facility] Address [address] [facility] [place] [address] Care Team Providers Care Php Programmer Name Role Phone Caren Gómez Primary Care Provider Shari Salazar MD Unavailable [phone] Tim Alicea MD Unavailable [phone] Tad Jordan MD Unavailable [phone] Mallory Malin MD Unavailable [phone] Latasha WilcoxC Unavailable [phone] Matteo Gómez RN Unavailable [phone] Joe Herrera MD Unavailable [phone] Marika Salicdo [facility] Unavailable Tad Jordan MD Unavailable [phone] Debbie Lugo RN Unavailable Unavailabl Blaine Mullins RN Unavailable Unavailable Encounter Details Date Type Department Care Team (Late st Contact Info) Description 07/16/2021 [facility] [address] [place] [phone] Joceline Queen CMA Social History [...] COVID-19? No / Unsure 07/17/2021 8:40 PM IMAGING MANAGER documented as of this encounter Plan of Treatment Upcoming Encounters Date Type Department Care Team (Late st Contact Info) Description 04/25/2024 9:00 AM CDT Lab [facility] [address] [place] [phone] Tad Jordan MD [address] [place] [address] 04/25/2024 9:15 AM CDT Oncology Visit [facility] Blood and Marrow Transplant Program [address] [phone] Tad Jordan MD 420 [facility] 480 [place] [address] documented as of this encounter Visit Diagnoses Not on filedocumented in this encounter Additional Health Concerns Infection Onset Date Last Indicated Resolved Time Rule Out COVID-19 07/17/2021 07/17/2021 07/17/2021 11:03 PM IMAGING MANAGER COVID-19 Comment:Spoke with infectious disease, Dr. Katrin Harvey. After review of cycle thresholds and patient symptoms, Dr. Harvey advises that this patient no longer requires covid isolation requirements. 07/17/2021 08/15/2021 08/16/2021 11:21 AM IMAGING MANAGER Rule Out C-difficile 07/18/2021 07/19/2021 022 5:47 AM IMAGING MANAGER 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 Rule Out C-difficile 08/15/2021 08/16/2021 022 8:33 AM IMAGING MANAGER Rule Out C-difficile 01/20/2022 01/20/2022 022 7:37 PM CDT C-difficile 01/20/2022 01/20/2022 02/19/2022 11:4 1 PM CDT Rule Out Parvovirus 01/22/2022 01/23/2022 01/28/20 22 3:32 PM CDT Parvovirus 01/23/2022 04/27/2023 Rule Out Parvovirus 01/29/2022 01/29/2022 02/04/20 22 4:12 PM CDT Rule Out Parvovirus 04/27/2023 04/27/2023 05/01/20 23 9:52 PM CDT documented as of this encounter Care Teams Php Programmer Relationship Specialty Start Date End Date Caren Gómez PCP - General Physician Ballistics Tester 03/16/20 Shari Salazar MD [address] [place] [address] Assigned OBGYN Provider 05/04/20 Tim Alicea MD [address] [place] [address] Assigned Surgical Provider 08/12/20 02/07/22 Tad Jordan MD [address] [place] [address] BMT Physician Transplant 04/10/21 Mallory Malin MD [address] [place] [address] [phone] Endocrinology, Diabetes, and Metabolism 05/10/21 Latasha Wilcox PA-C [address] [place] [address] Referring Physician Hematology & Oncology 05/10/21 Matteo Gómez, NICKI Specialty Crystallography Teacher BMT - Adult 05/16/21 04/07/23 Joe Herrera MD [address] [place] [address] Assigned Endocrinology Provider 05/26/21 01/16/23 Marika Salcido, [facility] Hand Therapist BMT - Adult 06/14/21 Tad Jordan MD [address] [place] [address] Assigned Cancer Care Provider 06/23/21 Debbie Lugo, RN Registered Nurse 01/21/22 [facility] B[facility] Nurse Coordinator Transplant 04/08/23 documented as of this encounter
--- OUTSIDE RECORDS SUMMARY | 2023-08-28 22:44 | XMS_ITS | Encounter Summary ---
Author Name Unknown Organization [place] Address [address] [place] [address] Care Team Providers Care Parachute Mender Name Role Phone Caren Gómez Primary Care Provider Kathrin Peoples RN Unavailable Shari Salazar MD Unavailable Nyasia Prince MD Unavailable Unavailab Tim Jimenez MD Unavailable [phone] Tad Jordan MD Unavailable Mallory Malin MD Unavailable [phone] Latasha Wilcox PA-C Unavailable [phone] Matteo Gómez RN Unavailable [phone] Joe Herrera MD Unavailable [phone] Marika Salcido [facility] Unavailable Tad Jordan MD Unavailable [phone] Debbie Lugo RN Unavailable Unavailabl e Samec, Blaine L RN Unavailable Unavailable Encounter Details Date Type Department Care Team (Late st Contact Info) Description 05/09/2020 Orders Only [facility] Laboratory [address] [place] [phone] Shari Salazar MD [address] [place], [place] [phone] Pre-operative laboratory examination (Primary Dx) Social History [...] Info) Description 04/25/2024 9:00 AM CDT Lab [facility] [address] [place] [phone] Tad Jordan MD [address] [place] [address] 342175 04/25/2024 9:15 AM CDT Oncology Visit [facility] Blood and Marrow Transplant Program [address] [phone] Tad Jordan MD [address] [place] [address] documented as of this encounter Results * ABO/Rh type and screen (05/09/2020 1:51 PM CDT) ABO A 05/09/2020 2:32 PM CDT [facility] RH(D) Neg [facility] Antibody Screen Neg 05/09/2020 2:32 PM CDT [facility] Test Valid Only At [facility] 05/09/2020 2:05 PM CDT [facility] Specimen Expires 05/12/2020 05/09/2020 2:05 PM CDT [facility] Blood specimen (specimen) 05/09/2020 1:51 PM CDT 05/09/2020 1:52 PM CDT Shari Salazar MD LAB - BLOOD BANK TEST ORDER [facility] [address] [place], [place] [address] [phone] documented in this encounter Visit Diagnoses Diagnosis [...] Out COVID-19 07/17/2021 07/17/2021 07/17/2021 11:03 PM METEOROLOGY INSTRUCTOR COVID-19 Comment:Spoke with infectious disease, Dr. Katrin Harvey. After review of cycle thresholds and patient symptoms, Dr. Harvey advises that this patient no longer requires covid isolation requirements. 07/17/2021 08/15/2021 08/16/2021 11:21 AM METEOROLOGY INSTRUCTOR Rule Out C-difficile 07/18/2021 07/19/2021 022 5:47 AM METEOROLOGY INSTRUCTOR 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 Rule Out C-difficile 08/15/2021 08/16/2021 022 8:33 AM METEOROLOGY INSTRUCTOR Rule Out C-difficile 01/20/2022 01/20/2022 022 7:37 PM CDT C-difficile 01/20/2022 01/20/2022 02/19/2022 11:4 1 PM CDT Rule Out Parvovirus 01/22/2022 01/23/2022 01/28/20 3:32 PM CDT Parvovirus 01/23/2022 04/27/2023 Rule Out Parvovirus 01/29/2022 01/29/2022 02/04/20 4:12 PM CDT Rule Out Parvovirus 04/27/2023 04/27/2023 05/01/20 9:52 PM CDT documented as of this encounter Care Teams Parachute Mender Relationship Specialty Start Date End Date Caren Gómez PCP - General Physician Industrial Roofer Helper 03/16/20 Kathrin Peoples, RN Specialty Paper Reel Operator Hematology & Oncology 03/30/20 04/29/21 Shari Salazar MD [address] [place] [address] Assigned OBGYN Provider 05/04/20 Nyasia Prince MD NO INFO AVAILABLE 06/27/2022 Assigned Cancer Care Provider 05/04/20 06/22/21 Tim Alicea MD [address] [address] Assigned Surgical Provider 08/12/20 02/07/22 Tad Jordan MD [address] [address] BMT Physician Transplant 04/10/21 Mallory Malin MD 9 [place], [place] 3[address] Endocrinology, Diabetes, and Metabolism 05/10/21 Latasha Wilcox PA-C [address] [place] [address] [phone] Referring Physician Hematology & Oncology 05/10/21 Matteo Gómez, RN Specialty Paper Reel Operator BMT - Adult 05/16/21 04/07/23 Joe Herrera MD 420 [facility] 136 [place], [place] [address] Assigned Endocrinology Provider 05/26/21 01/16/23 Marika Salcido, [facility] Automatic Thread Winder BMT - Adult 06/14/21 Tad Jordan MD [address] [place] [address] 480 [place], [place] 164365 Assigned Cancer Care Provider 06/23/21 Debbie Lugo, RN Registered Nurse 01/21/22 Blaine Chaves RN BMT Nurse Coordinator Transplant 04/08/23 documented as of this encounter
--- OUTSIDE RECORDS SUMMARY | 2023-08-28 22:44 | XMS_ITS | Encounter Summary ---
Author Name Unknown Organization [facility] Address [address] [facility] [place] [address] Care Team Providers Care Wash Oil Pump Operator Name Role Phone Caren Gómez Primary Care Provider Kathrin Peoples RN Unavailable Shari Salazar MD Unavailable [phone] Nyasia Prince MD Unavailable Unavailab Tim Jimenez MD Unavailable [phone] Tad Jordan MD Unavailable [phone] Mallory Malin MD Unavailable [phone] Latasha Wilcox PA-C Unavailable [phone] Matteo Gómez RN Unavailable [phone] Joe Herrera MD Unavailable [phone] Marika Salcido [facility] Unavailable Tad Jordan MD Unavailable [phone] Debbie Lugo RN Unavailable Unavailabl e Samec, Blaine L RN Unavailable Unavailable Reason for Visit * Reason Onset Date Comments Patient Request for Note/Letter 06/01/2020 Encounter Details Date Type Department Care Team (Late st Contact Info) Description 06/01/2020 MyC Medical Advice [facility] [address] [place] [phone] Shari Salazar MD [address] [place] [address] Patient Request for Note/Letter Social History Tobacco [...] COVID-19? No / Unsure 06/01/2020 8:48 AM MEETING FACILITATOR documented as of this encounter Plan of Treatment Upcoming Encounters Date Type Department Care Team (Late Contact Info) Description 04/25/2024 9:00 AM CDT Lab [facility] [address] [place] [phone] Tad Jordan MD [address] [place] [address] 362015 04/25/2024 9:15 AM CDT Oncology Visit [facility] Blood and Marrow Transplant Program [address] [phone] Tad Jordan MD [address] [place] [address] 492805 documented as of this encounter Visit Diagnoses [...] Out COVID-19 07/17/2021 07/17/2021 07/17/2021 11:03 PM MEETING FACILITATOR COVID-19 Comment:Spoke with infectious disease, Dr. Katrin Harvey. After review of cycle thresholds and patient symptoms, Dr. Harvey advises that this patient no longer requires covid isolation requirements. 07/17/2021 08/15/2021 08/16/2021 11:21 AM MEETING FACILITATOR Rule Out C-difficile 07/18/2021 07/19/2021 022 5:47 AM MEETING FACILITATOR 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 Rule Out C-difficile 08/15/2021 08/16/2021 022 8:33 AM MEETING FACILITATOR Rule Out C-difficile 01/20/2022 01/20/2022 022 7:37 PM CDT C-difficile 01/20/2022 01/20/2022 02/19/2022 11:4 1 PM CDT Rule Out Parvovirus 01/22/2022 01/23/2022 01/28/20 22 3:32 PM CDT Parvovirus 01/23/2022 04/27/2023 Rule Out Parvovirus 01/29/2022 01/29/2022 02/04/20 22 4:12 PM CDT Rule Out Parvovirus 04/27/2023 04/27/2023 05/01/20 23 9:52 PM CDT documented as of this encounter Care Teams Wash Oil Pump Operator Relationship Specialty Start Date End Date Caren Gómez PCP - General Physician Flavor Maker 03/16/20 Kathrin Peoples, RN Specialty Stained Glass Joiner Hematology & Oncology 03/30/20 04/29/21 Shari Salazar MD [address] [place] [address] Assigned OBGYN Provider 05/04/20 Nyasia Prince MD NO INFO AVAILABLE 06/27/2022 Assigned Cancer Care Provider 05/04/20 06/22/21 Tim Alicea MD [address] [place], [place] 449845 Assigned Surgical Provider 08/12/20 02/07/22 Tad Jordan MD 420 [facility] 480 [place], [place] [address] BMT Physician Transplant 04/10/21 Mallory Malin MD [address] [place], [place] [address]95 Endocrinology, Diabetes, and Metabolism 05/10/21 Latasha Wilcox PA-C [address] [place], [place] 08[address]25 Referring Physician Hematology & Oncology 05/10/21 Matteo Gómez, NICKI Specialty Stained Glass Joiner BMT - Adult 05/16/21 04/07/23 Joe Herrera MD 420 [facility] 136 [place], [place] 335925 Assigned Endocrinology Provider 05/26/21 01/16/23 Marika Salcido, [facility] Food General Manager BMT - Adult 06/14/21 Tad Jordan MD 420 [facility] 480 [place] [address] Assigned Cancer Care Provider 06/23/21 Debbie Lugo, RN Registered Nurse 01/21/22 [facility] Nurse Coordinator Transplant 04/08/23 documented as of this encounter
--- OUTSIDE RECORDS SUMMARY | 2023-08-28 22:44 | XMS_ITS | Encounter Summary ---
Author Name Unknown Organization [place] Address [address] [facility] [place] [address] Care Team Providers Care Wire Saw Operator Name Role Phone Caren Gómez Primary Care Provider [phone] Kathrin Peoples RN Unavailable Shari Salazar MD Unavailable Nyasia Prince MD Unavailable Unavailab Tim Jimenez MD Unavailable [phone] Tad Jordan MD Unavailable [phone] Mallory Malin MD Unavailable [phone] Latasha Wilcox PA-C Unavailable [phone] Matteo Gómez RN Unavailable [phone] Joe Herrera MD Unavailable [phone] Marika Salcido [facility] Unavailable Tad Jordan MD Unavailable [phone] Debbie Lugo RN Unavailable Unavailabl e Samec, Blaine L RN Unavailable Unavailable Encounter Details Date Type Department Care Team (Late st Contact Info) Description 10/26/2020 MyC Medical Advice [facility] Blood and Marrow Transplant Program [address] [phone] Nyasia Prince MD NO INFO AVAILABLE 06/27/2022 [...] Info) Description 04/25/2024 9:00 AM CDT Lab [facility] [address] [place] [phone] Tad Jordan MD [address] [place] [address] [phone] 04/25/2024 9:15 AM CDT Oncology Visit [facility] Blood and Marrow Transplant Program [address] [phone] Tad Jordan MD [address] [place] [address] 707655 documented as of this encounter Visit Diagnoses [...] Out COVID-19 07/17/2021 07/17/2021 07/17/2021 11:03 PM BUFFER AUTOMATIC COVID-19 Comment:Spoke with infectious disease, Dr. Katrin Harvey. After review of cycle thresholds and patient symptoms, Dr. Harvey advises that this patient no longer requires covid isolation requirements. 07/17/2021 08/15/2021 08/16/2021 11:21 AM BUFFER AUTOMATIC Rule Out C-difficile 07/18/2021 07/19/2021 022 5:47 AM BUFFER AUTOMATIC 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 Rule Out C-difficile 08/15/2021 08/16/2021 022 8:33 AM BUFFER AUTOMATIC Rule Out C-difficile 01/20/2022 01/20/2022 022 7:37 PM CDT C-difficile 01/20/2022 01/20/2022 02/19/2022 11:4 1 PM CDT Rule Out Parvovirus 01/22/2022 01/23/2022 01/28/20 22 3:32 PM CDT Parvovirus 01/23/2022 04/27/2023 Rule Out Parvovirus 01/29/2022 01/29/2022 02/04/20 22 4:12 PM CDT Rule Out Parvovirus 04/27/2023 04/27/2023 05/01/20 23 9:52 PM CDT documented as of this encounter Care Teams Wire Saw Operator Relationship Specialty Start Date End Date Caren Gómez PCP - General Physician River Captain 03/16/20 Kathrin Peoples, NICKI Specialty Rotary Soil Stabilizer Operator Hematology & Oncology 03/30/20 04/29/21 Shari Salazar MD [address] [place] [address] Assigned OBGYN Provider 05/04/20 Nyasia Prince MD NO INFO AVAILABLE 06/27/2022 Assigned Cancer Care Provider 05/04/20 06/22/21 Tim Alicea MD [address] [place] [place], [place] [address]25 Assigned Surgical Provider 08/12/20 02/07/22 Tad Jordan MD [address] [place] [address] 480 [place], [place] 27[address]85 BMT Physician Transplant 04/10/21 Mallory Malin MD [address] [place] [address] 974295 Endocrinology, Diabetes, and Metabolism 05/10/21 Latasha Wilcox PA-C [address] [place] [address] [phone] Referring Physician Hematology & Oncology 05/10/21 Matteo Gómez, RN Specialty Rotary Soil Stabilizer Operator BMT - Adult 05/16/21 04/07/23 Joe Herrera MD [address] [place] [address] 136 [place], [place] 626455 Assigned Endocrinology Provider 05/26/21 01/16/23 Marika Salcido, [facility] Gang Sawyer BMT - Adult 06/14/21 Tad Jordan MD [address] [address] Assigned Cancer Care Provider 06/23/21 Debbie Lugo, RN Registered Nurse 01/21/22 Blaine Chaves RN BMT Nurse Coordinator Transplant 04/08/23 documented as of this encounter
--- OUTSIDE RECORDS SUMMARY | 2023-08-28 22:44 | XMS_ITS | Encounter Summary ---
Author Name Unknown Organization [place] Address [address] [facility] [place] [address] Care Team Providers Care Harness Installer Name Role Phone Caren Gómez Primary Care Provider [phone] Shari Salazar MD Unavailable [phone] Nyasia Prince MD Unavailable Unavailab Tim Jimenez MD Unavailable [phone] Tad Jordan MD Unavailable [phone] Mallory Malin MD Unavailable [phone] Latasha Wilcox PA-C Unavailable [phone] Matteo Gómez RN Unavailable [phone] Joe Herrera MD Unavailable [phone] Marika Salcido [facility] Unavailable Tad Jordan MD Unavailable [phone] Debbie Lugo RN Unavailable UnavailBlaine Gibbs RN Unavailable Unavailable Encounter Details Date Type Department Care Team (Late st Contact Info) Description 05/16/[address] [facility] Blood and Marrow Transplant Program [address] [address] Latasha Wilcox PA-C [address] [place] [address] [id number] Social History Tobacco Use Types Packs/Day Years [...] [facility] [address] [place] [address] [phone] Tad Jordan MD [address] [place] [address] 687385 04/25/2024 9:15 AM CDT Oncology Visit [facility] Blood and Marrow Transplant Program [address] [place] [address] Tad Jordan MD 420 [facility] 480 [place], [place] 286355 documented as of this encounter Visit Diagnoses Not on filedocumented in this encounter Additional Health Concerns Infection Onset Date Last Indicated Resolved Time Rule Out COVID-19 07/17/2021 07/17/2021 07/17/2021 11:03 PM ROLLED GOLD PLATER COVID-19 Comment:Spoke with infectious disease, Dr. Katrin Harvey. After review of cycle thresholds and patient symptoms, Dr. Harvey advises that this patient no longer requires covid isolation requirements. 07/17/2021 08/15/2021 08/16/2021 11:21 AM ROLLED GOLD PLATER Rule Out C-difficile 07/18/2021 07/19/2021 022 5:47 AM ROLLED GOLD PLATER 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 Rule Out C-difficile 08/15/2021 08/16/2021 022 8:33 AM ROLLED GOLD PLATER Rule Out C-difficile 01/20/2022 01/20/2022 022 7:37 PM CDT C-difficile 01/20/2022 01/20/2022 02/19/2022 11:4 1 PM CDT Rule Out Parvovirus 01/22/2022 01/23/2022 01/28/20 22 3:32 PM CDT Parvovirus 01/23/2022 04/27/2023 Rule Out Parvovirus 01/29/2022 01/29/2022 02/04/20 22 4:12 PM CDT Rule Out Parvovirus 04/27/2023 04/27/2023 05/01/20 23 9:52 PM CDT documented as of this encounter Care Teams Harness Installer Relationship Specialty Start Date End Date Rico Caern M PCP - General Physician Dry Chain Operator 03/16/20 Shari Salazar MD [address] [place] [address] Assigned OBGYN Provider 05/04/20 Nyasia Prince MD NO INFO AVAILABLE 06/27/2022 Assigned Cancer Care Provider 05/04/20 06/22/21 Tim Alicea MD [address] [place] [address] Assigned Surgical Provider 08/12/20 02/07/22 Tad Jordan MD [address] [place] [address] 329365 BMT Physician Transplant 04/10/21 Mallory Malin MD [address] [place], [place] 425915 Endocrinology, Diabetes, and Metabolism 05/10/21 Latasha Wilcox PA-C [address] [place], [place] 794245 Referring Physician Hematology & Oncology 05/10/21 Matteo Gómez, RN Specialty Christian Science Reader BMT - Adult 05/16/21 04/07/23 Joe Herrera MD [address] [place] [address] 136 [place] [address] Assigned Endocrinology Provider 05/26/21 01/16/23 Marika Salcido, [facility] Electrical Technician Instructor BMT - Adult 06/14/21 Tad Jordan MD 420 [facility] 480 [place] [address] Assigned Cancer Care Provider 06/23/21 Debbie Lugo, RN Registered Nurse 01/21/22 Blaine Chaves RN BMT Nurse Coordinator Transplant 04/08/23 documented as of this encounter
--- OUTSIDE RECORDS SUMMARY | 2023-08-28 22:44 | XMS_ITS | Encounter Summary ---
Author Name Unknown Organization [place] Address [address] [facility] [place] [address] Care Team Providers Care Home And School Visitor Name Role Phone Caren Gómez Primary Care Provider Shari Salazar MD Unavailable [phone]- [phone] Tim Alicea MD Unavailable [phone] Tad Jordan MD Unavailable [phone] Mallory Malin MD Unavailable [phone] Latasha WilcoxC Unavailable [phone] Matteo Gómez RN Unavailable [phone] Joe Herrera MD Unavailable [phone] Marika Salcido [facility] Unavailable Tad Jordan MD Unavailable Debbie Lugo RN Unavailable Unavailabl Blaine Mullins RN Unavailable Unavailable Encounter Details Date Type Department Care Team (Late st Contact Info) Description 07/15/2021 [facility] Endocrinology Clinic [address] [place] [address] Joe Herrera MD [address] [place] [address] 136 [place], [place] [phone] Social History Tobacco Use Types Packs/Day Years [...] COVID-19? No / Unsure 07/17/2021 8:40 PM OVEREDGE SEWER documented as of this encounter Plan of Treatment Upcoming Encounters Date Type Department Care Team (Late st Contact Info) Description 04/25/2024 9:00 AM CDT [facility] Cancer [address] [address] Tad Jordan MD [address] [place] [address] 480 [place], [place] 570845 04/25/2024 9:15 AM CDT Oncology Visit [facility] Blood and Marrow Transplant Program [address] [address] Tad Jordan MD [address] [place] [address] documented as of this encounter Visit Diagnoses Not on filedocumented in this encounter Additional Health Concerns Infection Onset Date Last Indicated Resolved Time Rule Out COVID-19 07/17/2021 07/17/2021 07/17/2021 11:03 PM OVEREDGE SEWER COVID-19 Comment:Spoke with infectious disease, Dr. Katrin Harvey. After review of cycle thresholds and patient symptoms, Dr. Harvey advises that this patient no longer requires covid isolation requirements. 07/17/2021 08/15/2021 08/16/2021 11:21 AM OVEREDGE SEWER Rule Out C-difficile 07/18/2021 07/19/2021 022 5:47 AM OVEREDGE SEWER 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 Rule Out C-difficile 08/15/2021 08/16/2021 022 8:33 AM OVEREDGE SEWER Rule Out C-difficile 01/20/2022 01/20/2022 022 7:37 PM CDT C-difficile 01/20/2022 01/20/2022 02/19/2022 11:4 1 PM CDT Rule Out Parvovirus 01/22/2022 01/23/2022 01/28/20 22 3:32 PM CDT Parvovirus 01/23/2022 04/27/2023 Rule Out Parvovirus 01/29/2022 01/29/2022 02/04/20 22 4:12 PM CDT Rule Out Parvovirus 04/27/2023 04/27/2023 05/01/20 23 9:52 PM CDT documented as of this encounter Care Teams Home And School Visitor Relationship Specialty Start Date End Date Rico Caren M PCP - General Physician Office Professionals 03/16/20 Shari Salazar MD 5200 [place] [address] Assigned OBGYN Provider 05/04/20 Tim Alicea MD [address] [place] [address] Assigned Surgical Provider 08/12/20 02/07/22 Tad Jordan MD 420 [facility] 480 [place], [place] 570845 BMT Physician Transplant 04/10/21 Mallory Malin MD 909 [place], [place] 59[address]65 Endocrinology, Diabetes, and Metabolism 05/10/21 Latasha Wilcox PA-C 909 [place], [place] 686025 Referring Physician Hematology & Oncology 05/10/21 Matteo Gómez, RN Specialty Divinity Teacher BMT - Adult 05/16/21 04/07/23 Joe Herrera MD 420 [facility] 136 [place] [address] Assigned Endocrinology Provider 05/26/21 01/16/23 Marika Salcido, [facility] Superintendent Commissary BMT - Adult 06/14/21 Tad Jordan MD 420 [facility] 480 [place] [address] Assigned Cancer Care Provider 06/23/21 Debbie Lugo, RN Registered Nurse 01/21/22 Blaine Chaves RN BMT Nurse Coordinator Transplant 04/08/23 documented as of this encounter
--- OUTSIDE RECORDS SUMMARY | 2023-08-28 22:44 | XMS_ITS | Encounter Summary ---
Author Name Unknown Organization [place] Address [address] [place] [address] Care Team Providers Care Forms Analysis Manager Name Role Phone Caren Gómez Primary Care Provider [phone] Shari Salazar MD Unavailable [phone] Nyasia Prince MD Unavailable Unavailab Tim Jimenez MD Unavailable [phone] Tad Jordan MD Unavailable [phone] Mallory Malin MD Unavailable [phone] Latasha Wilcox PA-C Unavailable [phone] Matteo Gómez RN Unavailable [phone] Joe Herrera MD Unavailable [phone] Marika Salcido [facility] Unavailable Tad Jordan MD Unavailable [phone] Debbie Lugo RN Unavailable UnavailBlaine Gibbs RN Unavailable Unavailable Encounter Details Date Type Department Care Team (Late st Contact Info) Description 05/28/[address] [facility] Blood and Marrow Transplant Program [address] [address] Latasha Wilcox PA-C [address] [place] [address] [phone] Social History Tobacco Use Types Packs/Day Years [...] COVID-19? No / Unsure 05/30/2021 9:52 AM MANAGER PLANT documented as of this encounter Plan of Treatment Upcoming Encounters Date Type Department Care Team (Late st Contact Info) Description 04/25/2024 9:00 AM CDT Lab [facility] [address] [place] [address] [phone] Tad Jordan MD [address] [place] [address] 502629 04/25/2024 9:15 AM CDT Oncology Visit [facility] Blood and Marrow Transplant Program [address] [place] [address] Tad Jordan MD 420 [facility] 480 [place], [place] 00[address]455 documented as of this encounter Visit Diagnoses Not on filedocumented in this encounter Additional Health Concerns Infection Onset Date Last Indicated Resolved Time Rule Out COVID-19 07/17/2021 07/17/2021 07/17/2021 11:03 PM MANAGER PLANT COVID-19 Comment:Spoke with infectious disease, Dr. Katrin Harvey. After review of cycle thresholds and patient symptoms, Dr. Harvey advises that this patient no longer requires covid isolation requirements. 07/17/2021 08/15/2021 08/16/2021 11:21 AM MANAGER PLANT Rule Out C-difficile 07/18/2021 07/19/2021 022 5:47 AM MANAGER PLANT 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 Rule Out C-difficile 08/15/2021 08/16/2021 022 8:33 AM MANAGER PLANT Rule Out C-difficile 01/20/2022 01/20/2022 022 7:37 PM CDT C-difficile 01/20/2022 01/20/2022 02/19/2022 11:4 1 PM CDT Rule Out Parvovirus 01/22/2022 01/23/2022 01/28/20 22 3:32 PM CDT Parvovirus 01/23/2022 04/27/2023 Rule Out Parvovirus 01/29/2022 01/29/2022 02/04/20 22 4:12 PM CDT Rule Out Parvovirus 04/27/2023 04/27/2023 05/01/20 23 9:52 PM CDT documented as of this encounter Care Teams Forms Analysis Manager Relationship Specialty Start Date End Date Rico Caren M PCP - General Physician Demographer 03/16/20 Shari Salazar MD [address] [facility] [place] [place] [address] Assigned OBGYN Provider 05/04/20 Nyasia Prince MD NO INFO AVAILABLE 06/27/2022 Assigned Cancer Care Provider 05/04/20 06/22/21 Tim Alicea MD [address] [place] [address] Assigned Surgical Provider 08/12/20 02/07/22 Tad Jordan MD [address] [place] [address] 497105 BMT Physician Transplant 04/10/21 Mallory Malin MD 909 [place], [place] 00[address] Endocrinology, Diabetes, and Metabolism 05/10/21 Latasha Wilcox PA-C 9 [place], [place] [address]85 Referring Physician Hematology & Oncology 05/10/21 Matteo Gómez, RN Specialty Clean Energy Policy Analyst BMT - Adult 05/16/21 04/07/23 Joe Herrera MD [address] [place] [address] 136 [place] [address] Assigned Endocrinology Provider 05/26/21 01/16/23 Marika Salcido, [facility] Scheduling Representative BMT - Adult 06/14/21 Tad Jordan MD 420 [facility] 480 [place] [address] Assigned Cancer Care Provider 06/23/21 Debbie Lugo, RN Registered Nurse 01/21/22 [facility] Nurse Coordinator Transplant 04/08/23 documented as of this encounter
--- OUTSIDE RECORDS SUMMARY | 2023-08-28 22:44 | XMS_ITS | Encounter Summary ---
Author Name Unknown Organization [place] Address 24[address] [place] [address] Care Team Providers Care Gravure Press Set Up Operator Name Role Phone Caren Gómez Primary Care Provider Shari Salazar MD Unavailable [phone] Nyasia Prince MD Unavailable Unavailab Tim Jimenez MD Unavailable [phone] Tad Jordan MD Unavailable [phone] Mallory Malin MD Unavailable [phone] Latasha Wilcox PA-C Unavailable [phone] Matteo Gómez RN Unavailable [phone] Joe Herrera MD Unavailable [phone] Marika Salcido [facility] Unavailable Tad Jordan MD Unavailable [phone] Debbie Lugo RN Unavailable UnavailBlaine Gibbs RN Unavailable Unavailable Encounter Details Date Type Department Care Team (Late st Contact Info) Description 05/16/2021 MyC Medical Advice [facility] Endocrinology Clinic [address] [place] [address] Robert Burdick Social History Tobacco [...] Info) Description 04/25/2024 9:00 AM CDT Lab [facility] Clinic [address] [place] [address] Tad Jordan MD [address] [place] [address] 977615 04/25/2024 9:15 AM CDT Oncology Visit [facility] Blood and Marrow Transplant Program [address] [address] Tad Jordan MD 420 [facility] 480 [place] [address] documented as of this encounter Visit Diagnoses Not on filedocumented in this encounter Additional Health Concerns Infection Onset Date Last Indicated Resolved Time Rule Out COVID-19 07/17/2021 07/17/2021 07/17/2021 11:03 PM TANK SHOP SUPERVISOR COVID-19 Comment:Spoke with infectious disease, Dr. Katrin Harvey. After review of cycle thresholds and patient symptoms, Dr. Harvey advises that this patient no longer requires covid isolation requirements. 07/17/2021 08/15/2021 08/16/2021 11:21 AM TANK SHOP SUPERVISOR Rule Out C-difficile 07/18/2021 07/19/2021 022 5:47 AM TANK SHOP SUPERVISOR 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 Rule Out C-difficile 08/15/2021 08/16/2021 022 8:33 AM TANK SHOP SUPERVISOR Rule Out C-difficile 01/20/2022 01/20/2022 022 7:37 PM CDT C-difficile 01/20/2022 01/20/2022 02/19/2022 11:4 1 PM CDT Rule Out Parvovirus 01/22/2022 01/23/2022 01/28/20 22 3:32 PM CDT Parvovirus 01/23/2022 04/27/2023 Rule Out Parvovirus 01/29/2022 01/29/2022 02/04/20 22 4:12 PM CDT Rule Out Parvovirus 04/27/2023 04/27/2023 05/01/20 23 9:52 PM CDT documented as of this encounter Care Teams Gravure Press Set Up Operator Relationship Specialty Start Date End Date Caren Gómez PCP - General Physician Courtroom Clerk 03/16/20 Shari Salazar MD [address] [place] [address] Assigned OBGYN Provider 05/04/20 Nyasia Prince MD NO INFO AVAILABLE 06/27/2022 Assigned Cancer Care Provider 05/04/20 06/22/21 Tim Alicea MD 6[address] [facility] [place], [place] 0[address]85 Assigned Surgical Provider 08/12/20 02/07/22 Tad Jordan MD [address] [place] [address] [id number] BMT Physician Transplant 04/10/21 Mallory Malin MD [address] [place] [address] [id number] Endocrinology, Diabetes, and Metabolism 05/10/21 Latasha Wilcox PA-C [address] [place] [address] Referring Physician Hematology & Oncology 05/10/21 Matteo Gómez, RN Specialty Fuel Cell Technician BMT - Adult 05/16/21 04/07/23 Joe Herrera MD 420 [facility] 136 [place], [place] 7[address]35 Assigned Endocrinology Provider 05/26/21 01/16/23 Marika Salcido, [facility] Publication Manager BMT - Adult 06/14/21 Tad Jordan MD [address] [place] [address] 480 [place], [place] 758575 Assigned Cancer Care Provider 06/23/21 Debbie Lugo, RN Registered Nurse 01/21/22 Blaine Chaves RN BMT Nurse Coordinator Transplant 04/08/23 documented as of this encounter
--- OUTSIDE RECORDS SUMMARY | 2023-08-28 22:44 | XMS_ITS | Encounter Summary ---
Author Name Unknown Organization [place] Address [address] [place] [address] Care Team Providers Care Strap Maker Name Role Phone Caren Gómez Primary Care Provider [phone] Shari Salazar MD Unavailable [phone] Tim Alicea MD Unavailable [phone] Tad Jordan MD Unavailable [phone] Mallory Malin MD Unavailable [phone] Latasha WilcoxC Unavailable [phone] Matteo Gómez RN Unavailable [phone] Joe Herrera MD Unavailable [phone] Marika Salcido [facility] Unavailable Tad Jordan MD Unavailable [phone] Debbie Lugo RN Unavailable Unavailabl Blaine Mullins RN Unavailable Unavailable Encounter Details Date Type Department Care Team (Late st Contact Info) Description 07/15/2021 [facility] Endocrinology Clinic [address] [place] [address] Joceline Queen CMA Social History [...] COVID-19? No / Unsure 07/17/2021 8:40 PM HOTEL ASSISTANT MANAGER documented as of this encounter Plan of Treatment Upcoming Encounters Date Type Department Care Team (Late st Contact Info) Description 04/25/2024 9:00 AM CDT Lab [facility] [address] [place] [address] Tad Jordan MD [address] [place] [address] 04/25/2024 9:15 AM CDT Oncology Visit [facility] Blood and Marrow Transplant Program [address] [phone] Tad Jordan MD 420 [facility] 480 [place] [address] documented as of this encounter Visit Diagnoses Not on filedocumented in this encounter Additional Health Concerns Infection Onset Date Last Indicated Resolved Time Rule Out COVID-19 07/17/2021 07/17/2021 07/17/2021 11:03 PM HOTEL ASSISTANT MANAGER COVID-19 Comment:Spoke with infectious disease, Dr. Katrin Harvey. After review of cycle thresholds and patient symptoms, Dr. Harvey advises that this patient no longer requires covid isolation requirements. 07/17/2021 08/15/2021 08/16/2021 11:21 AM HOTEL ASSISTANT MANAGER Rule Out C-difficile 07/18/2021 07/19/2021 022 5:47 AM HOTEL ASSISTANT MANAGER 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 Rule Out C-difficile 08/15/2021 08/16/2021 022 8:33 AM HOTEL ASSISTANT MANAGER Rule Out C-difficile 01/20/2022 01/20/2022 022 7:37 PM CDT C-difficile 01/20/2022 01/20/2022 02/19/2022 11:4 1 PM CDT Rule Out Parvovirus 01/22/2022 01/23/2022 01/28/20 22 3:32 PM CDT Parvovirus 01/23/2022 04/27/2023 Rule Out Parvovirus 01/29/2022 01/29/2022 02/04/20 22 4:12 PM CDT Rule Out Parvovirus 04/27/2023 04/27/2023 05/01/20 23 9:52 PM CDT documented as of this encounter Care Teams Strap Maker Relationship Specialty Start Date End Date Caren Gómez PCP - General Physician Copy Editor 03/16/20 Shari Salazar MD 5[address] [place] [address] Assigned OBGYN Provider 05/04/20 Tim Alicea MD [address] [place] [address] Assigned Surgical Provider 08/12/20 02/07/22 Tad Jordan MD [address] [place] [address] BMT Physician Transplant 04/10/21 Mallory Malin MD [address] [place] [address] 124495 Endocrinology, Diabetes, and Metabolism 05/10/21 Latasha Wilcox PA-C [address] [place] [address] Referring Physician Hematology & Oncology 05/10/21 Matteo Gómez, NICKI Specialty Etched Circuit Processor BMT - Adult 05/16/21 04/07/23 Joe Herrera MD [address] [place] [address] Assigned Endocrinology Provider 05/26/21 01/16/23 Marika Salcido, [facility] Rn Residential BMT - Adult 06/14/21 Tad Jordan MD [address] [place] [address] Assigned Cancer Care Provider 06/23/21 Debbie Lugo, RN Registered Nurse 01/21/22 [facility] B[facility] Nurse Coordinator Transplant 04/08/23 documented as of this encounter
--- OUTSIDE RECORDS SUMMARY | 2023-08-28 22:44 | XMS_ITS | Encounter Summary ---
Author Name Unknown Organization [place] Address [address]50 [facility] [place] [address] Care Team Providers Care Cat Sitter Name Role Phone Caren Gómez Primary Care Provider Shari Salazar MD Unavailable [phone] Tim Alicea MD Unavailable [phone] Tad Jordan MD Unavailable [phone] Mallory Malin MD Unavailable [phone] Latasha WilcoxC Unavailable [phone] Matteo Gómez RN Unavailable [phone] Joe Herrera MD Unavailable [phone] Marika Salcido [facility] Unavailable Tad Jordan MD Unavailable [phone] Debbie Lugo RN Unavailable Unavailabl Blaine Mullins RN Unavailable Unavailable Encounter Details Date Type Department Care Team (Late st Contact Info) Description 08/09/2021 [facility] Blood and Marrow Transplant Program [address] [phone] Robert Burdick Social History Tobacco Use Types [...] COVID-19? No / Unsure 08/05/2021 1:41 PM GIS PROGRAMMER documented as of this encounter Plan of Treatment Upcoming Encounters Date Type Department Care Team (Late st Contact Info) Description 04/25/2024 9:00 AM CDT [facility] [address] [place] [address] Tad Jordan MD [address] [place] [address] 04/25/2024 9:15 AM CDT Oncology Visit [facility] Blood and Marrow Transplant Program [address] [phone] Tad Jordan MD 420 [facility] 480 [place] [address] documented as of this encounter Visit Diagnoses Not on filedocumented in this encounter Additional Health Concerns Infection Onset Date Last Indicated Resolved Time COVID-19 Comment:Spoke with infectious disease, Dr. Katrin Harvey. After review of cycle thresholds and patient symptoms, Dr. Harvey advises that this patient no longer requires covid isolation requirements. 07/17/2021 08/15/2021 08/16/2021 11:21 AM GIS PROGRAMMER 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 Rule Out C-difficile 08/15/2021 08/16/2021 022 8:33 AM GIS PROGRAMMER Rule Out C-difficile 01/20/2022 01/20/2022 022 7:37 PM CDT C-difficile 01/20/2022 01/20/2022 02/19/2022 11:4 1 PM CDT Rule Out Parvovirus 01/22/2022 01/23/2022 01/28/20 22 3:32 PM CDT Parvovirus 01/23/2022 04/27/2023 Rule Out Parvovirus 01/29/2022 01/29/2022 02/04/20 22 4:12 PM CDT Rule Out Parvovirus 04/27/2023 04/27/2023 05/01/20 23 9:52 PM CDT documented as of this encounter Care Teams Cat Sitter Relationship Specialty Start Date End Date Caren Gómez PCP - General Physician Resident Care Technician 03/16/20 Shari Salazar MD [address] [place] [address] Assigned OBGYN Provider 05/04/20 Tim Alicea MD [address] [place] 719245 Assigned Surgical Provider 08/12/20 02/07/22 Tad Jordan MD [address] [place] [address] 480 [place] [address] BMT Physician Transplant 04/10/21 Mallory Malin MD [address] [place] [address] Endocrinology, Diabetes, and Metabolism 05/10/21 Latasha Wilcox PA-C [address] [place] [address] 698865 Referring Physician Hematology & Oncology 05/10/21 Matteo Gómez, NICKI Specialty Project/Production Manager Imaging BMT - Adult 05/16/21 04/07/23 Joe Herrera MD [address] [place] [address] Assigned Endocrinology Provider 05/26/21 01/16/23 Marika Salcido, [facility] Parts Counter Sales Person BMT - Adult 06/14/21 Tad Jordan MD [address] [place] [address] Assigned Cancer Care Provider 06/23/21 Debbie Lugo, RN Registered Nurse 01/21/22 Blaine Chaves RN BMT Nurse Coordinator Transplant 04/08/23 documented as of this encounter
--- OUTSIDE RECORDS SUMMARY | 2023-08-28 22:45 | XMS_ITS ---
Author Name Unknown Organization [place] Address [address] [facility] [place] [address] Care Team Providers Care Bandage Winding Machine Operator Name Role Phone Caren Gómez Primary Care Provider [phone] Tad Jordan MD Unavailable [phone] Mallory Malin MD Unavailable [phone] Ltaasha WilcoxC Unavailable [phone] Marika Salcido [facility] Unavailable Tad Jordan MD Unavailable [phone] Debbie Lugo RN Unavailable UnavailBlaine Gibbs RN Unavailable Unavailable Diabetes Self-Management Education Status:Enrolled (Active) Start date:05/27/2021 Enrollment date:05/27/2021 Continued Care and Services Coordination
--- OUTSIDE RECORDS SUMMARY | 2023-08-28 22:45 | XMS_ITS | Encounter Summary ---
Author Name Unknown Organization [place] Address [address] [place] [address] Care Team Providers Care Curriculum And Instruction Specialist Name Role Phone Caren Gómez Primary Care Provider [phone] Kathrin Peoples RN Unavailable Shari Salazar MD Unavailable Nyasia Prince MD Unavailable Unavailab Tim Jimenez MD Unavailable [phone] Tad Jordan MD Unavailable [phone] Mallory Malin MD Unavailable [phone] Latasha Wilcox PA-C Unavailable [phone] Matteo Gómez RN Unavailable [phone] Joe Herrera MD Unavailable [phone] Marika Salcido [facility] Unavailable Tad Jordan MD Unavailable [phone] Debbie Lugo RN Unavailable Unavailabl e Samec, Blaine L RN Unavailable Unavailable Encounter Details Date Type Department Care Team (Late st Contact Info) Description 04/02/2020 MyC Medical Advice [facility] [address] [phone] Shari Salazar MD [address] [place] [address] Social History Tobacco Use Types Packs/Day Years [...] Info) Description 04/25/2024 9:00 AM CDT Lab [facility] [address] [place] [phone] Tad Jordan MD [address] [place] [id number] 04/25/2024 9:15 AM CDT Oncology Visit [facility] Blood and Marrow Transplant Program [address] [phone] Tad Jordan MD [address] [place] [address] [phone] documented as of this encounter Visit Diagnoses [...] Out COVID-19 07/17/2021 07/17/2021 07/17/2021 11:03 PM SALES DONOR RECRUITMENT REPRESENTATIVE COVID-19 Comment:Spoke with infectious disease, Dr. Katrin Harvey. After review of cycle thresholds and patient symptoms, Dr. Harvey advises that this patient no longer requires covid isolation requirements. 07/17/2021 08/15/2021 08/16/2021 11:21 AM SALES DONOR RECRUITMENT REPRESENTATIVE Rule Out C-difficile 07/18/2021 07/19/2021 022 5:47 AM SALES DONOR RECRUITMENT REPRESENTATIVE 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 Rule Out C-difficile 08/15/2021 08/16/2021 022 8:33 AM SALES DONOR RECRUITMENT REPRESENTATIVE Rule Out C-difficile 01/20/2022 01/20/2022 022 7:37 PM CDT C-difficile 01/20/2022 01/20/2022 02/19/2022 11:4 1 PM CDT Rule Out Parvovirus 01/22/2022 01/23/2022 01/28/20 22 3:32 PM CDT Parvovirus 01/23/2022 04/27/2023 Rule Out Parvovirus 01/29/2022 01/29/2022 02/04/20 22 4:12 PM CDT Rule Out Parvovirus 04/27/2023 04/27/2023 05/01/20 23 9:52 PM CDT documented as of this encounter Care Teams Curriculum And Instruction Specialist Relationship Specialty Start Date End Date Caren Gómez PCP - General Physician Mechanical Maintenance Technician 03/16/20 Kathrin Peoples, NICKI Specialty Silk Hanger Hematology & Oncology 03/30/20 04/29/21 Shari Salazar MD [address] [place] [address] Assigned OBGYN Provider 05/04/20 Nyasia Prince MD NO INFO AVAILABLE 06/27/2022 Assigned Cancer Care Provider 05/04/20 06/22/21 Tim Alicea MD [address] [place] [address] Assigned Surgical Provider 08/12/20 02/07/22 Tad Jordan MD [address] [place] [address] [id number] BMT Physician Transplant 04/10/21 Mallory Malin MD [address] [place] [address] [phone] Endocrinology, Diabetes, and Metabolism 05/10/21 Latasha Wilcox PA-C [address] [place] [address] [phone] Referring Physician Hematology & Oncology 05/10/21 Matteo Gómez, RN Specialty Silk Hanger BMT - Adult 05/16/21 04/07/23 Joe Herrera MD [address] [place] [address] [address] [place] [address] Assigned Endocrinology Provider 05/26/21 01/16/23 Marika Salcido, [facility] Photograph Editor BMT - Adult 06/14/21 Tad Jordan MD [address] [address] Assigned Cancer Care Provider 06/23/21 Debbie Lugo, RN Registered Nurse 01/21/22 Blaine Chaves RN BMT Nurse Coordinator Transplant 04/08/23 documented as of this encounter
--- OUTSIDE RECORDS SUMMARY | 2023-08-28 22:45 | XMS_ITS | Encounter Summary ---
Author Name Unknown Organization [place] Address [address] [facility] [place] [address] Care Team Providers Care Greenhouse Superintendent Name Role Phone Caren Gómez Primary Care Provider Kathrin Peoples RN Unavailable Shari Salazar MD Unavailable Nyasia Prince MD Unavailable Unavailab Tim Jimenez MD Unavailable [phone] Tad Jordan MD Unavailable [phone] Mallory Malin MD Unavailable [phone] Latasha Wilcox PA-C Unavailable [phone] Matteo Gómez RN Unavailable [phone] Joe Herrera MD Unavailable [phone] Marika Salcido [facility] Unavailable Tad Jordan MD Unavailable [phone] Debbie Lugo RN Unavailable Unavailabl e Samec, Blaine L RN Unavailable Unavailable Encounter Details Date Type Department Care Team (Late st Contact Info) Description 03/28/[address] [facility] Blood and Marrow Transplant Program [address] [phone] Nyasia Prince MD NO INFO AVAILABLE 06/27/2022 [...] 9:[address] [facility] [address] [place] [address] [phone] Tad Jordan MD [address] [place] [address] [phone] 04/25/2024 9:15 AM CDT Oncology Visit [facility] Blood and Marrow Transplant Program [address] [phone] Tad Jordan MD [address] [place] [address] [phone] documented as of this encounter Visit Diagnoses [...] Out COVID-19 07/17/2021 07/17/2021 07/17/2021 11:03 PM MENTAL HYGIENE CONSULTANT COVID-19 Comment:Spoke with infectious disease, Dr. Katrin Harvey. After review of cycle thresholds and patient symptoms, Dr. Harvey advises that this patient no longer requires covid isolation requirements. 07/17/2021 08/15/2021 08/16/2021 11:21 AM MENTAL HYGIENE CONSULTANT Rule Out C-difficile 07/18/2021 07/19/2021 022 5:47 AM MENTAL HYGIENE CONSULTANT 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 Rule Out C-difficile 08/15/2021 08/16/2021 022 8:33 AM MENTAL HYGIENE CONSULTANT Rule Out C-difficile 01/20/2022 01/20/2022 022 7:37 PM CDT C-difficile 01/20/2022 01/20/2022 02/19/2022 11:4 1 PM CDT Rule Out Parvovirus 01/22/2022 01/23/2022 01/28/20 22 3:32 PM CDT Parvovirus 01/23/2022 04/27/2023 Rule Out Parvovirus 01/29/2022 01/29/2022 02/04/20 22 4:12 PM CDT Rule Out Parvovirus 04/27/2023 04/27/2023 05/01/20 23 9:52 PM CDT documented as of this encounter Care Teams Greenhouse Superintendent Relationship Specialty Start Date End Date Carne Gómez PCP - General Physician Oceanic Sciences Professor 03/16/20 Kathrin Peoples, RN Specialty Account Support Manager Hematology & Oncology 03/30/20 04/29/21 Shari Salazar MD [address] [place] [address] Assigned OBGYN Provider 05/04/20 Nyasia Prince MD NO INFO AVAILABLE 06/27/2022 Assigned Cancer Care Provider 05/04/20 06/22/21 Tim Alicea MD [address] [place] [address] Assigned Surgical Provider 08/12/20 02/07/22 Tad Jordan MD [address] [facility] [address] [place], [place] [phone] BMT Physician Transplant 04/10/21 Mallory Malin MD [address] [place] [address] [phone] Endocrinology, Diabetes, and Metabolism 05/10/21 Latasha Wilcox PA-C [address] [place] [address] [phone] Referring Physician Hematology & Oncology 05/10/21 Matteo Gómez, NICKI Specialty Account Support Manager BMT - Adult 05/16/21 04/07/23 Joe Herrera MD [address] [facility] [address] [place], [place] [phone] Assigned Endocrinology Provider 05/26/21 01/16/23 Marika Salcido, [facility] Busher Helper BMT - Adult 06/14/21 Tad Jordan MD [address] [phone] Assigned Cancer Care Provider 06/23/21 Debbie Lugo, RN Registered Nurse 01/21/22 Blaine Chaves, RN BMT Nurse Coordinator Transplant 04/08/23 documented as of this encounter
[2023-08-28] MEDS: VALACYCLOVIR HCL 500 MG TABLET 1000 MG PO (22:47)
--- NOTE | 2023-08-29 00:08 | ED.GENADULT ---
HPI - General Adult General Date Seen: 08/28/23 Chief complaint: Rib Pain Stated complaint: Pain - R side Time Seen by Provider: 08/28/23 22:15 Source: patient Mode of arrival: ambulatory Limitations: no limitations History of Present Illness HPI narrative: Patient is a very nice 43-year-old female presents here with worsening right-sided chest discomfort, and a rash she has developed in the last 24-48 hours. She is in no fevers or chills she fell awhile ago approximately 2-3 weeks ago, noted that she has been seen twice by her doctor, for a possible rib injury . X-rays are negative, but she her primary told her that she may have cracked a rib. She has been using Tylenol for the discomfort but this is just not working in the last 48 hours she has developed a rash. 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 Associated symptoms: denies other symptoms Related Data Home Medications Medication Instructions Recorded Confirmed acyclovir 400 mg tablet 400 mg PO Q12H 07/26/22 07/26/22 albuterol sulfate 2.5 mg/3 mL mg 07/26/22 (0.083 %) solution for nebulization albuterol sulfate 90 mcg/actuation inhalation 07/26/22 aerosol inhaler (Ventolin HFA) deferasirox 500 mg dispersible 500 mg PO .once daily 07/26/22 01/27/23 tablet levothyroxine 88 mcg tablet 88 mcg PO .once daily 07/26/22 08/28/23 loratadine 10 mg tablet (Claritin) 10 mg PO DAILY 07/26/22 08/28/23 atorvastatin 20 mg tablet 20 mg PO DAILY 01/27/23 01/27/23 escitalopram oxalate 10 mg tablet 10 mg PO DAILY 01/27/23 01/27/23 escitalopram oxalate 20 mg tablet 20 mg PO DAILY 01/27/23 08/28/23 Previous Rx's Medication Instructions Recorded ondansetron 4 mg disintegrating 4 mg PO Q8H PRN nausea and 01/27/23 tablet vomiting #15 tabs valacyclovir 1 gram tablet 1,000 mg PO TID #21 tabs 08/28/23 (Valtrex) Allergies Allergy/AdvReac Type Severity Reaction Status Date / Time chlorhexidine Allergy Intermediate hives Verified 07/26/22 00:22 morphine Allergy Intermediate rash Verified 07/26/22 00:22 Review of Systems Status of ROS: Reports: 10 or more systems reviewed and unremarkable except as noted in History and below [facility] Medical History Transplanted bone marrow present ?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 - Bone marrow transplant status (ICD-10) Anxiety ?F41.9 - Anxiety disorder, unspecified (ICD-10) 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) Social History Smoking Status: Never smoker Do you use any of these nicotine containing products: None Second hand tobacco smoke exposure: No How often do you have a drink containing alcohol: never How often do you have six or more drinks on one occasion: Never AUDIT-C Alcohol total score: 0 Non-prescribed substance use: denies use service: No Exam Narrative: Exam Narrative: On examination she is seen in room 5 she is in no apparent distress, she has an elevated BMI she has the rash around T7-T8, on the right side consistent with shingles chest is good air entry heart sounds are normal Const: Vital Signs, click to edit/add: Vital Signs - 24 hr 08/28/23 22:14 Temperature 97 F L Pulse Rate [Pulse Oximeter] 106 H Respiratory Rate 16 Blood Pressure [Ri ght Upper Arm] 185/117 H Pulse Oximetry 98 Oxygen Delivery Me thod Room Air Documenting provider has reviewed patient's vital signs: yes Course Vital Signs Vital signs: Initial Vital Signs Temperature 97 F L 08/28/23 22:14 Temperature Source Temporal Artery Scan 08/28/23 22:14 Pulse Rate 106 H 08/28/23 22:14 Respiratory Rate 16 08/28/23 22:14 Blood Pressure 185/117 H 08/28/23 22:14 Blood Pressure Mean 139 H 08/28/23 22:14 Blood Pressure Position Standing 08/28/23 22:14 Pulse Oximetry 98 08/28/23 22:14 Oxygen Delivery Method Room Air 08/28/23 22:14 Vital Signs Temperature 97 F L 08/28/23 22:14 Pulse Rate 106 H 08/28/23 22:14 Respiratory Rate 16 08/28/23 22:14 Blood Pressure 185/117 H 08/28/23 22:14 Pulse Oximetry 98 08/28/23 22:14 Oxygen Delivery Method Room Air 08/28/23 22:14 Temperature 97 F L 08/28/23 22:14 Pulse Rate 106 H 08/28/23 22:14 Respiratory Rate 16 08/28/23 22:14 Blood Pressure 185/117 H 08/28/23 22:14 Pulse Oximetry 98 08/28/23 22:14 Oxygen Delivery Method Room Air 08/28/23 22:14 Medications Administered Medications: Discontinued Medications Generic Name Dose Route Start Last Admin Trade Name Lucy PRN Reason Stop Dose Admin Valacyclovir HCl 1,000 mg 08/28/23 22:28 08/28/23 22:47 Valacyclovir Hcl 500 Mg Tablet PO 08/28/23 22:29 1,000 mg ONCE ONE Administration Medical Decision Making MDM Narrative Medical decision making narrative: Rashes characteristic of shingles, no evidence of any secondary infection, will give her a dose of all tracks here, and that she should be on t.i.d. the next 5-7 days. Went over warning signs, when she is re-presented I did give her some Vicodin that she can use, for pain. Discharge Plan Discharge Clinical Impression: Shingles Patient Disposition: Home, Self-Care Condition: Stable Instructions: Shingles (ED) Additional Instructions: home with rest and medications as directed. Contagious to direct touch. followup if secondary infections or nausea, vomiting, headache or fever Activity Level: Light activity Prescriptions: New valacyclovir [Valtrex] 1 gram tablet 1,000 mg PO TID Qty: 21 0RF No Action albuterol sulfate 2.5 mg /3 mL (0.083 %) solution for nebulization acyclovir 400 mg tablet 400 mg PO Q12H levothyroxine 88 mcg tablet 88 mcg PO .once daily albuterol sulfate [Ventolin HFA] 90 mcg/actuation HFA aerosol inhaler INHALATION deferasirox 500 mg tablet, dispersible 500 mg PO .once daily loratadine [Claritin] 10 mg tablet 10 mg PO DAILY atorvastatin 20 mg tablet 20 mg PO DAILY escitalopram oxalate 10 mg tablet 10 mg PO DAILY escitalopram oxalate 20 mg tablet 20 mg PO DAILY ondansetron 4 mg tablet,disintegrating 4 mg PO Q8H PRN (Reason: nausea and vomiting) Qty: 15 0RF Follow Up/Referrals: Dee Chris PA-C [Primary Care Provider] - Stand Alone Forms: [employer] Info Instructions
== END 2023-08-28 22:55 | disposition home or self-care (01) ==
LOC: ED 22:38
PROVIDERS: Emergency Provider Family Medicine; PCP Student in an Organized Health Care Education/Training Program
DX: B02.9 Zoster without complications (principal)
CPT/HCPCS: 99283; A9270